=== PATIENT | female | born 2000 | race Caucasian/White ===

== ENCOUNTER 2022-10-28 21:01 | Emergency (ER) | payer MEDICAID, SELFPAY ==
--- NOTE | ~2022-10-28 | XR_ITS ---
EXAMINATION: XR HAND, RIGHT CLINICAL INFORMATION: Fifth metacarpal pain status post punching COMPARISON: None TECHNIQUE: PA, lateral, and oblique views of the right hand. FINDINGS: There is a boxer's type fracture of the fifth metacarpal with ventral angulation of the distal fracture fragment. No other fractures are seen. No dislocations. XR/XR hand RT min 3V IMPRESSION: Boxer's type fracture fifth metacarpal.
[2022-10-28 21:35] VITALS: BP 116/81; PULSE 77; RESP 16; TEMP 36.5; O2SAT 96; BMI 41.5
--- OUTSIDE RECORDS SUMMARY | 2022-10-28 22:12 | XMS_ITS | Continuity of Care Document ---
:2000 Author Organization [facility] Address [address] [place] [address]- Care Team Providers Name Role Phone Maximo GUTIERREZ, Rukhsana Garcia Primary Care Physician [place] [facility] [place]14/19 - 12/24/[address] [address]- [facility] Attending Physician: Deandre Rubio Admitting Physician: Deandre Rubio Referring Physician: Deandre Rubio Allergies, Adverse Reactions, Alerts No Known Medication Allergies Medications Handheld Electric Breast Pump See Instructions, # 1 each, Maintenance, Use as instructed, 04/29/18 10:13:36 EDT, Compound Start Date: 04/29/18 Status: OrderedPrenatal Multivitamins with Folic Acid 0.4 mg oral capsule 1 capsule, By Mouth, Daily, # 30 capsule, 0 Refills, Maintenance, 04/29/18 10:06:14 EDT, 1 capsule By Mouth Daily Start Date: 04/29/18 Status: Ordered
--- OUTSIDE RECORDS SUMMARY | 2022-10-28 22:12 | XMS_ITS | Continuity of Care Document ---
:2000 Author Organization [facility] Address [address] [place] [address]- Care Team Providers Name Role Phone Maximo GUTIERREZ, Rukhsana Garcia Primary Care Physician Encounter [facility] Date(s): 12/02/19 - 12/02/[address] [address]- [facility] Attending Physician: Leanne Burleson Allergies, Adverse Reactions, Alerts No Known Medication [...]
--- OUTSIDE RECORDS SUMMARY | 2022-10-28 22:12 | XMS_ITS | Continuity of Care Document ---
:2000 Author Organization [facility] Address [address] [place] [address]- Care Team Providers Name Role Phone Maximo GUTIERREZ, Rukhsana Garcia Primary Care Physician Encounter [facility] Date(s): 12/15/19 - 12/15/[address] [address]- [facility] Attending Physician: Carmelina Lamar MD Allergies, Adverse Reactions, Alerts No Known Medication [...]
--- OUTSIDE RECORDS SUMMARY | 2022-10-28 22:12 | XMS_ITS | Continuity of Care Document ---
:2000 Author Organization [facility] Address [address] [place] [address]- Care Team Providers Name Role Phone Maximo GUTIERREZ, Rukhsana Garcia Primary Care Physician Encounter [facility] Date(s): 11/08/19 - 11/18/19 [facility] [address] [place] [address]- [facility] Attending Physician: Deandre Rubio Admitting Physician: Deandre Rubio Referring Physician: AdmtrDeandre Allergies, Adverse Reactions, Alerts No Known Medication [...]
--- OUTSIDE RECORDS SUMMARY | 2022-10-28 22:12 | XMS_ITS | Encounter Summary ---
:2000 Author Reason for Visit Injury to Hand pt c/o right hand pain, bruising, swelli ng after voluntarily punching wall this AM Assessment and Plan 1. Pain in right hand ? learning about rice (rest, ice, compr ession, and elevation) ? XR, hand, 3 or more view 2. Closed fracture of fifth metacarpal bone of right hand ? emergency medicine referral Discussion Note: None recorded. Plan of Care Patient Instructions You have a fracture of your right 5th m etacarpal with angulation that requires reduction. You have been advised to go n ow to the Emergency Department for further evaluation. [facility] has been advised of your impending arrival. Reminders Provider Appointments None recorded. ? ? Lab None recorded. ? ? Referral Emergency Medicine Referral 10/28/2022 ? Procedures None recorded. ? ? Surgeries None recorded. ? ? Imaging XR, Hand, 3 or More View 10/28/2022 [facility] X-Ray Medications Name Start Date ? ? Adderall ? Celexa ? lamotrigine ? prednisone ? valacyclovir ? Medications Administered None recorded. Vitals Height Weight BMI Blood Pressure 5 ft 5 in 249 lbs 16 oz 41.6 kg/m2 112/80 mm[Hg] Results Lab Results None recorded. Allergies Code Code System Name Reaction Severity Onset NKDA ? ? ? Problems Name Status Onset Date Source ? Herpes Simplex Active 10/28/2022 ? Bipolar Disorder Active 10/28/2022 ? Anxiety Active 10/28/2022 ? Depressive Disorder Active 10/28/2022 ? Attention Deficit Hyperactivity Disorder Active 023 ? Procedures Date Name Performed by ? ? Operation for Retained Placenta Informat ion not available ? Remove Tonsils and Adenoids Information not available 10/28/2022 XR, Hand, 3 or More View [employer] X-Ra y [address] [place], [place] [address] (Work Place) Vaccine List Vaccine Type COVID-19, mRNA, LNP-S, bivalent booster, PF, 30 mcg/0.3 mL dose ([employer]) 10/09/2022?0.3 ML COVID-19, mRNA, LNP-S, PF, 30 mcg/0.3 mL dose (V[employer]cherlink) 07/30/2021?0.3 ML 08/23/2021?0.3 ML Tdap 02/12/2018 01/11/2022?0.5 ML Social History Tobacco Smoking Status Never Smoker What is your level of alcohol consumption? Occasional Do you or have you ever used any other forms of tobacco or n icotine? N Have you recently traveled abroad? N Which illicit or recreational drugs have you used? Marijuann a Do you use any illicit or recreational drugs? Y Functional Status Unknown. Past Encounters Encounter Date Diagnosis Provider 10/28/2022 Pain in Right Hand; Closed Fracture Gil Cardenas MD: [address] [id number], Ph. [phone] History of Present Illness ? Wrist/Hand Injury UC Reported By: Patient HPI: source of patient informatio n Patient arrived at Urgent Care ambulatory. Location: right, hand. Assoc iated Symptoms: no redness, pain, swelling, ecchymosis. Severity: modera te. Duration: days; this morning. Context: ; Punched wall. Aggravating Fa ctors: gripping; palpation. Previous Injury No prior injury to affected body part. Previous Treatment none. Prior Imaging: none Notes: <div>21 year old female pres enting for evaluation of right hand pain, swelling and bruising after punching a wall this morning. The pain is worse with movement and palp ation. No dayron numbness or weakness of the hand. No other injuries or c omplaints. No skin redness, abrasons or lacerations. </div> Review of Systems: ROS as noted in the HPI Review of Systems ? UC General Adult ROS Reported By: Patient Physical Exam ? Hand/Wrist UC Reported By: Patient Cardiovascular System: Edema Right: ; Soft tissue s welling dorsal right hand over 4th and 5th metacarpals. Arteria l Pulses Right: radial pulse normal, ulnar pulse normal. Capillary Refill Right capillary refill test normal Hands and Digits: Inspection Right: swelling; Swelling dorsal right hand over 4th and 5th metacarpals. Sof t Tissue Palpation Right Hand: ; Tenderness to palpation dors al right hand over 4th and 5th metacarpals without crepitus . Thumb Right: no tenderness of the first metacarpal, no sub luxation of the CMC joint, no tenderness of the thumb, nor mal active range of motion. Index Finger Right: no tenderness of the second metacarpal, no tenderness of the index fing er, normal active range of motion. Middle Finger Right: no tend erness at the third metacarpal, no tenderness of the middle fin abel, normal active range of motion. Ring Finger Right: n o tenderness of the ring finger, normal active range of motio n; Tenderness of 4th metacarpal. No crepitus. Little Finger R ight: no tenderness of the little finger, normal active range of motion; Tenderness right 5th metacarpal, no crepitus. Sta bility Right: no general instability. Strength Right: ; Weak right hand concrete layer due to pain right hand. Right Wrist Inspection: ; Right wrist nontender, FROM, no swelling . Right Wrist Active Range of Motion AROM WNL
--- OUTSIDE RECORDS SUMMARY | 2022-10-28 22:12 | XMS_ITS ---
:2000 Author Care Team Providers Name Role Phone [id number] Provider Unavailable Allergies Code Code System Name Reaction Severity Status Onset NKDA ? Medications Name Status Start Date Stop Date ? ? Adderall Active ? Not available Celexa Active ? Not available lamotrigine Active ? Not available prednisone Active ? Not available valacyclovir Active ? Not available Problems Name Status Onset Date Source ? Herpes Simplex Active 10/28/2022 ? Bipolar Disorder Active 10/28/2022 ? Anxiety Active 10/28/2022 ? Depressive Disorder Active 10/28/2022 ? Attention Deficit Hyperactivity Disorder Active 023 ? Procedures Date Name Performed by ? ? Operation for Retained Placenta Informat ion not available ? Remove Tonsils and Adenoids Information not available 10/28/2022 XR, Hand, 3 or More View [employer] X-Ra y [address] [place] [address] (Work Place) Results Lab Results None recorded. Past Encounters Encounter Date Diagnosis Provider 10/28/2022 Pain in Right Hand; Closed Fracture Gil Cardenas MD: [address] [place] [phone], Ph. Social History Tobacco Smoking Status Never Smoker Vaccine List Vaccine Type COVID-19, mRNA, LNP-S, bivalent booster, PF, 30 mcg/0.3 mL dose (Pfizer-BioNTech) 10/09/2022?0.3 ML COVID-19, mRNA, LNP-S, PF, 30 mcg/0.3 mL dose (Pfizer-BioNTech) 07/30/2021?0.3 ML 08/23/2021?0.3 ML Tdap 02/12/2018 01/11/2022?0.5 ML Plan of Care Patient Instructions You have a fracture of your right 5th m etacarpal with angulation that requires reduction. You have been advised to go n ow to the Emergency Department for further evaluation. [facility] has been advised of your impending arrival. Reminders Provider Appointments None recorded. ? ? Lab None recorded. ? ? Referral None recorded. ? ? Procedures None recorded. ? ? Surgeries None recorded. ? ? Imaging None recorded. ? ? Vitals Height Weight BMI Blood Pressure 5 ft 5 in 250 lbs 41.6 kg/m2 112/80 mm[Hg]
--- OUTSIDE RECORDS SUMMARY | 2022-10-28 22:12 | XMS_ITS | Continuity of Care Document ---
:2000 Author Organization [facility] Address [address] [place] [address]- Care Team Providers Name Role Phone Maximo GUTIERREZ, Rukhsana Garcia Primary Care Physician Encounter [facility] Date(s): 10/06/19 - 12/08/19 [facility] [address] [place] [address]- [facility] Attending Physician: Jagdeep GUTIERREZ, Wm Mcguire Allergies, Adverse Reactions, Alerts No Known Medication [...]
--- OUTSIDE RECORDS SUMMARY | 2022-10-28 22:12 | XMS_ITS | Continuity of Care Document ---
:[address] Author Organization [facility] Address [address] [place] [address]- Care Team Providers Name Role Phone Maximo GUTIERREZ, Rukhsana Garcia Primary Care Physician Encounter [facility] Date(s): 11/11/19 - 11/18/[address] [address]- [facility] Attending Physician: Carmelina Lamar MD Allergies, Adverse [...]
--- OUTSIDE RECORDS SUMMARY | 2022-10-28 22:13 | XMS_ITS ---
:2000 Author Organization [facility] Address [address] [place] [address] Care Team Providers Name Role Phone Griffin Bone Unavailable Unavailable PROBLEMS Type Condition ICD9-CM Code NSE57-KX Code Onset Condition SNO MED Code Dates Status Problem Asthma NOS J45.998 Active 615520144 Problem BMI 40.0-44.9, Z68.41 Active 02330 2008 adult Problem Mood [affective] F39 Active 441 267977 disorder, unspecified Problem Vitamin D E55.9 Active 31890248 deficiency, unspecified Problem Fatigue, other R53.83 Active 81635 001 Problem Nasal congestion R09.81 Active 682 60782 Problem Cough R05 Active 20459495 Problem ADHD, combined F90.2 Active 49784 6008 type Problem Amenorrhea, N91.2 Active 38673848 unspecified Problem Asthma with J45.901 Active 41737369 6 (acute) exacerbation, unspecified type Problem GERD K21.9 Active 310068627 Problem Shortness of R06.02 Active 0319959 07 breath Problem Fever NOS R50.9 Active 732951865 Problem Anxiety F41.9 Active 901855215 (unspecified) Problem Irregular N92.6 Active 98922212 menstruation, unspecified ALLERGIES No Known Allergies ENCOUNTERS Encounter Location Date Diagnosis [facility] [address] Sep, Cough, unspecifi ed R05.9 ; Practice [place] URI J06.9 ; [place] [address] breath R06.02 an d Asthma with (acute) exa cerbation, unspecified type J45.[address] [facility] [address] 22 Sep, 2021 Pain in thoracic spine M54.6 [place] ; Pain hip, righ t M25.551 ; [address] Segmental and so matic dysfunction of t horacic region M99.02 ; Segmental and somatic dysf unction of pelvic region M9 9.05 and Segmental and so matic dysfunction of l umbar region M99.03 [facility] [address] 15 Sep, 2022 No Show or Late Cancel [place] NS.LTCX [address] [facility] NO [address] 14 Sep, 2022 Encounter for im munization [place] Z23 ; Disorder o f the skin [address] and subcutaneous tissue, unspecified L98. 9 and follo w-up Z39.2 [place] [address] 11 Aug, 2022 [place] [address] 11 Aug, 2022 ADHD, combined t ype F90.2 [place] [address] [place] [address] Aug, [place] [address] [place] [address] Jul, Cough, unspecifi ed R05.9 and [place] Asthma NOS J45.9 98 [address] [facility] NO [address] 25 Jul, 2022 Strain of muscle and tendon [place] of back wall of thorax, [address] subsequent encou nter S29.012D ; No Sh ow or Late Cancel NS.LTCX ; Other low back pain M54.59 ; Segmental and somatic dysf unction of thoracic region M99.02 ; Segmental and so matic dysfunction of p elvic region M99.05 and Segme ntal and somatic dysfunct ion of lumbar region M9 9.03 [facility] NO [address] 12 Jul, 2022 Back pain, unspe cified M54.9 [place] and Encounter fo r care and [address] examination of l actating mother Z39.1 [facility] [address] 11 Jul, 2022 Strain of muscle and tendon [place] of back wall of thorax, [address] subsequent encou nter S29.012D ; Other low back pain M54.59 ; Se gmental and somatic dysfunct ion of thoracic region M99.02 ; Segmental and so matic dysfunction of p elvic region M99.05 and Segme ntal and somatic dysfunct ion of lumbar region M9 9.03 [facility] [address] 05 Jul, 2022 No Show or Late Cancel [place] NS.LTCX [address] [facility] [address] 27 Jun, 2021 Strain of muscle and tendon [place] of back wall of thorax, [address] initial encounte r S29.012A ; Segmental and so matic dysfunction of t horacic region M99.02 an d Segmental and somatic dysf unction of pelvic region M9 9.05 [place] [address] Jun, [place] [address] Jun, [place] [facility] [address] Jun, Back pain, unspe cified M54.9 [place] and Encounter fo r care and [address] examination of l actating mother Z39.1 [place] [address] Jun, [place] [facility] [address] 03 May, 2022 Fatigue R53.83 ; Encounter [place] [address] lactating mother Z39.1 and Back pain, unspe cified M54.9 [place] [address] Apr, [place] [address] Apr, [place] [address] Apr, [place] [address] [facility] [address] 30 Mar, 2022 Fatigue R53.83 a nd Encounter [place] [address] lactating mother Z39.1 [facility] [address] Mar, [place] [address] [place] [address] Mar, [place] [address] [place] [address] Mar, [place] [address] [place] [address] Mar, Localized bryan carreonmavis and Practice [place] lump, right lowe r limb [address] R22.41 [facility] [address] Mar, Fatigue R53.83 ; Encounter [place] [address] lactating mother Z39.1 and Edema localized R60.0 [place] [address] Mar, [place] [address] [place] [address] Mar, [place] [address] [place] [address] Mar, Fatigue R53.83 ; Encounter [place] [address] lactating mother Z39.1 ; Encounter for sc reening for other disorder Z 13.89 and hemor rhage O72.1 [place] [address] Mar, [place] [address] [place] [address] February, [place] [address] [place] [address] Jan, [place] [address] [place] [address] Dec, [place] [address] [place] [address] Nov, [place] [address] [place] [address] Nov[place] [address] [place] [address] Nov, [place] [address] [facility] [address] Nov, Mood [affective] disorder, [place] unspecified F39 and ADHD, [address] combined type F9 0.2 [place] [address] Oct, COVID-19 U07.1 ; Asthma NOS [place] J45.998 and 22 w eeks [address] gestation of pre gnancy Z3A.22 [place] [address] Oct, [place], [place] [facility] [address] Oct, COVID-19 [place]07[place]1 [place] [address] 13 Oct, 2021 Contact with and (suspected) [place] exposure to COVI D-19 Z20.822 [address] and Cough, unspe cified R05.9 [place] [address] Oct, [place], [place] AFP [address] Oct, COVID-19 EXPOSUR E Z20.822 [place] and Asthma NOS J 45.998 [address] [place] [address] Oct, [place] [address] Oct, [place] [address] Oct, [place] AFP [address] Oct, Acute pharyngiti s, [place] unspecified J02. 9 ; 20 weeks [address] gestation of pre gnancy Z3A.20 ; HSV B00 .2 ; Nausea R11.0 and Asthma NOS J45.998 [place] [address] Oct, [place] AFP [address] Oct, [place] [address] Oct, Mood [affective] disorder, [place] unspecified F39 and ADHD, [address] combined type F9 0.2 [place] [address] Oct, [place] AFP NO 6 [facility] Oct, Pharyngitis Acut e J02.9 [place] [address] [place] [address] Sep, [place] [address] Sep[place] [address] Sep[place] [address] Aug[place] [address] Aug, [place] [address] [place] [address] Jul, [place] [address] Jul, [place] [address] [facility] [address] Jul, Cough R05 and Vo miting [place] unspecified R11. 10 [address] [facility] [address] Jul, Cough, unspecifi ed R05.9 and [place] COVID-19, Contac t with and [address] (suspected) expo sure Z20.822 [place] [address] Jul, [place] [address] Jun, [place] [address] [facility] [address] Jun, [place] [address] [place] [address] Jun, [place] [address] [facility] [address] Jun, Counseling, unsp ecified [place] Z71.9 [address] [place] [address] Jun, [place] [address] Jun, [place] [address] May, [place] [address] May, ADHD, combined t ype F90.2 [place] [address] [address] [facility] [address] May, STD screen Z11.3 [place] [address] AFP NO [address] May, Chlamydial infec tion of [place] genitourinary [place] act, [address] unspecified A56. 2 [place] [address] May, [place] [address] May, [place] [address] May, [place] [address] [place] [address] May, Pelvic and perin eal pain Practice [place] R10.2 and Other specified noninflammatory disorders of vagina N89.8 [place] [address] May, Vaginitis acute N76.0 ; [place] [address] [address] act, unspecified A56. 2 ; Pain Pelvic and perin eal R10.2 and Disorder of the skin and subcutaneous tis addy, unspecified L98. 9 [place] [address] May, [place] [address] May, Mood [affective] disorder, [place] unspecified F39 ; Fatigue, other R53.83 and Anxiety (unspecified) F4 1.9 [place] [address] May, [place] [address] Apr, [place] [address] [place] [address] Apr, [place] [address] [place] [address] Apr, Candidiasis, uns pecified [place] B37.9 ; Vaginiti s acute N76.0 and Chlamy dial infection of gen itourinary tract, unspecifi ed A56.2 [place] [address] Apr, [place] [address] Apr, [place] [address] [place] [address] Apr, [place] [address] [place] [address] Apr, Vaginitis acute N76.0 ; PAP Practice [place] SMEAR Z01.419 ; STD Exposure [address] Z20.9 and Fatigu e R53.83 [place] [address] Apr, [place] [address] [place] [address] Apr, [facility] [address] [place] [address] Mar, [place] [address] [place] [address] Mar, [place] [address] [place] [address] Mar, Mood [affective] disorder, [place] unspecified F39 ; Fatigue, [address] other R53.83 and Anxiety (unspecified) F4 1.9 [place] [address] Mar, Vaginitis acute N76.0 [place] [address] [place] [address] Mar, [place] [address] [place] [address] Mar, Cough R05 and ST D Exposure [place] Z20.9 [address] [place] [address] Mar, Mood [affective] disorder, [place] unspecified F39 ; Fatigue, [address] other R53.83 and Anxiety (unspecified) F4 1.9 [place] [address] February, [facility] [address] [place] [address] February, Mood [affective] disorder, [place] unspecified F39 [address] [place] [address] February, Irregular menstr uation, [place] unspecified N92. 6 and BMI [address] 40.0-44.9, adult Z68.41 [place] [address] February, [facility] [address] [place] [address] February, [place] [address] [place] [address] Jan, Mood [affective] disorder, [place] unspecified F39 [address] [facility] [address] Jan, Covid Exposure, Unlikely Practice [place], [place] Disease Z03.818 [address] [facility] [address] Jan, COVID-19 EXPOSUR E Z20.822 [place] [address] [place] [address] Jan, [place] [address] [place] [address] Jan, [place] [address] [place] [address] Jan, Pelvic and perin eal pain [place] R10.2 and Fatigu e R53.83 [address] [place] [address] Jan, Mood [affective] disorder, [place] unspecified F39 and Anxiety [address] (unspecified) F4 1.9 [place] [address] Dec, Mood [affective] disorder, [place] unspecified F39 [address] [facility] 6 [facility] Dec, Acute sinusitis, unspecified [place] J01.90 [address] [place] [address] Dec, [place] [address] [place] [address] Dec, Mood [affective] disorder, [place] unspecified F39 [address] [place] [address] Dec, [place] [address] [place] [address] Dec, [place] [address] [place] [address] Dec, [place] [address] [place] [address] Dec, Fatigue, other R 53.83 and [place] Mood [affective] disorder, [address] unspecified F39 [place] [address] Dec, [place] [address] [facility] [address] Nov, Covid Exposure, Unlikely [place] Disease Z03.818 [address] [place] [address] Nov, Fatigue, other R 53.83 and Practice [place] Mood [affective] disorder, [address] unspecified F39 [facility] [address] Nov, Fatigue, other R 53.83 and Practice [place] Mood [affective] disorder, [address] unspecified F39 [facility] [address] Nov, Fatigue, other R 53.83 and Practice [place] Mood [affective] disorder, [address] unspecified F39 [facility] [address] Nov, Fatigue, other R 53.83 and Practice [place] Mood [affective] disorder, [address] unspecified F39 [facility] [address] Nov, Practice [place] [address] [facility] [address] Oct, Fatigue, other R 53.83 and Practice [place] Mood [affective] disorder, [address] unspecified F39 [facility] [address] Oct, [place] [address] [facility] [address] Oct, [place] [address] [facility] [address] Oct, Practice [place] [address] [facility] [address] Oct, Mood [affective] disorder, Practice [place] unspecified F39 [address] [facility] [address] Oct, [facility] [address] [facility] [address] Oct, [place] [address] [facility] [address] 15 Oct, 2020 Amenorrhea, unsp ecified [place], [place] N91.2 ; [place] [address] test, result positive Z32.01 and Fatigue R53.83 [facility] [address] 14 Oct, 2020 Amenorrhea, unsp ecified [place] N91.[address] [place] [address] test, result positive Z32.01 [facility] [address] Oct, Fatigue, other R 53.83 and Practice [place] Mood [affective] disorder, [address] unspecified F39 [facility] [address] Oct, Fatigue, other R 53.83 and Practice [place] Mood [affective] disorder, [address] unspecified F39 [facility] [address] Sep, Encounter for pr escription Practice [place] of emergency con traception [address] Z30.012 [facility] [address] Sep, Practice [place] [address] [facility] [address] Sep, Practice [place] [address] [facility] [address] Sep, COVID-19 Contact with, Practice [place] Suspected exposu re Z20.828 [address] [facility] [address] Sep, [place] [address] [facility] [address] Sep, Fatigue, other R 53.83 and Practice [place] Mood [affective] disorder, [address] unspecified F39 [facility] [address] Sep, [place] [address] [facility] [address] Sep, [place] [address] [facility] [address] Sep, Fatigue, other R 53.83 and Practice [place] Mood [affective] disorder, [address] unspecified F39 [facility] [address] Aug, Fatigue, other R 53.83 and Practice [place] Mood [affective] disorder, [address] unspecified F39 [facility] [address] Aug, Fatigue, other R 53.83 and Practice [place] Mood [affective] disorder, [address] unspecified F39 [facility] [address] Aug, Fatigue, other R 53.83 Practice [place] [address] [facility] [address] Aug, [place] [address] [facility] [address] Aug, Fatigue, other R 53.83 Practice [place] [address] [facility] [address] Jul, Fatigue, other R 53.83 Practice [place] [address] Jul, Fatigue, other R 53.83 [place] [address] Jul, Cough R05 ; Feve r NOS R50.9 [place] and Shortness of breath R06.02 [place] [address] Jul, [place] [address] [place] [address] Jul, [place] [address] Jul, Cough R05 [place] [address] Jul, [place] [address] Jul, [place] [address] Jul, [place] [address] Jul, [place] [address] 15 Jul, 2020 Fatigue, other R 53.83 [place] [address] 15 Jul, 2020 [place] AFP [facility] [address] 15 Jul, 2020 Cough R05 ; Asth ma NOS [place] J45.998 ; Myalgi a, [address] unspecified site M79.10 and Nasal congestion R09.81 [place] [address] Jul, Fatigue, other R 53.83 [place] [address] Jun, Fatigue, other R 53.83 [place] [address] 18 Jun, 2020 Fatigue, other R 53.83 [place] [address] Jun, Fatigue, other R 53.83 [place] [address] 16 Jun, 2020 Fatigue, other R 53.83 [place] [address] 11 Jun, 2020 Mood [affective] disorder, [place] unspecified F39 [address] [facility] [address] Jun, Mood [affective] disorder, [place] unspecified F39 [address] [facility] [address] Jun, Mood [affective] disorder, [place] unspecified F39 [address] [facility] [address] May, Mood [affective] disorder, [place] unspecified F39 [address] [facility] [address] May, Mood [affective] disorder, [place] unspecified F39 [address] [facility] [address] 13 May, 2020 Fatigue R53.83 ; Pain Neck [place] M54.2 and GERD K 21.9 [address] [facility] [address] May, Mood [affective] disorder, [place] unspecified F39 [address] [facility] [address] 07 May, 2020 Pain Neck M54.2 ; [place] Amenorrhea, unsp ecified [address] N91.2 and GERD K 21.9 [facility] [address] Apr, [place] [address] [facility] [address] Apr, [place] [address] [facility] [address] Apr, Mood [affective] disorder, [place] unspecified F39 [address] [facility] [address] Apr, Fatigue R53.83 [place] [address] [facility] [address] Apr, [place] [address] [facility] [address] Apr, [place] [address] [facility] [address] Apr, Adnexal pain R10 .2 [place] [address] [facility] [address] Apr, Pain Pelvic and perineal [place] R10.2 and Nausea R11.0 [address] [facility] [address] Apr, [place] [address] [facility] [address] Mar, [place] [address] [facility] [address] Mar, Fatigue R53.83 [place] [address] [facility] [address] Mar, Practice [facility] [address] [facility] [address] Mar, Fatigue R53.83 [place] [address] [facility] [address] Mar, Pain hand, left M79.642 [place] [address] [facility] [address] Mar, [place] [address] [facility] [address] Mar, Fatigue R53.83 [place] [address] [facility] [address] Mar, Fatigue R53.83 [place] [address] [facility] [address] February, Fatigue R53.83 [place] [address] [facility] [address] February, [place] [address] [facility] [address] February, Fatigue R53.83 [place] [address] [facility] [address] February, Fatigue R53.83 [place] [address] [facility] [address] Jan, Fatigue R53.83 [place] [address] [facility] [address] Jan, Fatigue R53.83 [place] [address] [facility] [address] Jan, Fatigue R53.83 [place] [address] [facility] [address] Jan, Fatigue R53.83 [place] [address] [facility] [address] Jan, Practice [facility] [address] [facility] [address] Jan, Practice [facility] [address] [facility] [address] Jan, Fatigue R53.83 [place] [address] [facility] [address] Dec, Practice [facility], [facility] [address] [place] [address] Dec, [place] [address] [facility] [address] Dec, [place] [address] [place] [address] Dec, Fatigue R53.83 [place] [address] [place] [address] Dec, [place] [address] [place] [address] Nov, Fatigue R53.83 [place] [address] [place] [address] Nov, [place] [address] [place] [address] Nov, [place] [address] [place] [address] Nov, test, result [place] positive Z32.01 [address] [place] [address] Nov, [place] [address] [place] [address] Nov, Fatigue R53.83 [place] [address] [place] [address] Nov, [place] [address] [facility] [address] [facility] Nov, [place] [address] [address] [place] [address] Nov, Nausea R11.0 ; V aginitis [place] acute N76.0 and Influenza B [address] J10.89 [place] [address] Nov, Fatigue R53.83 [place] [address] [place] [address] Nov, [place] [address] [place] [address] Oct, [place] [address] [facility] [address] [address] [facility] Oct, Adult physical N ORMAL Z00.00 [place] ; Cough R05 ; [place] [address] R50.9 ; Asthma N [place] J45.998 ; Vitamin D defici ency, unspecified E55. 9 and BMI 40.0-44.9, adult Z68.41 [place] [address] Oct, Fatigue R53.83 [place] [address] [place] [address] Oct, [place] [address] Oct, Fatigue R53.83 [place] [address] Oct, [place] [address] [place] [address] Oct, CPE Z00.00 ; BMI 40.0-44.9, [place] adult Z68.41 ; F atigue [address] R53.83 ; [facility] Z13.22 0 and Vitamin D defici ency, unspecified E55. 9 [facility] 6 [facility] Oct, Asthma NOS J45.9 98 ; BMI [place] 40.0-44.9, adult Z68.41 ; [address] HSV B00.2 and Fa tigue R53.83 [place] [address] Oct, [place] [address] IMMUNIZATIONS Vaccine Route Administration Date Status COVID Vacc BIVALENT 12+ Pfizer IM Intramuscular Oct 09, 2022 Administered TDAP history Unknown January 11, 2022 Administered Covid Vaccine Pedi (Pfizer), IM Intramuscular Aug 22, 2021 Ad ministered History Covid Vaccine Pedi (Pfizer), IM Intramuscular Jul 30, 2021 Ad ministered History Ceftriaxone IM Intramuscular May 24, 2021 Administered SOCIAL HISTORY Qualifiers Date Former Smoker 2015 - 2017 REASON FOR REFERRAL FUNCTIONAL STATUS PLAN OF CARE Activity Details Future Appointment Provider Name:Nancy manzanares, 2022-12-03 10:30:00 AM, 6 [facility], [place], [address], Pending Test COV19, RSV,FLU A/B Pending Test Ultrasound : Duplex right lo wer extremity Pending Test Covid-19 Novel Coronavirus, HAFSA In House Pending Test URINE CHLAMYDIA GC (use this one for STD urine screen) Pending Test US PELVIS Pending Test Urine Dip --in house Pending Test -PAP, cervical, & GC/Chlamyd ia AMP DNA probe from [employer]; HPV Hybrid Capture High Risk DNA Probe any DX Pending Test COVID-19 (NOVEL CORONAVIRUS) , PCR Drive Through Pending Test COVID-19 (NOVEL CORONAVIRUS) , PCR Drive Through Pending Test Ultrasound : Trans Vaginal Pending Test Ultrasound : Trans Vaginal VITAL SIGNS Height 64 in 2022-09-04 Height 64 in 2022-05-22 Height 64 in 2022-04-23 Height 64 in 2022-03-12 Height 64 in 2022-02-13 Height 64 in 2022-01-01 Height 64 in 2021-12-04 Height 64 in 2021-11-12 Height 64 in 2021-11-07 Height 64 in 2021-10-30 Height 64 in 2021-10-29 Height 64 in 2021-07-17 Height 64 in 2021-07-04 Height 64 in 2021-05-23 Height 64 in 2021-05-02 Height 64 in 2021-04-17 Height 64 in 2021-03-20 Height 64 in 2021-03-19 Height 64 in 2021-02-15 Height 64 in 2021-02-05 Height 64 in 2021-01-12 Height 64 in 2021-01-12 Height 64 in 2020-11-28 Height 64 in 2020-11-15 Height 64 in 2020-11-09 Height 64 in 2020-10-21 Height 63.0 in 2020-07-05 Height 63.0 in 2020-06-21 Height 63.0 in 2020-06-02 Height 63.0 in 2020-05-17 Height 63.0 in 2020-04-20 Height 63.0 in 2019-12-02 Height 63.0 in 2019-11-24 Height 63.0 in 2019-11-04 Weight 252 lbs 2022-08-07 Weight 245.8 lbs 2022-05-29 Weight 246 lbs 2022-05-22 Weight 238.4 lbs 2022-04-25 Weight 245 lbs 2022-04-23 Weight 258 lbs 2022-03-12 Weight 255 lbs 2022-02-13 Weight 254 lbs 2022-01-01 Weight 253 lbs 2021-12-04 Weight 250 lbs 2021-11-12 Weight 250 lbs 2021-11-07 Weight 250 lbs 2021-10-31 Weight 250 lbs 2021-10-29 Weight 240 lbs 2021-07-17 Weight 238.9 lbs 2021-07-04 Weight 238.9 lbs 2021-05-24 Weight 235 lbs 2021-05-22 Weight 235 lbs 2021-05-02 Weight 234 lbs 2021-04-17 Weight 238.8 lbs 2021-04-02 Weight 235 lbs 2021-03-20 Weight 241 lbs 2021-02-05 Weight 257 lbs 2020-11-28 Weight 257 (stated) lbs 2020-11-15 Weight 259.6 lbs 2020-11-09 Weight 259.6 lbs 2020-10-21 Weight 259.6 lbs 2020-07-12 Weight 260.0 lbs 2020-06-02 Weight 250 lbs 2020-04-21 Weight 250 lbs 2020-04-10 Weight 243.6 lbs 2019-12-02 Weight 242.6 lbs 2019-11-24 Weight 245.2 lbs 2019-11-04 BMI 42.22 kg/m2 2022-05-22 BMI 42.05 kg/m2 2022-04-23 BMI 44.28 kg/m2 2022-03-12 BMI 43.77 kg/m2 2022-02-13 BMI 43.59 kg/m2 2022-01-01 BMI 43.42 kg/m2 2021-12-04 BMI 42.91 kg/m2 2021-11-12 BMI 42.91 kg/m2 2021-11-07 BMI 42.91 kg/m2 2021-10-29 BMI 41.19 kg/m2 2021-07-17 BMI 41.00 kg/m2 2021-07-04 BMI 40.33 kg/m2 2021-05-02 BMI 40.16 kg/m2 2021-04-17 BMI 40.33 kg/m2 2021-03-20 BMI 41.36 kg/m2 2021-02-05 BMI 44.11 kg/m2 2020-11-28 BMI 44.56 kg/m2 2020-11-09 BMI 44.56 kg/m2 2020-10-21 BMI 46.05 kg/m2 2020-06-02 BMI 43.15 kg/m2 2019-12-02 BMI 42.97 kg/m2 2019-11-24 BMI 43.43 kg/m2 2019-11-04 Temperature 98.2 degrees Fahrenheit 2022-10-25 Temperature 97.2 degrees Fahrenheit 2022-10-09 Temperature 97.9 degrees Fahrenheit 2022-08-20 Temperature 98.1 degrees Fahrenheit 2022-08-07 Temperature 98.2 degrees Fahrenheit 2022-07-17 Temperature 98.0 degrees Fahrenheit 2022-05-29 Temperature 97.7 degrees Fahrenheit 2022-04-25 Temperature 97.0 degrees Fahrenheit 2022-04-01 Temperature 98.5 degrees Fahrenheit 2021-11-12 Temperature 98.7 degrees Fahrenheit 2021-10-31 Temperature 98.3 degrees Fahrenheit 2021-10-29 Temperature 98.2 degrees Fahrenheit 2021-06-01 Temperature 98.5 degrees Fahrenheit 2021-05-24 Temperature 98.9 degrees Fahrenheit 2021-03-20 Temperature 98.4 degrees Fahrenheit 2021-01-12 Temperature 97.2 degrees Fahrenheit 2020-07-12 Temperature 97.6 degrees Fahrenheit 2020-06-02 Temperature 98.8 degrees Fahrenheit 2020-04-26 Temperature 97.9 degrees Fahrenheit 2019-12-02 Temperature 100.0 degrees Fahrenheit 2019-11-24 Temperature 97.9 degrees Fahrenheit 2019-11-04 Oximetry 98% 2022-10-25 Oximetry 96% 2022-10-09 Oximetry 98% 2022-08-20 Oximetry 98% 2022-08-07 Oximetry 98% 2022-07-17 Oximetry 98% 2022-05-29 Oximetry 98% 2022-04-25 Oximetry 98% 2022-04-04 Oximetry 96% 2022-04-01 Oximetry 98% 2021-10-31 Oximetry 98% 2021-06-01 Oximetry 98% 2021-05-24 Oximetry 98% 2021-05-22 Oximetry 98% 2021-04-02 Oximetry 98% 2020-07-12 Oximetry 97% 2020-06-02 Oximetry 98% 2019-12-02 Oximetry 97% 2019-11-24 Oximetry 99% 2019-11-04 Blood pressure systolic 132 mm Hg 2022-10-25 Blood pressure diastolic 70 mm Hg 2022-10-25 MEDICATIONS Medication Instructions Dosage Frequency Start End Duration Statu s Date Date Adderall 10 mg orally 2 times 1 tab(s) 12h 14 Dec, 30 day(s) Active a day 2021 NEBULIZER FOR as directed Sep, Active HOME USE 2021 Prednisone 6 Day oral daily 6 tabs day 24h 30 Dec, 6 days A ctive Prednisone 6 Day 1, 5 day 2, 2021 Taper 4 day 3, 3 day 4, 2 day 5, 1 day 6 orally once a 1 tab(s) 24h Active Multivitamins day Multivitamins with Folic Acid 0.8 mg Nebulizer Adult 30 Sep, Active Mask, 2021 Flovent Diskus 50 inhaled 2 times 1 puff(s) 12h 30 d ay(s) Active mcg/inh a day valACYclovir 500 orally once a 1 tab(s) 24h 90 days Active mg day lamoTRIgine 100 orally once a 1 tab(s) 24h 90 days A ctive mg day albuterol by nebulizer 3 mL 6h 30 Dec, 30 day(s) Active nebulizer 2.5 every 6 hours 2021 mg/3 mL (0.083%) albuterol 90 inhaled every 6 2 puff(s) 6h 30 Sep, 30 day(s) Active mcg/inh hours 2021 CeleXA 20 mg orally once a 1 tab(s) 24h 90 days Acti ve day NEBULIZER FOR as directed Sep, Active HOME USE 2021 PROCEDURES Procedure Date Ordered Result Body Site DEVELOPMENTAL TESTING UP TO 21YRS Nov 24, 2019 Rapid Covid test Nov 08, 2021 RAPID STREP Oct 29, 2021 SPECIMEN HANDLING Oct 29, 2021 UA W/O MICRO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
--- OUTSIDE RECORDS SUMMARY | 2022-10-28 22:13 | XMS_ITS | Continuity of Care Document ---
:2000 Author Organization [facility] Care Team Providers Name Role Phone [facility] Unavailable Unavailable Social History Combined list of available smoking, tobacco, and other social history from [facility]. Social History Type Response Date Comment Source This section is an empty social history section. [facility]
--- NOTE | 2022-10-28 22:42 | ED_ITS ---
HPI - Extremity Problem General Chief complaint: Extremity Injury, Upper Stated complaint: right hand swollen punched a wall Time Seen by Provider: 10/28/22 22:00 Source: patient Mode of arrival: ambulatory Limitations: no limitations History of Present Illness HPI Narrative: 21-year-old [id number] female presenting to the emergency department with pain and swelling to her right hand overlying the 5th metacarpal region status post punching wall earlier this morning. Patient tells me she was seen at Urgent Care was told she had a fracture and it was angulated therefore she had to come to the emergency department to get a pop back in place. Denies numbness and tingling. Reports severe pain. Denies fevers and chills. Denies previous injuries to hand/wrist on the right. Related Data Allergies Allergy/AdvReac Type Severity Reaction Status Date / Time No Known Allergies Allergy Unverified 07/13/20 19:41 [No Known Allergies*] Review of Systems Review of Systems: Constitutional : No Weight loss, No Fever, No Chills, No Fatigue, No Malaise ENT/Mouth : No sore throat, No Rhinorrhea Eyes: No Eye Pain, No Swelling, No Redness Cardiovascular : No Chest Pain, No SOB, No Dyspnea on Exertion, No Orthopnea, No Edema, No Palpitations Respiratory : No Cough, No Sputum, No Wheezing Gastrointestinal : No Nausea, No Vomiting, No Diarrhea, No Constipation, No abdominal Pain, No Hematochezia, No Melena Genitourinary : No Dysuria, No Urinary Frequency, No Hematuria, Musculoskeletal : + joint pain, No Myalgias, + Joint Swelling Skin : No Skin Lesions, No rash Neuro : No Weakness, No Numbness, No Dizziness, No Headache Psych : No Anxiety/Panic, No Depression All other systems reviewed and are negative Yes all other systems are reviewed and are negative [facility] Past Medical History Attestation statement: The following information was validated with the patient. Source: old records reviewed and nursing notes reviewed Social History Social History Advance Directives: No Physical Exam Vital Signs: Vital Signs: Last Vital Signs Temp 97.7 F 10/28/22 21:35 Pulse 77 10/28/22 21:35 Resp 16 10/28/22 21:35 BP 116/81 10/28/22 21:35 Pulse Ox 96 10/28/22 21:35 O2 Del Method 10/28/22 21:35 BMI result Body Mass Index 41.5 Vital signs stable Appearance: Alert.? Oriented X3.? No acute distress.? Head: Normocephalic, atraumatic, no step-offs or deformities Eyes: Pupils equal, round and reactive to light.? ENT: Pharynx normal.? Neck: Normal inspection.? Neck supple.? CVS: Normal heart rate and rhythm.? Pulses normal.? Respiratory: No respiratory distress.? Breath sounds normal.? Abdomen: Soft and nontender.? Skin: Skin warm and dry.? Normal skin color.? Normal skin turgor.? Extremities: 5/5 strength to bilateral upper and lower extremities 2+ radial pulses equal bilateral. Normal capillary refill to bilateral upper extremities. Normal sensation to bilateral upper extremities. Pain with palpation to right 5th metacarpal, dorsal aspect, no step-offs or deformities. Normal left hand. Full range of motion to bilateral wrists. No signs of wrist drop her neurovascular compromise on exam. Neuro: Oriented X 3.? No motor deficit.? No sensory deficit. CN 2-12 intact Course Reevaluation(s) Reevaluation #1: X-ray showing a boxer's fracture. Will place patient an ulnar gutter splint and have her follow-up with orthopedics. Educated on warning signs and when to return. Educated patient on diagnosis and treatment plan, answered all question, patient verbalizes understanding. At this time patient will be discharged home, advised to return with new or worsening symptoms. Educated on worrisome signs and symptoms and when to return. At this time I feel comfortable discharge home. Time: 23:58 Medications Administered Discontinued Medications Generic Name Dose Route Start Last Admin Trade Name Freq PRN Reason Stop Dose Admin Acetaminophen 975 mg 10/28/22 22:54 10/28/22 22:56 Acetaminophen 325 Mg Tablet PO 10/28/22 22:55 975 mg ONCE ONE Administration Medical Decision Making Medical Decision Making [facility] Narrative: 0022 21-year-old female presents with right hand pain status post punching wall earlier today. Right-hand dominant. Physical exam significant for 5/5 strength to bilateral upper and lower extremities 2+ radial pulses equal bilateral. Normal capillary refill to bilateral upper extremities. Normal sensation to bilateral upper extremities. Pain with palpation to right 5th metacarpal, dorsal aspect, no step-offs or deformities. Normal left hand. Full range of motion to bilateral wrists. No signs of wrist drop her neurovascular compromise on exam. Likely fracture/dislocation. Unlikely sprain/strain. No signs of neurovascular compromise. Plan at this time is imaging. Differential Diagnosis Differential Diagnoses: The differential diagnosis associated with the presentation includes Likely fracture/dislocation. Unlikely sprain/strain. No signs of neurovascular compromise. Admission/Observation Consideration of admission/observation: Escalation of care including admission/observation considered Not indicated Independent Interpretation I performed an independent interpretation of an: Plain X-Ray Radiology Impression Discussion of test interpretation with radiology: I have reviewed the radiologist's reading. Prescription Management I considered prescription management with: Pain Medication Core Measures AMI core measures followed: Yes Measure exclusions: not indicated Critical Care Time Critical Care Time Critical Care Time: No Discharge Plan Discharge Clinical Impression: Boxer's fracture Patient Disposition: Home, Self-Care Instructions: Boxer Fracture (ED) Additional Instructions: Take your medications as prescribed. If you were prescribed antibiotics today, it is important that you take your medication to their entirety, do not skip any doses, do not finish them early. Follow-up with your primary care provider this week. Follow-up with the orthopedic team. Return to the emergency department with new or worsening symptoms. Such as fevers, chills, chest pain, shortness of breath, nausea, vomiting, dizziness, headache, vision changes, lethargy, numbness, tingling, worsening pain, discoloration of fingers In case of emergency call 911 Take Tylenol as needed for pain do not exceed a maximum daily dose as listed on the package. FINDINGS: There is a boxer's type fracture of the fifth metacarpal with ventral angulation of the distal fracture fragment. No other fractures are seen. No dislocations.? XR/XR hand RT min 3V IMPRESSION: Boxer's type fracture fifth metacarpal. ? Referrals: [facility] [Provider Group] - 1 week Toby Fletcher PA [Primary Care Provider] - 2 days Stand Alone Forms: Work/School Release
[2022-10-28] MEDS: Acetaminophen 325 MG TABLET 975 MG PO (22:56)
== END 2022-10-29 00:19 | disposition home or self-care (01) ==
PROVIDERS: Emergency Provider Internal Medicine; PCP Physician Assistant
DX: S62.366A Nondisplaced fracture of neck of fifth metacarpal bone, right hand, initial encounter for closed fracture (principal); W22.09XA Striking against other stationary object, initial encounter; Y93.9 Activity, unspecified; Y92.9 Unspecified place or not applicable; Y99.9 Unspecified external cause status
CPT/HCPCS: 29125; 73130; 99283; 99284

== ENCOUNTER 2023-03-09 14:51 | Day surgery (SDC) | payer MEDICAID, SELFPAY ==
[2023-03-09] VITALS (9 sets, daily range): BP systolic 107–156; BP diastolic 61–92; PULSE 62–80; RESP 12–18; TEMP 36.7–36.9; O2SAT 93–98; BMI 44.6
--- NOTE | ~2023-03-09 | XR_ITS ---
EXAMINATION: XR ABDOMEN KUB CLINICAL INDICATION: Missing IUD COMPARISON: None available. TECHNIQUE: 2 views of the abdomen. FINDINGS: No IUD or other foreign body evident within the abdomen or pelvis. The bowel gas pattern is normal with no evidence of ileus or obstruction. No unusual soft tissue calcifications are noted. The bones are unremarkable. XR/XR KUB IMPRESSION: No IUD identified within the abdomen or pelvis.
--- NOTE | ~2023-03-09 | US_ITS ---
EXAMINATION: US PELVIS CLINICAL INFORMATION: Vaginal bleeding. History of 12 days ago. COMPARISON: None available. TECHNIQUE: Ultrasound of the pelvis is performed using both transabdominal and transvaginal transducers along with Doppler. Transvaginal imaging is performed due to inadequate visualization transabdominally. FINDINGS: The uterus is anteverted and measures 10 x 5 x 5.3 cm in dimension. Endometrial thickness measures 1.4 cm. The endometrium is heterogeneous with solid and cystic areas. There is slight increased peripheral vascularity to the endometrium. Appearance is questionable for retained products of conception. No IUD is seen. The cervix is normal appearing. The right ovary is normal-appearing and measures 3.7 x 2.3 x 2.1 cm. The left ovary measures 4.1 x 2.1 x 2 cm. There is a 1.2 x 0.9 x 0.9 cm left paraovarian or adnexal cyst. There is a small amount of fluid in the pelvis. US/US pelvic and transvaginal IMPRESSION: Thickened heterogeneous endometrium with slight increased peripheral vascularity. Appearance is questionable for retained products of conception. No IUD seen.
--- NOTE | 2023-03-09 15:02 | ED.GENADULT ---
HPI - General Adult General Chief complaint: Vaginal Bleeding Stated complaint: Vaginal bleeding post , Abd pain per EMS Time Seen by Provider: 03/09/23 14:55 Source: patient and EMS Mode of arrival: EMS Limitations: no limitations History of Present Illness HPI narrative: 22-year-old female status post medical termination of 11 weeks 12 days ago. Patient came back for persistent of vaginal bleeding and passing blood clots, and lower abdominal cramps . Patient's blood type is B positive. Related Data Allergies Allergy/AdvReac Type Severity Reaction Status Date / Time No Known Allergies Allergy Unverified 07/13/20 19:41 [No Known Allergies*] Review of Systems Review of Systems: All other systems are reviewed and are negative Constitutional: Reports as per HPI and Reports no additional constitutional complaints Eyes: Reports as per HPI and Reports no additional eye complaints Reports system reviewed and no additional complaints, except as documented Cardiovascular: Reports as per HPI and Reports no additional cardiovascular complaints Respiratory: Reports as per HPI and Reports no additional respiratory complaints Gastrointestinal: Reports as per HPI and Reports no additional gastrointestinal complaints Genitourinary: Reports no additional female genitourinary complaints Musculoskeletal: Reports no additional musculoskeletal complaints Skin/Breast: Reports system reviewed and no additional complaints, except as docu Psychiatric: Reports no additional psychiatric complaints Endocrine: Reports no additional endocrine complaints Hematologic/Lymphatic: Reports no additional hematologic/lymphatic complaints Allergic/Immunologic: Reports no additional allergic/immunologic complaints Reports system reviewed and no additional complaints, except as documented and Reports Abnormal speech present Physical Exam ED Vital Signs: Vital Signs - 24 hr 03/09/23 15:03 03/09/23 15:55 03/09/23 15:56 Temperature 98.3 F Pulse Rate 71 64 67 Respiratory Rate 16 Blood Pressure 114/63 120/71 128/73 Pulse Oximetry 98 Oxygen Delivery Method Room Air BMI result Body Mass Index 44.6 Vital signs have been reviewed as appeared to be correct. Blood pressure normal. Heart rate normal. Respiration rate normal. Temperature normal. Oxygen saturation normal. Orthostatic vital signs stable. Appearance: Alert. Oriented X3. No acute distress. Head: Normal external exam. Normocephalic. Atraumatic. No Dudley signs noted. No raccoon eyes noted Eyes: PERRLA. EOMI. Conjunctiva and sclera normal. Eyelids normal. ENT: TM's Normal. Pharynx normal. Uvula midline. Moist mucous membranes. No trismus noted. No drooling noted. No muffled voice noted. Neck: Normal inspection. Neck supple. FROM. No adenopathy. Thyroid Normal. No meningeal signs. No neck mass noted. CVS: Normal heart rate and rhythm. Heart sound normal. No murmurs noted. Pulses normal throughout. Respiratory: No respiratory distress. Painless inspiration. Breath sounds normal. No wheezes/rales/rhonchi noted. Chest nontender. No accessory muscle usage noted or decreased air movement noted. Abdomen: Soft and nontender. Bowel sounds normal in all 4 quadrants. No distention noted. No organomegaly noted. No visible injury noted. Back: No CVA tenderness. Full range of motion noted. Skin: Skin warm and dry. Normal skin color. Normal skin turgor. No rashes/lesions/lacerations noted. Extremities: No lower extremity edema. Extremities exhibit normal range of motion. Extremities nontender. Neuro: Oriented X 3. Cranial nerve exam: II-XII are grossly intact No motor deficit. No sensory deficit. Reflexes normal. Course Course Course Narrative: status post and termination 12 days ago presented with persistent of vaginal bleeding, patient hemodynamically stable with 1 unit of hemoglobin drop from her baseline, ultrasound showing retained product, case discussed with Dr. Callejas who is planning to take her to the OR for D and C, case signed out to Dr. Alvarez to follow-up on the case. Medical Decision Making Differential Diagnosis Differential Diagnoses: The differential diagnosis associated with the presentation includes (Missed , incomplete , severe anemia, electrolyte disturbance.) Admission/Observation Consideration of admission/observation: Escalation of care including admission/observation considered Consult Healthcare Provider Management of the patient was discussed with: Farm Adviser (Britta) Lab Data [facility] Lab Attestation statement: I reviewed the patient's lab results. 03/09/23 15:09 03/09/23 15:09 Labs: Lab Results 03/09/23 03/09/23 Range/Units 15:09 15:09 WBC 10.8 (4.8-10.8) X10*3/uL RBC 4.32 (4.20-5.50) X10*6/uL Hgb 12.4 (12.0-16.0) g/dl Hct 37.2 (37.0-47.0) % MCV 86.1 (80.0-98.0) fL MCH 28.7 (27.0-33.0) pg MCHC 33.3 (31.0-35.0) g/dl RDW 12.3 (11.0-16.0) % Plt Count 296 (160-400) X10*3/uL MPV 9.5 (9.4-12.3) fL Immature Gran % (Auto) 0.3 (0.0-0.4) % Neut % (Auto) 61.7 (45-73) % Lymph % (Auto) 30.2 (20-40) % [place] % (Auto) 4.7 (2-11) % Eos % (Auto) 2.6 (0-4) % Baso % (Auto) 0.5 (0-2) % Lymph # (Auto) 3.3 (1.2-4.9) X10*3/uL [place] # (Auto) 0.5 (0.1-1.2) X10*3/uL Eos # (Auto) 0.3 (0.0-0.4) X10*3/uL Baso # (Auto) 0.1 (0.0-0.2) X10*3/uL Abs Immat Gran (auto) 0.03 (0.00-0.03) X10*3/uL Absolute Neuts (auto) 6.6 (2.0-8.3) x10*3/uL Absolute Nucleated RBC 0.000 (0.0-0.012) X10*3/uL Nucleated RBC % (auto) 0.0 (0.0-0.2) /100WBC Sodium 141 (135-145) mmol/L Potassium 4.1 (3.3-5.1) mmol/L Chloride 108 (96-108) mmol/L Carbon Dioxide 25 (22-29) mmol/L Anion Gap 12 (12-20) BUN 9 (9-16) mg/dL Creatinine 0.78 (0.5-1.4) mg/dL Estim Creat Clear Calc 140.4 Estimated GFR > 60 Random Glucose 86 (60-115) mg/dL Calcium 9.1 (8.4-10.2) mg/dL Beta HCG, Quant 144 mIU/mL Independent Interpretation I performed an independent interpretation of an: Ultrasound (Pelvis: Retained conceived products) Radiology Impression Discussion of test interpretation with radiology: I have reviewed the radiologist's reading. Discharge Plan Discharge Clinical Impression: Vaginal bleeding Patient Disposition: Admitted As Inpatient
[2023-03-09 15:22] LABS: MANUAL DIFF FLAG NO
[2023-03-09 15:25] LABS: Basophils Absolute Auto 0.1 X10*3/uL (0.0-0.2); Basophils Percent Auto 0.5 % (0-2); Eosinophils Absolute Auto 0.3 X10*3/uL (0.0-0.4); Eosinophils Percent Auto 2.6 % (0-4); Hematocrit 37.2 % (37.0-47.0); Hemoglobin 12.4 g/dl (12.0-16.0); Imm Gran Abs Auto 0.03 X10*3/uL (0.00-0.03); Imm Gran Pct Auto 0.3 % (0.0-0.4); Lymphocytes Absolute Auto 3.3 X10*3/uL (1.2-4.9); Lymphocytes Percent Auto 30.2 % (20-40); Mean Corpuscular HGB Conc 33.3 g/dl (31.0-35.0); Mean Corpuscular Hemoglobin 28.7 pg (27.0-33.0); Mean Corpuscular Volume 86.1 fL (80.0-98.0); Mean Platelet Volume 9.5 fL (9.4-12.3); Monocytes Absolute Auto 0.5 X10*3/uL (0.1-1.2); Monocytes Percent Auto 4.7 % (2-11); Neutrophils Absolute Auto 6.6 x10*3/uL (2.0-8.3); Neutrophils Percent Auto 61.7 % (45-73); Platelet Count 296 X10*3/uL (160-400); Red Blood Count 4.32 X10*6/uL (4.20-5.50); Red Cell Distribution Width 12.3 % (11.0-16.0); White Blood Count 10.8 X10*3/uL (4.8-10.8)
[2023-03-09 15:42] LABS: Anion Gap 12 (12-20); Blood Urea Nitrogen 9 mg/dL (9-16); Calcium 9.1 mg/dL (8.4-10.2); Carbon Dioxide 25 mmol/L (22-29); Chloride 108 mmol/L (96-108); Creatinine Clr Calc Pharmacy 140.4; Estimated Glomerular Filt Rate > 60; Glucose Random 86 mg/dL (60-115); Potassium 4.1 mmol/L (3.3-5.1); Sodium 141 mmol/L (135-145)
[2023-03-09 15:43] LABS: HCG Quantitative 144 mIU/mL
[2023-03-09 16:07] LABS: UPreg QC Valid YES
[2023-03-09 16:10] LABS: Urine Pregnancy WEAKLY POSITIVE (NEGATIVE)
[2023-03-09 16:13] LABS: Appearance Urine Clear; Glucose Urine UA Negative (Negative); Leukocyte Esterase Urine Trace (Negative); Nitrite Urine Negative (Negative); PH 5.5 (5.0-9.0); Specific Gravity - Urine 1.015 (1.005-1.025); UMIC TRIGGER UACC YES; Urine Blood Large (3+) (Negative); Urine Ketones Negative (Negative); Urine Protein Negative (Neg-Trace)
[2023-03-09 16:14] LABS: Color Urine PINK
--- NOTE | 2023-03-09 16:28 | PM.GYNCN ---
APPLICATION ARCHITECT MANAGER - CN: HPI Data of Consult Consult date: 03/09/23 Primary Care Provider: DAYNA Cota Consult Narrative Narrative: I was consulted on Blanche Allen whois a 22 year old female status post medical termination of at 11 weeks 12 days ago.? The patient had an IUD inserted post medical termination. Since then , the patient has been having persistent pelvic cramping associated with passage of blood clots and heavy vaginalbleeding. The patient went to the emergency room at could be taken so she had a CT scan which showed a thickened endometrium an IUD in the lower uterine segment. the patient is presenting today with persistent of vaginal bleeding and passing blood clots, and lower abdominal cramps, no fever or chills, no nausea or vomiting, no other associated symptoms. Blood type B positive. HCG 144. Ultrasound showed: Thickened heterogeneous endometrium with slight increased peripheral vascularity. Appearance is questionable for retained products of conception. No IUD seen cc:: CC: OB [facility] Past Medical History Medical History (Updated 03/09/23 @ 18:00 by William Fisher MD) Asthma Obesity Social History Social History Smoked in Last 30 Days: No Advance Directives: No Advance Directives Information Provided: Yes Meds Allergies Allergy/AdvReac Type Severity Reaction Status Date / Time No Known Allergies Allergy Unverified 07/13/20 19:41 [No Known Allergies*] Home Medications Medication Instructions Recorded Confirmed Last Taken Type albuterol sulfate 90 mcg/actuation 2 puff inhalation Q6H PRN 03/09/23 03/09/23 Unknown History aerosol inhaler (Ventolin HFA) Shortness Of Breath Or Wheezing amoxicillin 875 mg tablet 875 mg PO Q12H 03/09/23 03/09/23 03/09/23 10:00 History citalopram 20 mg tablet 40 mg PO DAILY 03/09/23 03/09/23 03/09/23 History dextroamphetamine-amphetamine 10 1 tab PO BID 03/09/23 03/09/23 03/09/23 History mg tablet lamotrigine 100 mg tablet 200 mg PO DAILY 03/09/23 03/09/23 03/09/23 History polymyxin B sulfate 10,000 1 drp ophthalmic (eye) QID 03/09/23 03/09/23 Unknown History unit-trimethoprim 1 mg/mL eye drops valacyclovir 500 mg tablet 500 mg PO DAILY 03/09/23 03/09/23 03/09/23 History APPLICATION ARCHITECT MANAGER Physical Exam Vitals Vital signs: Temp Pulse Resp BP Pulse Ox O2 Del Method 98.3 F 77 16 107/68 98 Room Air 03/09/23 15:03 03/09/23 15:57 03/09/23 15:03 03/09/23 15:57 03/09/23 15:03 03/09/23 15:03 BMI result Body Mass Index 44.6 Lungs Auscultation: Clear to auscultation Cardiovascular Auscultation: RRR Abdomen Auscultation/Inspection/Palpation: Soft, Non-distended and No tenderness Female Genitalia (Pelvic) Bladder/Urethra: Normal meatus Vulva: No lesions Vagina: Nontender Adnexa/Parametria: Adnexal Tenderness: None and Adnexal Mass: None Additional Comments: cervix open, blood clots per vagina, evidence of active vaginal bleeding. No IUD thread seen APPLICATION ARCHITECT MANAGER - Results Labs 03/09/23 15:09 03/09/23 15:09 Labs: Short CBC 03/09/23 Range/Units 15:09 WBC 10.8 (4.8-10.8) X10*3/uL Hgb 12.4 (12.0-16.0) g/dl Hct 37.2 (37.0-47.0) % Plt Count 296 (160-400) X10*3/uL BMP 03/09/23 15:09 Sodium 141 Potassium 4.1 Chloride 108 Carbon Dioxide 25 BUN 9 Creatinine 0.78 Calcium 9.1 Urine 03/09/23 03/09/23 Range/Units 15:53 15:53 Urine Color PINK Urine Appearance Clear Urine pH 5.5 (5.0-9.0) Ur Specific [place] 1.015 (1.005-1.025) Urine Protein Negative (Neg-Trace) mg/dL Urine Glucose (UA) Negative (Negative) mg/dL Urine Test WEAKLY POSITIVE H (NEGATIVE) Imaging CT scan - pelvis: Radiologist's impression: ITS Impressions Pelvic/Transvag US 03/09/23 15:31 IMPRESSION: Thickened heterogeneous endometrium with slight increased peripheral vascularity. Appearance is questionable for retained products of conception. No IUD seen. Assessment and Plan (1) Retained products of conception following : Status: Acute Explained to the patient clinical symptoms an IUD are suggestive of retained products of conception, recommended either medical treatment with misoprostol versus suction D& C. All cross and cons, risks and benefits of each approach was discussed with the patient, the patient decided to proceed with suction D&C. so a more detailed discussion about the procedure was carried on with the patient including the technique, risks including but not limited to : bleeding, infection, uterine perforation, injury to blood vessels, bowels, ureters, bladder, possible need for blood transfusion with all its risks ( HIV, Hep b or C, anaphylaxis reactions), possible need for laparoscopy, laparotomy, or hysterectomy, possible , thromboembolic events, possibility of a negative impact on future fertility because of scar tissue development inside the uterus; alternatives of this option were discussed with the patient including but not limited to, medical termination of or doing nothing. The patient decided to go ahead with Suction D&C and signed the consent. All questions answered, the patient verbalized understanding and agreed with the plan. Doxycycline 200 mg p.o. preop given to the patient. Ultrasound notified. Instructions given the patient to schedule a 2 week postoperative appointment. This note was generated with a voice recognition program. Some errors may have been overlooked during the review of this note. Sometimes these errors may affect the content or meaning of a given sentence. (2) IUD threads lost: Status: Acute Explained to the patient that since CT scan at [facility] emergency room few days ago showed IUD in the lower uterine segment, and onpelvic ultrasound there wasno IUD in utero ,and on pelvic exam IUD wasnot seen in the cervix or the vagina, KUB was ordered if no evidence of IUD in the abdomen and or pelvis, IUD would have been expulsed Time Spent With Patient Time: Total time managing care of this patient today ____ minutes.
[2023-03-09 16:37] LABS: Bacteria Urine None Seen (None Seen); Hyaline Casts Urine 0-2 /LPF (0-2); RBC Urine >20 /HPF (0-2); Squamous Epithelial Cell Urine 0-2 /HPF (0-2); WBC Urine 0-5 /HPF (0-5)
--- NOTE | 2023-03-09 17:08 | HO.ANESPROP2 ---
HPI - Anesthesia Eval Consult details Narrative: retained placenta PMFSH Active Problems Active Problems: All Active Problems (Updated 03/09/23 @ 16:05 by Celina Evans MD) Vaginal bleeding (Acute) Past Medical History Medical History (Updated 03/09/23 @ 18:00 by William Fisher MD) Asthma Obesity Family History Family history of problems with anesthesia: No Surgical History History of Problems with Anesthesia: No Meds Allergies Allergy/AdvReac Type Severity Reaction Status Date / Time No Known Allergies Allergy Unverified 07/13/20 19:41 [No Known Allergies*] Exam Exam Date and Time: March 09, 2023 1708 Height,Weight and Vital Signs: Height 5 ft 4 in Weight 117.934 kg Last Vital Signs Temp 98.3 F 03/09/23 15:03 Pulse 77 03/09/23 15:57 Resp 16 03/09/23 15:03 BP 107/68 03/09/23 15:57 Pulse Ox 98 03/09/23 15:03 O2 Del Method Room Air 03/09/23 15:03 Pertinent Lab Results Pertinent Lab Results: Laboratory Tests 03/09/23 03/09/23 03/09/23 15:09 15:09 15:53 WBC 10.8 RBC 4.32 Hgb 12.4 Hct 37.2 MCV 86.1 MCH 28.7 MCHC 33.3 RDW 12.3 Plt Count 296 MPV 9.5 Immature Gran % (Auto) 0.3 Neut % (Auto) 61.7 Lymph % (Auto) 30.2 [place] % (Auto) 4.7 Eos % (Auto) 2.6 Baso % (Auto) 0.5 Lymph # (Auto) 3.3 [place] # (Auto) 0.5 Eos # (Auto) 0.3 Baso # (Auto) 0.1 Abs Immat Gran (auto) 0.03 Absolute Neuts (auto) 6.6 Absolute Nucleated RBC 0.000 Nucleated RBC % (auto) 0.0 Sodium 141 Potassium 4.1 Chloride 108 Carbon Dioxide 25 Anion Gap 12 BUN 9 Creatinine 0.78 Estim Creat Clear Calc 140.4 Estimated GFR > 60 Random Glucose 86 Calcium 9.1 Beta HCG, Quant 144 Urine Color PINK Urine Appearance Clear Urine pH 5.5 Ur Specific [place] 1.015 Urine Protein Negative Urine Glucose (UA) Negative Urine Ketones Negative Urine Blood Large (3+) H Urine Nitrite Negative Ur Leukocyte Esterase Trace H Urine Test 03/09/23 15:53 WBC RBC Hgb Hct MCV MCH MCHC RDW Plt Count MPV Immature Gran % (Auto) Neut % (Auto) Lymph % (Auto) [place] % (Auto) Eos % (Auto) Baso % (Auto) Lymph # (Auto) [place] # (Auto) Eos # (Auto) Baso # (Auto) Abs Immat Gran (auto) Absolute Neuts (auto) Absolute Nucleated RBC Nucleated RBC % (auto) Sodium Potassium Chloride Carbon Dioxide Anion Gap BUN Creatinine Estim Creat Clear Calc Estimated GFR Random Glucose Calcium Beta HCG, Quant Urine Color Urine Appearance Urine pH Ur Specific [place] Urine Protein Urine Glucose (UA) Urine Ketones Urine Blood Urine Nitrite Ur Leukocyte Esterase Urine Test WEAKLY POSITIVE H Airway Mallampati Class: II TM Dist: >3cm Neck ROM: Full Heart: RRR Lungs: CTA Assessment and Plan Assessment Anesthesia Assessment: Anesthesia Plan Discussed and Chart Reviewed Final Anesthetic Review Family History of Problems with Anesthesia: No History of Problems with Anesthesia: No NPO: Yes ASA Class: II (obesity) and Emergency Final Preanesthetic Review: No Changes in Pt Med Stat, Meds/Allgs Chart Reviewed, Consent Obtained/Reviewed and Anes Risks/Benef Reviewed Patient Risk: Intermediate Procedure Risk: Low Anesthetic Plan Anesthetic Plan: MAC: Disposition: Standard PACU
[2023-03-09] MEDS: Morphine Sulfate 4 MG/ML CARTRIDGE IVPUSH (17:26)
[2023-03-09] MEDS: ondansetron HCL 4 MG/2 ML VIAL IVPUSH (17:26)
[2023-03-09] MEDS: Doxycycline Monohydrate 100 MG CAPSULE 200 MG PO (17:47)
--- NOTE | 2023-03-09 17:55 | PC.NURSE ---
pt a&o x4, pleasant, calm but tearful and cooperative. pt seen by Dr. Callejas for vaginal bleeding and taken stat to OR for d&c that was incomplete. pt medicated per mar and due to needing to go to OR stat, med overridden and verified by pharmacy over phone. Dr. Callejas present and aware. belongings secured with pt's boyfriend, no belongings list needed
--- NOTE | 2023-03-09 18:13 | PHA.MEDREC ---
Pharmacy Consult ? Medication Reconciliation Pharmacy has completed the medication reconciliation. spoke with patient. She said recently the doctor increased her lamotrigine to 200mg daily and the citalopram to 40mg daily which she has started. She also states she took an Amoxicillin 875mg today around 10am.
--- NOTE | 2023-03-09 18:30 | PM.OP ---
Brief Operative Note Date of Service: 03/09/23 Pre-op diagnosis: retained products of conception Post-op diagnosis: same Procedure: Suction D&C Surgeon: Sam Callejas MD Anesthesia: MAC Was an Metal Annealer used for this Procedure?: No Estimated blood loss (mL): 10 Pathology: other (Products of conception) Condition: stable Disposition: PACU
--- NOTE | 2023-03-09 18:31 | P.OP_ITS ---
Operative Note Operative Note Date of Service: 03/09/23 Narrative: Preop diagnosis: retained products of conception Operation: suction D and C Postop diagnosis: The same EBL: Minimal Anesthesia: MAC [employer] Sales Representative: None Pathology: Products of conception Procedure: The patient was put in a dorsal distal mid position was scrubbed and draped in the usual sterile fashion. A sterile speculum was inserted inside the patient's vagina the anterior lip of the cervix was grasped with single-tooth tenaculum the cervix was dilated up to 7 mm. Under ultrasonographic guidance flexible 7. Suction tip was introduced inside the patient ran cavity till the fundus was hit then turning the suction 360 degrees around products of conception was sucked out toward the uterine cavity. The suction tip was taken out of the patient uterine cavity sharp curettings was followed in 4 quadrants of the uterus till a gritty feeling was felt. The suction tip was reintroduced under ultrasonographic guidance and intrauterine blood was sucked. The suction tip was taken out. Single-tooth tenaculum was removed hemostasis assured using pressure. The patient tolerated the procedure well and was transferred to the PACU in a stable condition.
[2023-03-09] MEDS: Acetaminophen 325 MG TABLET 650 MG PO (18:57)
[2023-03-10 01:44] LABS: CT PCR NOT DETECTED (Not Detect.); NG PCR NOT DETECTED (Not Detect.)
[2023-03-10 13:05] LABS: BV Int Neg Control Negative (Negative); BV Int Pos Control Positive (Positive)
== END 2023-03-09 19:00 | disposition home or self-care (01) ==
LOC: HO.ED 18:05 → HO.SSS 18:13
PROVIDERS: Nurse Practitioner Family; Physician Assistant; Emergency Provider Emergency Medicine; PCP Physician Assistant; Visit Provider Obstetrics & Gynecology
PROC: (CPT 59812; principal; 2023-03-09 17:00)
DX: O04.6 Delayed or excessive hemorrhage following (induced) termination of pregnancy (principal); J45.909 Unspecified asthma, uncomplicated
CPT/HCPCS: 59812; 0353U; 36415; 74018; 76830; 76856; 76998; 80048; 81001; 81025; 84702; 85025; 87480; 87510; 87660; 88305; 99285; J1100; J2270; J2405; J3010

== ENCOUNTER 2023-03-27 12:53 | Outpatient (REF) | payer MEDICAID, SELFPAY ==
[2023-03-27 13:31] LABS: HCG Quantitative 6 mIU/mL
[2023-03-27 18:42] LABS: CT PCR NOT DETECTED (Not Detect.); NG PCR NOT DETECTED (Not Detect.)
[2023-03-28 09:21] LABS: BV Int Neg Control Negative (Negative); BV Int Pos Control Positive (Positive)
== END 2023-03-27 12:54 | disposition home or self-care (01) ==
LOC: HO.LAB 12:53
PROVIDERS: PCP Physician Assistant; Visit Provider Obstetrics & Gynecology
DX: Z30.09 Encounter for other general counseling and advice on contraception (principal); O03.4 Incomplete spontaneous abortion without complication
CPT/HCPCS: 0353U; 36415; 84702; 87480; 87510; 87660; 99212

== ENCOUNTER 2023-03-27 13:57 | Outpatient (REF) | payer MEDICAID, SELFPAY | END 2023-03-27 13:58 | disposition home or self-care (01) | LOC: HO.LNP 13:57 | PROVIDERS: Visit Provider Obstetrics & Gynecology | DX: Z13.89 Encounter for screening for other disorder (principal) ==

== ENCOUNTER 2023-11-14 09:04 | Emergency (ER) | payer OTHER, SELFPAY ==
[2023-11-14 09:09] VITALS: BP 148/103; PULSE 105; RESP 16; TEMP 37; O2SAT 94; BMI 44.3
== END 2023-11-14 12:38 | disposition left against medical advice (07) ==
PROVIDERS: Emergency Provider Emergency Medicine
DX: R05.9 Cough, unspecified (principal); J45.909 Unspecified asthma, uncomplicated
CPT/HCPCS: 99281

== ENCOUNTER 2023-12-11 08:52 | Outpatient (AMB) | payer OTHER, SELFPAY ==
--- NOTE | 2023-12-11 09:12 | MHC.OFFVIS ---
Intake Vital Signs 12/11/23 09:19 Height 5 ft 4 in Weight 257 lb 15.053 oz BMI 44.3 BP 110/72 Intake Visit Reasons: Herpes outbreak Prosthetic Dentist Required: No Information Interpreted: non-clinical & clinical Photographic Equipment Assembler: Photographic Equipment Assembler Present (Liana CONTRERAS) Accompanied by: Self / Same As Patient Allergies No Known Allergies [No Known Allergies*] Allergy (Verified 12/11/23 09:23) Is last menstrual period known: No (mirena) HPI HPI Comments History of Present Illness Details Presenting complaining of periclitoral tender ulcer. The patient has history of herpes. Was prescribed valacyclovir a 1000 mg b.i.d. for the last 5 days, her tender ulcer has not improved. [facility] Medical History Asthma Obesity Social History Comment: medicated prior to discharge Review of Systems Const All systems reviewed & are unremarkable except as noted in HPI and below Physical Exam Vital Signs: Last Vital Signs BP 110/72 12/11/23 09:19 BMI result Body Mass Index 44.3 General: Yes no CVA tenderness External Female Exam: normal external appearance, normal appearance of the urethra and other (Periclitoral 0.5 cm tender ulcer) Speculum Exam - Vagina: normal appearance of the vagina, normal palpation, no lesions and no masses Speculum Exam - Cervix: normal appearance of the cervix, normal palpation, no lesions, no masses and nontender Bimanual exam- vagina & uterus: normal bimanual exam, normal palpation, uterine size normal, normal palpation, uterine shape normal, No Cervical tenderness present and non-tender Bimanual Exam- Adnexa, other: normal adnexae Back/Spine/Pelvis Back: no CVA tenderness Assessment & Plan Assessment & Plan (1) Herpes: Code(s): B00.9 - Herpesviral infection, unspecified Plan: Discussed with the patient the findings on physical exam, diagnosis being suspicious for herpes and the mode of transmission. Will rule out other STDs including RPR, hep B and C, HIV, GC and chlamydia and Trichomonas. Since the patient's did not respond to Valtrex , acyclovir 800 mg p.o. t.i.d. for 2 days was sent to the patient pharmacy, follow-up in 1-2 weeks for re-evaluation. all questions answered patient verbalized understanding. Orders: Orders Bacterial Vaginosis Panel Today B00.9 - Herpesviral infection, unspecified Hepatitis C Antibody Today B00.9 - Herpesviral infection, unspecified Syphilis Screen Today B00.9 - Herpesviral infection, unspecified Hepatitis B Surface Antigen Today B00.9 - Herpesviral infection, unspecified Herpes Virus Culture rflx Type Today B00.9 - Herpesviral infection, unspecified CT NG by PCR Today B00.9 - Herpesviral infection, unspecified HIV Ab/Ag Today B00.9 - Herpesviral infection, unspecified Medications: New acyclovir 800 mg PO TID 6 tabs 6RF 2 days Coding Level of Care Code Est Pt Level 3 (06147) Diagnoses Herpes B00.9
[2023-12-11 09:19] VITALS: BP 110/72; BMI 44.3
== END 2023-12-11 09:33 | disposition home or self-care (01) ==
LOC: HO.HWS 08:53
PROVIDERS: Visit Provider Obstetrics & Gynecology
DX: B00.9 Herpesviral infection, unspecified (principal)
CPT/HCPCS: 99213

== ENCOUNTER 2023-12-11 08:52 | Outpatient (REF) | payer OTHER, SELFPAY ==
[2023-12-11 11:54] LABS: CT PCR NOT DETECTED (Not Detect.); NG PCR NOT DETECTED (Not Detect.)
[2023-12-11 13:37] LABS: BV Int Neg Control Negative (Negative); BV Int Pos Control Positive (Positive)
== END 2023-12-11 08:53 | disposition home or self-care (01) ==
LOC: HO.LNP 08:52
PROVIDERS: Visit Provider Obstetrics & Gynecology
DX: B00.9 Herpesviral infection, unspecified (principal); L98.499 Non-pressure chronic ulcer of skin of other sites with unspecified severity
CPT/HCPCS: 0353U; 87255; 87480; 87510; 87660; 99212

== ENCOUNTER 2023-12-12 14:18 | Outpatient (REF) | payer OTHER, SELFPAY ==
[2023-12-16 03:02] LABS: Syphilis Screen Nonreactive (Nonreactive)
[2023-12-16 03:20] LABS: HBsAGNum1 0.35 S/CO (0.00-0.99); HIV AB/AG Nonreactive (Nonreactive); HIV Num 1 0.05 S/CO (0.00-0.99); Hepatitis B Surface Antigen Negative (Negative); ~Hepatitis C Antibody Nonreactive (Nonreactive)
== END 2023-12-12 14:19 | disposition home or self-care (01) ==
LOC: HO.LAB 14:18
PROVIDERS: Visit Provider Obstetrics & Gynecology
DX: B00.9 Herpesviral infection, unspecified (principal)
CPT/HCPCS: 36415; 86780; 86803; 87340; 87389

== ENCOUNTER 2023-12-19 16:58 | Emergency (ER) | payer OTHER, SELFPAY ==
--- NOTE | 2023-12-19 17:03 | ED_ITS ---
HPI - General Adult General Chief complaint: Upper Respiratory Symptoms Stated complaint: sick non stop for a month, mult. complaint Time Seen by Provider: 12/19/23 22:04 Source: patient, RN notes reviewed and old records reviewed Mode of arrival: ambulatory Limitations: no limitations History of Present Illness HPI narrative: 23-year-old female presents for evaluation of multiple complaints. She states that she has been dealing strain infection for about 6 weeks. She states that she has had strep throat twice She states that she was given 10 days of amoxicillin a few days ago and has 1 week left She also complains of a herpes outbreak that did not improve with acyclovir and steroids Patient appears quite agitated at the time my evaluation. She is not contributing much to history because ?you should have just read the notes. ? Related Data Home Medications Medication Instructions Recorded Confirmed albuterol sulfate 90 mcg/actuation 2 puff inhalation Q6H PRN 03/09/23 03/09/23 aerosol inhaler (Ventolin HFA) Shortness Of Breath Or Wheezing citalopram 20 mg tablet 40 mg PO DAILY 03/09/23 03/09/23 dextroamphetamine-amphetamine 10 1 tab PO BID 03/09/23 03/09/23 mg tablet lamotrigine 100 mg tablet 200 mg PO DAILY 03/09/23 03/09/23 polymyxin B sulfate 10,000 1 drp ophthalmic (eye) QID 03/09/23 03/09/23 unit-trimethoprim 1 mg/mL eye drops valacyclovir 500 mg tablet 500 mg PO DAILY 03/09/23 03/09/23 Previous Rx's Medication Instructions Recorded acyclovir 800 mg tablet 800 mg PO TID 2 days #6 tabs 12/11/23 amoxicillin 875 mg-potassium 1 tab PO BID #14 tabs 12/19/23 clavulanate 125 mg tablet metronidazole 1 % topical cream 1 appl topical BID 5 days #60 grams 12/19/23 Allergies Allergy/AdvReac Type Severity Reaction Status Date / Time No Known Allergies Allergy Verified 12/11/23 09:23 [No Known Allergies*] Review of Systems Constitutional: Constitutional: Denies body ache(s), Denies chills and Denies fever(s) ENT: Denies sore throat Cardiovascular: Cardiovascular: Denies chest pain and Denies dyspnea Respiratory: Respiratory: Denies cough and Denies dyspnea Gastrointestinal: Gastrointestinal: Denies abdominal pain Genitourinary: Genitourinary: Reports other (Reports herpes lesions) [facility] Past Medical History Medical History Asthma Obesity Social History Social History Comment: medicated prior to discharge Advance Directives: No Advance Directives Information Provided: No Physical Exam ED Vital Signs: Vital Signs - 24 hr 12/19/23 17:08 12/19/23 19:31 Temperature 98.2 F 98.1 F Pulse Rate 77 63 Respiratory Rate 17 18 Blood Pressure 125/71 118/64 Pulse Oximetry 97 96 Oxygen Delivery Method Room Air Room Air BMI result Body Mass Index 43.3 Const General: healthy appearing, comfortable, no acute distress, alert and awake Nutritional Appearance: well nourished Orientation/consciousness: patient oriented x3 HENMT Head: Yes normocephalic and Yes atraumatic Eyes Eyelids: Yes eyelids normal Conjunctivae: conjunctivae normal Sclerae: sclerae normal Corneas: corneas normal Pupils: Equal, round and reactive pupils present EOM: EOMs intact bilaterally Neck Neck: Yes full ROM Resp Effort & Inspection: normal respiratory effort, able to speak in complete sentences, no audible wheezes and not labored Auscultation: clear to auscultation bilaterally Cardio Rate: regular rate Rhythm: regular rhythm Skin General skin exam: elasticity normal Neuro General: patient oriented x3 Cranial nerves: Yes Equal, round and reactive pupils present and Yes Bilaterally intact EOM present Cognition (Neuro): normal cognition Extrem Other: Moving all extremities well without any obvious deformities Course Course Course Narrative: RME:?23 aure old female w/ hx of herpes here w/ multiple complaints. endorses URI with nasal congestion, cough x weeks. she was diagnosed with strep 4 days ago at . taking amoxicillin twice daily as prescribed. Additionally endorses a sore to external vagina. Was seen by OBGYN 1 week ago who sent off cultures from sore that returned positive for herpes. she tested negative for all other STDs at that time. Since this time, she states the sore has gotten worse. It is now draining pus and is extremely painful. Denies dysuria, hematuria, or vaginal discharge. serology, UA ordered Full HPI, ROS and PE to be performed by the primary ED provider. Medical Decision Making Medical Decision Making MDM Narrative: 23 female presents for evaluation of multiple complaints. She has been waiting in the ER for quite some time prior to my evaluation. Patient is seen very agitated at this fact and was not very forthcoming with information. I attempted to explain to the patient that it is a busy day and they are going as fast as we can. When asked the patient what I can help her with she states ?why did not you read the nursing notes? One explained to the patient that I did in fact read the nursing notes but I would like to hear the patient herself to get her chief complaint she states that she is here because she has a herpes outbreak for the last 5 weeks. She is concerned that she has a bacterial infection superimposed on the virus. I asked the patient if I could evaluate the area and she states ?no because it hurts I will show you pictures instead. ? Consistent with a herpes simplex outbreak/vesicles. There is some surrounding erythema but no obvious large abscess. Again, this is just information taken from a picture that the patient reports was recent. She is unwilling to let me evaluate the area itself. The patient states that her throat is feeling better, though she has been complaining respiratory infection she states that her breathing seems better to and ?my breathing is probably fine. ? The patient how I could help her and what she was looking for. She requested topical antibiotic. I offered to switch her amoxicillin to clindamycin for better skin coverage will also covering strep throat and she declined. She was willing to take Augmentin instead of the amoxicillin. Differential Diagnosis Differential Diagnoses: The differential diagnosis associated with the presentation includes Be simplex virus Abscess Cellulitis Pharyngitis Upper respiratory infection Lab Data Labs: Lab Results 12/19/23 Range/Units 17:14 Influenza Type A (PCR) NEGATIVE (Negative) Influenza Type B (PCR) NEGATIVE (Negative) RSV RNA Qual (PCR) NEGATIVE (Negative) SARS-CoV-2 RNA (RT-PCR) NEGATIVE (Negative) Discharge Plan Discharge Clinical Impression: Pelvic pain, Herpes simplex, Strep throat Patient Disposition: Home, Self-Care Instructions: Genital Herpes Simplex (ED) Additional Instructions: Stop taking the amoxicillin and take Augmentin twice daily instead Use metronidazole topical ointment 2 times a day Follow-up your primary doctor Prescriptions: New metronidazole 1 % cream 1 appl topical BID 5 Days Qty: 60 0RF amoxicillin-pot clavulanate 875-125 mg tablet 1 tab PO BID Qty: 14 0RF No Action dextroamphetamine-amphetamine 10 mg tablet 1 tab PO BID valacyclovir 500 mg tablet 500 mg PO DAILY citalopram 20 mg tablet 40 mg PO DAILY polymyxin B sulf-trimethoprim 10,000 unit- 1 mg/mL drops 1 drp ophthalmic (eye) QID albuterol sulfate [Ventolin HFA] 90 mcg/actuation HFA aerosol inhaler 2 puff inhalation Q6H PRN (Reason: Shortness Of Breath Or Wheezing) lamotrigine 100 mg tablet 200 mg PO DAILY acyclovir 800 mg tablet 800 mg PO TID 2 Days Qty: 6 6RF
[2023-12-19 17:08] VITALS: BP 125/71; PULSE 77; RESP 17; TEMP 36.8; O2SAT 97; BMI 43.3
[2023-12-19 17:56] LABS: Influenza A PCR NEGATIVE (Negative); Influenza B PCR NEGATIVE (Negative); Resp Syncy Virus RNA Qual PCR NEGATIVE (Negative); SARS COV2 PCR INHOUSE NEGATIVE (Negative)
[2023-12-19 19:31] VITALS: BP 118/64; PULSE 63; RESP 18; TEMP 36.7; O2SAT 96
--- NOTE | 2023-12-19 22:33 | PC.NURSE ---
since arrival to room patient has had various physical complaints including open area on vulva, skin irritation on thumb, kanker soar on lip. RN looked at photo of vulva. Pt was provided with radha and ronnet, pelvic bed was brought to room for anticipated exam. Pt became frustrated and was rude and verbally agressive with staff over the coarse of her wait time to see provider. Pt was asked to not pierce through carts repeatedly. After being seen patient contined to be rude and once discharged, refused to leave the room. Was found looking through cart again. Cart was removed by this RN. Security was made aware of patient's hesitancy to leave. After some time patient left, calling RN inappropriate names.
== END 2023-12-19 22:38 | disposition home or self-care (01) ==
PROVIDERS: Physician Assistant Medical; Emergency Provider Internal Medicine
DX: A60.00 Herpesviral infection of urogenital system, unspecified (principal); J02.0 Streptococcal pharyngitis; R10.2 Pelvic and perineal pain; R05.9 Cough, unspecified; R09.89 Other specified symptoms and signs involving the circulatory and respiratory systems; Z11.52 Encounter for screening for COVID-19; Z20.828 Contact with and (suspected) exposure to other viral communicable diseases
CPT/HCPCS: 0241U; 99282; 99283

== ENCOUNTER 2023-12-22 15:06 | Outpatient (AMB) | payer OTHER, SELFPAY ==
--- NOTE | 2023-12-22 15:18 | MHC.OFFVIS ---
Intake Vital Signs 12/22/23 15:19 Height 5 ft 5 in Weight 255 lb BMI 42.4 BP 112/68 Intake Visit Reasons: Herpes outbreak [employer] Agent Required: No Information Interpreted: non-clinical & clinical Director Weights And Measures: Director Weights And Measures Present Allergies No Known Allergies [No Known Allergies*] Allergy (Verified 12/22/23 15:20) Is last menstrual period known: Yes Last menstrual period: 12/19/23 Post menopausal: No Patient : No HPI HPI Comments History of Present Illness Details The patient is presenting for follow-up. The patient developed a herpetic outbreak for which acyclovir 800 mg t.i.d. for 2 days were prescribed, the patient improved but developed worsening of her symptoms went to emergency room 4 days and was prescribed Augmentin 875 mg p.o. b.i.d. for 10 days, the patient has improved markedly since then. Herpes supine virus culture positive HIV, syphilis, hepatitis-B surface antigen and hepatitis-C antibody negative. GC/CT and BV panel also were negative PFSH Medical History Asthma Obesity Social History Comment: medicated prior to discharge Patient : No Female Reproductive History Menstrual Date of last menstrual period: 12/19/23 Review of Systems Const All systems reviewed & are unremarkable except as noted in HPI and below Physical Exam Vital Signs: Last Vital Signs BP 112/68 12/22/23 15:19 BMI result Body Mass Index 42.4 General: Yes no CVA tenderness External Female Exam: normal external appearance, normal appearance of the urethra and other (Periclitoral my skin erythema and tenderness) Speculum Exam - Vagina: normal appearance of the vagina, normal palpation, no lesions and no masses Speculum Exam - Cervix: normal appearance of the cervix, normal palpation, no lesions, no masses and nontender Bimanual exam- vagina & uterus: normal bimanual exam, normal palpation, uterine size normal, normal palpation, uterine shape normal, No Cervical tenderness present and non-tender Bimanual Exam- Adnexa, other: normal adnexae Back/Spine/Pelvis Back: no CVA tenderness Assessment & Plan Assessment & Plan (1) Herpes: Comment: With secondary bacterial skin infection-improved Code(s): B00.9 - Herpesviral infection, unspecified Plan: Wound culture taken. Discussed with the patient the clinical finding suggestive of herpetic outbreak with secondary bacterial infection, recommended to finish the course of Augmentin, to call in case of recurrence or worsening of her pain, temperature above 100.4, inability to void and to initiate the episodic Valtrex therapy as soon as possible at this 1st sign of an outbreak. All questions answered, the patient verbalized understanding Coding Level of Care Code Est Pt Level 3 (39926) Diagnoses Herpes B00.9
[2023-12-22 15:19] VITALS: BP 112/68; BMI 42.4
== END 2023-12-22 15:38 | disposition home or self-care (01) ==
LOC: HO.HWS 15:07
PROVIDERS: Visit Provider Obstetrics & Gynecology
DX: B00.9 Herpesviral infection, unspecified (principal)
CPT/HCPCS: 99213

== ENCOUNTER 2023-12-22 15:06 | Outpatient (REF) | payer OTHER, SELFPAY | END 2023-12-22 15:07 | disposition home or self-care (01) | LOC: HO.LNP 15:06 | PROVIDERS: Visit Provider Obstetrics & Gynecology | DX: B00.9 Herpesviral infection, unspecified (principal); N89.8 Other specified noninflammatory disorders of vagina | CPT/HCPCS: 87070; 87077; 87186; 87205; 99212 ==

== ENCOUNTER 2024-01-02 17:52 | Emergency (ER) | payer OTHER, SELFPAY ==
[2024-01-02 18:07] VITALS: BP 117/84; PULSE 95; RESP 16; TEMP 37.2; O2SAT 98; BMI 39.1
--- NOTE | 2024-01-02 18:09 | ED.GENADULT ---
HPI - General Adult General Chief complaint: Skin/Abscess/Foreign Body Stated complaint: rash Time Seen by Provider: 01/02/24 21:01 Source: patient Mode of arrival: ambulatory Limitations: no limitations History of Present Illness HPI narrative: Patient comes to the emergency room complaining of a rash that has been present for 3 days. Patient states that the rash stopped after taking amoxicillin for strep. Patient states that the rash does not bother her at all, not painful, not itchy. Also, patient requesting refills for lamotrigine for mood stabilization and citalopram. Patient states that she has an appointment pending. Patient states that she lost couple of appointments with her therapist and got dismissed from the practice. Patient is waiting to be seen by a primary care physician in the next 2-3 weeks. Related Data Home Medications Medication Instructions Recorded Confirmed albuterol sulfate 90 mcg/actuation 2 puff inhalation Q6H PRN 03/09/23 03/09/23 aerosol inhaler (Ventolin HFA) Shortness Of Breath Or Wheezing citalopram 20 mg tablet 40 mg PO DAILY 03/09/23 03/09/23 dextroamphetamine-amphetamine 10 1 tab PO BID 03/09/23 03/09/23 mg tablet lamotrigine 100 mg tablet 200 mg PO DAILY 03/09/23 03/09/23 Previous Rx's Medication Instructions Recorded acyclovir 800 mg tablet 800 mg PO TID 2 days #6 tabs 12/11/23 amoxicillin 875 mg-potassium 1 tab PO BID #14 tabs 12/19/23 clavulanate 125 mg tablet citalopram 40 mg tablet 40 mg PO DAILY #30 tabs 01/02/24 lamotrigine 25 mg tablet 50 mg (2 x 25 mg) PO DAILY 30 days 01/02/24 #60 tabs prednisone 50 mg tablet 50 mg PO DAILY #5 tabs 01/02/24 Allergies Allergy/AdvReac Type Severity Reaction Status Date / Time No Known Allergies Allergy Verified 12/22/23 15:20 [No Known Allergies*] Review of Systems Review of Systems: Constitutional : No Weight loss, No Fever, No Chills, No Night Sweats, No Fatigue, No Malaise ENT/Mouth : No Hearing loss, No Ear Pain, No Nasal Congestion, No Sinus Pain, No Hoarseness, No sore throat, No Rhinorrhea, No Swallowing Difficulty Eyes: No Eye Pain, No Swelling, No Redness, No Foreign Body, No Discharge, No Vision Changes Cardiovascular : No Chest Pain, No SOB, No Dyspnea on Exertion, No Orthopnea, No Edema, No Palpitations Respiratory : No Cough, No Sputum, No Wheezing, No Smoke Exposure, No Dyspnea Gastrointestinal : No Nausea, No Vomiting, No Diarrhea, No Constipation, No abdominal Pain, No Hematochezia, No Melena Genitourinary : no irregular bleeding, No Dysuria, No Urinary Frequency, No Hematuria, No Urinary Incontinence, No Urgency, No Flank Pain, No Urinary Flow Changes, No Hesitancy Musculoskeletal : No joint pain, No Myalgias, No Joint Swelling Skin : Complaining of rash Neuro : No Weakness, No Numbness, No Paresthesias, No Loss of Consciousness, No Dizziness, No Headache Psych : No Anxiety/Panic, No Depression, No SI/HI/AH/VH, No Social Issues, Heme/Lymph: No Bruising, No Bleeding,No Lymphadenopathy Endocrine : No Polyuria, No Polydipsia, No Temperature Intolerance [facility] Past Medical History Medical History Asthma Obesity Social History Social History Comment: medicated prior to discharge Advance Directives: No Advance Directives Information Provided: No Physical Exam ED Vital Signs: Vital Signs - 24 hr 01/02/24 18:07 01/02/24 20:58 Temperature 98.9 F 97.4 F Pulse Rate 95 63 Respiratory Rate 16 16 Blood Pressure 117/84 120/80 Pulse Oximetry 98 98 Oxygen Delivery Method Room Air Room Air BMI result Body Mass Index 39.1 Const Other: Appearance: Alert. Oriented X3. No acute distress. Eyes: Pupils equal, round and reactive to light. ENT: Pharynx normal. Neck: Normal inspection. Neck supple. No lymph nodes noted. No crepitus CVS: Normal heart rate and rhythm. Pulses normal. Normal S1 and S2 Respiratory: No respiratory distress. Breath sounds normal. No Wheezing. No rales Abdomen: Soft and nontender. No rigidity. No distention. Skin: Patient has a petechial rash in the abdomen, back, buttocks and lower extremities, sparing palms and soles Extremities: No lower extremity edema. No Lacerations. No Rash Neuro: Oriented X 3. No motor deficit. No sensory deficit. Moving all extremities. No slurred speech. CN 2 through 12 grossly intact Psych: calm, cooperative, normal affect Course Course Course Narrative: RME performed by Ciara Leiva PA-C. Patient is a 23 year old assigned female at presenting to the emergency department with a rash and a need for a medication refill. Detailed physical exam and review of systems are deferred to the lab aide. Labs ordered. Patient placed back in the waiting room pending room availability and results. Medical Decision Making Medical Decision Making [facility] Narrative: -patient's rash seems to be mostly petechial, the rash does not seem to be related to Lamictal. I discussed with the patient that the rash that she currently has, could be secondary to taking antibiotics such as amoxicillin for a viral infection. Patient states that when she was diagnosed with strep, she was not tested, she was just given antibiotics for it. At this time, patient has no sore throat. -I discussed with the patient that we will give her a small amount of medications to bridge her until she sees her primary care physician. Patient also takes dextroamphetamine-amphetamine. I discussed with the patient that this medication will not be prescribings time, patient agreeable and will follow-up with her primary care physician Differential Diagnosis Differential Diagnoses: The differential diagnosis associated with the presentation includes (Vasculitis, medication reaction, viral exanthem) Lab Data [facility] Lab Attestation statement: I reviewed the patient's lab results. 01/02/24 18:26 01/02/24 18:26 Labs: Lab Results 01/02/24 Range/Units 18:26 WBC 11.3 H (4.8-10.8) X10*3/uL RBC 5.04 (4.20-5.50) X10*6/uL Hgb 14.5 (12.0-16.0) g/dl Hct 43.5 (37.0-47.0) % MCV 86.3 (80.0-98.0) fL MCH 28.8 (27.0-33.0) pg MCHC 33.3 (31.0-35.0) g/dl RDW 12.7 (11.0-16.0) % Plt Count 231 (160-400) X10*3/uL MPV 10.6 (9.4-12.3) fL Immature Gran % (Auto) 0.2 (0.0-0.4) % Neut % (Auto) 61.8 (45-73) % Lymph % (Auto) 29.1 (20-40) % [place] % (Auto) 6.7 (2-11) % Eos % (Auto) 1.8 (0-4) % Baso % (Auto) 0.4 (0-2) % Lymph # (Auto) 3.3 (1.2-4.9) X10*3/uL [place] # (Auto) 0.8 (0.1-1.2) X10*3/uL Eos # (Auto) 0.2 (0.0-0.4) X10*3/uL Baso # (Auto) 0.0 (0.0-0.2) X10*3/uL Abs Immat Gran (auto) 0.02 (0.00-0.03) X10*3/uL Absolute Neuts (auto) 7.0 (2.0-8.3) x10*3/uL Absolute Nucleated RBC 0.000 (0.0-0.012) X10*3/uL Nucleated RBC % (auto) 0.0 (0.0-0.2) /100WBC Sodium 141 (135-145) mmol/L Potassium 4.3 (3.3-5.1) mmol/L Chloride 107 (96-108) mmol/L Carbon Dioxide 26 (22-29) mmol/L Anion Gap 12 (12-20) BUN 11 (9-16) mg/dL Creatinine 0.71 (0.5-1.4) mg/dL Estim Creat Clear Calc 146.9 Estimated GFR > 60 Random Glucose 78 (60-115) mg/dL Calcium 9.6 (8.4-10.2) mg/dL Total Bilirubin 0.3 (0.0-1.0) mg/dL AST 14 (5-31) U/L ALT 10 (0-31) U/L Alkaline Phosphatase 78 (39-117) U/L Total Protein 7.5 (6.5-8.0) g/dL Albumin 4.3 (3.5-5.0) g/dL Discharge Plan Discharge Clinical Impression: Rash and nonspecific skin eruption, Medication refill Patient Disposition: Home, Self-Care Instructions: Acute Rash (ED), Medicine Refill (ED), Cold Compress or Soak (ED) Additional Instructions: Please follow-up with your primary care physician tomorrow. If you have any worsening or new symptoms, please return to the emergency room or call 911 Prescriptions: New citalopram 40 mg tablet 40 mg PO DAILY Qty: 30 0RF prednisone 50 mg tablet 50 mg PO DAILY Qty: 5 0RF lamotrigine 25 mg tablet 50 mg PO DAILY 30 Days Qty: 60 0RF No Action amoxicillin-pot clavulanate 875-125 mg tablet 1 tab PO BID Qty: 14 0RF dextroamphetamine-amphetamine 10 mg tablet 1 tab PO BID citalopram 20 mg tablet 40 mg PO DAILY albuterol sulfate [Ventolin HFA] 90 mcg/actuation HFA aerosol inhaler 2 puff inhalation Q6H PRN (Reason: Shortness Of Breath Or Wheezing) lamotrigine 100 mg tablet 200 mg PO DAILY acyclovir 800 mg tablet 800 mg PO TID 2 Days Qty: 6 6RF
[2024-01-02 18:32] LABS: MANUAL DIFF FLAG NO
[2024-01-02 18:36] LABS: Basophils Percent Auto 0.4 % (0-2); Eosinophils Absolute Auto 0.2 X10*3/uL (0.0-0.4); Eosinophils Percent Auto 1.8 % (0-4); Hematocrit 43.5 % (37.0-47.0); Hemoglobin 14.5 g/dl (12.0-16.0); Imm Gran Abs Auto 0.02 X10*3/uL (0.00-0.03); Imm Gran Pct Auto 0.2 % (0.0-0.4); Lymphocytes Absolute Auto 3.3 X10*3/uL (1.2-4.9); Lymphocytes Percent Auto 29.1 % (20-40); Mean Corpuscular HGB Conc 33.3 g/dl (31.0-35.0); Mean Corpuscular Hemoglobin 28.8 pg (27.0-33.0); Mean Corpuscular Volume 86.3 fL (80.0-98.0); Mean Platelet Volume 10.6 fL (9.4-12.3); Monocytes Absolute Auto 0.8 X10*3/uL (0.1-1.2); Monocytes Percent Auto 6.7 % (2-11); Neutrophils Percent Auto 61.8 % (45-73); Platelet Count 231 X10*3/uL (160-400); Red Blood Count 5.04 X10*6/uL (4.20-5.50); Red Cell Distribution Width 12.7 % (11.0-16.0); White Blood Count 11.3 X10*3/uL (4.8-10.8)
[2024-01-02 18:50] LABS: Alanine Aminotransferase 10 U/L (0-31); Albumin Level 4.3 g/dL (3.5-5.0); Alkaline Phosphatase 78 U/L (39-117); Anion Gap 12 (12-20); Aspartate Amino Transferase 14 U/L (5-31); Bilirubin Total 0.3 mg/dL (0.0-1.0); Blood Urea Nitrogen 11 mg/dL (9-16); Calcium 9.6 mg/dL (8.4-10.2); Carbon Dioxide 26 mmol/L (22-29); Chloride 107 mmol/L (96-108); Creatinine Clr Calc Pharmacy 146.9; Estimated Glomerular Filt Rate > 60; Glucose Random 78 mg/dL (60-115); Potassium 4.3 mmol/L (3.3-5.1); Sodium 141 mmol/L (135-145); Total Protein 7.5 g/dL (6.5-8.0)
[2024-01-02 20:58] VITALS: BP 120/80; PULSE 63; RESP 16; TEMP 36.3; O2SAT 98
== END 2024-01-02 21:46 | disposition home or self-care (01) ==
PROVIDERS: Physician Assistant Medical; Emergency Provider Emergency Medicine
DX: R21 Rash and other nonspecific skin eruption (principal); Z76.0 Encounter for issue of repeat prescription
CPT/HCPCS: 36415; 80053; 85025; 99283; 99284

== ENCOUNTER 2024-01-08 15:32 | Emergency (ER) | payer OTHER, SELFPAY ==
--- NOTE | ~2024-01-08 | US_ITS ---
EXAMINATION: US VENOUS ULTRASOUND WITH DOPPLER LOWER EXTREMITY, BILATERAL CLINICAL INFORMATION: Bilateral swelling, lower leg pain swelling COMPARISON: None available. TECHNIQUE: Ultrasound of the deep veins is performed from the hip to the calf with compression sonography and color and pulse Doppler assessment. Spectral analysis with color-flow imaging is performed. FINDINGS: RIGHT: There is normal venous compression and respiratory variation and augmented flow. The visualized common femoral vein, superficial femoral vein, profunda femoral vein, popliteal vein, and the trifurcation region shows no evidence of deep venous thrombosis. There is no significant popliteal fossa cyst. LEFT: There is normal venous compression and respiratory variation and augmented flow. The visualized common femoral vein, superficial femoral vein, profunda femoral vein, popliteal vein, and the trifurcation region shows no evidence of deep venous thrombosis. There is no significant popliteal fossa cyst. If the patient's symptoms persist, followup ultrasound in 5 days 7 days might be of value to exclude proximal propagation from a non-visualized calf vein. US/US venous duplex LE BI IMPRESSION: No DVT demonstrated in the bilateral lower extremity.
[2024-01-08 15:47] VITALS: BP 151/99; PULSE 126; RESP 18; TEMP 36.6; O2SAT 98; BMI 40.3
--- NOTE | 2024-01-08 15:48 | ED.GENADULT ---
HPI - General Adult General Chief complaint: General Medical Stated complaint: follow up on a rash, not getting better? Time Seen by Provider: 01/08/24 19:46 Source: patient and RN notes reviewed Mode of arrival: ambulatory Limitations: no limitations History of Present Illness HPI narrative: This is a 23-year-old female, with no known medical problems, presenting to the emergency department with complaints of joint pain, abdominal pain, and painful rash. Patient reports that on December 16, she was diagnosed with strep throat for the 2nd time, and finished a full course of Augmentin. She states on December 29 she developed joint pain which started in her lower legs. She noticed on December 30 she had a rash. She came to the emergency room on January 01 due to rash and joint pain. At that time she was discharged with prednisone, Lamictal, and citalopram. She states that the joint pain worsened on January 03 in her legs in her bilateral ankles with swelling, and then she developed abdominal pain and cramping a day later. She was seen at [facility], [place] where she was diagnosed with IgA vasculitis and was discharged with a 2nd course of prednisone 40 mg. She has been taking the prescribed prednisone daily however reports that the rash is not improving, has had worsening joint pain, now is experiencing abdominal pain and nausea. She denies any fevers, chills, chest pain, shortness of breath, dysuria, hematuria, urinary frequency or urgency. No other complaints or concerns at this time. MD complaint: Joint pain, abdominal pain, rash Onset (ago): day(s) Radiation: non-radiation Relieving factors: none Exacerbating factors: none Associated symptoms: rash Treatments prior to arrival: other (Prednisone) Related Data Home Medications Medication Instructions Recorded Confirmed albuterol sulfate 90 mcg/actuation 2 puff inhalation Q6H PRN 03/09/23 03/09/23 aerosol inhaler (Ventolin HFA) Shortness Of Breath Or Wheezing Previous Rx's Medication Instructions Recorded acyclovir 800 mg tablet 800 mg PO TID 2 days #6 tabs 12/11/23 lisinopril 2.5 mg tablet 2.5 mg PO DAILY 2 weeks #14 tabs 01/09/24 omeprazole 20 mg capsule,delayed 20 mg PO DAILY 4 weeks #28 caps 01/09/24 release prednisone 20 mg tablet 80 mg (4 x 20 mg) PO DAILY #40 tabs 01/09/24 Allergies Allergy/AdvReac Type Severity Reaction Status Date / Time No Known Allergies Allergy Verified 01/14/24 14:55 [No Known Allergies*] Review of Systems Review of Systems: Yes all other systems are reviewed and are negative Constitutional: Constitutional: Reports as per [facility] Past Medical History Medical History (Updated 01/14/24 @ 15:27 by Kalyan Ni MD) Bloody nose Elevated d-dimer Asthma Obesity Surgical History Hx of adenoidectomy History of surgery Hx of tonsillectomy Family History Family History Mother No known health problems Father No known health problems Social History Social History Alcohol intake: current Alcohol intake frequency: holidays/special occasions only Comment: medicated prior to discharge Patient Tobacco Use Status: Never used Tobacco Physical Exam ED Vital Signs: Vital Signs - 24 hr 01/08/24 15:47 01/08/24 19:45 01/08/24 22:44 Temperature 97.8 F 99.3 F Pulse Rate 126 H 83 65 Respiratory Rate 18 16 16 Blood Pressure 151/99 H 119/59 L 126/51 L Pulse Oximetry 98 94 98 Oxygen Delivery Method Room Air Room Air Room Air 01/09/24 00:27 Temperature 98.5 F Pulse Rate 65 Respiratory Rate 17 Blood Pressure 119/70 Pulse Oximetry 97 Oxygen Delivery Method Room Air BMI result Body Mass Index 40.3 Const General: cooperative, comfortable and no acute distress Orientation/consciousness: patient oriented x3 Limitations: no limitations [facility] Head: Yes normal to inspection, Yes normocephalic and Yes atraumatic Ears: hearing grossly normal bilaterally General nose exam: Normal external nose present Face and sinus: Yes normal facial exam Mouth: Normal oral and palatal mucosa present, oropharynx normal and moist mucous membranes Throat: Yes posterior oropharynx normal Eyes General: appearance normal, both eyes and all related structures Eyelids: Yes eyelids normal Conjunctivae: conjunctivae normal Sclerae: sclerae normal Pupils: Equal, round and reactive pupils present EOM: EOMs intact bilaterally Neck Neck: Yes normal visual inspection, Yes full ROM and Yes no lymphadenopathy Lymphatic: no lymphadenopathy noted Chest Chest palpation & inspection: normal inspection of the chest Resp Effort & Inspection: normal respiratory effort and able to speak in complete sentences Auscultation: clear to auscultation bilaterally, no crackles, no rales, no rhonchi and no wheezes Cardio Rate: regular rate Rhythm: regular rhythm Heart sounds: S1 normal heart sound present and S2 normal heart sound present GI Other: Mild epigastric tenderness palpation, no rebound or guarding. No right upper quadrant pain, no other abdominal pain elicited on exam Inspection: Yes normal to inspection Skin General skin exam: no rashes or lesions noted Trauma: no lacerations or abrasions Wounds: no wounds Neuro General: patient oriented x3 and moves all extremities Cranial nerves: Yes Equal, round and reactive pupils present Extrem General: Yes normal to inspection Right upper extremity: normal to inspection Left upper extremity: normal to inspection Right lower extremity: normal to inspection Left lower extremity: normal to inspection Course Course Course Narrative: This is an RME: Additional HPI, ROS, PE not included below will be deferred to primary provider. 23 yo f dx w/ henoch-schonlein purpura recently presents w/ rash to rle, joint pain and abd pain X9 days. was recently on steroids no improvment recently had full panel STD testing Plan- labs Reevaluation(s) Reevaluation #1: Patient has been here for multiple hours, infiltrated IVs on multiple occasions. Patient anxious Time: 00:55 Reevaluation #2: Patient's symptoms consistent with Henoch-Schonlein purpura. Patient now refusing any intravenous access. We are unable to perform CTA or CT of the abdomen. I discussed this case with my attending, Dr. Quinonez, and hospitalist, Dr. Keating, hospitalist who saw patient at bedside. Elevated Ddimer is likely due to vascular injury with vasculitis. The risk of a PE is low but not zero. She is on a hormonal IUD. Pt has no chest pain or shortness of breath. She is hemodynamically stable, not hypoxic or tachycardic. Patient's abdomen is no longer tender. She is refusing hospitalization at this time and would like to be discharged. She is aware of the risks of not having the CT chest performed including missing a pulmonary embolism which can ultimately lead to . Dr. Keating recommending extended prednisone taper, with lisinopril for proteinuria and PPI. I explained to patient that we can keep her for a V/Q scan in the AM, or try to obtain access in the form of a central line and she adamantly refuses. She will follow up with PCP, rhumatology and nephrology. She does not meet hospital admission criteria at this time despite proteinuria, abdominal pain and diffuse joint pain. Given strict return precautions. She understands and agrees with plan. Stable for discharge. Time: 01:46 Medical Decision Making Medical Decision Making [facility] Narrative: This is a 23-year-old female, with a history of herpes, presenting to the emergency department with complaints of joint pain, abdominal pain, and painful rash. Per HPI, patient has had extensive progression of rash which started in her lower extremities and has since progressed diffusely throughout her entire body. Rash is painful, and she has associated joint pain as well as abdominal pain. On arrival, patient hypertensive at 151/99, pulse 126, all other vital signs within normal limits. Rash is non blanchable, and she has associated bilateral calf pain. Appearance does appear to be consistent with a vasculitis. Labs were ordered, patient has slight leukocytosis at 13.3, chemistry within normal limits. Patient has elevated inflammatory markers at 2.25. Urine with proteinuria, with hematuria, trace leuks, rbc's and wbc's. She also has Highline cast. A D-dimer was ordered prior to my assessment, which is elevated at 1800. Ultrasound of lower extremities was obtained, no blood clot identified. Given elevated D-dimer, this is likely due to the vasculitis however will have to obtain CT of the chest to rule out pulmonary embolism. She has no chest pain or shortness of breath. Also given abdominal pain, ordered CT abdomen and pelvis with IV contrast. Differential Diagnosis Differential Diagnoses: The differential diagnosis associated with the presentation includes IgA vasculitis, contact dermatitis, Iga nephropathy, nephrotic syndrome, gastritis Admission/Observation Consideration of admission/observation: Escalation of care including admission/observation considered Escalation of care including admission observation was considered given workup however hospitalist reports that she does not qualify for hospital admission at this time. Consult Healthcare Provider Management of the patient was discussed with: Hospitalist Dr. Keating, hospitalist Lab Data [facility] Lab Attestation statement: I reviewed the patient's lab results. Slight leukocytosis 13.3, slight hyperglycemia 125, CRP 2.25, total protein 8.1. Proteinuria noted, with a high specific gravity, moderate blood, trace leuks, patient with ddimer 1879 01/08/24 16:07 01/08/24 16:07 Labs: Lab Results 01/08/24 Range/Units 16:07 WBC 13.3 H (4.8-10.8) X10*3/uL RBC 5.44 (4.20-5.50) X10*6/uL Hgb 15.4 (12.0-16.0) g/dl Hct 45.1 (37.0-47.0) % MCV 82.9 (80.0-98.0) fL MCH 28.3 (27.0-33.0) pg MCHC 34.1 (31.0-35.0) g/dl RDW 12.8 (11.0-16.0) % Plt Count 276 (160-400) X10*3/uL MPV 10.9 (9.4-12.3) fL Immature Gran % (Auto) 0.4 (0.0-0.4) % Neut % (Auto) 88.8 H (45-73) % Lymph % (Auto) 8.9 L (20-40) % [place] % (Auto) 1.8 L (2-11) % Eos % (Auto) 0.0 (0-4) % Baso % (Auto) 0.1 (0-2) % Lymph # (Auto) 1.2 (1.2-4.9) X10*3/uL [place] # (Auto) 0.2 (0.1-1.2) X10*3/uL Eos # (Auto) 0.0 (0.0-0.4) X10*3/uL Baso # (Auto) 0.0 (0.0-0.2) X10*3/uL Abs Immat Gran (auto) 0.05 H (0.00-0.03) X10*3/uL Absolute Neuts (auto) 11.8 H (2.0-8.3) x10*3/uL Absolute Nucleated RBC 0.000 (0.0-0.012) X10*3/uL Nucleated RBC % (auto) 0.0 (0.0-0.2) /100WBC ESR 26 H (0-20) MM/HR PT 12.5 (11.1-13.3) SEC INR 1.0 (0.9-1.1) D-Dimer High Sensitivty 1879 NG/ML Sodium 138 (135-145) mmol/L Potassium 4.3 (3.3-5.1) mmol/L Chloride 107 (96-108) mmol/L Carbon Dioxide 20 L (22-29) mmol/L Anion Gap 15 (12-20) BUN 12 (9-16) mg/dL Creatinine 0.76 (0.5-1.4) mg/dL Estim Creat Clear Calc 144.6 Estimated GFR > 60 Random Glucose 125 H (60-115) mg/dL Calcium 9.6 (8.4-10.2) mg/dL Magnesium 2.1 (1.6-2.6) mg/dL Total Bilirubin 0.3 (0.0-1.0) mg/dL AST 16 (5-31) U/L ALT 10 (0-31) U/L Alkaline Phosphatase 75 (39-117) U/L C-Reactive Protein 2.25 H (< or = 0.50) mg/dL Total Protein 8.1 H (6.5-8.0) g/dL Albumin 4.4 (3.5-5.0) g/dL Lipase 11 (8-78) U/L Beta HCG, Quant < 2 mIU/mL Urine Color Dark Yellow Urine Appearance Clear Urine pH 6.5 (5.0-9.0) Ur Specific [place] >= 1.030 H (1.005-1.025) Urine Protein >=1000 (4+) H (Neg-Trace) mg/dL Urine Glucose (UA) Negative (Negative) mg/dL Urine Ketones Trace (Negative) mg/dL Urine Blood Moderate (2+) H (Negative) Urine Nitrite Negative (Negative) Ur Leukocyte Esterase Trace H (Negative) Urine RBC >20 H (0-2) /HPF Urine WBC 6-10 H (0-5) /HPF Ur Squamous Epith Cells 3-5 (0-2) /HPF Urine Bacteria None Seen (None Seen) Hyaline Casts 3-5 (0-2) /LPF Radiology Impression Discussion of test interpretation with radiology: I have reviewed the radiologist's reading. Radiologist Impression: EXAMINATION: US VENOUS ULTRASOUND WITH DOPPLER LOWER EXTREMITY, BILATERAL CLINICAL INFORMATION: Bilateral swelling, lower leg pain swelling COMPARISON: None available. TECHNIQUE: Ultrasound of the deep veins is performed from the hip to the calf with compression sonography and color and pulse Doppler assessment. Spectral analysis with color-flow imaging is performed. FINDINGS: RIGHT: There is normal venous compression and respiratory variation and augmented flow. The visualized common femoral vein, superficial femoral vein, profunda femoral vein, popliteal vein, and the trifurcation region shows no evidence of deep venous thrombosis. There is no significant popliteal fossa cyst. LEFT: There is normal venous compression and respiratory variation and augmented flow. The visualized common femoral vein, superficial femoral vein, profunda femoral vein, popliteal vein, and the trifurcation region shows no evidence of deep venous thrombosis. There is no significant popliteal fossa cyst. If the patient's symptoms persist, followup ultrasound in 5 days 7 days might be of value to exclude proximal propagation from a non-visualized calf vein. US/US venous duplex LE BI IMPRESSION: No DVT demonstrated in the bilateral lower extremity. Dictated By: Melodie Adler MD Signed By: <Electronically signed b Critical Care Time Critical Care Time Critical Care Time: Yes Total Critical Care Time: 60 Attestation: I have personally provided critical care time exclusive of time spent on separately billable procedures. Time includes review of lab data, radiology results, discussion with consultants, and monitoring for potential decompensation. Intervention performed as documented. Discharge Plan Discharge Clinical Impression: Henoch-Schonlein purpura Patient Disposition: Home, Self-Care Instructions: Purpura (ED), Henoch-Schonlein Purpura (ED) Additional Instructions: You were seen in the ER due to worsening joint pain, rash and abdominal pain. You had an elevated DDimer test in the department which can be indicative for a blood clot. You had no blood clots in your calves, however we would have like to get a CT of your chest as well as your abdomen which you refused. We are increasing your prednisone dose to Prednisone 80mg for the next 5 days, you then will be placed on a taper. Please see instructions from the pharmacy written on your prescription bottle. Please take lisinopril 2.5mg by mouth to help with the protein that is in your urine. Please take PPI (prilosec) as directed to help prevent ulcerations. It is very important that you take these medications and that you follow up with the clinical appeals rn that you were referred to. You should see them next week. Follow up with your PCP to ensure that this has taken place. You also need to follow-up with Rheumatology. If any new or worsening symptoms occur including but not limited to chest pain, shortness of breath, worsening abdominal pain, nausea, vomiting, bloody/black stool or bloody vomit, please return for re-evaluation. Prescriptions: New omeprazole 20 mg capsule,delayed release(DR/EC) 20 mg PO DAILY 28 Days Qty: 28 0RF lisinopril 2.5 mg tablet 2.5 mg PO DAILY 14 Days Qty: 14 0RF prednisone 20 mg tablet 80 mg PO DAILY Qty: 40 0RF Rx Instructions: Day 1-5: Prednisone 80mg by mouth Day 6-8: Prednisone 60mg by mouth Day 9-11: Prednisone 40mg by mouth Day 12-14: Prednisone 20mg by mouth Day 15-18: Prednisone 10mg by mouth No Action albuterol sulfate [Ventolin HFA] 90 mcg/actuation HFA aerosol inhaler 2 puff inhalation Q6H PRN (Reason: Shortness Of Breath Or Wheezing) acyclovir 800 mg tablet 800 mg PO TID 2 Days Qty: 6 6RF Interventions: ED Discharge Assessment Last Done: 01/09/24 02:34 Discharge Date/Time: 01/09/24 02:35
[2024-01-08 16:14] LABS: MANUAL DIFF FLAG NO
[2024-01-08 16:17] LABS: Appearance Urine Clear; Color Urine Dark Yellow; Glucose Urine UA Negative (Negative); Leukocyte Esterase Urine Trace (Negative); Nitrite Urine Negative (Negative); PH 6.5 (5.0-9.0); Specific Gravity - Urine >= 1.030 (1.005-1.025); UMIC TRIGGER UACC YES; Urine Blood Moderate (2+) (Negative); Urine Ketones Trace mg/dL (Negative); Urine Protein >=1000 (4+) mg/dL (Neg-Trace)
[2024-01-08 16:23] LABS: Prothrombin Time 12.5 SEC (11.1-13.3)
[2024-01-08 16:25] LABS: Bacteria Urine None Seen (None Seen); RBC Urine >20 /HPF (0-2); UACC Culture Trigger YES
[2024-01-08 16:32] LABS: Alanine Aminotransferase 10 U/L (0-31); Albumin Level 4.4 g/dL (3.5-5.0); Alkaline Phosphatase 75 U/L (39-117); Anion Gap 15 (12-20); Aspartate Amino Transferase 16 U/L (5-31); Bilirubin Total 0.3 mg/dL (0.0-1.0); Blood Urea Nitrogen 12 mg/dL (9-16); C Reactive Protein 2.25 mg/dL (< or = 0.50); Calcium 9.6 mg/dL (8.4-10.2); Carbon Dioxide 20 mmol/L (22-29); Chloride 107 mmol/L (96-108); Creatinine Clr Calc Pharmacy 144.6; Estimated Glomerular Filt Rate > 60; Glucose Random 125 mg/dL (60-115); Magnesium 2.1 mg/dL (1.6-2.6); Potassium 4.3 mmol/L (3.3-5.1); Sodium 138 mmol/L (135-145); Total Protein 8.1 g/dL (6.5-8.0)
[2024-01-08 16:51] LABS: Basophils Percent Auto 0.1 % (0-2); Hematocrit 45.1 % (37.0-47.0); Hemoglobin 15.4 g/dl (12.0-16.0); Imm Gran Abs Auto 0.05 X10*3/uL (0.00-0.03); Imm Gran Pct Auto 0.4 % (0.0-0.4); Lymphocytes Absolute Auto 1.2 X10*3/uL (1.2-4.9); Lymphocytes Percent Auto 8.9 % (20-40); Mean Corpuscular HGB Conc 34.1 g/dl (31.0-35.0); Mean Corpuscular Hemoglobin 28.3 pg (27.0-33.0); Mean Corpuscular Volume 82.9 fL (80.0-98.0); Mean Platelet Volume 10.9 fL (9.4-12.3); Monocytes Absolute Auto 0.2 X10*3/uL (0.1-1.2); Monocytes Percent Auto 1.8 % (2-11); Neutrophils Absolute Auto 11.8 x10*3/uL (2.0-8.3); Neutrophils Percent Auto 88.8 % (45-73); Platelet Count 276 X10*3/uL (160-400); Red Blood Count 5.44 X10*6/uL (4.20-5.50); Red Cell Distribution Width 12.8 % (11.0-16.0); White Blood Count 13.3 X10*3/uL (4.8-10.8)
[2024-01-08 17:49] LABS: D Dimer High Sensitivity 1879 NG/ML
[2024-01-08 18:02] LABS: Erythrocyte Sedimentation Rate 26 MM/HR (0-20)
[2024-01-08 19:45] VITALS: BP 119/59; PULSE 83; RESP 16; TEMP 37.4; O2SAT 94
[2024-01-08 21:23] LABS: Lipase 11 U/L (8-78)
[2024-01-08 22:03] LABS: HCG Quantitative < 2 mIU/mL
--- NOTE | 2024-01-08 22:41 | PC.NURSE ---
Patient extremely hesitant about receiving another IV, provider at bedside to speak to patient about the need for IV for contrast. Patient consented to one additional IV placement, 20 R upper arm placed.
[2024-01-08 22:44] VITALS: BP 126/51; PULSE 65; RESP 16; O2SAT 98
--- NOTE | 2024-01-08 22:54 | PC.NURSE ---
Patient returned from CT again with IV blown. Will try to obtain additional line.
--- NOTE | 2024-01-08 23:00 | PC.NURSE ---
Went in room to speak to patient about updated plan of care, patient had already ripped out her IV, blood on sheets noted, IV cath itself thrown by patient, unsure where, Asked patient to see site where IV was placed, gauze and tape applied no signs of swelling or extravasation noted. provider made aware.
[2024-01-09 00:27] VITALS: BP 119/70; PULSE 65; RESP 17; TEMP 36.9; O2SAT 97
[2024-01-09 02:34] VITALS: BP 119/70; PULSE 65; RESP 17; TEMP 36.9; O2SAT 97
== END 2024-01-09 02:35 | disposition home or self-care (01) ==
PROVIDERS: Physician Assistant; Physician Assistant Medical; Emergency Provider Emergency Medicine
DX: D69.0 Allergic purpura (principal); R60.0 Localized edema; Z79.899 Other long term (current) drug therapy
CPT/HCPCS: 36415; 80053; 81001; 83690; 83735; 84702; 85025; 85379; 85610; 85652; 86140; 87086; 93970; 99284

== ENCOUNTER 2024-01-09 11:25 | Emergency (ER) | payer OTHER, SELFPAY ==
[2024-01-09 11:41] VITALS: BP 139/91; PULSE 102; RESP 18; TEMP 37.1; O2SAT 100; BMI 36.3
--- NOTE | 2024-01-09 11:41 | ED.GENADULT ---
HPI - General Adult General Chief complaint: General Medical Stated complaint: discharged this AM, sob Related Data Home Medications Medication Instructions Recorded Confirmed albuterol sulfate 90 mcg/actuation 2 puff inhalation Q6H PRN 03/09/23 03/09/23 aerosol inhaler (Ventolin HFA) Shortness Of Breath Or Wheezing Previous Rx's Medication Instructions Recorded acyclovir 800 mg tablet 800 mg PO TID 2 days #6 tabs 12/11/23 lisinopril 2.5 mg tablet 2.5 mg PO DAILY 2 weeks #14 tabs 01/09/24 omeprazole 20 mg capsule,delayed 20 mg PO DAILY 4 weeks #28 caps 01/09/24 release prednisone 20 mg tablet 80 mg (4 x 20 mg) PO DAILY #40 tabs 01/09/24 Allergies Allergy/AdvReac Type Severity Reaction Status Date / Time No Known Allergies Allergy Verified 01/14/24 14:55 [No Known Allergies*] PMFSH Past Medical History Medical History (Updated 01/17/24 @ 10:21 by Chuyita Diaz CNP) Bloody nose Elevated d-dimer Asthma Obesity Surgical History Hx of adenoidectomy History of surgery Hx of tonsillectomy Family History Family History Mother No known health problems Father No known health problems Social History Social History Alcohol intake: current Alcohol intake frequency: holidays/special occasions only Comment: medicated prior to discharge Patient Tobacco Use Status: Never used Tobacco Physical Exam ED Vital Signs: BMI result Body Mass Index 36.3 Course Course Course Narrative: This is an RME: Additional HPI, ROS, PE not included below will be deferred to primary provider. Patient is a 23-year-old female who reports that she has been experiencing right upper abdominal pain/lower chest pain wrapping around the side and into her back and shortness of breath with onset at approximately 06:00 this morning she was advised to come back to the emergency department should she develop any new or worsening symptoms. Upon review she was unable to have CTA of her chest/abdomen yesterday after workup in the emergency department, she was advised that she could have a V/Q scan versus central line placement for CTA however she declined and opted for discharge and outpatient follow-up. Plan: Placed in waiting room pending bed availability Discharge Plan Discharge Clinical Impression: Abdominal pain Patient Disposition: Left W/O Completing Treatment Prescriptions: No Action albuterol sulfate [Ventolin HFA] 90 mcg/actuation HFA aerosol inhaler 2 puff inhalation Q6H PRN (Reason: Shortness Of Breath Or Wheezing) omeprazole 20 mg capsule,delayed release(DR/EC) 20 mg PO DAILY 28 Days Qty: 28 0RF lisinopril 2.5 mg tablet 2.5 mg PO DAILY 14 Days Qty: 14 0RF prednisone 20 mg tablet 80 mg PO DAILY Qty: 40 0RF Rx Instructions: Day 1-5: Prednisone 80mg by mouth Day 6-8: Prednisone 60mg by mouth Day 9-11: Prednisone 40mg by mouth Day 12-14: Prednisone 20mg by mouth Day 15-18: Prednisone 10mg by mouth acyclovir 800 mg tablet 800 mg PO TID 2 Days Qty: 6 6RF Discharge Date/Time: 01/09/24 19:56
== END 2024-01-09 19:56 | disposition left against medical advice (07) ==
PROVIDERS: Emergency Provider Emergency Medicine
DX: R10.11 Right upper quadrant pain (principal); R07.9 Chest pain, unspecified; R06.02 Shortness of breath
CPT/HCPCS: 99281

== ENCOUNTER 2024-01-13 15:24 | Outpatient (AMB) | payer OTHER, SELFPAY ==
--- NOTE | 2024-01-13 15:26 | MHC.OFFVIS ---
Intake Vital Signs 01/13/24 15:28 Height 5 ft 3.98 in Weight 261 lb 3.964 oz BMI 44.9 BP 110/62 Blood Pressure Location Rt brachial Position Sitting Pulse 107 H Pulse Source Pulse Oximeter Intake Visit Reasons: Auto immune/[facility] ED REF Intake Note: New patient, referred by ED, presents today for consult. Conveyor Line Battery Charger Required: No Accompanied by: Self / Same As Patient Allergies No Known Allergies [No Known Allergies*] Allergy (Verified 01/14/24 14:55) HPI HPI Comments History of Present Illness Details Ms. 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 She was diagnosed with HSP after she presented to the ED with the triad -rash, vague abdominal pain and joint pain. She was started on High does prednisone, ibuprofen. The joint pain has improved and the swelling to her lower extremities has mostly resolved. The rash too has mostly resolved but the patient says the rash returns when she goes below certain dose of the Prednisone. She is curretly on 50 mg QD for the next 2 days. Upon inquiry the patient shared that she had a strep throat infection and was treated with antibiotics about the December 16. It was around that time that she started having the joint pain on estimated date of December 25 than the rash appeared December 31. She had the rash, knee pain and abdominal discomfort for about a week before she went to the hospital. -prednisone taper start that 80 mg of prednisone x 4 days, 60 mg x 3 days, now 50 mg x 2 days (started today) -proteinuria 1000 on 01/07, 500 on 01/12 -History of genital herpes -usually takes valacyclovir which has become ineffective so she was recently switched to acyclovir because she had an outbreak for the whole month of November that was not resolved with valacyclovir. -bloody nose -denies blood in stool and urine and current abdominal discomfort [facility] Medical History (Updated 01/17/24 @ 10:21 by Chuyita Diaz CNP) Bloody nose Elevated d-dimer Asthma Obesity Surgical History Hx of adenoidectomy History of surgery Hx of tonsillectomy Family History Mother No known health problems Father No known health problems Social History Alcohol intake: current Alcohol intake frequency: holidays/special occasions only Comment: medicated prior to discharge Patient Tobacco Use Status: Never used Tobacco Physical Exam Vital Signs: Last Vital Signs Pulse 107 H 01/13/24 15:28 BP 110/62 01/13/24 15:28 BMI result Body Mass Index 44.9 Vital signs reviewed. Constitutional: Non-toxic appearing. No acute distress. Well-developed and well-nourished. HEENT: Normocephalic and atraumatic. External auditory canals without erythema or edema bilaterally. Dry mucous membranes. No pharyngeal erythema or exudates. Skin: Warm and dry. Clusters of purpura to coccyx, umbilicus area, left flank Neck: Full and painless range of motion. No cervical lymphadenopathy. Cardio: Regular rate and rhythm. No murmurs, gallops, or rubs. No lower extremity edema. No JVD. Pulmonary: No respiratory distress. No accessory muscle usage. Scattered expiratory wheezing. Gastrointestinal: Soft, nontender, and nondistended in all 4 quadrants. Normoactive bowel sounds in all 4 quadrants. Genitourinary: No CVA tenderness. Musculoskeletal: Normal range of motion in joints throughout the body. No deformity or other signs of injury. Neuro: Alert and oriented x4. Cranial nerves 2-12 grossly intact. No focal deficits appreciated. 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 Alvarenga is here for follow-up treatment for HSP diagnosed during hospitalization. I agree with the diagnosis Henoch-Schoenlein purpura given the triad of rash abdominal pain and arthritis pain. HSP can also be incited by an upper respiratory infection - she was treated for strep and the genital herpes outbreak in the preceding weeks. Although she denies starting any new medication but acyclovir would have been new to her within that timeframe and also could be a trigger so we will be mindful of that should she need to take Acyclovir and possibly has the same experience. Her coagulation panel and platelet were within normal ranges so it is not likely ITP (Immune Thrombocytic Purpura). Most of the rash is resolved. She does have some scattered areas on her buttock abdomen and left knee. There is some trace swelling to her lower extremities but patient says this is a big improvement from where she was before. 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 The patient is currently on 50 mg of prednisone and will continue to taper down. We will take her down by 10 mg each week and monitor for return of symptoms. I will also obtain labs to evaluate further. #Proteinuria: 1000 to 500 on 01/12 resolving. If it persists above 300 we will consider to refer her to Nephrology. We will also monitor her urine to ensure that the proteinuria continues to resolve. #Bloody nose:The patient says she continues to have bloody nose so she may benefit for an ENT referral. Follow-up in 2 weeks. I spent 50 minutes researching in reviewing her history, evaluating patient and documenting Orders: Orders Comprehensive Met. Panel Today D69.0 - Allergic purpura C Reactive Protein Today D69.0 - Allergic purpura T Spot TB Today D69.0 - Allergic purpura Immunofixation Pnl, Serum Today D69.0 - Allergic purpura YANCI Reflex Titer and Pattern Today D69.0 - Allergic purpura Anti Extractable Nuclear Ag Today D69.0 - Allergic purpura Complement C3 Today D69.0 - Allergic purpura Complement C4 Today D69.0 - Allergic purpura Aldolase Today D69.0 - Allergic purpura Erythrocyte Sedimentation Rate Today D69.0 - Allergic purpura Complete Blood Count Auto Diff Today D69.0 - Allergic purpura Creatine Kinase Total Today D69.0 - Allergic purpura Cryoglobulin Today D69.0 - Allergic purpura Immunoglobulins,IgG IgA IgM Today D69.0 - Allergic purpura ANCA Vasculitides Today D69.0 - Allergic purpura Anti-Centromere B Antibodies Today D69.0 - Allergic purpura Anti DNA DS Antibody Today D69.0 - Allergic purpura Protein Electrophoresis, Serum Today D69.0 - Allergic purpura UA w Microscopic Today D69.0 - Allergic purpura D Dimer High Sensitivity Today D69.0 - Allergic purpura, R79.89 - Other specified abnormal findings of blood chemistry Referrals Ear/Nose/Throat Referral D69.0 - Allergic purpura, R04.0 - Epistaxis Coding Level of Care Code New Pt Level 5 (29475) Diagnoses Henoch-Schonlein purpura D69.0 Other proteinuria R80.8 Proteinuria type: other Bloody nose R04.0
[2024-01-13 15:28] VITALS: BP 110/62; PULSE 107; BMI 44.9
== END 2024-01-13 16:26 | disposition home or self-care (01) ==
PROVIDERS: Visit Provider Nurse Practitioner Family
DX: D69.0 Allergic purpura (principal); R80.8 Other proteinuria; R04.0 Epistaxis
CPT/HCPCS: 99204

== ENCOUNTER → 2024-01-13 15:24 | Outpatient (BNVA) | payer OTHER, SELFPAY | PROVIDERS: Visit Provider Nurse Practitioner Family | DX: D69.0 Allergic purpura (principal); R80.9 Proteinuria, unspecified; R04.0 Epistaxis | CPT/HCPCS: 99202 ==

== ENCOUNTER 2024-01-14 14:50 | Outpatient (AMB) | payer OTHER, SELFPAY ==
--- NOTE | 2024-01-14 14:53 | HO.NEPHOV ---
HPI HPI Comments History of Present Illness Details 23-year-old female recently has been having joint pains, abdominal pain, and vasculitic rash with proteinuria. Patient reported that on December 16, she was diagnosed with strep throat for the 2nd time, and finished a full course of Augmentin. On December 29 she developed joint pain which started in her lower legs. On the following day she had a rash mostly confined to her lower extremities and was [place] [facility] [place] [facility] [place] was discharged with prednisone. Her joint pain worsened in a few days with bilateral ankle swelling. She developed abdominal pain and cramping a day later. she was diagnosed with IgA vasculitis and was discharged with a 2nd course of prednisone 40 mg. She has been taking the prescribed prednisone. She denied any fevers, chills, chest pain, shortness of breath, dysuria, hematuria, urinary frequency or urgency. No other complaints or concerns at this time. She has history of genital herpes and usually take Valcyclovir. [facility] Medical History (Updated 01/17/24 @ 10:21 by Chuyita Diaz IMMUNOCHEMIST) Bloody nose Elevated d-dimer Asthma Obesity Surgical History Hx of adenoidectomy History of surgery Hx of tonsillectomy Family History Mother No known health problems Father No known health problems Social History Alcohol intake: current Alcohol intake frequency: holidays/special occasions only Comment: medicated prior to discharge Patient Tobacco Use Status: Never used Tobacco Vital Signs 01/14/24 14:54 Weight 263 lb BP 132/50 L Blood Pressure Location Lt brachial Position Sitting Pulse 103 H Pulse Source Pulse Oximeter Pulse Oximetry (%) 95 Oxygen Delivery Method Room Air Physical Exam Vital Signs: Last Vital Signs Pulse 103 H 01/14/24 14:54 BP 132/50 L 01/14/24 14:54 Pulse Ox 95 01/14/24 14:54 Oxygen Delivery Method Room Air 01/14/24 14:54 Const General: comfortable and no acute distress Orientation/consciousness: patient oriented x3 HEENT Head: Yes normocephalic Mouth: Normal oral and palatal mucosa present Eyes EOM: EOMs intact bilaterally Neck Neck: Yes supple Resp Auscultation: clear to auscultation bilaterally Cardio Jugular venous distension: no JVD Rate: regular rate GI Palpation (GI): Soft to palpation Auscultation: normal bowel sounds General: Yes no CVA tenderness Back/Spine/Pelvis Back: no CVA tenderness Skin General skin exam: no rashes or lesions noted Neuro General: patient oriented x3 and moves all extremities Assessment & Plan Assessment & Plan (1) Proteinuria: Code(s): R80.9 - Proteinuria, unspecified Qualifiers: Proteinuria type: other Qualified Code(s): R80.8 - Other proteinuria Plan Blanche has glomerular proteinuria. She recently had vasculitic rash with microscopic hematuria and abdominal pain. She most likely has IgA vasculitis. She is currently on prednisone. Workup has been ordered. She most likely needs renal biopsy. I increased her lisinopril to 5 mg daily. She has IUD in place. All the possibilities have been discussed. Addressed her concerns. Follow-up given. Orders: Orders Immunofixation Pnl, Serum 01/19/24 R80.9 - Proteinuria, unspecified Scleroderma 70 Antibody 01/19/24 R80.9 - Proteinuria, unspecified Sjogren's Antibodies 01/19/24 R80.9 - Proteinuria, unspecified Anti Extractable Nuclear Ag 01/19/24 R80.9 - Proteinuria, unspecified Phospholipase A2 Receptor Pnl 01/19/24 R80.9 - Proteinuria, unspecified Anti Glomerular Basement Memb 01/19/24 R80.9 - Proteinuria, unspecified Myeloperoxidase Antibody 01/19/24 R80.9 - Proteinuria, unspecified Anti DNA DS Antibody 01/19/24 R80.9 - Proteinuria, unspecified Protein Creatinine Ratio, Ur 01/19/24 R80.9 - Proteinuria, unspecified [place] 1 Antibody 01/19/24 R80.9 - Proteinuria, unspecified Proteinase 3 PR3 Antibodies 01/19/24 R80.9 - Proteinuria, unspecified Protein, 24 Hr Urine Group 01/19/24 R80.9 - Proteinuria, unspecified Prothrombin Time INR 01/19/24 R80.9 - Proteinuria, unspecified Complete Blood Count Auto Diff 01/19/24 R80.9 - Proteinuria, unspecified Coding Level of Care Code New Pt Level 4 (31744) Diagnoses Other proteinuria R80.8 Proteinuria type: other Results Reviewed Nephrology Results: Hgb 14.2 g/dl (12.0-16.0) 01/19/24 WBC 18.3 X10*3/uL (4.8-10.8) H 01/19/24 Plt Count 263 X10*3/uL (160-400) 01/19/24 Sodium 138 mmol/L (135-145) 01/19/24 Potassium 3.7 mmol/L (3.3-5.1) 01/19/24 Chloride 106 mmol/L (96-108) 01/19/24 Carbon Dioxide 22 mmol/L (22-29) 01/19/24 BUN 17 mg/dL (9-16) H 01/19/24 Creatinine 0.71 mg/dL (0.5-1.4) 01/19/24 Calcium 9.1 mg/dL (8.4-10.2) 01/19/24 Urine Protein 300 (3+) mg/dL (Neg-Trace) H 01/19/24 Urine Creatinine 22.04 mg/dL 01/19/24 Protein/Creatinin Ratio 7.40 (<0.2) H 01/19/24
[2024-01-14 14:54] VITALS: BP 132/50; PULSE 103; O2SAT 95
== END 2024-01-14 15:32 | disposition home or self-care (01) ==
PROVIDERS: Visit Provider Internal Medicine Nephrology
DX: R80.8 Other proteinuria (principal)
CPT/HCPCS: 99204

== ENCOUNTER → 2024-01-14 14:50 | Outpatient (BNVA) | payer OTHER, SELFPAY | PROVIDERS: Visit Provider Internal Medicine Nephrology | DX: N04.9 Nephrotic syndrome with unspecified morphologic changes (principal); R80.8 Other proteinuria | CPT/HCPCS: 99202 ==

== ENCOUNTER 2024-01-19 11:23 | Outpatient (REF) | payer OTHER, SELFPAY ==
[2024-01-19 12:07] LABS: MANUAL DIFF FLAG NO
[2024-01-19 12:27] LABS: Basophils Absolute Auto 0.1 X10*3/uL (0.0-0.2); Basophils Percent Auto 0.3 % (0-2); Eosinophils Absolute Auto 0.1 X10*3/uL (0.0-0.4); Eosinophils Percent Auto 0.4 % (0-4); Hemoglobin 14.2 g/dl (12.0-16.0); Imm Gran Abs Auto 0.13 X10*3/uL (0.00-0.03); Imm Gran Pct Auto 0.7 % (0.0-0.4); Lymphocytes Absolute Auto 2.8 X10*3/uL (1.2-4.9); Lymphocytes Percent Auto 15.5 % (20-40); Mean Corpuscular Hemoglobin 28.9 pg (27.0-33.0); Mean Corpuscular Volume 87.4 fL (80.0-98.0); Mean Platelet Volume 10.2 fL (9.4-12.3); Monocytes Absolute Auto 0.5 X10*3/uL (0.1-1.2); Monocytes Percent Auto 2.7 % (2-11); Neutrophils Absolute Auto 14.7 x10*3/uL (2.0-8.3); Neutrophils Percent Auto 80.4 % (45-73); Platelet Count 263 X10*3/uL (160-400); Red Blood Count 4.92 X10*6/uL (4.20-5.50); Red Cell Distribution Width 13.2 % (11.0-16.0); White Blood Count 18.3 X10*3/uL (4.8-10.8)
[2024-01-19 12:36] LABS: INTERNATIONAL NORM RATIO 0.9 (0.9-1.1); Prothrombin Time 10.5 SEC (11.1-13.3)
[2024-01-19 12:37] LABS: D Dimer High Sensitivity 217 NG/ML
[2024-01-19 13:07] LABS: Erythrocyte Sedimentation Rate 8 MM/HR (0-20)
[2024-01-19 13:41] LABS: Alanine Aminotransferase 10 U/L (0-31); Alkaline Phosphatase 62 U/L (39-117); Anion Gap 14 (12-20); Aspartate Amino Transferase 8 U/L (5-31); Bilirubin Total 0.3 mg/dL (0.0-1.0); Blood Urea Nitrogen 17 mg/dL (9-16); C Reactive Protein 0.12 mg/dL (< or = 0.50); Calcium 9.1 mg/dL (8.4-10.2); Carbon Dioxide 22 mmol/L (22-29); Chloride 106 mmol/L (96-108); Estimated Glomerular Filt Rate > 60; Glucose Random 93 mg/dL (60-115); Potassium 3.7 mmol/L (3.3-5.1); Sodium 138 mmol/L (135-145); Total Protein 6.8 g/dL (6.5-8.0)
[2024-01-19 13:53] LABS: Appearance Urine Clear; Color Urine Yellow; Glucose Urine UA Negative (Negative); Leukocyte Esterase Urine Negative (Negative); Nitrite Urine Negative (Negative); PH 6.5 (5.0-9.0); Specific Gravity - Urine <= 1.005 (1.005-1.025); UMIC TRIGGER UA YES; Urine Blood Large (3+) (Negative); Urine Ketones Negative (Negative); Urine Protein 300 (3+) mg/dL (Neg-Trace)
[2024-01-19 14:09] LABS: Bacteria Urine Trace (None Seen); Hyaline Casts Urine 0-2 /LPF (0-2); RBC Urine >20 /HPF (0-2)
[2024-01-19 14:35] LABS: Creatinine Urine 22.04 mg/dL; Total Protein Urine Random 163 mg/dL (<12)
[2024-01-19 14:47] LABS: Creatinine, mg/dL 97.81
[2024-01-19 15:53] LABS: Protein mg/dL 283 mg/dL
[2024-01-19 16:24] LABS: Creatinine, 24Hr Urine 1.7 G/Day (1.0-2.0); Protein 24 Hr Urine 4953 mg/Day (<150); Total Volume 24 Hour Urine 1750 mL
[2024-01-20 10:04] LABS: Complement C3 124 mg/dL (83-193)
[2024-01-20 21:19] LABS: Prot Elec - Albumin 3.9 g/dL (3.8-4.8); Prot Elec - Alpha1 0.3 g/dL (0.2-0.3); Prot Elec - Alpha2 0.9 g/dL (0.5-0.9); Prot Elec - Beta 1 0.5 g/dL (0.4-0.6); Prot Elec - Beta 2 0.3 g/dL (0.2-0.5); Prot Elec - Gamma 0.8 g/dL (0.8-1.7); Prot Elec - Total Protein 6.7 g/dL (6.1-8.1)
[2024-01-20 23:13] LABS: SM/Ribonucleoprotein Ab <1.0 NEG AI (<1.0 NEG); Smith Protein <1.0 NEG AI (<1.0 NEG)
[2024-01-21 13:09] LABS: Anti Nuclear Antibody Screen NEGATIVE (NEGATIVE)
[2024-01-21 13:34] LABS: IgA 149 mg/dL (47-310); IgG 786 mg/dL (600-1640); IgM 164 mg/dL (50-300)
[2024-01-21 14:28] LABS: IgA 150 mg/dL (47-310); IgG 811 mg/dL (600-1640); IgM 158 mg/dL (50-300)
[2024-01-22 07:37] LABS: TS Negative Control Passed; TS Panel A 0; TS Panel B 0; TS Positive Control Passed; TSpotTB Negative (Negative)
[2024-01-22 22:14] LABS: Anti-Centromere B Antibodies <1.0 NEG AI (<1.0 NEG)
[2024-01-23 00:23] LABS: Phospholipase A2 IgG ELISA <4 RU/mL; Phospholipase A2 IgG IFA NEGATIVE (NEGATIVE)
[2024-01-23 23:23] LABS: Aldolase 8.6 U/L (<=8.1)
[2024-01-24 16:18] LABS: Anti DNA DS Antibody 1 IU/mL; Anti DNA DS Antibody <1 IU/mL; Anti Glomerular Basement Memb <1.0 AI; Antibody to SS-A Antigen <1.0 NEG AI (<1.0 NEG); Antibody to SS-B Antigen <1.0 NEG AI (<1.0 NEG); JO 1 Antibody <1.0 NEG AI (<1.0 NEG); Myeloperoxidase Antibody <1.0 AI; Proteinase 3 PR3 Antibodies <1.0 AI; SM/Ribonucleoprotein Ab <1.0 NEG AI (<1.0 NEG); Scleroderma 70 Antibody <1.0 NEG AI (<1.0 NEG); Smith Protein <1.0 NEG AI (<1.0 NEG)
== END 2024-01-19 11:24 | disposition home or self-care (01) ==
LOC: HO.LAB 11:23
PROVIDERS: Absent Provider Internal Medicine Nephrology; Visit Provider Nurse Practitioner Family
DX: R80.9 Proteinuria, unspecified (principal); D69.0 Allergic purpura; R79.89 Other specified abnormal findings of blood chemistry
CPT/HCPCS: 36415; 80053; 81001; 82085; 82550; 82570; 82595; 82784; 83520; 84156; 84165; 85025; 85379; 85610; 85652; 86021; 86038; 86140; 86160; 86225; 86235; 86255; 86334; 86481

== ENCOUNTER 2024-01-20 10:13 | Outpatient (AMB) | payer OTHER, SELFPAY ==
--- NOTE | 2024-01-20 10:22 | A.OFFPC_ITS ---
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 Transferring care from Dr Sam Fletcher ([facility]). Medical records have not been requested and have not received. Automatic Pinsetter Adjuster Required: No Milk Tester: Not Required per policy Accompanied by: Self / Same As Patient Allergies No Known Allergies [No Known Allergies*] Allergy (Verified 01/30/24 14:12) Medication List - Last Reconciled 01/20/24 by Cedric Bingham MD acyclovir 800 mg PO TID 2 days albuterol sulfate 90 mcg/actuation (Ventolin HFA) 2 puffs inhalation Q6H PRN lisinopril 5 mg PO BID omeprazole 20 mg PO DAILY 4 weeks prednisone 80 mg (4 x 20 mg) PO DAILY Tobacco use date assessed: 01/20/24 Dental Screening Dental Screen Date: 01/20/24 Did you have a dental visit in the last 12 months?: Yes Did you have a dental problem in the last 6 months where you did not have access to dental care?: No Was dental information given to patient?: Patient has dentist 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 HPI Details Patient comes in today to establish care - is a new patient to the practice Her previous PCP was with [facility] in [place] She went to the ER a couple of weeks ago for abdominal pain, joint pains and rash Was diagnosed with HSP and started on oral Prednisone taper, which she is still currently finishing up - states that her symptoms have mostly cleared up at this time She was also seen recently by both rheumatology and nephrology for specialty follow up - was referred to rheumatology for work up for possible vasculitis and nephrology for her proteinuria She was sent for some additional work ups by both specialties and she will be seeing them again for follow up in the next 1 to 2 weeks; had some labs done yesterday and would like to know how these came out States that she is currently still experiencing recurrent epistaxis - she was referred to ENT by rheumatology but was reportedly advised that the referral needs to come from her PCP instead (?) Adds that she has a history of bipolar depression and anxiety and was on Citalopram, Lorazepam and Lamictal (for mood stabilizer) in the past but could not get her Rx refilled over the past couple of months now as she has transferred out from her previous PCP and has not yet established with our practice She would like to be able to get back on her meds SHANE; was also started on Lisinopril recently for her kidneys and needs it refilled as well She currently denies any headaches or dizziness; denies any fever or sore throat - recalls that she had strep throat a couple of months ago that was treated with Amoxicillin Denies any chest pains, no SOB No nausea/vomiting, no abdominal pain No change in bowel habits noted She is also requesting for Rx for Mupirocin ointment - states that she has been prescribed this by her previous PCP a few times in the past for some recurrent skin rash/infection [facility] Medical History (Updated 02/03/24 @ 04:52 by Cedric Bingham MD) Morbid obesity with BMI of 40.0-44.9, adult Recurrent epistaxis Proteinuria Anxiety Bipolar depression Elevated d-dimer Asthma Obesity Surgical History Hx of adenoidectomy History of surgery Hx of tonsillectomy Family History Mother No known health problems Father No known health problems Other Mental health disorder Substance use disorder Social History Housing: Apartment Alcohol intake: current Alcohol intake frequency: holidays/special occasions on ly Comment: medicated prior to discharge Patient Tobacco Use Status: Tobacco use Unknown e-Cigarette/Vaping Use: Never Used Second Hand Smoke Exposure: No Substance Use Type: Marijuana service: No Current occupational status: student Cognitive needs: No Hearing needs: No Vision needs: No Questionnaire PHQ-9 Over the last 2 weeks, how often have you been bothered by any of the following problems? 1. Little interest or pleasure in doing things: several days 2. Feeling down, depressed, or hopeless: nearly every day 3. Trouble falling or staying asleep, or sleeping too much: nearly every day 4. Feeling tired or having little energy: several days 5. Poor appetite or overeating: nearly every day 6. Feeling bad about yourself - or that you are a failure or have let yourself or your family down: several days 7. Trouble concentrating on things, such as reading the newspaper or watching television: nearly every day 8. Moving or speaking so slowly that other people could have noticed. Or the opposite - being so fidgety or restless that you have been moving around a lot more than usual: more than half the days 9. Thoughts that you would be better off or of hurting yourself in some way: not at all Total score: 17 Depression Screening Interpretation: Positive Depression Screening Follow-up: Existing condition and In treatment Depression Screening Done: Yes 74313 - PHQ-9 Billing: Yes Source: Developed by Drs. Desmond Bowman, Ban Hurtado, Blas Sanchez and colleagues, with an educational hammad from [employer]. Thrive Questionnaire Date Thrive assessed: 01/20/24 I am a: Patient What is your living situation today?: I have a steady place to live Within the past 12 months, did the food you bought not last and you didn't have the money to get more?: Never true Within the past 12 months, did you worry whether your food would run out before you got money to buy more?: Never true Do you have trouble paying for medicines?: No Do you have trouble getting transportation to medical appointments?: No Do you have trouble paying your heating and electricity bill?: No Do you have trouble taking care of your child, family member or friend?: No Do you have trouble with day-to-day activities such as bathing, preparing meals, shopping, managing finances, etc.?: No Are you currently unemployed and looking for a job?: No Are you interested in more education?: No Currently or been in a relationship where the following occur: no concerns reported THRIVE Score: 0 AUDIT C Alcohol Use Questionnaire (AUDIT-C) 1. How often do you have a drink containing alcohol?: Never 3. How often do you have six or more drinks on one occasion?: Never Total Score: 0 Score Reviewed/Action Taken: Yes YOU-7 AMB Questionnaire YOU-7 Date YOU - 7 assessed: 01/20/24 Feeling nervous, anxious, or on edge: 3 = Nearly every day Not being able to stop or control worryin = Nearly every day Worrying too much about different things: 3 = Nearly every day Trouble relaxin = Nearly every day Being so restless that it is hard to sit still: 2 = More than half the days Becoming easily annoyed or irritable: 3 = Nearly every day Feeling afraid as if something awful might happen: 2 = More than half the days Total YOU-7 score (0-4 normal; 5-9 mild; 10-14 moderate; 15-21 severe): 19 Source: Developed by Drs. Desmond Bowman, Ban Hurtado, Blas Sanchez and colleagues, with an educational hammad from [employer]. Review of Systems Const Denies chills, Reports fatigue, Denies fever(s) and Denies headache(s) ENT Denies dysphagia, Denies dizziness, Denies otalgia, Denies headache(s), Reports epistaxis (recurrent), Reports nasal congestion, Denies neck pain, Denies odynophagia and Denies sore throat Card Denies chest pain, Denies palpitations and Denies dyspnea Resp Denies cough, Denies dyspnea and Denies wheezing GI Denies abdominal pain, Denies hematochezia, Denies constipation, Denies dysphagia, Denies heartburn, Denies diarrhea, Denies nausea, Denies odynophagia and Denies vomiting Denies difficulty voiding, Denies nocturia, Denies dysuria and Denies urinary urgency Musc Reports arthralgias (on and off, over both knees) and Denies neck pain Skin/Breast Denies rash Neuro Denies dizziness and Denies headache(s) Psych Reports anxiety, Reports depression and Denies suicidal ideation Endo Reports fatigue and Denies palpitations Aller/Immun Denies wheezing Physical exam (Primary Care) Vital Signs: Last Vital Signs Pulse 89 01/20/24 10:25 BP 120/72 01/20/24 10:25 Pulse Ox 95 01/20/24 10:25 Oxygen Delivery Method Room Air 01/20/24 10:25 BMI result Body Mass Index 43.1 Tobacco/Smoking Status: Tobacco use Status Tobacco use date assessed 01/20/24 01/20/24 10:38 Patient Tobacco Use Status Never used Tobacco 01/20/24 10:38 e-Cigarette/Vaping Use Never Used 01/20/24 10:38 PHQ-9: PHQ-9 Score PHQ-9: Total score 17 01/20/24 11:04 Depression Screening Interpretation: Positive Depression Screening Follow-up: Existing condition and In treatment Thrive Assessment: Date of Thrive Assessment Date Thrive assessed 01/20/24 01/20/24 10:38 Currently or been in a relationship where the following occur: no concerns reported Const General: no acute distress and alert HENMT Ears: TM's normal bilaterally and EAC's normal General nose exam: No nasal polyps present and Abnormal mucous membranes and turbinates present boggy bilateral Face and sinus: Yes sinuses nontender Mouth: Normal oral and palatal mucosa present Throat: Yes posterior oropharynx normal and Yes tonsils normal (no TP congestion) Neck Neck: Yes no lymphadenopathy and Yes supple Thyroid: Thyroid normal Resp Auscultation: clear to auscultation bilaterally, no rales and no wheezes Cardio Rate: regular rate Rhythm: regular rhythm Heart sounds: no murmurs GI Palpation (GI): Soft to palpation and nontender Auscultation: normal bowel sounds General: Yes no CVA tenderness Back/Spine/Pelvis Back: no CVA tenderness Thoracic/Lumbar Spine: No lumbar spinal tenderness Skin Rashes: no rashes Extrem General: Yes no clubbing, cyanosis or edema Results Reviewed Results Reviewed: Laboratory Tests 01/08/24 01/19/24 16:07 12:06 WBC 18.3 H Hgb 14.2 Hct 43.0 Plt Count 263 ESR 8 Sodium 138 Potassium 3.7 Creatinine 0.71 Estimated GFR > 60 Random Glucose 93 Calcium 9.1 Magnesium 2.1 AST 8 ALT 10 Alkaline Phosphatase 62 Total Creatine Kinase 49 Laboratory Tests 01/19/24 12:10 Ur Specific [place] <= 1.005 Urine Protein 300 (3+) H Urine Glucose (UA) Negative Urine Ketones Negative Urine Blood Large (3+) H Urine Nitrite Negative Ur Leukocyte Esterase Negative U Random Total Protein 163 H Protein/Creatinin Ratio 7.40 H Assessment and Plan Assessment & Plan (1) Vasculitis: Code(s): I77.6 - Arteritis, unspecified Plan: Patient was reportedly diagnosed with HSP/IgA vasculitis at the ER a couple of weeks ago when she presented with symptoms of abdominal pain, rash and joint pains and was started on oral Prednisone taper, which she is currently still finishing up States that her symptoms have mostly cleared up but she is concerned about her diagnosis going forward She was recently seen by both rheumatology and nephrology and have been sent for some additional work ups and she will be seen by them again in the next 1 to 2 weeks for follow up Results of her labs done yesterday reviewed and discussed with patient - is advised that her elevated WBC count is most likely due to her current Prednisone Rx and that the rest of her blood tests all came out okay She still has significant proteinuria on her urine tests and this will need to be evaluated further with nephrology (2) Proteinuria: Code(s): R80.9 - Proteinuria, unspecified Qualifiers: Proteinuria type: other Qualified Code(s): R80.8 - Other proteinuria Plan: Patient has significant and persistent proteinuria and is now seeing nephrology for further evaluation and management She will likely need a renal biopsy to help differentiate whether this is IgA nephropathy vs. PSGN (relates that she was diagnosed with strep throat a couple of months ago and was prescribed some Amoxicillin as Tx) Continue Lisinopril 5 mg BID (Rx refilled) (3) Recurrent epistaxis: Code(s): R04.0 - Epistaxis Plan: Per request, will refer her to ENT for further evaluation and management although advised that her nasal mucosa appears congested and that allergies may also be contributing to her symptoms Will start her for now on a trial of Cetirizine 10 mg QD PRN to see if this will help calm down her recurrent nasal symptoms (4) Asthma: Code(s): J45.909 - Unspecified asthma, uncomplicated Qualifiers: Asthma severity: mild Asthma persistence: intermittent Asthma complication type: uncomplicated Qualified Code(s): J45.20 - Mild intermittent asthma, uncomplicated Plan: Appears controlled/stable Continue Albuterol HFA 1 to 2 inhalations Q 6 hours PRN (5) Anxiety: Code(s): F41.9 - Anxiety disorder, unspecified Plan: Will start her back on Lorazepam 0.5 mg QD PRN (6) Bipolar depression: Code(s): F31.9 - Bipolar disorder, unspecified Plan: Per request, will start her back on Citalopram 40 mg QD and Lamotrigine 100 mg BID She was apparently discharged from her previous psychiatrist's practice after missing a couple of appointments and states that she is in the process of looking for a new psychiatrist and will transfer her prescription management and refills over to them once she is established with her new psychiatrist (7) Morbid obesity with BMI of 40.0-44.9, adult: Code(s): E66.01 - Morbid (severe) obesity due to excess calories; Z68.41 - Body mass index [BMI] 40.0-44.9, adult Plan: Discussed diet/exercise as tolerated/lose weight Plan Follow up in 3 months Orders: Referrals Ear/Nose/Throat Referral R04.0 - Epistaxis Medications: New lamotrigine 100 mg PO BID 60 tabs 1RF 30 days mupirocin 2% 1 appl topical TID 22 grams 1RF citalopram 40 mg PO DAILY 30 tabs 1RF 30 days cetirizine 10 mg PO DAILY PRN 90 tabs 3RF allergy symptoms 90 days lorazepam Take only as needed for severe anxiety 0.5 mg PO DAILY PRN 15 tabs 0RF severe anxiety Changed From lisinopril 5 mg PO DAILY 30 days 30 tabs 3RF To lisinopril 5 mg PO BID Coding Level of Care Code New Pt Level 4 (54310) Diagnoses Vasculitis I77.6 Other proteinuria R80.8 Proteinuria type: other Recurrent epistaxis R04.0 Mild intermittent asthma without complication J45.20 Asthma severity: mild Asthma persistence: intermittent Asthma complication type: uncomplicated Anxiety F41.9 Bipolar depression F31.9 Morbid obesity with BMI of 40.0-44.9, adult E66.01; Z68.41
[2024-01-20 10:25] VITALS: BP 120/72; PULSE 89; O2SAT 95; BMI 43.1
== END 2024-01-20 11:26 | disposition home or self-care (01) ==
PROVIDERS: PCP Internal Medicine; Visit Provider Internal Medicine
DX: I77.6 Arteritis, unspecified (principal); F31.9 Bipolar disorder, unspecified; E66.01 Morbid (severe) obesity due to excess calories; Z68.41 Body mass index [BMI] 40.0-44.9, adult; R80.8 Other proteinuria; R04.0 Epistaxis; J45.20 Mild intermittent asthma, uncomplicated; F41.9 Anxiety disorder, unspecified
CPT/HCPCS: 99204

== ENCOUNTER 2024-01-23 | Outpatient (REF) | payer OTHER, SELFPAY | END 2024-01-23 00:01 | disposition home or self-care (01) | LOC: CF | PROVIDERS: Visit Provider Internal Medicine Nephrology | DX: R80.8 Other proteinuria (principal); M25.50 Pain in unspecified joint; R10.9 Unspecified abdominal pain; R23.8 Other skin changes; I77.6 Arteritis, unspecified | CPT/HCPCS: 99212 ==

== ENCOUNTER 2024-01-23 11:41 | Outpatient (AMB) | payer OTHER, SELFPAY ==
--- NOTE | 2024-01-23 11:54 | HO.NEPHOV ---
HPI HPI Comments History of Present Illness Details 23-year-old female recently has been having joint pains, abdominal pain, and vasculitic rash with proteinuria. Patient reported that on December 16, she was diagnosed with strep throat for the 2nd time, and finished a full course of Augmentin. On December 29 she developed joint pain which started in her lower legs. On the following day she had a rash mostly confined to her lower extremities and was seen in ER in [facility] and [facility] [place]. She was discharged with prednisone. Her joint pain worsened in a few days with bilateral ankle swelling. She developed abdominal pain and cramping a day later. she was diagnosed with IgA vasculitis and was discharged with a 2nd course of prednisone 40 mg. She has been taking the prescribed prednisone. She denied any fevers, chills, chest pain, shortness of breath, dysuria, hematuria, urinary frequency or urgency. No other complaints or concerns at this time. She has history of genital herpes and usually take Valcyclovir. Her swelling is better and is tolerating ACEI and prednisone. [facility]LY [facility] Medical History (Updated 01/22/24 @ 05:29 by Radha Tapia) Bloody nose Elevated d-dimer Asthma Obesity Surgical History Hx of adenoidectomy History of surgery Hx of tonsillectomy Family History Mother No known health problems Father No known health problems Other Mental health disorder Substance use disorder Social History Housing: Apartment Alcohol intake: current Alcohol intake frequency: holidays/special occasions only Comment: medicated prior to discharge Patient Tobacco Use Status: Never used Tobacco e-Cigarette/Vaping Use: Never Used Second Hand Smoke Exposure: No Substance Use Type: Marijuana service: No Current occupational status: student Cognitive needs: No Hearing needs: No Vision needs: No Vital Signs 01/23/24 11:55 Height 5 ft 5 in Weight 255 lb 4 oz BMI 42.5 BP 100/80 Blood Pressure Location Rt brachial Position Sitting Pulse 121 H Pulse Source Pulse Oximeter Pulse Oximetry (%) 95 Oxygen Delivery Method Room Air Physical Exam Vital Signs: Last Vital Signs Pulse 121 H 01/23/24 11:55 BP 100/80 01/23/24 11:55 Pulse Ox 95 01/23/24 11:55 Oxygen Delivery Method Room Air 01/23/24 11:55 BMI result Body Mass Index 42.5 Const General: comfortable and no acute distress Orientation/consciousness: patient oriented x3 HEENT Head: Yes normocephalic Mouth: Normal oral and palatal mucosa present Eyes EOM: EOMs intact bilaterally Neck Neck: Yes supple Resp Auscultation: clear to auscultation bilaterally Cardio Jugular venous distension: no JVD Rate: regular rate GI Palpation (GI): Soft to palpation Auscultation: normal bowel sounds General: Yes no CVA tenderness Back/Spine/Pelvis Back: no CVA tenderness Skin General skin exam: no rashes or lesions noted Neuro General: patient oriented x3 and moves all extremities Extrem General: Yes no pedal edema Assessment & Plan Assessment & Plan (1) Vasculitis: Code(s): I77.6 - Arteritis, unspecified (2) Proteinuria: Code(s): R80.9 - Proteinuria, unspecified Qualifiers: Proteinuria type: other Qualified Code(s): R80.8 - Other proteinuria Plan Blanche has glomerular proteinuria. She recently had vasculitic rash with microscopic hematuria and abdominal pain. She most likely has IgA vasculitis. She is currently on prednisone, which I asked to continue at 60 mg daily. Workup is in progress. Needs renal biopsy( ordered). I increased her lisinopril to 10 mg twice daily. She has IUD in place. All the possibilities have been discussed. Addressed her concerns. Follow-up given. Orders: Orders Blood Urea Nitrogen 01/23/24 I77.6 - Arteritis, unspecified, R80.9 - Proteinuria, unspecified Electrolytes 01/23/24 I77.6 - Arteritis, unspecified, R80.9 - Proteinuria, unspecified Protein Creatinine Ratio, Ur 01/23/24 I77.6 - Arteritis, unspecified, R80.9 - Proteinuria, unspecified Creatinine 01/23/24 I77.6 - Arteritis, unspecified, R80.9 - Proteinuria, unspecified CT biopsy renal LT 01/23/24 I77.6 - Arteritis, unspecified, R80.9 - Proteinuria, unspecified Medications: Changed From prednisone Day 1-5: Prednisone 80mg by mouth Day 6-8: Prednisone 60mg by mouth Day 9-11: Prednisone 40mg by mouth Day 12-14: Prednisone 20mg by mouth Day 15-18: Prednisone 10mg by mouth 80 mg (4 x 20 mg) PO DAILY 40 tabs 0RF To prednisone 60 mg (3 x 20 mg) PO DAILY 30 days 90 tabs 1RF Coding Level of Care Code Est Pt Level 4 (18481) Diagnoses Vasculitis I77.6 Other proteinuria R80.8 Proteinuria type: other Results Reviewed Nephrology Results: Hgb 14.2 g/dl (12.0-16.0) 01/19/24 WBC 18.3 X10*3/uL (4.8-10.8) H 01/19/24 Plt Count 263 X10*3/uL (160-400) 24 Sodium 138 mmol/L (135-145) 24 Potassium 3.7 mmol/L (3.3-5.1) 24 Chloride 106 mmol/L (96-108) 24 Carbon Dioxide 22 mmol/L (22-29) 01/19/24 BUN 17 mg/dL (9-16) H 24 Creatinine 0.71 mg/dL (0.5-1.4) 24 Calcium 9.1 mg/dL (8.4-10.2) 24 Urine Protein 300 (3+) mg/dL (Neg-Trace) H 01/19/24 Urine Creatinine 22.04 mg/dL 01/19/24 Protein/Creatinin Ratio 7.40 (<0.2) H 24
[2024-01-23 11:55] VITALS: BP 100/80; PULSE 121; O2SAT 95; BMI 42.5
== END 2024-01-23 12:17 | disposition home or self-care (01) ==
PROVIDERS: Visit Provider Internal Medicine Nephrology
DX: I77.6 Arteritis, unspecified (principal); R80.8 Other proteinuria
CPT/HCPCS: 99214

== ENCOUNTER → 2024-01-23 11:41 | Outpatient (BNVA) | payer OTHER, SELFPAY | PROVIDERS: Visit Provider Internal Medicine Nephrology ==

== ENCOUNTER 2024-01-29 09:13 | Day surgery (SDC) | payer OTHER, SELFPAY ==
[2024-01-29] VITALS (9 sets, daily range): BP systolic 118–136; BP diastolic 56–86; PULSE 67–94; RESP 16–20; TEMP 36.6–37.1; O2SAT 94–100; BMI 46.3
--- NOTE | ~2024-01-29 | CT_ITS ---
Hematuria and proteinuria. Concern for vasculitis PROCEDURES: 1. Limited preprocedure CT of the abdomen. Permanent images saved in PACS. 2. CT-guided nontargeted biopsy of the right kidney. 3. Limited preprocedure CT of the abdomen. Permanent images saved in PACS. CLINICIANS: Last Zambrano PA-C MEDICATIONS: -Versed 2.5 mg, Fentanyl 125 mcg, and lidocaine 1% 10 mL SQ -Antibiotics: None -For additional details, please see nursing flowsheet. COMPLICATIONS: None ESTIMATED BLOOD LOSS: < 5 ml CONTRAST: None SPECIMENS: 3 x 18 g cores were placed in saline MODERATE SEDATION TIME: 27 min PROCEDURE NOTE: The procedure, risks, benefits, and alternatives were carefully explained to the patient and written informed consent was obtained. The patient was placed prone on the CT table. A timeout was performed. A limited CT of the abdomen was performed to localize the right kidney and choose appropriate needle entry and trajectory. The patient was prepped and draped in usual sterile fashion. The skin and deeper soft tissues were anesthetized with lidocaine. Under CT guidance, a 17 gague trocar needle was advanced to the right kidney. An 18 gauge biopsy device was inserted through the trocar needle advanced into the right kidney. A total of 3, 18 gague cores were performed. The specimens was placed in saline. A Gelfoam slurry was then administered through the trocar needle and into the right perinephric space. The needle was removed. A dry dressing was applied and secured with a Tegaderm. There were no immediate complications. The patient was stable after the procedure and was transferred to the post anesthesia care unit. The procedure was done under moderate sedation with a dedicated nurse for monitoring of vital signs. CT/CT biopsy renal RT Impression: CT-guided nontargeted right renal biopsy This procedure was performed by Last Zambrano PA-C and supervised by Dr. Rosenbaum.
--- NOTE | 2024-01-29 10:44 | MHC.SHP ---
Pre-Procedural Eval Section A - 24 Hr Update-Section A only Date of Service: 01/29/24 Section B - Complete if H&P > 30 days Chief Complaint: RENAL CORE BIO,PROTEINURIA, URGENT Details of Present Illness: Proteinuria, hematuria Relevant Family History (Specify if Yes): No Relevant Social History: None Present Medications: see Short Stay Collaborative assessment Medical History: Significant History History of Previous Operations: No relevant previous surgery Allergies: Allergies Allergy/AdvReac Type Severity Reaction Status Date / Time No Known Allergies Allergy Verified 01/29/24 09:41 [No Known Allergies*] Review of Systems Sugical H&P ROS: Negative: Cardiovascular and Respiratory and Yes, Specify: Constitution (fatigue, anxiety) and Genitourinary (hematuria) Exam Surgical H&P Exam: Normal: Heart, Normal: Lungs, Normal: Abdomen and Normal: Neurological (A+O x 4) and Not Evaluated: HEENT Plan Diagnosis/Plan: Unchanged I have reviewed the history and physical and performed a pertinent physical examination on my patient. No changes have occurred unless specified. Time Spent With Patient Time: Total time managing care of this patient today ____ minutes.
[2024-01-29 10:46] LABS: Urine Pregnancy NEGATIVE (NEGATIVE)
[2024-01-29 10:47] LABS: UPreg QC Valid YES
== END 2024-01-29 15:20 | disposition home or self-care (01) ==
PROVIDERS: Physician Assistant Surgical; Student in an Organized Health Care Education/Training Program; Visit Provider Internal Medicine Nephrology
DX: N02.B9 Other recurrent and persistent immunoglobulin A nephropathy (principal); R80.9 Proteinuria, unspecified; I77.6 Arteritis, unspecified; J45.909 Unspecified asthma, uncomplicated; R04.0 Epistaxis; F32.A Depression, unspecified; Z79.899 Other long term (current) drug therapy; Z79.52 Long term (current) use of systemic steroids; E66.9 Obesity, unspecified; Z68.41 Body mass index [BMI] 40.0-44.9, adult
CPT/HCPCS: 50200; 77012; 81025; 86850; 86900; 86901; 88300; 88305; 88313; 88346; 88348; 88350; 99152; 99153; J2250; J2310; J3010

== ENCOUNTER → 2024-01-29 09:57 | Outpatient (BNV) | payer OTHER, SELFPAY | PROVIDERS: Visit Provider Physician Assistant Surgical | DX: R80.9 Proteinuria, unspecified (principal); R31.9 Hematuria, unspecified | CPT/HCPCS: 50200; 77012; 99152 ==

== ENCOUNTER 2024-01-30 13:43 | Outpatient (REF) | payer OTHER, SELFPAY ==
[2024-01-30 16:20] LABS: Appearance Urine Clear; Color Urine Yellow; Glucose Urine UA Negative (Negative); Leukocyte Esterase Urine Trace (Negative); Nitrite Urine Negative (Negative); Specific Gravity - Urine 1.015 (1.005-1.025); UMIC TRIGGER UA YES; Urine Blood Large (3+) (Negative); Urine Ketones Negative (Negative); Urine Protein 300 (3+) mg/dL (Neg-Trace)
[2024-01-30 16:23] LABS: Bacteria Urine Trace (None Seen); RBC Urine >20 /HPF (0-2); WBC Urine 21-50 /HPF (0-5)
[2024-01-30 16:33] LABS: C Reactive Protein 0.71 mg/dL (< or = 0.50)
[2024-01-30 17:17] LABS: Creatinine Urine 90.68 mg/dL
[2024-01-30 17:51] LABS: Protein/Creatinine Ratio, Ur 4.15 (<0.2); Total Protein Urine Random 376 mg/dL (<12)
== END 2024-01-30 13:44 | disposition home or self-care (01) ==
LOC: HO.LAB 13:43
PROVIDERS: PCP Internal Medicine; Visit Provider Nurse Practitioner Family
DX: R80.8 Other proteinuria (principal); I77.6 Arteritis, unspecified
CPT/HCPCS: 36415; 81001; 82570; 84156; 85652; 86140; 99212

== ENCOUNTER 2024-01-30 13:43 | Outpatient (AMB) | payer OTHER, SELFPAY ==
[2024-01-30 14:12] VITALS: BP 94/58; PULSE 100; TEMP 36.4; O2SAT 98; BMI 45.1
--- NOTE | 2024-01-30 14:12 | MHC.OFFVIS ---
Intake Vital Signs 01/30/24 14:12 Height 5 ft 5 in Weight 271 lb 2.697 oz BMI 45.1 BP 94/58 L Blood Pressure Location Rt brachial Position Sitting Pulse 100 Pulse Source Pulse Oximeter Temp 97.5 F Temp Source Skin Pulse Oximetry (%) 98 Oxygen Delivery Method Room Air Intake Visit Reasons: HSP/Bloodwork Intake Note: Patient last seen 01/13/24 by Rukhsana, presents today for follow up and test results. c/o ye knee and ankle swelling x 1.5 wks Corporate Administrator Required: No Accompanied by: Self / Same As Patient Allergies No Known Allergies [No Known Allergies*] Allergy (Verified 01/30/24 14:12) HPI HPI Comments History of Present Illness Details Ms. 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 She saw the Wind Turbine Technician and had a renal biopsy 01/29/2024. Her 24 hour urine >4000. She is on Prednisone 60 mg QD. The patient reports she is feeling overwhelmed, her knees hurt and feels swollen all the time. She says her face is getting puffy. Initial history 01/13/2024 Ms. 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 She was diagnosed with HSP after she presented to the ED with the triad -rash, vague abdominal pain and joint pain. She was started on High does prednisone, ibuprofen. The joint pain has improved and the swelling to her lower extremities has mostly resolved. The rash too has mostly resolved but the patient says the rash returns when she goes below certain dose of the Prednisone. She is curretly on 50 mg QD for the next 2 days. Upon inquiry the patient shared that she had a strep throat infection and was treated with antibiotics about the December 16. It was around that time that she started having the joint pain on estimated date of December 25 than the rash appeared December 31. She had the rash, knee pain and abdominal discomfort for about a week before she went to the hospital. -prednisone taper start that 80 mg of prednisone x 4 days, 60 mg x 3 days, now 50 mg x 2 days (started today) -proteinuria 1000 on 01/07, 500 on 01/12 -History of genital herpes -usually takes valacyclovir which has become ineffective so she was recently switched to acyclovir because she had an outbreak for the whole month of November that was not resolved with valacyclovir. -bloody nose -denies blood in stool and urine and current abdominal discomfort [facility] Medical History (Updated 01/22/24 @ 05:29 by Radha Tapia) Bloody nose Elevated d-dimer Asthma Obesity Surgical History Hx of adenoidectomy History of surgery Hx of tonsillectomy Family History Mother No known health problems Father No known health problems Other Mental health disorder Substance use disorder Social History Housing: Apartment Alcohol intake: current Alcohol intake frequency: holidays/special occasions only Comment: medicated prior to discharge Patient Tobacco Use Status: Tobacco use Unknown e-Cigarette/Vaping Use: Never Used Second Hand Smoke Exposure: No Substance Use Type: Marijuana service: No Current occupational status: student Cognitive needs: No Hearing needs: No Vision needs: No Physical Exam Vital Signs: Last Vital Signs Temp 97.5 F 01/30/24 14:12 Pulse 100 01/30/24 14:12 BP 94/58 L 01/30/24 14:12 Pulse Ox 98 01/30/24 14:12 Oxygen Delivery Method Room Air 01/30/24 14:12 BMI result Body Mass Index 45.1 Vital signs reviewed. Constitutional: Non-toxic appearing. No acute distress. Well-developed and well-nourished. HEENT: Normocephalic and atraumatic. External auditory canals without erythema or edema bilaterally. Skin: Warm and dry. No rashes or lesions noted. Neck: Full and painless range of motion. No cervical lymphadenopathy. Cardio: Regular rate and rhythm. No murmurs, gallops, or rubs. No lower extremity edema. No JVD. Pulmonary: No respiratory distress. No accessory muscle usage. Musculoskeletal: Normal range of motion in joints throughout the body. No deformity or other signs of injury. Neuro: Alert and oriented x4. Cranial nerves 2-12 grossly intact. No focal deficits appreciated. Results Reviewed Results Reviewed: Microscopic urine protein 300 Red blood cells greater than 20 Assessment & Plan Assessment & Plan (1) Henoch-Schonlein purpura: Code(s): D69.0 - Allergic purpura (2) Proteinuria: Code(s): R80.9 - Proteinuria, unspecified Qualifiers: Proteinuria type: other Qualified Code(s): R80.8 - Other proteinuria (3) Bloody nose: Code(s): R04.0 - Epistaxis Plan #HSP:Ms. Alvarenga is here for follow-up treatment for HSP - diagnosis Henoch-Schoenlein purpura given the triad of rash abdominal pain and arthritis pain and status post upper respiratory infection - she was treated for strep and the genital herpes outbreak in the preceding weeks. The rash is is sent resolved. She does have some scattered areas on her buttock abdomen and left knee. Even though there is no overt swelling that can be seen to her lower extremities, she continues to have knee pain. 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 The patient remains on 50 mg of prednisone and and will hold at this time until we are clear on the the friction from Nephrology. She is contending with some side effects of prednisone and it does make her uncomfortable - weight gain, puffy face, and fluid retention. I encouraged her that led to focus on the kidney healing at this time. There is the option to start her on prednisone sparing medication such as methotrexate. We can consider other options the kidney biopsy results. #Proteinuria: 1000 to 500 on 01/12, 300 for for resolving. She continues to follow with Nephrology. Had a kidney biopsy done 01/29/2024. #Bloody nose:The patient says she continues to have bloody nose so she may benefit for an ENT referral. Today she says it is decreasing in frequency and she has not yet heard from the ENT even after reaching out to them Follow-up in 1 month I spent 25 minutes researching in reviewing her chart, discussing disease process and documenting Orders: Orders Protein Creatinine Ratio, Ur Today I77.6 - Arteritis, unspecified, R80.8 - Other proteinuria C Reactive Protein Today I77.6 - Arteritis, unspecified, R80.8 - Other proteinuria Erythrocyte Sedimentation Rate Today I77.6 - Arteritis, unspecified, R80.8 - Other proteinuria UA w Microscopic Today I77.6 - Arteritis, unspecified, R80.8 - Other proteinuria Coding Level of Care Code Est Pt Level 3 (23780) Diagnoses Henoch-Schonlein purpura D69.0 Other proteinuria R80.8 Proteinuria type: other Bloody nose R04.0
== END 2024-01-30 14:43 | disposition home or self-care (01) ==
LOC: HO.RHE 13:43
PROVIDERS: PCP Internal Medicine; Visit Provider Nurse Practitioner Family
DX: D69.0 Allergic purpura (principal); R80.8 Other proteinuria; R04.0 Epistaxis
CPT/HCPCS: 99213

== ENCOUNTER 2024-02-03 12:52 | Emergency (ER) | payer OTHER, SELFPAY ==
--- NOTE | ~2024-02-03 | XR_ITS ---
EXAMINATION: XR CHEST CLINICAL INFORMATION: Shortness of breath. COMPARISON: 03/18/2019 TECHNIQUE: 2 views of the chest were obtained. FINDINGS: Lungs are well-inflated and clear. Trachea is midline in position. No interstitial disease, consolidation or mass. No pleural effusion or pneumothorax. Cardiac silhouette and pulmonary vessels are normal in size. The mediastinum and kale have normal contour. The visualized bones and upper abdomen are unremarkable. XR/XR chest 2V IMPRESSION: Lungs have a normal appearance. No acute cardiopulmonary abnormality.
[2024-02-03 13:49] VITALS: BP 161/87; PULSE 110; RESP 18; TEMP 36.6; O2SAT 99; BMI 46.8
--- NOTE | 2024-02-03 13:49 | ED.GENADULT ---
HPI - General Adult General Chief complaint: General Medical Stated complaint: Facial swelling/ kidney issues Time Seen by Provider: 02/03/24 16:54 Source: patient Mode of arrival: ambulatory Limitations: no limitations History of Present Illness HPI narrative: 23 yo female with recent dx of IgA nephropathy currently seeing Dr. Hightower s/p biopsy and taking 60mg of prednisone daily. She was seen at urgent care on Friday for L eye redness as well as sinus disease. She notes her face is also puffy and swollen. No vision changes, drainage, pain, photophobia, does not wear lens. MD complaint: eye redness, tearing Onset (ago): day(s) (Friday ) Location: eyes Radiation: non-radiation Severity: mild Pain Consistency: constant Relieving factors: none Exacerbating factors: none Associated symptoms: other (had recent URI, has joint pain, has muscle aches) Treatments prior to arrival: none Related Data Home Medications ?Medication ?Instructions ?Recorded ?Confirmed albuterol sulfate 90 mcg/actuation 2 puff inhalation Q6H PRN 03/09/23 01/20/24 aerosol inhaler (Ventolin HFA) Shortness Of Breath Or Wheezing lisinopril 5 mg tablet 10 mg PO BID 01/23/24 01/23/24 Previous Rx's ?Medication ?Instructions ?Recorded omeprazole 20 mg capsule,delayed 20 mg PO DAILY 4 weeks #28 caps 01/09/24 release citalopram 40 mg tablet 40 mg PO DAILY 30 days #30 tabs 01/20/24 lorazepam 0.5 mg tablet 0.5 mg PO DAILY PRN severe anxiety 01/20/24 #15 tabs mupirocin 2 % topical ointment 1 appl topical TID #22 grams 01/20/24 prednisone 20 mg tablet 60 mg (3 x 20 mg) PO DAILY 30 days 01/23/24 #90 tabs cyclopentolate 1 % eye drops 1 drp ophthalmic-Left BID 3 days 02/03/24 #15 mL erythromycin 5 mg/gram (0.5 %) eye 0.5 inch ophthalmic-Left BID #3.5 02/03/24 ointment grams Allergies Allergy/AdvReac Type Severity Reaction Status Date / Time No Known Allergies Allergy Verified 02/03/24 13:53 [No Known Allergies*] Review of Systems Review of Systems: Constitutional : No Fever, No Chills, pos facial swelling ENT/Mouth : No Ear Pain, No Hoarseness, No sore throat Eyes: No Eye Pain, No Swelling, pos Redness, No Foreign Body Cardiovascular : No Chest Pain, No SOB Respiratory : No Cough, No Dyspnea Gastrointestinal : No Nausea, No Vomiting, No Diarrhea, No abdominal Pain Genitourinary : No Dysuria, No Hematuria Musculoskeletal : positive joint pain, pos Myalgias, No Joint Swelling Skin : No Skin lacerations, No rash Neuro : No Weakness, No Numbness, No Loss of Consciousness, No Dizziness, No Headache All other systems reviewed and are negative [facility] Past Medical History Attestation statement: The following information was validated with the patient. Source: old records reviewed Medical History Morbid obesity with BMI of 40.0-44.9, adult Recurrent epistaxis Proteinuria Anxiety Bipolar depression Elevated d-dimer Asthma Obesity Surgical History Hx of adenoidectomy History of surgery Hx of tonsillectomy Family History Family History Mother No known health problems Father No known health problems Other Mental health disorder Substance use disorder Social History Social History Housing: Apartment Alcohol intake: current Alcohol intake frequency: holidays/special occasions only Comment: medicated prior to discharge Patient Tobacco Use Status: Tobacco use Unknown e-Cigarette/Vaping Use: Never Used Second Hand Smoke Exposure: No Substance Use Type: Marijuana Advance Directives: No Advance Directives Information Provided: Yes service: No Current occupational status: student Cognitive needs: No Hearing needs: No Vision needs: No Physical Exam ED Vital Signs: Vital Signs - 24 hr 02/03/24 13:49 Temperature 97.8 F Pulse Rate 110 H Respiratory Rate 18 Blood Pressure 161/87 H Pulse Oximetry 99 Oxygen Delivery Method Room Air BMI result Body Mass Index 46.8 Appearance: Alert. Oriented X3. No acute distress. Eyes: Pupils equal, round and reactive to light. L eye injected conjunctiva clear tears, photophobia PERRL 3mm, ciliary flush, no ulcers noted no dendritic branches there is a lateral superficial abrasion at 3 o clock position - stained and cai lamp pain resolved with tetracaine ENT: Pharynx normal. Neck: Normal inspection. Neck supple. CVS: Normal heart rate and rhythm. Pulses normal. Respiratory: No respiratory distress. Breath sounds normal. Abdomen: Soft and nontender. Skin: Skin warm and dry. Normal skin color. Normal skin turgor. Extremities: No lower extremity edema. Neuro: Oriented X 3. No motor deficit. No sensory deficit. Course Course Course Narrative: RME: 23 yo female w/ newly diagnosed Iga vasculitis, bipolar disorder, anxiety here for eval of facial swelling x4 days.?endorses posterior lung pain and believes she has fluid in her lungs. she has been taking prednisone for 1 month. also endorses left eye swelling/ drainage on waking 5 days ago. initially thought it was pink eye however it is not resolving. had renal biopsy 6 days ago. Called knot borer with symptoms and she was advised to come to the ED. tillman facies. erythema/edema noted to left eye. injected conjunctiva. lungs cta b/l labs, UA, cxr ordered. Full HPI, ROS and PE to be performed by the primary ED provider. Medical Decision Making Medical Decision Making [facility] Narrative: 23 yo female with recent IgA nephropathy on 60mg prednisone daily follows with Dr. Hightower. She is also being treated for sinus infection with augmentin and on eye drops for L eye redness - she has no vision changes, no contact lens, no drainage, she has no pain. At this time will obtain basic labs and stain eye for FB. She is not toxic - she is on steroids this could also be autoimmune and she is already on steroids will refer to eye doctor after she leaves. She has swollen face due to prednisone - she is aware. Differential Diagnosis Differential Diagnoses: The differential diagnosis associated with the presentation includes facial swelling is due to prednisone no signs of infection suspect her aches likely due to prednisone as well - CPK, Cr normal eye - will assess for corneal abrasion/ulcer no vision changes no signs of infection already on augmentin and eye drops for possible infection Admission/Observation Consideration of admission/observation: Escalation of care including admission/observation considered work up at baseline stable for DC will refer to eye doctor and stop trobramycin start on erythromycin and cyclopentate given hx of vasculitis needs full workup Lab Data [facility] Lab Attestation statement: I reviewed the patient's lab results. 02/03/24 14:05 02/03/24 14:05 Labs: Lab Results 02/03/24 Range/Units 14:05 WBC 15.5 H (4.8-10.8) X10*3/uL RBC 5.09 (4.20-5.50) X10*6/uL Hgb 14.6 (12.0-16.0) g/dl Hct 44.8 (37.0-47.0) % MCV 88.0 (80.0-98.0) fL MCH 28.7 (27.0-33.0) pg MCHC 32.6 (31.0-35.0) g/dl RDW 13.5 (11.0-16.0) % Plt Count 274 (160-400) X10*3/uL MPV 9.7 (9.4-12.3) fL Immature Gran % (Auto) 0.5 H (0.0-0.4) % Neut % (Auto) 88.9 H (45-73) % Lymph % (Auto) 8.1 L (20-40) % Warrick % (Auto) 2.4 (2-11) % Eos % (Auto) 0.0 (0-4) % Baso % (Auto) 0.1 (0-2) % Lymph # (Auto) 1.3 (1.2-4.9) X10*3/uL Warrick # (Auto) 0.4 (0.1-1.2) X10*3/uL Eos # (Auto) 0.0 (0.0-0.4) X10*3/uL Baso # (Auto) 0.0 (0.0-0.2) X10*3/uL Abs Immat Gran (auto) 0.07 H (0.00-0.03) X10*3/uL Absolute Neuts (auto) 13.8 H (2.0-8.3) x10*3/uL Absolute Nucleated RBC 0.000 (0.0-0.012) X10*3/uL Nucleated RBC % (auto) 0.0 (0.0-0.2) /100WBC PT 9.8 L (11.1-13.3) SEC INR 0.8 L (0.9-1.1) Sodium 140 (135-145) mmol/L Potassium 4.7 D (3.3-5.1) mmol/L Chloride 108 (96-108) mmol/L Carbon Dioxide 23 (22-29) mmol/L Anion Gap 14 (12-20) BUN 15 (9-16) mg/dL Creatinine 0.69 (0.5-1.4) mg/dL Estim Creat Clear Calc 161.9 Estimated GFR > 60 Random Glucose 106 (60-115) mg/dL Calcium 9.0 (8.4-10.2) mg/dL Total Bilirubin 0.3 (0.0-1.0) mg/dL AST 9 (5-31) U/L ALT 14 (0-31) U/L Alkaline Phosphatase 56 (39-117) U/L Total Protein 6.5 (6.5-8.0) g/dL Albumin 3.6 (3.5-5.0) g/dL Urine Color Yellow Urine Appearance Clear Urine pH 8.5 (5.0-9.0) Ur Specific [place] 1.020 (1.005-1.025) Urine Protein 300 (3+) H (Neg-Trace) mg/dL Urine Glucose (UA) Negative (Negative) mg/dL Urine Ketones Negative (Negative) mg/dL Urine Blood Large (3+) H (Negative) Urine Nitrite Negative (Negative) Ur Leukocyte Esterase Negative (Negative) Urine RBC >20 H (0-2) /HPF Urine WBC 11-20 (0-5) /HPF Ur Squamous Epith Cells 0-2 (0-2) /HPF Urine Bacteria None Seen (None Seen) Hyaline Casts 0-2 (0-2) /LPF Urine Test NEGATIVE (NEGATIVE) Influenza Type A (PCR) NEGATIVE (Negative) Influenza Type B (PCR) NEGATIVE (Negative) RSV RNA Qual (PCR) NEGATIVE (Negative) SARS-CoV-2 RNA (RT-PCR) NEGATIVE (Negative) External Record Review External record reviewed: Inpatient record, Office record and Prior outpatient labs Prescription Management I considered prescription management with: Antibiotic and Other Discharge Plan Discharge Clinical Impression: Iritis, Myalgia Patient Disposition: Home, Self-Care Instructions: Iritis (ED), Musculoskeletal Pain (ED) Additional Instructions: return for worsening symptoms - loss of vision increased pain or any other concerns STOP the tobramycin drops talk to your ornament setter about today's visit eye doctors you can call for appointment antonio hairston [address] [facility] [phone] Casas [address] [phone] Prescriptions: New erythromycin 5 mg/gram (0.5 %) ointment 0.5 inch ophthalmic-Left BID Qty: 3.5 0RF cyclopentolate 1 % drops 1 drp ophthalmic-Left BID 3 Days Qty: 15 0RF Rx Instructions: compress lacrimal sac for 1-2 minutes after instillation No Action albuterol sulfate [Ventolin HFA] 90 mcg/actuation HFA aerosol inhaler 2 puff inhalation Q6H PRN (Reason: Shortness Of Breath Or Wheezing) omeprazole 20 mg capsule,delayed release(DR/EC) 20 mg PO DAILY 28 Days Qty: 28 0RF citalopram 40 mg tablet 40 mg PO DAILY 30 Days Qty: 30 1RF mupirocin 2 % ointment 1 appl topical TID Qty: 22 1RF lorazepam 0.5 mg tablet 0.5 mg PO DAILY PRN (Reason: severe anxiety) Qty: 15 0RF Rx Instructions: Take only as needed for severe anxiety prednisone 20 mg tablet 60 mg PO DAILY 30 Days Qty: 90 1RF lisinopril 5 mg tablet 10 mg PO BID Print Language: [place]ese
[2024-02-03 14:11] LABS: MANUAL DIFF FLAG NO
[2024-02-03 14:16] LABS: Appearance Urine Clear; Basophils Percent Auto 0.1 % (0-2); Color Urine Yellow; Glucose Urine UA Negative (Negative); Hematocrit 44.8 % (37.0-47.0); Hemoglobin 14.6 g/dl (12.0-16.0); Imm Gran Abs Auto 0.07 X10*3/uL (0.00-0.03); Imm Gran Pct Auto 0.5 % (0.0-0.4); Leukocyte Esterase Urine Negative (Negative); Lymphocytes Absolute Auto 1.3 X10*3/uL (1.2-4.9); Lymphocytes Percent Auto 8.1 % (20-40); Mean Corpuscular HGB Conc 32.6 g/dl (31.0-35.0); Mean Corpuscular Hemoglobin 28.7 pg (27.0-33.0); Mean Platelet Volume 9.7 fL (9.4-12.3); Monocytes Absolute Auto 0.4 X10*3/uL (0.1-1.2); Monocytes Percent Auto 2.4 % (2-11); Neutrophils Absolute Auto 13.8 x10*3/uL (2.0-8.3); Neutrophils Percent Auto 88.9 % (45-73); Nitrite Urine Negative (Negative); PH 8.5 (5.0-9.0); Platelet Count 274 X10*3/uL (160-400); Red Blood Count 5.09 X10*6/uL (4.20-5.50); Red Cell Distribution Width 13.5 % (11.0-16.0); UMIC TRIGGER UACC YES; Urine Blood Large (3+) (Negative); Urine Ketones Negative (Negative); Urine Protein 300 (3+) mg/dL (Neg-Trace); White Blood Count 15.5 X10*3/uL (4.8-10.8)
[2024-02-03 14:20] LABS: UPreg QC Valid YES; Urine Pregnancy NEGATIVE (NEGATIVE)
[2024-02-03 14:22] LABS: INTERNATIONAL NORM RATIO 0.8 (0.9-1.1); Prothrombin Time 9.8 SEC (11.1-13.3)
[2024-02-03 14:30] LABS: Alanine Aminotransferase 14 U/L (0-31); Albumin Level 3.6 g/dL (3.5-5.0); Alkaline Phosphatase 56 U/L (39-117); Anion Gap 14 (12-20); Aspartate Amino Transferase 9 U/L (5-31); Bilirubin Total 0.3 mg/dL (0.0-1.0); Blood Urea Nitrogen 15 mg/dL (9-16); Carbon Dioxide 23 mmol/L (22-29); Chloride 108 mmol/L (96-108); Creatinine Clr Calc Pharmacy 161.9; Estimated Glomerular Filt Rate > 60; Glucose Random 106 mg/dL (60-115); Potassium 4.7 mmol/L (3.3-5.1); Sodium 140 mmol/L (135-145); Total Protein 6.5 g/dL (6.5-8.0)
[2024-02-03 14:31] LABS: Bacteria Urine None Seen (None Seen); Hyaline Casts Urine 0-2 /LPF (0-2); RBC Urine >20 /HPF (0-2); Squamous Epithelial Cell Urine 0-2 /HPF (0-2); UACC Culture Trigger YES
[2024-02-03 15:12] LABS: Influenza A PCR NEGATIVE (Negative); Influenza B PCR NEGATIVE (Negative); Resp Syncy Virus RNA Qual PCR NEGATIVE (Negative); SARS COV2 PCR INHOUSE NEGATIVE (Negative)
[2024-02-03 18:02] VITALS: BP 140/94; PULSE 85; RESP 18; TEMP 37.1; O2SAT 97
[2024-02-03] MEDS: Fluorescein Sodium STRIP 1 STRIP EYE-LEFT (18:15)
[2024-02-03] MEDS: Tetracaine HCl/PF 0.5% Oph Sol 4 ML DROPS 1 DROP EYE-LEFT (18:15)
[2024-02-03 18:23] VITALS: BP 140/94; PULSE 85; RESP 18; TEMP 37.1; O2SAT 97
== END 2024-02-03 18:24 | disposition home or self-care (01) ==
PROVIDERS: Physician Assistant Medical; Emergency Provider Emergency Medicine; PCP Internal Medicine
DX: M79.10 Myalgia, unspecified site (principal); H20.9 Unspecified iridocyclitis; F31.9 Bipolar disorder, unspecified; D69.0 Allergic purpura; Z03.818 Encounter for observation for suspected exposure to other biological agents ruled out
CPT/HCPCS: 0241U; 71046; 80053; 81001; 81025; 82550; 85025; 85610; 87086; 99283; 99284

== ENCOUNTER 2024-02-04 14:59 | Outpatient (AMB) | payer OTHER, SELFPAY ==
[2024-02-04 15:02] VITALS: BP 120/70; PULSE 107; O2SAT 96; BMI 45.8
--- NOTE | 2024-02-04 15:02 | HO.NEPHOV ---
HPI HPI Comments History of Present Illness Details 23-year-old female recently has been having joint pains, abdominal pain, and vasculitic rash with proteinuria. Patient reported that on December 16, she was diagnosed with strep throat for the 2nd time, and finished a full course of Augmentin. On December 29 she developed joint pain which started in her lower legs. On the following day she had a rash mostly confined to her lower extremities and [place] [facility] [place] [facility] [place] She was discharged with prednisone. Her joint pain worsened in a few days with bilateral ankle swelling. She developed abdominal pain and cramping a day later. she was diagnosed with IgA vasculitis and was discharged with a 2nd course of prednisone 40 mg. She has been taking the prescribed prednisone. She denied any fevers, chills, chest pain, shortness of breath, dysuria, hematuria, urinary frequency or urgency. She has history of genital herpes and usually take Valcyclovir. Her swelling is better and is tolerating ACEI and prednisone but had developed dyer facies and also has been having discharge from the eyes. She is due to see allocations clerk tomorrow. She was seen in ER and was told that she has irits. She underwent renal biopsy. [facility] Medical History Morbid obesity with BMI of 40.0-44.9, adult Recurrent epistaxis Proteinuria Anxiety Bipolar depression Elevated d-dimer Asthma Obesity Surgical History Hx of adenoidectomy History of surgery Hx of tonsillectomy Family History Mother No known health problems Father No known health problems Other Mental health disorder Substance use disorder Social History Housing: Apartment Alcohol intake: current Alcohol intake frequency: does not drink Comment: medicated prior to discharge Patient Tobacco Use Status: Tobacco use Unknown e-Cigarette/Vaping Use: Never Used Second Hand Smoke Exposure: No Substance Use Type: Marijuana service: No Current occupational status: student Cognitive needs: No Hearing needs: No Vision needs: No Vital Signs 02/04/24 15:02 Height 5 ft 4 in Weight 267 lb BMI 45.8 BP 120/70 Blood Pressure Location Lt brachial Position Sitting Pulse 107 H Pulse Source Pulse Oximeter Pulse Oximetry (%) 96 Oxygen Delivery Method Room Air Physical Exam Vital Signs: Last Vital Signs Pulse 107 H 02/04/24 15:02 BP 120/70 02/04/24 15:02 Pulse Ox 96 02/04/24 15:02 Oxygen Delivery Method Room Air 02/04/24 15:02 BMI result Body Mass Index 45.8 Const Other: Discharge from eyes + with redness; Dyer facies General: comfortable and no acute distress Orientation/consciousness: patient oriented x3 HEENT Head: Yes normocephalic Mouth: Normal oral and palatal mucosa present Eyes EOM: EOMs intact bilaterally Neck Neck: Yes supple Resp Auscultation: clear to auscultation bilaterally Cardio Jugular venous distension: no JVD Rate: regular rate GI Palpation (GI): Soft to palpation Auscultation: normal bowel sounds General: Yes no CVA tenderness Back/Spine/Pelvis Back: no CVA tenderness Skin General skin exam: no rashes or lesions noted Neuro General: patient oriented x3 and moves all extremities Extrem General: Yes no pedal edema Assessment & Plan Assessment & Plan (1) Proteinuria: Code(s): R80.9 - Proteinuria, unspecified Qualifiers: Proteinuria type: other Qualified Code(s): R80.8 - Other proteinuria (2) Glomerulonephritis, IgA: Code(s): N02.B9 - Other recurrent and persistent immunoglobulin A nephropathy Plan Blanche has glomerular proteinuria. She recently had vasculitic rash with microscopic hematuria and abdominal pain. She most likely has IgA vasculitis. She had renal biopsy - prelim L/M verbal result on the phone - IgA with crescents involving 25% glomeruli. She is currently on prednisone, which I asked to continue at 60 mg daily. I discussed the need for more immunosuppression - likely with cytoxan IV 500 mg twice a month for 3 months followed by maintenance immunosuppression for some time. I also discussed alternative options of monthly IV cytoxan as well as PO cytoxan along with prednisone. I discussed the side effects. Once I get the formal renal biopsy result, I shall arrange this after test. She has IUD in place. I reiterated that she needs to see Gynae to have preventive contraception during immunosuppression. Also I asked her to discuss with Gynae options of egg freezing. ( she has 2 kids but she is only 23). She is currently on Augmentin. I shall started her on Bactrim soon fror PJP prophylaxis. She is taking calcium and Vitamin D. I increased her lisinopril to 20 mg twice daily. Addressed her and her moms concerns. Follow-up given. Time spent retrieving data, visit and documentation 60 minutes Orders: Orders Creatinine Today N02.B9 - Other recurrent and persistent immunoglobulin A nephropathy, R80.8 - Other proteinuria Electrolytes Today N02.B9 - Other recurrent and persistent immunoglobulin A nephropathy, R80.8 - Other proteinuria Protein Creatinine Ratio, Ur Today N02.B9 - Other recurrent and persistent immunoglobulin A nephropathy, R80.8 - Other proteinuria Blood Urea Nitrogen Today N02.B9 - Other recurrent and persistent immunoglobulin A nephropathy, R80.8 - Other proteinuria Coding Level of Care Code Est Pt Level 5 (46862) Diagnoses Other proteinuria R80.8 Proteinuria type: other Glomerulonephritis, IgA N02.B9 Results Reviewed Nephrology Results: Hgb 14.6 g/dl (12.0-16.0) 02/03/24 WBC 15.5 X10*3/uL (4.8-10.8) H 02/03/24 Plt Count 274 X10*3/uL (160-400) 02/03/24 Sodium 140 mmol/L (135-145) 02/03/24 Potassium 4.7 mmol/L (3.3-5.1) 02/03/24 Chloride 108 mmol/L (96-108) 02/03/24 Carbon Dioxide 23 mmol/L (22-29) 02/03/24 BUN 15 mg/dL (9-16) 02/03/24 Creatinine 0.69 mg/dL (0.5-1.4) 02/03/24 Calcium 9.0 mg/dL (8.4-10.2) 02/03/24 Urine Protein 300 (3+) mg/dL (Neg-Trace) H 02/03/24 Urine Creatinine 90.68 mg/dL 01/30/24 Protein/Creatinin Ratio 4.15 (<0.2) H 01/30/24
== END 2024-02-04 15:35 | disposition home or self-care (01) ==
PROVIDERS: PCP Internal Medicine; Visit Provider Internal Medicine Nephrology
DX: R80.8 Other proteinuria (principal); N02.B9 Other recurrent and persistent immunoglobulin A nephropathy
CPT/HCPCS: 99215

== ENCOUNTER → 2024-02-04 14:59 | Outpatient (BNVA) | payer OTHER, SELFPAY | PROVIDERS: PCP Internal Medicine; Visit Provider Internal Medicine Nephrology | DX: R80.8 Other proteinuria (principal); N02.B9 Other recurrent and persistent immunoglobulin A nephropathy | CPT/HCPCS: 99212 ==

== ENCOUNTER 2024-02-10 14:31 | Outpatient (REF) | payer OTHER, SELFPAY ==
[2024-02-10 14:45] LABS: MANUAL DIFF FLAG NO
[2024-02-10 15:33] LABS: Basophils Percent Auto 0.1 % (0-2); Hematocrit 44.9 % (37.0-47.0); Hemoglobin 14.7 g/dl (12.0-16.0); Imm Gran Abs Auto 0.04 X10*3/uL (0.00-0.03); Imm Gran Pct Auto 0.3 % (0.0-0.4); Lymphocytes Absolute Auto 1.4 X10*3/uL (1.2-4.9); Lymphocytes Percent Auto 11.5 % (20-40); Mean Corpuscular HGB Conc 32.7 g/dl (31.0-35.0); Mean Corpuscular Hemoglobin 29.1 pg (27.0-33.0); Mean Corpuscular Volume 88.9 fL (80.0-98.0); Mean Platelet Volume 10.3 fL (9.4-12.3); Monocytes Absolute Auto 0.2 X10*3/uL (0.1-1.2); Monocytes Percent Auto 1.4 % (2-11); Neutrophils Absolute Auto 10.6 x10*3/uL (2.0-8.3); Neutrophils Percent Auto 86.7 % (45-73); Platelet Count 271 X10*3/uL (160-400); Red Blood Count 5.05 X10*6/uL (4.20-5.50); Red Cell Distribution Width 13.3 % (11.0-16.0); White Blood Count 12.2 X10*3/uL (4.8-10.8)
[2024-02-10 16:20] LABS: Anion Gap 11 (12-20); Blood Urea Nitrogen 13 mg/dL (9-16); Carbon Dioxide 25 mmol/L (22-29); Chloride 108 mmol/L (96-108); Estimated Glomerular Filt Rate > 60; Potassium 4.2 mmol/L (3.3-5.1); Sodium 140 mmol/L (135-145)
[2024-02-10 17:10] LABS: Total Protein Urine Random 549 mg/dL (<12)
== END 2024-02-10 14:32 | disposition home or self-care (01) ==
LOC: HO.LAB 14:31
PROVIDERS: PCP Internal Medicine; Visit Provider Internal Medicine Nephrology
DX: I77.6 Arteritis, unspecified (principal); R80.9 Proteinuria, unspecified; N02.B9 Other recurrent and persistent immunoglobulin A nephropathy; R80.8 Other proteinuria
CPT/HCPCS: 36415; 80051; 82565; 82570; 84156; 84520; 85025

== ENCOUNTER 2024-02-11 10:19 | Outpatient (AMB) | payer OTHER, SELFPAY ==
--- NOTE | 2024-02-11 10:25 | A.OFFVIS_ITS ---
Intake Vital Signs 02/11/24 10:27 Height 5 ft 4 in Weight 266 lb 12.149 oz BMI 45.8 BP 110/60 Intake Visit Reasons: control follow up Allergist/Immunologist Physician Required: No Information Interpreted: non-clinical & clinical Accompanied by: Mother Allergies No Known Allergies [No Known Allergies*] Allergy (Verified 02/11/24 10:28) Is last menstrual period known: No (mirena) HPI HPI Comments History of Present Illness Details The patient is presenting for family planning consult. The patient was diagnosed with IgA nephropathy is about to be started on Cytoxan. Mirena IUD was inserted 10 days ago at her PCP isn't the patient is having minimal menstrual cycle. Last menstrual cycle was 2 days ago. Last unprotected intercourse was 2 weeks [facility] Medical History Morbid obesity with BMI of 40.0-44.9, adult Recurrent epistaxis Proteinuria Anxiety Bipolar depression Elevated d-dimer Asthma Obesity Surgical History Hx of adenoidectomy History of surgery Hx of tonsillectomy Family History Mother No known health problems Father No known health problems Other Mental health disorder Substance use disorder Social History Housing: Apartment Alcohol intake: current Alcohol intake frequency: does not drink Comment: medicated prior to discharge Patient Tobacco Use Status: Tobacco use Unknown e-Cigarette/Vaping Use: Never Used Second Hand Smoke Exposure: No Substance Use Type: Marijuana service: No Current occupational status: student Cognitive needs: No Hearing needs: No Vision needs: No Review of Systems Const All systems reviewed & are unremarkable except as noted in HPI and below Physical Exam General: Yes no CVA tenderness External Female Exam: normal external appearance and normal appearance of the urethra Speculum Exam - Vagina: normal appearance of the vagina, normal palpation, no lesions and no masses Speculum Exam - Cervix: normal appearance of the cervix, normal palpation, no lesions, no masses, nontender and Other cervical findings present (IUD thread in place) Bimanual exam- vagina & uterus: normal bimanual exam, normal palpation, uterine size normal, normal palpation, uterine shape normal, No Cervical tenderness present and non-tender Bimanual Exam- Adnexa, other: normal adnexae Back/Spine/Pelvis Back: no CVA tenderness Assessment & Plan Assessment & Plan (1) Family planning: Code(s): Z30.09 - Encounter for other general counseling and advice on contraception Plan: UPT done in the office was negative, hCG quantitative ordered to be done today. Discussed with the patient the options of family planning including Mirena IUD with condoms (barrier methods has an 18% failure rate), change to ParaGard IUD and add control pills or Nexplanon or Depo-Provera (the combination of ParaGard IUD with any of the above has a lower failure rate and Mirena IUD with condoms), another option will be Mirena or ParaGard IUD and laparoscopic sterilization. All pros and cons risks and benefits and failure rate were disc ussed with the patient, the patient decided to stay on Mirena IUD and use condoms understand that the combined failure rate is a little higher than the other combination options. Discussed with the patient the teratogenicity of Cytoxan and the importance of using to method of control to decrease the risk of . In addition discussed with the patient the option of egg retrieval and cr yopreservation in case of any interested in future fertility, offered the patient referral to reproductive endocrinology/IVF for a consult, the patient would like to think about it and get back to me if interested (2) IUD check up: Code(s): Z30.431 - Encounter for routine checking of intrauterine contraceptive device Plan: UPT done in the office was negative, hCG quantitative ordered to be done today with a pelvic ultrasound to confirm the IUD position in utero. Instructions given the patient to schedule a 2 week ultrasound follow-up appointment Orders: Orders HCG Quantitative Today Z30. - Encounter for other general counseling and advice on contraception, Z30.431 - Encounter for routine checking of intrauterine contraceptive device US pelvic and transvaginal Today Z30. - Encounter for other general counseling and advice on contraception, Z30.431 - Encounter for routine checking of intrauterine contraceptive device Coding Level of Care Code Est Pt Level 3 (01673) Diagnoses Family planning Z30. IUD check up Z30.431
[2024-02-11 10:27] VITALS: BP 110/60; BMI 45.8
== END 2024-02-11 11:02 | disposition home or self-care (01) ==
LOC: HO.HWS 10:19
PROVIDERS: PCP Internal Medicine; Visit Provider Obstetrics & Gynecology
DX: Z30.09 Encounter for other general counseling and advice on contraception (principal); Z30.431 Encounter for routine checking of intrauterine contraceptive device; Z32.02 Encounter for pregnancy test, result negative
CPT/HCPCS: 99213

== ENCOUNTER → 2024-02-11 10:19 | Outpatient (BNVA) | payer OTHER, SELFPAY | PROVIDERS: PCP Internal Medicine; Visit Provider Obstetrics & Gynecology | DX: Z30.431 Encounter for routine checking of intrauterine contraceptive device (principal); Z30.09 Encounter for other general counseling and advice on contraception; Z32.02 Encounter for pregnancy test, result negative | CPT/HCPCS: 81025; 99212 ==

== ENCOUNTER 2024-02-13 14:39 | Outpatient (AMB) | payer OTHER, SELFPAY ==
[2024-02-13 15:28] VITALS: BP 110/70; PULSE 103; O2SAT 98; BMI 45.8
--- NOTE | 2024-02-13 15:28 | HO.NEPHOV_ITS ---
Vital Signs 02/13/24 15:28 Height 5 ft 4 in Weight 267 lb 2 oz BMI 45.8 BP 110/70 Blood Pressure Location Rt brachial Position Sitting Pulse 103 H Pulse Source Pulse Oximeter Pulse Oximetry (%) 98 Oxygen Delivery Method Room Air Intake Visit Reasons: 3 Weeks/ Confirmed [employer] Shothole Driller Required: No Accompanied by: Mother Allergies No Known Allergies [No Known Allergies*] Allergy (Verified 02/13/24 15:29) HPI Comments Details: 23-year-old female recently has been having joint pains, abdominal pain, and vasculitic rash with proteinuria. Patient reported that on December 16, she was diagnosed with strep throat for the 2nd time, and finished a full course of Augmentin. On December 29 she developed joint pain which started in her lower legs. On the following day she had a rash mostly confined to her lower extremities and was seen in [place] [facility] [place] [facility] [place]. She was discharged with prednisone. Her joint pain worsened in a few days with bilateral ankle swelling. She developed abdominal pain and cramping a day later. she was diagnosed with IgA vasculitis and was discharged with a 2nd course of prednisone 40 mg. She has been taking the prescribed prednisone. She denied any fevers, chills, chest pain, shortness of breath, dysuria, hematuria, urinary frequency or urgency. She has history of genital herpes and usually take Valcyclovir. Her swelling is better and is tolerating ACEI and prednisone. She underwent renal biopsy which showed diffuse proliferative and focal crescentic pattern of injury. She was accompanied by her mom during this visit [facility] Medical History Morbid obesity with BMI of 40.0-44.9, adult Recurrent epistaxis Proteinuria Anxiety Bipolar depression Elevated d-dimer Asthma Obesity Surgical History Hx of adenoidectomy History of surgery Hx of tonsillectomy Family History Mother No known health problems Father No known health problems Other Mental health disorder Substance use disorder Social History Housing: Apartment Alcohol intake: current Alcohol intake frequency: does not drink Comment: medicated prior to discharge Patient Tobacco Use Status: Tobacco use Unknown e-Cigarette/Vaping Use: Never Used Second Hand Smoke Exposure: No Substance Use Type: Marijuana service: No Current occupational status: student Cognitive needs: No Hearing needs: No Vision needs: No Physical Exam Vital Signs: Last Vital Signs Pulse 103 H 02/13/24 15:28 BP 110/70 02/13/24 15:28 Pulse Ox 98 02/13/24 15:28 Oxygen Delivery Method Room Air 02/13/24 15:28 BMI result Body Mass Index 45.8 Const General: comfortable and no acute distress Orientation/consciousness: patient oriented x3 HEENT Head: Yes normocephalic Mouth: Normal oral and palatal mucosa present Eyes EOM: EOMs intact bilaterally Neck Neck: Yes supple Resp Auscultation: clear to auscultation bilaterally Cardio Jugular venous distension: no JVD Rate: regular rate GI Palpation (GI): Soft to palpation Auscultation: normal bowel sounds General: Yes no CVA tenderness Back/Spine/Pelvis Back: no CVA tenderness Skin General skin exam: no rashes or lesions noted Neuro General: patient oriented x3 and moves all extremities Extrem General: Yes no pedal edema Results Reviewed Nephrology Results: Hgb 14.7 g/dl (12.0-16.0) 02/10/24 WBC 12.2 X10*3/uL (4.8-10.8) H 02/10/24 Plt Count 271 X10*3/uL (160-400) 02/10/24 Sodium 140 mmol/L (135-145) 02/10/24 Potassium 4.2 mmol/L (3.3-5.1) 02/10/24 Chloride 108 mmol/L (96-108) 02/10/24 Carbon Dioxide 25 mmol/L (22-29) 02/10/24 BUN 13 mg/dL (9-16) 02/10/24 Creatinine 0.73 mg/dL (0.5-1.4) 02/10/24 Calcium 9.0 mg/dL (8.4-10.2) 02/03/24 Urine Protein 300 (3+) mg/dL (Neg-Trace) H 02/03/24 Urine Creatinine 114.30 mg/dL 02/10/24 Protein/Creatinin Ratio 4.80 (<0.2) H 02/10/24 Assessment & Plan Assessment & Plan (1) Glomerulonephritis, IgA: Code(s): N02.B9 - Other recurrent and persistent immunoglobulin A nephropathy Category: Medical (2) Vasculitis: Code(s): I77.6 - Arteritis, unspecified Category: Medical (3) Proteinuria: Code(s): R80.9 - Proteinuria, unspecified Category: Medical Qualifiers: Proteinuria type: other Qualified Code(s): R80.8 - Other proteinuria Plan Blanche has glomerular proteinuria. She recently had vasculitic rash with micro scopic hematuria and abdominal pain. 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 She is currently on prednisone, which I asked to continue at 60 mg daily. I discussed the need for more immunosuppression - with cytoxan IV 500 mg twice a month for 3 months followed by maintenance immunosuppression for some time. I discussed the side effects. I started her on PCP prophylaxis. She is on PPI. She is taking calcium and Vitamin D. She should continue lisinopril 20 mg twice daily. Seen by Gynae UPT done in the office was negative, hCG quantitative ordered to be done today. Discussed with the patient the options of family planning including Mirena IUD with condoms (barrier methods has an 18% failure rate), change to ParaGard IUD and add control pills or Nexplanon or Depo-Provera (the combination of ParaGard IUD with any of the above has a lower failure rate and Mirena IUD with condoms), another option will be Mirena or ParaGard IUD and laparoscopic sterilization. All pros and cons risks and benefits and failure rate were discussed with the patient, the patient decided to stay on Mirena IUD and use condoms understand that the combined failure rate is a little higher than the other combination options. Discussed with the patient the teratogenicity of Cytoxan and the importance of using to method of control to decrease the risk of . In addition discussed with the patient the option of egg retrieval and cryopreservation in case of any interested in future fertility, offered the patient referral to reproductive endocrinology/IVF for a consult, the patient would like to think about it and get back to me if interested UPT done in the office was negative, hCG quantitative ordered to be done today with a pelvic ultrasound to confirm the IUD position in utero. Instructions given the patient to schedule a 2 week ultrasound follow-up appointment Plan to do cytoxan week after next. Mom's FMLA paper work done. F/U labs ordered. Addressed her and her moms concerns. Follow-up given. Orders: Orders Electrolytes 10 Days N02.B9 - Other recurrent and persistent immunoglobulin A nephropathy Creatinine 10 Days N02.B9 - Other recurrent and persistent immunoglobulin A nephropathy Protein Creatinine Ratio, Ur 10 Days N02.B9 - Other recurrent and persistent immunoglobulin A nephropathy Complete Blood Count Auto Diff 10 Days N02.B9 - Other recurrent and persistent immunoglobulin A nephropathy Blood Urea Nitrogen 10 Days N02.B9 - Other recurrent and persistent immunoglobulin A nephropathy Medications: New sulfamethoxazole-trimethoprim 800-160 mg (Bactrim DS) 1 tab orally three times a week; ( PCP prophylaxis) 3 months 30 tabs 0RF Changed From omeprazole 20 mg PO DAILY 4 weeks 28 caps 0RF To omeprazole 20 mg PO DAILY 3 months 90 caps 4RF
== END 2024-02-13 16:00 | disposition home or self-care (01) ==
PROVIDERS: PCP Internal Medicine; Visit Provider Internal Medicine Nephrology
DX: N02.B9 Other recurrent and persistent immunoglobulin A nephropathy (principal); I77.6 Arteritis, unspecified; R80.8 Other proteinuria
CPT/HCPCS: 99214

== ENCOUNTER → 2024-02-13 14:39 | Outpatient (BNVA) | payer OTHER, SELFPAY | PROVIDERS: PCP Internal Medicine; Visit Provider Internal Medicine Nephrology | DX: N02.B9 Other recurrent and persistent immunoglobulin A nephropathy (principal); I77.6 Arteritis, unspecified; R80.9 Proteinuria, unspecified | CPT/HCPCS: 99212 ==

== ENCOUNTER 2024-02-23 15:20 | Outpatient (REF) | payer OTHER, SELFPAY ==
--- NOTE | ~2024-02-23 | US_ITS ---
EXAMINATION: US PELVIS CLINICAL INFORMATION: Encounter for routine checking of IUD. COMPARISON: Pelvic ultrasound 04/27/2020. TECHNIQUE: Ultrasound of the pelvis is performed using both transabdominal and transvaginal transducers along with Doppler. Transvaginal imaging is performed due to inadequate visualization transabdominally. FINDINGS: Uterus: The uterus measures 8.9 x 3.3 x 4.3 cm. The uterus is anteverted. No discrete uterine mass. IUD appears appropriately positioned in the endometrial canal. Adnexa: The right ovary measures 4.6 x 2.7 x 2.9 cm, 18.8 mL. There is a 2.4 cm simple physiologic cyst in the right ovary for which no imaging follow-up is recommended. The left ovary measures 2.7 x 1.5 x 1.7 cm, volume 3.6 mL. The left ovary appears normal. There is no free fluid. US/US pelvic and transvaginal IMPRESSION: The IUD appears appropriately positioned.
[2024-02-23 15:40] LABS: MANUAL DIFF FLAG NO
[2024-02-23 16:03] LABS: Basophils Percent Auto 0.1 % (0-2); Hematocrit 42.4 % (37.0-47.0); Hemoglobin 14.3 g/dl (12.0-16.0); Imm Gran Abs Auto 0.14 X10*3/uL (0.00-0.03); Imm Gran Pct Auto 0.8 % (0.0-0.4); Lymphocytes Absolute Auto 1.7 X10*3/uL (1.2-4.9); Lymphocytes Percent Auto 9.5 % (20-40); Mean Corpuscular HGB Conc 33.7 g/dl (31.0-35.0); Mean Corpuscular Hemoglobin 29.7 pg (27.0-33.0); Monocytes Absolute Auto 0.3 X10*3/uL (0.1-1.2); Monocytes Percent Auto 1.9 % (2-11); Neutrophils Absolute Auto 15.7 x10*3/uL (2.0-8.3); Neutrophils Percent Auto 87.7 % (45-73); Platelet Count 277 X10*3/uL (160-400); Red Blood Count 4.82 X10*6/uL (4.20-5.50); Red Cell Distribution Width 13.1 % (11.0-16.0); White Blood Count 17.9 X10*3/uL (4.8-10.8)
[2024-02-23 17:03] LABS: Anion Gap 12 (12-20); Blood Urea Nitrogen 13 mg/dL (9-16); Carbon Dioxide 24 mmol/L (22-29); Chloride 106 mmol/L (96-108); Estimated Glomerular Filt Rate > 60; Potassium 4.2 mmol/L (3.3-5.1); Sodium 138 mmol/L (135-145)
[2024-02-23 18:53] LABS: Creatinine Urine 122.71 mg/dL
[2024-02-23 19:33] LABS: Protein/Creatinine Ratio, Ur 6.23 (<0.2); Total Protein Urine Random 764 mg/dL (<12)
== END 2024-02-23 15:21 | disposition home or self-care (01) ==
LOC: HO.US 15:20
PROVIDERS: Absent Provider Internal Medicine Nephrology; PCP Internal Medicine; Visit Provider Obstetrics & Gynecology
DX: N02.B9 Other recurrent and persistent immunoglobulin A nephropathy (principal); I77.6 Arteritis, unspecified; R80.9 Proteinuria, unspecified; Z30.431 Encounter for routine checking of intrauterine contraceptive device
CPT/HCPCS: 36415; 76830; 76856; 80051; 82565; 82570; 84156; 84520; 85025

== ENCOUNTER 2024-03-05 15:13 | Outpatient (AMB) | payer OTHER, SELFPAY ==
[2024-03-05 15:36] VITALS: BP 116/62; PULSE 82; O2SAT 98; BMI 48.4
--- NOTE | 2024-03-05 15:36 | HO.NEPHOV_ITS ---
Vital Signs 03/05/24 15:36 Height 5 ft 4 in Weight 282 lb BMI 48.4 BP 116/62 Blood Pressure Location Lt brachial Position Sitting Pulse 82 Pulse Source Pulse Oximeter Pulse Oximetry (%) 98 Oxygen Delivery Method Room Air Intake Visit Reasons: Glomerulonephritis/ 3 weeks fu/ Confirmed Head Waitress Required: No Accompanied by: Mother Allergies No Known Allergies [No Known Allergies*] Allergy (Verified 03/05/24 15:38) HPI Comments Details: 23-year-old female recently has been having joint pains, abdominal pain, and vasculitic rash with proteinuria. 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 She had been on PO prednisone, ACEI and supportive care. She received 500 mg IV cytoxan yesterday ( Dose 1- 03/04/2024).She denies any fevers, chills, chest pain, shortness of breath, dysuria, hematuria, urinary frequency or urgency. She has some nausea but relieved with Zofran. She has history of genital herpes and usually take Valcyclovir. She wants to come down on Prednsione dose. She is concerned about proteinuria. Her renal function remains normal. She was accompanied by her mom during this visit [facility] Medical History Morbid obesity with BMI of 40.0-44.9, adult Recurrent epistaxis Proteinuria Anxiety Bipolar depression Elevated d-dimer Asthma Obesity Surgical History Hx of adenoidectomy History of surgery Hx of tonsillectomy Family History Mother No known health problems Father No known health problems Other Mental health disorder Substance use disorder Social History Housing: Apartment Alcohol intake: current Alcohol intake frequency: does not drink Comment: medicated prior to discharge Patient Tobacco Use Status: Tobacco use Unknown e-Cigarette/Vaping Use: Never Used Second Hand Smoke Exposure: No Substance Use Type: Marijuana service: No Current occupational status: student Cognitive needs: No Hearing needs: No Vision needs: No Physical Exam Vital Signs: Last Vital Signs Pulse 82 05/10/24 15:36 BP 116/62 03/05/24 15:36 Pulse Ox 98 03/05/24 15:36 Oxygen Delivery Method Room Air 03/05/24 15:36 BMI result Body Mass Index 48.4 Const General: comfortable and no acute distress Orientation/consciousness: patient oriented x3 HEENT Head: Yes normocephalic Mouth: Normal oral and palatal mucosa present Eyes EOM: EOMs intact bilaterally Neck Neck: Yes supple Resp Auscultation: clear to auscultation bilaterally Cardio Jugular venous distension: no JVD Rate: regular rate GI Palpation (GI): Soft to palpation Auscultation: normal bowel sounds General: Yes no CVA tenderness Back/Spine/Pelvis Back: no CVA tenderness Skin General skin exam: no rashes or lesions noted Neuro General: patient oriented x3 and moves all extremities Extrem General: Yes no pedal edema Results Reviewed Nephrology Results: Hgb 14.3 g/dl (12.0-16.0) 02/23/24 WBC 17.9 X10*3/uL (4.8-10.8) H 02/23/24 Plt Count 277 X10*3/uL (160-400) 02/23/24 Sodium 138 mmol/L (135-145) 02/23/24 Potassium 4.2 mmol/L (3.3-5.1) 02/23/24 Chloride 106 mmol/L (96-108) 02/23/24 Carbon Dioxide 24 mmol/L (22-29) 02/23/24 BUN 13 mg/dL (9-16) 02/23/24 Creatinine 0.69 mg/dL (0.5-1.4) 02/23/24 Calcium 9.0 mg/dL (8.4-10.2) 02/03/24 Urine Protein 300 (3+) mg/dL (Neg-Trace) H 02/03/24 Urine Creatinine 122.71 mg/dL 02/23/24 Protein/Creatinin Ratio 6.23 (<0.2) H 02/23/24 Assessment & Plan Assessment & Plan (1) Proteinuria: Code(s): R80.9 - Proteinuria, unspecified Category: Medical Qualifiers: Proteinuria type: other Qualified Code(s): R80.8 - Other proteinuria (2) Glomerulonephritis, IgA: Code(s): N02.B9 - Other recurrent and persistent immunoglobulin A nephropathy Category: Medical Plan Blanche has glomerular proteinuria. She recently had vasculitic rash with microscopic hematuria and abdominal pain. 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 She is currently on prednisone, which I asked to continue at 60 mg daily. She was started on cytoxan IV 500 mg twice a month for 3 months regimen. ( Dose one was given on 03/04/2024). This will be followed by maintenance immunosuppression for some time. I discussed the side effects. She is on PCP prophylaxis. She is on PPI. She is taking calcium and Vitamin D. She should continue lisinopril 20 mg twice daily. Seen by Gynae; Follow-up labs ordered : F/U given. Orders: Orders Complete Blood Count Auto Diff 2 Weeks R80.8 - Other proteinuria Creatinine Today R80.8 - Other proteinuria Electrolytes Today R80.8 - Other proteinuria Blood Urea Nitrogen Today R80.8 - Other proteinuria Protein Creatinine Ratio, Ur Today R80.8 - Other proteinuria Medications: New ondansetron 8 mg PO Q8H PRN 30 tabs 0RF nausea and vomiting calcium carbonate-vitamin D3 1,000 mg-20 mcg (800 unit) 1 tab orally 3 times a week; 30 tabs 3RF Coding Level of Care Code Est Pt Level 4 (55881) Diagnoses Other proteinuria R80.8 Proteinuria type: other Glomerulonephritis, IgA N02.B9
== END 2024-03-05 16:15 | disposition home or self-care (01) ==
PROVIDERS: PCP Internal Medicine; Visit Provider Internal Medicine Nephrology
DX: R80.8 Other proteinuria (principal); N02.B9 Other recurrent and persistent immunoglobulin A nephropathy
CPT/HCPCS: 99214

== ENCOUNTER → 2024-03-05 15:13 | Outpatient (BNVA) | payer OTHER, SELFPAY | PROVIDERS: PCP Internal Medicine; Visit Provider Internal Medicine Nephrology | DX: R80.8 Other proteinuria (principal); N02.B9 Other recurrent and persistent immunoglobulin A nephropathy | CPT/HCPCS: 99212 ==

== ENCOUNTER 2024-03-16 12:30 | Outpatient (AMB) | payer OTHER, SELFPAY ==
[2024-03-16 12:39] VITALS: BMI 48.1
--- NOTE | 2024-03-16 12:39 | A.OFFVIS_ITS ---
Vital Signs 03/16/24 12:39 Height 5 ft 4 in Weight 279 lb 15.793 oz BMI 48.1 Intake Visit Reasons: Ultra sound follow up per Dr. Callejas Allergies No Known Allergies [No Known Allergies*] Allergy (Verified 03/05/24 15:38) HPI Comments Details: The patient presenting for ultrasound follow-up regarding the position of IUD. Ultrasound done recently showed the following: Uterus: The uterus measures 8.9 x 3.3 x 4.3 cm. The uterus is anteverted. No discrete uterine mass. IUD appears appropriately positioned in the endometrial canal. Adnexa: The right ovary measures 4.6 x 2.7 x 2.9 cm, 18.8 mL. There is a 2.4 cm simple physiologic cyst in the right ovary for which no imaging follow-up is recommended. The left ovary measures 2.7 x 1.5 x 1.7 cm, volume 3.6 mL. The left ovary appears normal. There is no free fluid. The patient had a consult few weeks ago regarding method of control since she was starting on Cytoxan for IgA glomerulonephritis and chose to have Mirena IUD with condom use to decrease the risk of . Pelvic ultrasound ordered to confirm the position of the IUD which was done and the results as shown above. [facility] Medical History (Updated 03/10/24 @ 12:49 by Cedric Bingham MD) IgA nephropathy determined by biopsy of kidney Morbid obesity with BMI of 40.0-44.9, adult Recurrent epistaxis Proteinuria Anxiety Bipolar depression Elevated d-dimer Asthma Obesity Surgical History Hx of adenoidectomy History of surgery Hx of tonsillectomy Family History Mother No known health problems Father No known health problems Other Mental health disorder Substance use disorder Social History Housing: Apartment Alcohol intake: current Alcohol intake frequency: does not drink Comment: medicated prior to discharge Patient Tobacco Use Status: Tobacco use Unknown e-Cigarette/Vaping Use: Never Used Second Hand Smoke Exposure: No Substance Use Type: Marijuana service: No Current occupational status: student Cognitive needs: No Hearing needs: No Vision needs: No Review of Systems Const All systems reviewed & are unremarkable except as noted in HPI and below Reports as per HPI and Reports no additional complaints GI Reports no additional complaints Reports no additional complaints Physical Exam Vital Signs: BMI result Body Mass Index 48.1 Assessment & Plan Assessment & Plan (1) IUD check up: Code(s): Z30.431 - Encounter for routine checking of intrauterine contraceptive device Category: Medical Plan: Discussed with the patient the results of the ultrasound showing IUD in appropriate position, instructions given the patient to call in case of missing her menstrual cycle or any other concerns , all questions answered, the patient verbalized understanding. Coding Level of Care Code Est Pt Level 3 (24229) Diagnoses IUD check up Z30.431
== END 2024-03-16 12:45 | disposition home or self-care (01) ==
PROVIDERS: PCP Internal Medicine; Visit Provider Obstetrics & Gynecology
DX: Z30.431 Encounter for routine checking of intrauterine contraceptive device (principal)
CPT/HCPCS: 99213

== ENCOUNTER → 2024-03-16 12:30 | Outpatient (BNVA) | payer OTHER, SELFPAY | PROVIDERS: PCP Internal Medicine; Visit Provider Obstetrics & Gynecology | DX: Z30.431 Encounter for routine checking of intrauterine contraceptive device (principal) | CPT/HCPCS: 99212 ==

== ENCOUNTER 2024-03-18 11:42 | Outpatient (REF) | payer OTHER, SELFPAY ==
[2024-03-18 12:28] LABS: Basophils Percent Auto 0.3 % (0-2); Eosinophils Absolute Auto 0.1 X10*3/uL (0.0-0.4); Eosinophils Percent Auto 0.6 % (0-4); Hematocrit 43.3 % (37.0-47.0); Hemoglobin 14.3 g/dl (12.0-16.0); Imm Gran Abs Auto 0.07 X10*3/uL (0.00-0.03); Imm Gran Pct Auto 0.5 % (0.0-0.4); Lymphocytes Absolute Auto 6.6 X10*3/uL (1.2-4.9); Lymphocytes Percent Auto 42.7 % (20-40); MANUAL DIFF FLAG SCAN; Mean Corpuscular Hemoglobin 29.5 pg (27.0-33.0); Mean Corpuscular Volume 89.3 fL (80.0-98.0); Monocytes Absolute Auto 0.9 X10*3/uL (0.1-1.2); Monocytes Percent Auto 5.7 % (2-11); Neutrophils Absolute Auto 7.7 x10*3/uL (2.0-8.3); Neutrophils Percent Auto 50.2 % (45-73); Platelet Count 234 X10*3/uL (160-400); Red Blood Count 4.85 X10*6/uL (4.20-5.50); Red Cell Distribution Width 13.5 % (11.0-16.0); SCAN SMEAR FLAG 1; White Blood Count 15.3 X10*3/uL (4.8-10.8)
[2024-03-18 12:49] LABS: Alanine Aminotransferase 16 U/L (0-31); Albumin Level 3.1 g/dL (3.5-5.0); Alkaline Phosphatase 38 U/L (39-117); Anion Gap 12 (12-20); Aspartate Amino Transferase 14 U/L (5-31); Bilirubin Total 0.5 mg/dL (0.0-1.0); Blood Urea Nitrogen 17 mg/dL (9-16); Calcium 8.5 mg/dL (8.4-10.2); Carbon Dioxide 25 mmol/L (22-29); Chloride 107 mmol/L (96-108); Estimated Glomerular Filt Rate > 60; Glucose Random 85 mg/dL (60-115); Potassium 3.9 mmol/L (3.3-5.1); Sodium 140 mmol/L (135-145); Total Protein 5.4 g/dL (6.5-8.0)
[2024-03-18 12:55] LABS: HCG Quantitative < 2 mIU/mL
[2024-03-18 12:56] LABS: SLIDE REVIEW VERIFIED
[2024-03-18 13:10] LABS: Erythrocyte Sedimentation Rate 8 MM/HR (0-20)
[2024-03-18 14:26] LABS: Creatinine Urine 129.34 mg/dL
[2024-03-18 14:37] LABS: Protein/Creatinine Ratio, Ur 2.51 (<0.2); Total Protein Urine Random 324 mg/dL (<12)
== END 2024-03-18 11:43 | disposition home or self-care (01) ==
LOC: HO.LAB 11:42
PROVIDERS: Obstetrics & Gynecology; Absent Provider Nurse Practitioner Family; PCP Internal Medicine; Visit Provider Internal Medicine Nephrology
DX: N02.B9 Other recurrent and persistent immunoglobulin A nephropathy (principal); Z30.09 Encounter for other general counseling and advice on contraception; Z30.431 Encounter for routine checking of intrauterine contraceptive device; R80.8 Other proteinuria; I77.6 Arteritis, unspecified
CPT/HCPCS: 36415; 80053; 82570; 84156; 84702; 85025; 85652

== ENCOUNTER 2024-03-23 16:02 | Outpatient (AMB) | payer OTHER, SELFPAY ==
--- NOTE | 2024-03-23 16:09 | MHC.OFFVIS ---
Vital Signs 03/23/24 16:13 Height 5 ft 4 in Weight 285 lb 11.505 oz BMI 49.0 BP 122/60 Blood Pressure Location Rt brachial Position Sitting Pulse 102 H Pulse Oximetry (%) 93 Intake Visit Reasons: HSP Vasculitis with Proteinuria Intake Note: Patient last seen 01/30/24, presents today for follow up and test results. Allergies No Known Allergies [No Known Allergies*] Allergy (Verified 03/23/24 16:16) HPI Comments Details: Ms. 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 She continues under the watchful eye of Nephrology and her kidney function is improving. She has had two doses of cytoxan since our last visit 01/30/2024. She is on Prednisone 60 mg QD and should be reducing to 40mg soon. The patient reports her knees hurt and feels swollen all the time but she knows it the feeling of retaining fluid. She says she is coping better and she knows things are improving. She did see ENT for the nose bleed and is using saline flushes and thinks it is healing - much fewer episodes than before, almost not happening and if it does, it is more spotting. Initial history 01/13/2024 Ms. 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 She was diagnosed with HSP after she presented to the ED with the triad -rash, vague abdominal pain and joint pain. She was started on High does prednisone, ibuprofen. The joint pain has improved and the swelling to her lower extremities has mostly resolved. The rash too has mostly resolved but the patient says the rash returns when she goes below certain dose of the Prednisone. She is curretly on 50 mg QD for the next 2 days. Upon inquiry the patient shared that she had a strep throat infection and was treated with antibiotics about the December 16. It was around that time that she started having the joint pain on estimated date of December 25 than the rash appeared December 31. She had the rash, knee pain and abdominal discomfort for about a week before she went to the hospital. -prednisone taper start that 80 mg of prednisone x 4 days, 60 mg x 3 days, now 50 mg x 2 days (started today) -proteinuria 1000 on 3/14, 500 on 01/12 -History of genital herpes -usually takes valacyclovir which has become ineffective so she was recently switched to acyclovir because she had an outbreak for the whole month of November that was not resolved with valacyclovir. 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 Morbid obesity with BMI of 40.0-44.9, adult Recurrent epistaxis Proteinuria Anxiety Bipolar depression Elevated d-dimer Asthma Obesity Surgical History Hx of adenoidectomy History of surgery Hx of tonsillectomy Family History Mother No known health problems Father No known health problems Other Mental health disorder Substance use disorder Social History Housing: Apartment Alcohol intake: current Alcohol intake frequency: does not drink Comment: medicated prior to discharge Patient Tobacco Use Status: Tobacco use Unknown e-Cigarette/Vaping Use: Never Used Second Hand Smoke Exposure: No Substance Use Type: Marijuana service: No Current occupational status: student Cognitive needs: No Hearing needs: No Vision needs: No Review of Systems Const All systems reviewed & are unremarkable except as noted in HPI and below Physical Exam Vital Signs: Last Vital Signs Pulse 102 H 03/23/24 16:13 BP 122/60 03/23/24 16:13 Pulse Ox 93 03/23/24 16:13 BMI result Body Mass Index 49.0 Vital signs reviewed. Constitutional: Non-toxic appearing. No acute distress. Well-developed and well-nourished. HEENT: Normocephalic and atraumatic. External auditory canals without erythema or edema bilaterally. Skin: Warm and dry. generalized livedo reticularis to lower legs. Neck: Full and painless range of motion. No cervical lymphadenopathy. Cardio: Regular rate and rhythm. No murmurs, gallops, or rubs. No lower extremity edema. No JVD. Pulmonary: No respiratory distress. No accessory muscle usage. Musculoskeletal: Normal range of motion in joints throughout the body. No deformity or other signs of injury. Feeling of swollen knees Neuro: Alert and oriented x4. Cranial nerves 2-12 grossly intact. No focal deficits appreciated. 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 Alvarenga is here for follow-up treatment for HSP - diagnosis Henoch-Schoenlein purpura given the triad of rash abdominal pain and arthritis pain and status post upper respiratory infection - she was treated for strep and the genital herpes outbreak in the preceding weeks. The rash is since resolved. Even though there is no overt swelling that can be seen to her lower extremities, she continues to have knee pain. 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 The patient remains on 60 mg of prednisone and is being tapered by Nephrology. She is contending with some side effects of prednisone and it does make her uncomfortable - weight gain, puffy face, and fluid retention. I encouraged her that lets to focus on the kidney healing at this time. She will try using a plastic sweat suit to see if the excess fluid under her skin can be released and improve her comfort #Proteinuria: She continues to follow with Nephrology. Had a kidney biopsy done 01/29/2024. on CYtoxan therapy #Bloody nose:The patient says she continues to have bloody nose so she went to ENT referral. It is improving with Saline wash and it is healing. episodes are almost non-recurring. ENT revisit in 2 months. 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
[2024-03-23 16:13] VITALS: BP 122/60; PULSE 102; O2SAT 93; BMI 49.0
== END 2024-03-23 16:29 | disposition home or self-care (01) ==
PROVIDERS: PCP Internal Medicine; Visit Provider Nurse Practitioner Family
DX: D69.0 Allergic purpura (principal); R80.8 Other proteinuria; R04.0 Epistaxis; R23.1 Pallor
CPT/HCPCS: 99213; G2211

== ENCOUNTER → 2024-03-23 16:02 | Outpatient (BNVA) | payer OTHER, SELFPAY | PROVIDERS: PCP Internal Medicine; Visit Provider Nurse Practitioner Family | DX: D69.0 Allergic purpura (principal); R80.8 Other proteinuria; R04.0 Epistaxis; R23.1 Pallor | CPT/HCPCS: 99212 ==

== ENCOUNTER 2024-03-31 15:04 | Outpatient (REF) | payer OTHER, SELFPAY ==
[2024-03-31 15:49] LABS: Basophils Percent Auto 0.2 % (0-2); Hematocrit 44.3 % (37.0-47.0); Imm Gran Abs Auto 0.15 X10*3/uL (0.00-0.03); Imm Gran Pct Auto 0.9 % (0.0-0.4); Lymphocytes Absolute Auto 1.3 X10*3/uL (1.2-4.9); Lymphocytes Percent Auto 7.4 % (20-40); MANUAL DIFF FLAG SCAN; Mean Corpuscular HGB Conc 33.9 g/dl (31.0-35.0); Mean Corpuscular Hemoglobin 30.2 pg (27.0-33.0); Mean Corpuscular Volume 89.3 fL (80.0-98.0); Mean Platelet Volume 10.2 fL (9.4-12.3); Monocytes Absolute Auto 0.2 X10*3/uL (0.1-1.2); Monocytes Percent Auto 1.2 % (2-11); Neutrophils Absolute Auto 15.4 x10*3/uL (2.0-8.3); Neutrophils Percent Auto 90.3 % (45-73); Platelet Count 277 X10*3/uL (160-400); Red Blood Count 4.96 X10*6/uL (4.20-5.50); Red Cell Distribution Width 13.8 % (11.0-16.0); SCAN SMEAR FLAG 1
[2024-03-31 16:07] LABS: SLIDE REVIEW VERIFIED
[2024-03-31 16:12] LABS: Anion Gap 14 (12-20); Blood Urea Nitrogen 17 mg/dL (9-16); Carbon Dioxide 22 mmol/L (22-29); Chloride 106 mmol/L (96-108); Estimated Glomerular Filt Rate > 60; Potassium 4.1 mmol/L (3.3-5.1); Sodium 138 mmol/L (135-145)
[2024-03-31 16:28] LABS: HCG Quantitative < 2 mIU/mL
[2024-03-31 17:12] LABS: Creatinine Urine 49.23 mg/dL
[2024-03-31 17:30] LABS: Protein/Creatinine Ratio, Ur 6.36 (<0.2); Total Protein Urine Random 313 mg/dL (<12)
[2024-04-01 09:15] LABS: Alanine Aminotransferase 18 U/L (0-31); Albumin Level 3.3 g/dL (3.5-5.0); Alkaline Phosphatase 47 U/L (39-117); Aspartate Amino Transferase 13 U/L (5-31); Bilirubin Direct 0.1 mg/dL (0.0-0.5); Bilirubin Total 0.3 mg/dL (0.0-1.0); Magnesium 1.9 mg/dL (1.6-2.6); Total Protein 5.5 g/dL (6.5-8.0)
== END 2024-03-31 15:05 | disposition home or self-care (01) ==
LOC: HO.LAB 15:04
PROVIDERS: Obstetrics & Gynecology; PCP Internal Medicine; Visit Provider Internal Medicine Nephrology
DX: N02.B9 Other recurrent and persistent immunoglobulin A nephropathy (principal); M25.50 Pain in unspecified joint; R10.9 Unspecified abdominal pain; R21 Rash and other nonspecific skin eruption; R60.0 Localized edema; R80.8 Other proteinuria; I77.6 Arteritis, unspecified; O03.4 Incomplete spontaneous abortion without complication
CPT/HCPCS: 36415; 80051; 80076; 82565; 82570; 83735; 84156; 84520; 84702; 85025; 99212

== ENCOUNTER 2024-03-31 15:33 | Outpatient (AMB) | payer OTHER, SELFPAY ==
[2024-03-31 15:46] VITALS: BP 130/80; PULSE 107; O2SAT 94; BMI 49.3
--- NOTE | 2024-03-31 15:46 | HO.NEPHOV_ITS ---
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 She had been on PO prednisone, ACEI and supportive care. She received 500 mg IV cytoxan yesterday ( Dose 1- 03/04/2024, Dose 2- 03/18/2024).She denies any fevers, chills, chest pain, shortness of breath, dy suria, hematuria, urinary frequency or urgency. She has some nausea but relieved with Zofran. She has history of genital herpes and usually take Valcyclovir. She wants to come down on Prednsione dose. Her renal function remains normal. She has been having some vaginal bleeding and spotting. She also complained of edema in her lower extremity. 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 Morbid obesity with BMI of 40.0-44.9, adult Recurrent epistaxis Proteinuria Anxiety Bipolar depression Elevated d-dimer Asthma Obesity Surgical History Hx of adenoidectomy History of surgery Hx of tonsillectomy Family History Mother No known health problems Father No known health problems Other Mental health disorder Substance use disorder Social History Housing: Apartment Alcohol intake: current Alcohol intake frequency: does not drink Comment: medicated prior to discharge Patient Tobacco Use Status: Tobacco use Unknown e-Cigarette/Vaping Use: Never Used Second Hand Smoke Exposure: No Substance Use Type: Marijuana service: No Current occupational status: student Cognitive needs: No Hearing needs: No Vision needs: No Physical Exam Vital Signs: Last Vital Signs Pulse 107 H 03/31/24 15:46 BP 130/80 03/31/24 15:46 Pulse Ox 94 03/31/24 15:46 Oxygen Delivery Method Room Air 03/31/24 15:46 BMI result Body Mass Index 49.3 Const General: comfortable and no acute distress Orientation/consciousness: patient oriented x3 HEENT Head: Yes normocephalic Mouth: Normal oral and palatal mucosa present Eyes EOM: EOMs intact bilaterally Neck Neck: Yes supple Resp Auscultation: clear to auscultation bilaterally Cardio Jugular venous distension: no JVD Rate: regular rate GI Palpation (GI): Soft to palpation Auscultation: normal bowel sounds General: Yes no CVA tenderness Back/Spine/Pelvis Back: no CVA tenderness Skin General skin exam: no rashes or lesions noted Neuro General: patient oriented x3 and moves all extremities Extrem General: Yes edema Results Reviewed Nephrology Results: Hgb 15.0 g/dl (12.0-16.0) 03/31/24 WBC 17.0 X10*3/uL (4.8-10.8) H 03/31/24 Plt Count 277 X10*3/uL (160-400) 03/31/24 Sodium 138 mmol/L (135-145) 03/31/24 Potassium 4.1 mmol/L (3.3-5.1) 03/31/24 Chloride 106 mmol/L (96-108) 03/31/24 Carbon Dioxide 22 mmol/L (22-29) 03/31/24 BUN 17 mg/dL (9-16) H 03/31/24 Creatinine 0.80 mg/dL (0.5-1.4) 03/31/24 Calcium 8.5 mg/dL (8.4-10.2) 03/18/24 Urine Creatinine 49.23 mg/dL 03/31/24 Protein/Creatinin Ratio 6.36 (<0.2) H 03/31/24 Assessment & Plan Assessment & Plan (1) Proteinuria: Code(s): R80.9 - Proteinuria, unspecified Category: Medical Qualifiers: Proteinuria type: other Qualified Code(s): R80.8 - Other proteinuria (2) Vasculitis: Code(s): I77.6 - Arteritis, unspecified Category: Medical (3) IgA nephropathy determined by biopsy of kidney: Code(s): N02.B9 - Other recurrent and persistent immunoglobulin A nephropathy Category: Medical (4) Edema: Code(s): R60.9 - Edema, unspecified Category: Medical Qualifiers: Edema type: localized Qualified Code(s): R60.0 - Localized edema Marina Mancia has glomerular proteinuria. She recently had vasculitic rash with microscopic hematuria and abdominal pain. 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 She is currently on prednisone, which I asked to continue at 50 mg daily. She was started on cytoxan IV 500 mg twice a month for 3 months regimen. ( Dose one was given on 03/04/2024, Dose 2 was on 03/18/2024; DOse 3 is due 04/01/2024). This will be followed by maintenance immunosuppression for some time. I discussed the side effects. She is on PCP prophylaxis. She is on PPI. She is taking calcium and Vitamin D. She should continue lisinopril 20 mg twice daily. Seen by Gynae; needs to follow up with Gynae given intermittent vaginal bleeding and spotting. I also started her on Lasix 40 mg daily for 10 days to optimize her volume status. Follow-up labs ordered : F/U given. Answered all questions Orders: Orders Creatinine 2 Weeks I77.6 - Arteritis, unspecified, N02.B9 - Other recurrent and persistent immunoglobulin A nephropathy, R80.8 - Other proteinuria Blood Urea Nitrogen 2 Weeks I77.6 - Arteritis, unspecified, N02.B9 - Other recurrent and persistent immunoglobulin A nephropathy, R80.8 - Other proteinuria Electrolytes 2 Weeks I77.6 - Arteritis, unspecified, N02.B9 - Other recurrent and persistent immunoglobulin A nephropathy, R80.8 - Other proteinuria Protein Creatinine Ratio, Ur 2 Weeks I77.6 - Arteritis, unspecified, N02.B9 - Other recurrent and persistent immunoglobulin A nephropathy, R80.8 - Other proteinuria Complete Blood Count Auto Diff 2 Weeks I77.6 - Arteritis, unspecified, N02.B9 - Other recurrent and persistent immunoglobulin A nephropathy, R80.8 - Other proteinuria Albumin Level Today R60.0 - Localized edema Medications: New furosemide (Lasix) 40 mg PO DAILY 10 tabs 0RF Coding Level of Care Code Est Pt Level 4 (07714) Diagnoses Other proteinuria R80.8 Proteinuria type: other Vasculitis I77.6 IgA nephropathy determined by biopsy of kidney N02.B9 Localized edema R60.0 Edema type: localized
== END 2024-03-31 16:16 | disposition home or self-care (01) ==
PROVIDERS: PCP Internal Medicine; Visit Provider Internal Medicine Nephrology
DX: R80.8 Other proteinuria (principal); I77.6 Arteritis, unspecified; N02.B9 Other recurrent and persistent immunoglobulin A nephropathy; R60.0 Localized edema
CPT/HCPCS: 99214

== ENCOUNTER 2024-04-07 12:34 | Emergency (ER) | payer OTHER, SELFPAY ==
[2024-04-07 13:22] VITALS: BP 151/92; PULSE 111; RESP 16; TEMP 36.9; O2SAT 96; BMI 47.8
--- NOTE | 2024-04-07 13:24 | ED.GENADULT ---
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 on Cytoxan and prednisone dose of prednisone decreased to 50 mg 3 days ago reason functions comes here for muscle cramping and pain all for last 3 days no nausea no vomiting no fever no urinary symptoms labs done showed elevated WBC count from 17,000 to 22.3 K with normal lactic acid level of 0.8 UA showing moderate amount of leukocytes with 1+ bacteria no fever no chills patient is on Bactrim 2 times a week for chronic suppressive treatment Related Data Home Medications ?Medication ?Instructions ?Recorded ?Confirmed albuterol sulfate 90 mcg/actuation 2 puff inhalation Q6H PRN 03/09/23 01/20/24 aerosol inhaler (Ventolin HFA) Shortness Of Breath Or Wheezing levonorgestrel 21 mcg/24 hours (8 intrauterine 02/11/24 yrs) 52 mg intrauterine device (Mirena) Previous Rx's ?Medication ?Instructions ?Recorded lorazepam 0.5 mg tablet 0.5 mg PO DAILY PRN severe anxiety 01/20/24 #15 tabs mupirocin 2 % topical ointment 1 appl topical TID #22 grams 01/20/24 cyclopentolate 1 % eye drops 1 drp ophthalmic-Left BID 3 days 02/03/24 #15 mL erythromycin 5 mg/gram (0.5 %) eye 0.5 inch ophthalmic-Left BID #3.5 02/03/24 ointment grams lisinopril 10 mg tablet See Rx Instructions .Route 02/12/24 .COMPLEX #60 tabs omeprazole 20 mg capsule,delayed 20 mg PO DAILY 3 months #90 caps 02/13/24 release sulfamethoxazole 800 1 tab PO .COMPLEX 3 months #30 tabs 02/13/24 mg-trimethoprim 160 mg tablet (Bactrim DS) ondansetron 8 mg disintegrating 8 mg PO Q8H PRN nausea and 03/04/24 tablet vomiting #30 tabs calcium carbonate 1,000 mg-vitamin 1 tab PO .COMPLEX #30 tabs 03/05/24 D3 20 mcg (800 unit) tablet prednisone 20 mg tablet 60 mg (3 x 20 mg) PO DAILY 30 days 03/24/24 #90 tabs furosemide 40 mg tablet (Lasix) 40 mg PO DAILY #90 tabs 04/01/24 tramadol 50 mg tablet 50 mg PO TID PRN pain 10 days #30 04/01/24 tabs cefuroxime axetil 250 mg tablet 250 mg PO BID 7 days #14 tabs 04/08/24 Allergies Allergy/AdvReac Type Severity Reaction Status Date / Time No Known Allergies Allergy Verified 04/07/24 13:24 [No Known Allergies*] Review of Systems Review of Systems: Yes all other systems are reviewed and are negative PMFSH Past Medical History Medical History 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 Morbid obesity with BMI of 40.0-44.9, adult Recurrent epistaxis Proteinuria Anxiety Bipolar depression Elevated d-dimer Asthma Obesity Surgical History Hx of adenoidectomy History of surgery Hx of tonsillectomy Family History Family History Mother No known health problems Father No known health problems Other Mental health disorder Substance use disorder Social History Social History Housing: Apartment Alcohol intake: current Alcohol intake frequency: does not drink Comment: medicated prior to discharge Patient Tobacco Use Status: Tobacco use Unknown Smoked in Last 30 Days: No e-Cigarette/Vaping Use: Never Used Second Hand Smoke Exposure: No Use of substances other than those prescribed or required for medical reasons: Yes Substance Use Type: Marijuana Substance Use Frequency: Daily Advance Directives: No Advance Directives Information Provided: No Do you have a plan to hurt others: No Plan Patient : No service: No Current occupational status: student Cognitive needs: No Hearing needs: No Vision needs: No Physical Exam ED Vital Signs: Vital Signs - 24 hr 04/07/24 13:22 04/07/24 16:56 04/07/24 18:24 Temperature 98.4 F 98.3 F Pulse Rate 111 H 83 128 H Respiratory Rate 16 16 19 Blood Pressure 151/92 H 138/83 130/85 Pulse Oximetry 96 96 97 Oxygen Delivery Method Room Air Room Air Room Air 04/07/24 20:10 04/07/24 22:58 04/08/24 00:35 Temperature 97.9 F 97.1 F 97.1 F Pulse Rate 82 69 73 Respiratory Rate 16 16 16 Blood Pressure 109/55 L 116/40 L 116/84 Pulse Oximetry 98 95 98 Oxygen Delivery Method Room Air Room Air Room Air 04/08/24 00:43 Temperature 97.1 F Pulse Rate 73 Respiratory Rate 16 Blood Pressure 116/84 Pulse Oximetry 98 Oxygen Delivery Method Room Air BMI result Body Mass Index 47.8 Appearance: Alert. Oriented X3. No acute distress. Anxious Eyes: PERRLA, No Nystagmus ENT: Pharynx normal. Oral Mucosa moist Neck: Normal inspection. Neck supple. CVS: Normal heart rate and rhythm. Pulses normal. Respiratory: No respiratory distress. Equal air entry bilateral, no wheezing/rales/rhonchi Abdomen: Soft and nontender. Bowel sounds are present, no mass palpable, no CVA tenderness Skin: Skin warm and dry. Normal skin color. Normal skin turgor. Extremities: No lower extremity edema. No calf tenderness Neuro: Oriented X 3. No motor deficit. No sensory deficit.No cerebellar signs , cranial nerves II-XII intact Course Course Course Narrative: This is a rapid medical exam performed by Romain Matt NP: Additional HPI, ROS, PE not included below will be deferred to primary provider. Patient is a 23-year-old female with history of IgA nephropathy, glomerulonephritis currently on chemo presenting to the ED on referral from regeneration operator. Recently started Lasix on Friday and also had her prednisone decreased. Complains of constant muscle cramping and spasming. Also reports chest congestion, specifically requesting a Covid test. Plan: viral serology, ekg, labs Patient returned to triage office stating that she spoke with her oncologist and was advised that she could be dehydrated despite how her labs appear due to her treatment, she recommends reaching out to oncology once in a room. Medications Administered Discontinued Medications Generic Name Dose Route Start Last Admin Trade Name Freq PRN Reason Stop Dose Admin Sodium Chloride 1,000 mls @ 999 mls/hr 04/07/24 21:08 04/07/24 22:20 Ns IV 04/07/24 22:08 Infused .Q1H1M ONE Infusion Ceftriaxone Sodium 1 gm/ 50 mls @ 100 mls/hr 04/07/24 21:08 04/07/24 23:57 Sodium Chloride IV 04/07/24 21:37 Infused ONCE ONE Infusion Sodium Chloride 1,000 mls @ 999 mls/hr 04/07/24 23:52 04/08/24 00:00 Ns IV 04/08/24 00:52 Not Given .Q1H1M ONE Ketorolac Tromethamine 30 mg 04/07/24 23:52 04/07/24 23:58 Ketorolac Tromethamine 30 Mg/Ml Vial IVPUSH 04/07/24 23:53 30 mg ONCE ONE Administration Midazolam HCl 2 mg 04/07/24 21:18 04/07/24 21:34 Midazolam Hcl/Pf 2 Mg/2 Ml Vial IVPUSH 04/07/24 21:19 2 mg ONCE ONE Administration Medical Decision Making Medical Decision Making [facility] Narrative: Patient with diffuse body spasm noted to have leukocytosis with UTI without elevated lactic acid level patient was given IV fluids and antibiotics patient felt much better after will discharge patient home advised to continue Ceftin leukocytosis partially could be from chronic prednisone use Differential Diagnosis Differential Diagnoses: The differential diagnosis associated with the presentation includes UTI/pyelonephritis/metabolic Lab Data [facility] Lab Attestation statement: I reviewed the patient's lab results. 04/07/24 13:52 04/07/24 13:52 Labs: Lab Results 04/07/24 04/07/24 04/07/24 Range/Units 13:52 17:10 21:28 WBC 22.3 H (4.8-10.8) X10*3/uL RBC 5.57 H (4.20-5.50) X10*6/uL Hgb 16.8 H (12.0-16.0) g/dl Hct 48.3 H (37.0-47.0) % MCV 86.7 (80.0-98.0) fL MCH 30.2 (27.0-33.0) pg MCHC 34.8 (31.0-35.0) g/dl RDW 14.0 (11.0-16.0) % Plt Count 295 (160-400) X10*3/uL MPV 9.5 (9.4-12.3) fL Immature Gran % (Auto) 0.8 H (0.0-0.4) % Neut % (Auto) 92.8 H (45-73) % Lymph % (Auto) 4.2 L (20-40) % Anderson % (Auto) 1.8 L (2-11) % Eos % (Auto) 0.2 (0-4) % Baso % (Auto) 0.2 (0-2) % Lymph # (Auto) 0.9 L (1.2-4.9) X10*3/uL Anderson # (Auto) 0.4 (0.1-1.2) X10*3/uL Eos # (Auto) 0.0 (0.0-0.4) X10*3/uL Baso # (Auto) 0.1 (0.0-0.2) X10*3/uL Abs Immat Gran (auto) 0.17 H (0.00-0.03) X10*3/uL Absolute Neuts (auto) 20.7 H (2.0-8.3) x10*3/uL Absolute Nucleated RBC 0.000 (0.0-0.012) X10*3/uL Nucleated RBC % (auto) 0.0 (0.0-0.2) /100WBC Smear Tech's Comments VERIFIED PT 9.9 L (11.1-13.3) SEC INR 0.8 L (0.9-1.1) Sodium 137 (135-145) mmol/L Potassium 4.4 (3.3-5.1) mmol/L Chloride 104 (96-108) mmol/L Carbon Dioxide 25 (22-29) mmol/L Anion Gap 12 (12-20) BUN 21 H (9-16) mg/dL Creatinine 0.99 (0.5-1.4) mg/dL Estim Creat Clear Calc 114.3 Estimated GFR > 60 Random Glucose 128 H (60-115) mg/dL Lactic Acid 0.8 (0.5-2.0) mmol/L Calcium 9.5 D (8.4-10.2) mg/dL Magnesium 2.0 (1.6-2.6) mg/dL Total Bilirubin 0.4 (0.0-1.0) mg/dL AST 14 (5-31) U/L ALT 22 (0-31) U/L Alkaline Phosphatase 57 (39-117) U/L Total Protein 6.5 (6.5-8.0) g/dL Albumin 3.6 (3.5-5.0) g/dL Beta HCG, Quant < 2 mIU/mL Urine Color [place] A Urine Appearance Cloudy Urine pH 7.5 (5.0-9.0) Ur Specific [place] >= 1.030 H (1.005-1.025) Urine Protein >=1000 (4+) H (Neg-Trace) mg/dL Urine Glucose (UA) Negative (Negative) mg/dL Urine Ketones Negative (Negative) mg/dL Urine Blood Large (3+) H (Negative) Urine Nitrite Negative (Negative) Ur Leukocyte Esterase Moderate (2+) H (Negative) Urine RBC >20 H (0-2) /HPF Urine WBC >50 H (0-5) /HPF Ur Squamous Epith Cells 6-10 (0-2) /HPF Urine Bacteria 1+ (None Seen) Hyaline Casts 11-20 (0-2) /LPF Influenza Type A (PCR) NEGATIVE (Negative) Influenza Type B (PCR) NEGATIVE (Negative) RSV RNA Qual (PCR) NEGATIVE (Negative) SARS-CoV-2 RNA (RT-PCR) NEGATIVE (Negative) Discharge Plan Discharge Clinical Impression: Urinary tract infection, Muscle cramp Patient Disposition: Home, Self-Care Instructions: Urinary Tract Infection in Women (ED), Muscle Cramp (ED) Additional Instructions: Drink plenty of fluids Take antibiotic as prescribed Follow with nephrology Report to the ER if high fever/vomiting/abdominal pain Prescriptions: New cefuroxime axetil 250 mg tablet 250 mg PO BID 7 Days Qty: 14 0RF No Action lisinopril 10 mg tablet See Rx Instructions .ROUTE .COMPLEX Qty: 60 3RF Dose Instruction: Rx Instructions: Take 10 mg PO bid prednisone 20 mg tablet 60 mg PO DAILY 30 Days Qty: 90 1RF furosemide [Lasix] 40 mg tablet 40 mg PO DAILY Qty: 90 0RF tramadol 50 mg tablet 50 mg PO TID PRN (Reason: pain) 10 Days Qty: 30 0RF erythromycin 5 mg/gram (0.5 %) ointment 0.5 inch ophthalmic-Left BID Qty: 3.5 0RF cyclopentolate 1 % drops 1 drp ophthalmic-Left BID 3 Days Qty: 15 0RF Rx Instructions: compress lacrimal sac for 1-2 minutes after instillation albuterol sulfate [Ventolin HFA] 90 mcg/actuation HFA aerosol inhaler 2 puff inhalation Q6H PRN (Reason: Shortness Of Breath Or Wheezing) mupirocin 2 % ointment 1 appl topical TID Qty: 22 1RF lorazepam 0.5 mg tablet 0.5 mg PO DAILY PRN (Reason: severe anxiety) Qty: 15 0RF Rx Instructions: Take only as needed for severe anxiety omeprazole 20 mg capsule,delayed release(DR/EC) 20 mg PO DAILY 90 Days Qty: 90 4RF sulfamethoxazole-trimethoprim [Bactrim DS] 800-160 mg tablet 1 tab PO .COMPLEX 90 Days Qty: 30 0RF Rx Instructions: 1 tab orally three times a week; ( PCP prophylaxis) Mirena 21 mcg/24 hours (8 yrs) 52 mg intrauterine device intrauterine ondansetron 8 mg tablet,disintegrating 8 mg PO Q8H PRN (Reason: nausea and vomiting) Qty: 30 0RF calcium carbonate-vitamin D3 1,000 mg-20 mcg (800 unit) tablet 1 tab PO .COMPLEX Qty: 30 3RF Rx Instructions: 1 tab orally 3 times a week; Interventions: ED Discharge Assessment Last Done: 04/08/24 00:43 Print Language: Croatian
--- NOTE | 2024-04-07 13:26 | ECG_ITS ---
Test Reason : POSSIBLE ELECTROLYTE ABNORMALITY Blood Pressure : / mmHG Vent. Rate : 111 BPM Atrial Rate : 111 BPM P-R Int : 128 ms QRS Dur : 072 ms QT Int : 298 ms P-R-T Axes : 074 109 042 degrees QTc Int : 405 ms Sinus tachycardia Right atrial enlargement Rightward axis Borderline ECG When compared with ECG of 18-MAR-2019 11:56, Vent. rate has increased BY 39 BPM T wave amplitude has increased in Anterior leads Referred By: Crystal Matt Electronically Signed By:LISBETH SCHNEIDER
[2024-04-07 14:05] LABS: Basophils Absolute Auto 0.1 X10*3/uL (0.0-0.2); Basophils Percent Auto 0.2 % (0-2); Eosinophils Percent Auto 0.2 % (0-4); Hematocrit 48.3 % (37.0-47.0); Hemoglobin 16.8 g/dl (12.0-16.0); INTERNATIONAL NORM RATIO 0.8 (0.9-1.1); Imm Gran Abs Auto 0.17 X10*3/uL (0.00-0.03); Imm Gran Pct Auto 0.8 % (0.0-0.4); Lymphocytes Absolute Auto 0.9 X10*3/uL (1.2-4.9); Lymphocytes Percent Auto 4.2 % (20-40); MANUAL DIFF FLAG SCAN; Mean Corpuscular HGB Conc 34.8 g/dl (31.0-35.0); Mean Corpuscular Hemoglobin 30.2 pg (27.0-33.0); Mean Corpuscular Volume 86.7 fL (80.0-98.0); Mean Platelet Volume 9.5 fL (9.4-12.3); Monocytes Absolute Auto 0.4 X10*3/uL (0.1-1.2); Monocytes Percent Auto 1.8 % (2-11); Neutrophils Absolute Auto 20.7 x10*3/uL (2.0-8.3); Neutrophils Percent Auto 92.8 % (45-73); Platelet Count 295 X10*3/uL (160-400); Prothrombin Time 9.9 SEC (11.1-13.3); Red Blood Count 5.57 X10*6/uL (4.20-5.50); SCAN SMEAR FLAG 1; White Blood Count 22.3 X10*3/uL (4.8-10.8)
[2024-04-07 14:21] LABS: Alanine Aminotransferase 22 U/L (0-31); Albumin Level 3.6 g/dL (3.5-5.0); Alkaline Phosphatase 57 U/L (39-117); Anion Gap 12 (12-20); Aspartate Amino Transferase 14 U/L (5-31); Bilirubin Total 0.4 mg/dL (0.0-1.0); Blood Urea Nitrogen 21 mg/dL (9-16); Calcium 9.5 mg/dL (8.4-10.2); Carbon Dioxide 25 mmol/L (22-29); Chloride 104 mmol/L (96-108); Creatinine Clr Calc Pharmacy 114.3; Estimated Glomerular Filt Rate > 60; Glucose Random 128 mg/dL (60-115); Potassium 4.4 mmol/L (3.3-5.1); Sodium 137 mmol/L (135-145); Total Protein 6.5 g/dL (6.5-8.0)
[2024-04-07 14:30] LABS: HCG Quantitative < 2 mIU/mL
[2024-04-07 14:32] LABS: SLIDE REVIEW VERIFIED
[2024-04-07 14:41] LABS: Influenza A PCR NEGATIVE (Negative); Influenza B PCR NEGATIVE (Negative); Resp Syncy Virus RNA Qual PCR NEGATIVE (Negative); SARS COV2 PCR INHOUSE NEGATIVE (Negative)
[2024-04-07 16:56] VITALS: BP 138/83; PULSE 83; RESP 16; TEMP 36.8; O2SAT 96
[2024-04-07 17:30] LABS: Appearance Urine Cloudy; Color Urine Orange; Glucose Urine UA Negative (Negative); Leukocyte Esterase Urine Moderate (2+) (Negative); Nitrite Urine Negative (Negative); PH 7.5 (5.0-9.0); Specific Gravity - Urine >= 1.030 (1.005-1.025); UMIC TRIGGER UACC YES; Urine Blood Large (3+) (Negative); Urine Ketones Negative (Negative); Urine Protein >=1000 (4+) mg/dL (Neg-Trace)
[2024-04-07 18:17] LABS: Bacteria Urine 1+ (None Seen); RBC Urine >20 /HPF (0-2); UACC Culture Trigger YES; WBC Urine >50 /HPF (0-5)
[2024-04-07 18:24] VITALS: BP 130/85; PULSE 128; RESP 19; O2SAT 97
--- NOTE | 2024-04-07 18:36 | PC.NURSE ---
Pt reports she has IJnephritis and is being treated with chemo, high dose steroids and lasix. Had third round of chemo this past Friday. Reports severe muscle cramps and spasms since Friday all over her body. Denies fevers, cough, CP, SOB, N/V/D. Pt reports normal PO intake. Alert and oriented, breathing even and unlabored, noted to be tachycardic. Sinus tach on bedside cardiac montior.
--- NOTE | 2024-04-07 19:32 | PC.NURSE ---
This RN assumed pt care @ 1900. Pt ca&Ox4, no signs of distress. Pt reporting 5/10 headache. Plan of care ongoing.
[2024-04-07 20:10] VITALS: BP 109/55; PULSE 82; RESP 16; TEMP 36.6; O2SAT 98
--- NOTE | 2024-04-07 21:12 | PC.NURSE ---
Pt upset that has not been seen by provider or given fluids. This RN redirected pt and able to get Pt back into bed. Provider made aware. Plan of care ongoing.
[2024-04-07] MEDS: 0.9 % Sodium Chloride 1,000 ML 999 ML IV (21:17)
[2024-04-07] MEDS: Midazolam HCl/PF 2 MG/2 ML VIAL IVPUSH (21:34)
[2024-04-07 21:43] LABS: Lactic Acid 0.8 mmol/L (0.5-2.0)
[2024-04-07] MEDS: cefTRIAXone sodium 1 GM in 0.9 % Sodium Chloride 50 ML IV (21:58)
--- NOTE | 2024-04-07 22:02 | PC.NURSE ---
Pt medicated per dec. Plan of care ongoing.
[2024-04-07 22:58] VITALS: BP 116/40; PULSE 69; RESP 16; TEMP 36.2; O2SAT 95
[2024-04-07] MEDS: Ketorolac Tromethamine 30 MG/ML VIAL IVPUSH (23:58)
--- NOTE | 2024-04-08 | PC.NURSE ---
Pt refusing normal saline. Pt ambulates to the restroom with a steady gait. Pt states I dont feel comfortable going home without answers Provider notified. Pt Medicated per mar with Toradol Plan of care ongoing.
[2024-04-08 00:35] VITALS: BP 116/84; PULSE 73; RESP 16; TEMP 36.2; O2SAT 98
[2024-04-08 00:43] VITALS: BP 116/84; PULSE 73; RESP 16; TEMP 36.2; O2SAT 98
== END 2024-04-08 00:43 | disposition home or self-care (01) ==
PROVIDERS: Registered Nurse Emergency; Emergency Provider Internal Medicine; PCP Internal Medicine
DX: N39.0 Urinary tract infection, site not specified (principal); R25.2 Cramp and spasm; N02.B1 Recurrent and persistent immunoglobulin A nephropathy with glomerular lesion; Z79.60 Long term (current) use of unspecified immunomodulators and immunosuppressants; Z79.899 Other long term (current) drug therapy; Z03.818 Encounter for observation for suspected exposure to other biological agents ruled out
CPT/HCPCS: 0241U; 36415; 80053; 81001; 83605; 83735; 84702; 85025; 85610; 87040; 87086; 93005; 96361; 96365; 96375; 99284; 99285; J0696; J1885; J2250

== ENCOUNTER → 2024-04-07 13:26 | Outpatient (BNV) | payer OTHER, SELFPAY | PROVIDERS: Emergency Provider Internal Medicine; PCP Internal Medicine; Visit Provider Internal Medicine | DX: R00.0 Tachycardia, unspecified (principal); R94.31 Abnormal electrocardiogram [ECG] [EKG] | CPT/HCPCS: 93010 ==

== ENCOUNTER 2024-04-12 16:15 | Outpatient (AMB) | payer OTHER, SELFPAY ==
--- NOTE | 2024-04-12 16:19 | A.OFFPC_ITS ---
Vital Signs 04/12/24 16:20 Height 5 ft 4 in Weight 286 lb 6 oz BMI 49.2 BP 110/70 Blood Pressure Location Lt brachial Position Sitting Pulse 84 Pulse Source Pulse Oximeter Pulse Oximetry (%) 96 Oxygen Delivery Method Room Air Intake Visit Reasons: [facility] 04/08 Muscle spasms- see comments Intake Note: Patient is here to follow-up after a visit the emergency department at [facility] on 04/07/24, [facility] 04/09/24. Request for lab results from 04/07/24 and EKG. Optical Effects Camera Operator Required: No Boiler Plant Operator: Not Required per policy Accompanied by: Self / Same As Patient Allergies No Known Allergies [No Known Allergies*] Allergy (Verified 04/30/24 04:22) Medication List - Last Reconciled 04/12/24 by Cedric Bingham MD albuterol sulfate 90 mcg/actuation (Ventolin HFA) 2 puffs inhalation Q6H PRN calcium carbonate-vitamin D3 1,000 mg-20 mcg (800 unit) 1 tab orally 3 times a week; cefuroxime axetil 250 mg PO BID 7 days levonorgestrel (Mirena) intrauterine lisinopril Take 10 mg PO bid lorazepam 0.5 mg PO DAILY PRN omeprazole 20 mg PO DAILY 3 months ondansetron 8 mg PO Q8H PRN prednisone 50 mg PO DAILY sulfamethoxazole-trimethoprim 800-160 mg (Bactrim DS) 1 tab orally three times a week; ( PCP prophylaxis) 3 months tramadol 50 mg PO TID PRN 10 days Tobacco use date assessed: 04/12/24 Dental Screening Dental Screen Date: 01/20/24 HPI [facility] 04/08 Muscle spasms- see comments HPI Details Patient comes in today for her HDF follow up visit She initially went to the ER at [facility] on 04/07/24 (was sent by nephrology) for increased diffuse muscle pain Work ups done revealed (+) UTI; WBC was elevated but patient is currently on IV Cyclophosphamide and oral Prednisone for her IgA nephropathy She was discharged home on oral Cefuroxime She then went to the ER at [facility] a few days later for the same complaint but now also has increased headache Tests done came back positive for rhinovirus Head CT came back negative; patient also underwent a spinal tap, which came back negative as well Meningitis panel was negative Patient then asked to go home and declined to stay in the hospital for further work ups as she was apparently feeling better at the time She was instructed to continue on and complete her previous Abx regimen (Cefuroxime) and to follow up with her PCP SHANE Patient states that she currently feels okay and that her previous symptoms have been gradually improving She continues to follow up with nephrology for continuing Tx of her IgA nephropathy She still has on and off headaches and neck pain but states that these are mostly manageable at present She denies any dizziness Denies any chest pains, no increased SOB No nausea/vomiting, no abdominal pain No change in bowel habits noted PFSH Medical History 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 Morbid obesity with BMI of 40.0-44.9, adult Recurrent epistaxis Proteinuria Anxiety Bipolar depression Elevated d-dimer Asthma Obesity Surgical History History of biopsy Hx of adenoidectomy History of surgery Hx of tonsillectomy Family History Mother No known health problems Father No known health problems Other Mental health disorder Substance use disorder Social History Housing: Apartment Alcohol intake: current Alcohol intake frequency: does not drink Comment: medicated prior to discharge Patient Tobacco Use Status: Never used Tobacco e-Cigarette/Vaping Use: Never Used Second Hand Smoke Exposure: No Substance Use Type: Marijuana service: No Current occupational status: student Cognitive needs: No Hearing needs: No Vision needs: No Questionnaire Thrive Questionnaire Date Thrive assessed: 01/20/24 YOU-7 AMB Questionnaire YOU-7 Date YOU - 7 assessed: 01/20/24 Source: Developed by Drs. Desmond Bowman, Ban Hurtado, Blas Sanchez and colleagues, with an educational hammad from [employer]. Review of Systems Const Denies chills, Reports fatigue, Denies fever(s) and Reports headache(s) (on and off) ENT Denies dysphagia, Denies dizziness, Denies otalgia, Reports headache(s) (on and off), Denies epistaxis, Reports neck pain (see HPI), Denies odynophagia and Denies sore throat Card Denies chest pain, Denies palpitations and Denies dyspnea Resp Reports chest congestion (mild), Reports cough (on and off), Denies dyspnea and Denies wheezing GI Denies abdominal pain, Denies constipation, Denies dysphagia, Denies heartburn, Denies diarrhea, Denies nausea, Denies odynophagia and Denies vomiting Denies difficulty voiding, Denies nocturia, Denies dysuria and Denies urinary urgency Musc Reports arthralgias (on and off, over both knees) and Reports neck pain (see HPI) Skin/Breast Denies rash Neuro Denies dizziness and Reports headache(s) (on and off) Psych Reports anxiety, Reports depression and Denies suicidal ideation Endo Reports fatigue and Denies palpitations Aller/Immun Denies wheezing Physical exam (Primary Care) Vital Signs: Last Vital Signs Pulse 84 04/12/24 16:20 BP 110/70 04/12/24 16:20 Pulse Ox 96 04/12/24 16:20 Oxygen Delivery Method Room Air 04/12/24 16:20 BMI result Body Mass Index 49.2 Tobacco/Smoking Status: Tobacco use Status Tobacco use date assessed 04/12/24 04/12/24 16:23 Patient Tobacco Use Status Never used Tobacco 04/12/24 16:28 e-Cigarette/Vaping Use Never Used 04/12/24 16:23 Thrive Assessment: Date of Thrive Assessment Date Thrive assessed 01/20/24 04/12/24 16:23 Const General: no acute distress and alert HENMT Ears: TM's normal bilaterally and EAC's normal Throat: Yes posterior oropharynx normal and Yes tonsils normal (no TP congestion) Neck Neck: Yes no lymphadenopathy and Yes supple Thyroid: Thyroid normal Resp Auscultation: no rales, rhonchi (scattered) throughout, no wheezes and bronchial breath sounds (occasional) bilateral Cardio Rate: regular rate Rhythm: regular rhythm Heart sounds: no murmurs GI Palpation (GI): Soft to palpation and nontender Auscultation: normal bowel sounds General: Yes no CVA tenderness Back/Spine/Pelvis Back: no CVA tenderness Thoracic/Lumbar Spine: No lumbar spinal tenderness Skin Rashes: no rashes Extrem General: Yes no clubbing, cyanosis or edema Assessment and Plan Assessment & Plan (1) Urinary tract infection: Code(s): N39.0 - Urinary tract infection, site not specified Qualifiers: Urinary tract infection type: site unspecified Hematuria presence: without hematuria Qualified Code(s): N39.0 - Urinary tract infection, site not specified Plan: Resolving - continue Cefuroxime 500 mg BID until her Abx Rx is completed Will have patient recheck her U/A after she is done with her current Abx Rx (2) Viral respiratory illness: Code(s): J98.8 - Other specified respiratory disorders; B97.89 - Other viral agents as the cause of diseases classified elsewhere Plan: Patient tested positive for rhinovirus at the ER at [facility] a couple of days ago As she currently still has recurrent coughing and her chest sounds somewhat congested, she would like to get some chest x-rays for further evaluation - ordered (3) IgA nephropathy determined by biopsy of kidney: Code(s): N02.B9 - Other recurrent and persistent immunoglobulin A nephropathy Plan: She is now on IV Cytoxan 500 mg twice a month for 3 months and this will then be followed by maintenance immunosuppression for some time Continue Prednisone 50 mg QD She is also currently on Bactrim DS 1 tablet 3 times a week for PCP prophylaxis Continue Omeprazole 20 mg QD as well for GI prophylaxis Follow up with nephrology as scheduled (4) Proteinuria: Code(s): R80.9 - Proteinuria, unspecified Qualifiers: Proteinuria type: other Qualified Code(s): R80.8 - Other proteinuria Plan: Patient has significant and persistent proteinuria due to her IgA nephropathy and this is currently undergoing Tx Continue Lisinopril 10 mg BID Follow up with nephrology as scheduled (5) Asthma: Code(s): J45.909 - Unspecified asthma, uncomplicated Qualifiers: Asthma severity: mild Asthma persistence: intermittent Asthma complication type: uncomplicated Qualified Code(s): J45.20 - Mild intermittent asthma, uncomplicated Plan: Appears controlled/stable Continue Albuterol HFA 1 to 2 inhalations Q 6 hours PRN (6) Anxiety: Code(s): F41.9 - Anxiety disorder, unspecified Plan: Continue Lorazepam 0.5 mg QD PRN (7) Bipolar depression: Code(s): F31.9 - Bipolar disorder, unspecified Plan: Continue Citalopram 40 mg QD and Lamotrigine 100 mg BID She was apparently discharged from her previous psychiatrist's practice after missing a couple of appointments and states that she is in the process of looking for a new psychiatrist and will transfer her prescription management and refills over to them once she is established with her new psychiatrist (8) Morbid obesity with BMI of 40.0-44.9, adult: Code(s): E66.01 - Morbid (severe) obesity due to excess calories; Z68.41 - Body mass index [BMI] 40.0-44.9, adult Plan: Reinforced diet; exercise and weight loss are not realistic at this time due to patient's multiple comorbidities Plan Follow up as scheduled in 2 weeks Orders: Orders 2 UA CC w/rflx Micro + Cult 04/12/24 Cedric Bingham MD N39.0 - Urinary tract infection, site not specified XR chest 2V 04/12/24 Cedric Bingham MD J98.8 - Other specified respiratory disorders Medications: Changed From prednisone 60 mg (3 x 20 mg) PO DAILY 30 days 90 tabs 1RF To prednisone 50 mg PO DAILY Eugene Chicas MD Coding Level of Care Code Est Pt Level 3 (88527) Diagnoses Urinary tract infection without hematuria, site unspecified N39.0 Urinary tract infection type: site unspecified Hematuria presence: without hematuria Viral respiratory illness J98.8; B97.89 IgA nephropathy determined by biopsy of kidney N02.B9 Other proteinuria R80.8 Proteinuria type: other Mild intermittent asthma without complication J45.20 Asthma severity: mild Asthma persistence: intermittent Asthma complication type: uncomplicated Anxiety F41.9 Bipolar depression F31.9 Morbid obesity with BMI of 40.0-44.9, adult E66.01; Z68.41
[2024-04-12 16:20] VITALS: BP 110/70; PULSE 84; O2SAT 96; BMI 49.2
== END 2024-04-12 17:10 | disposition home or self-care (01) ==
PROVIDERS: PCP Internal Medicine; Visit Provider Internal Medicine
DX: N39.0 Urinary tract infection, site not specified (principal); F31.9 Bipolar disorder, unspecified; E66.01 Morbid (severe) obesity due to excess calories; Z68.41 Body mass index [BMI] 40.0-44.9, adult; J98.8 Other specified respiratory disorders; B97.89 Other viral agents as the cause of diseases classified elsewhere; N02.B9 Other recurrent and persistent immunoglobulin A nephropathy; R80.8 Other proteinuria; J45.20 Mild intermittent asthma, uncomplicated; F41.9 Anxiety disorder, unspecified
CPT/HCPCS: 99213

== ENCOUNTER 2024-04-15 07:48 | Day surgery (SDC) | payer OTHER, SELFPAY ==
--- NOTE | ~2024-04-15 | IR_ITS ---
CLINICAL HISTORY: 23-year-old female with poor IV access and IgA nephropathy who requires cytotoxin infusions.. The patient presents to interventional radiology for placement of a port. PROCEDURES: 1. Real-time ultrasound-guided access into the right internal jugular vein after documentation of selected vessel patency, and permanent image storing in the patient records. 2. Placement of a 6.6 Guamanian single-lumen power port. CLINICIAN: Last Zambrano PA-C MEDICATIONS: - Versed 2 mg, Fentanyl 100 mcg, Lidocaine 1% 10 mL SQ -Antibiotics: Ancef 2g -For additional details, please see nursing flowsheet. Complications: None. Estimated blood loss: <5 ml Specimens: None. Contrast: None. Fluoroscopy time: 1.4 min MODERATE SEDATION TIME: 39 min PROCEDURE NOTE: The procedure, risks, benefits, and alternatives were carefully explained to the patient and written informed consent was obtained. The patient was placed supine on the fluoroscopy table. A timeout was performed. The right neck and chest was prepped and draped in usual sterile fashion. Maximum barrier technique was utilized. Local anesthesia was administered to the access site with 1% lidocaine. Under ultrasound guidance, the right internal jugular vein was accessed with a 5 fr micropuncture set. A 0.035 in wire was advanced into the IVC. A peel-away sheath was advanced over the wire and into the SVC, and the wire was removed. Next, subcutaneous lidocaine was administered to the chest. The port pocket was created after the skin incision, utilizing blunt dissection. Using blunt dissection, a subcutaneous tunnel was created that connects from the port pocket to the venotomy site. Through the peel-away sheath, the 6.6 Guamanian port catheter was placed. The catheter position was verified with fluoroscopy to be at the superior vena cava/right atrial junction. The port was connected to the catheter and was placed in the pocket. The venotomy site was closed with a 3-0 Vicryl subcutaneous suture. The port incision site was closed with interrupted 3-0 Vicryl subcutaneous sutures and surgical glue. Prior to closing the skin, 1 g of Ancef solution was placed in the pocket. The port was tested, flushed, and packed with heparin per routine protocol. The patient tolerated the procedure well. The patient was stable after the procedure and was transferred to the PACU. The procedure was performed under moderate sedation and with a dedicated nurse with continuous monitoring of vital signs. A permanent image of the ultrasound the neck and fluoroscopic image of the chest was saved and sent to PACS. FINDINGS: 1. Patent right internal jugular vein 2. Placement of a 6.6 Guamanian single lumen power port. 3. Port flushes and aspirates very well with a 10 mL syringe. No pneumothorax. 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 PLAN: - The patient will be discharged home when stable by sedation protocol. - Port may be used immediately. This procedure was performed by Last Zambrano PA-C, and directly supervised by Dr. Rosenbaum
[2024-04-15 07:55] VITALS: BMI 49.8
[2024-04-15 08:02] VITALS: BP 144/90; PULSE 105; RESP 16; TEMP 36.3; O2SAT 97
[2024-04-15 08:07] LABS: UPreg QC Valid YES; Urine Pregnancy NEGATIVE (NEGATIVE)
--- NOTE | 2024-04-15 08:30 | P.HPSUR_ITS ---
Pre-Procedural Eval Section A - 24 Hr Update-Section A only Date of Service: 04/15/24 Section B - Complete if H&P > 30 days Chief Complaint: PROTEINURIA Details of Present Illness: 23 y/o female with IgA nephropathy and poor iv access who requires frequent IV Cytoxan. 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 Relevant Family History (Specify if Yes): No Relevant Social History: None Present Medications: see Short Stay Collaborative assessment Medical History: Significant History (IgA nephropathy, ) History of Previous Operations: Relevant previous surgery/procedure and date(s) (renal bx 01/2024) Allergies: Allergies Allergy/AdvReac Type Severity Reaction Status Date / Time No Known Allergies Allergy Verified 04/12/24 17:10 [No Known Allergies*] Review of Systems Sugical H&P ROS: Negative: Constitution, Cardiovascular and Respiratory and Yes, Specify: Integumentary (bruising on arms) Exam Surgical H&P Exam: Normal: Heart, Normal: Lungs, Normal: Skin (ecchymosis on BUE) and Normal: Neurological Plan Port placement for fci iv access for Cytoxan therapy and blood draws Time Spent With Patient Time: Total time managing care of this patient today ____ minutes.
[2024-04-15 10:50] VITALS: BP 112/61; PULSE 71; RESP 16; TEMP 36.4; O2SAT 98
[2024-04-15 11:05] VITALS: BP 121/75; PULSE 65; RESP 16; O2SAT 97
[2024-04-15 11:20] VITALS: BP 131/74; PULSE 76; RESP 16; TEMP 36.4; O2SAT 97
== END 2024-04-15 11:22 | disposition home or self-care (01) ==
PROVIDERS: Physician Assistant Surgical; Radiology Vascular & Interventional Radiology; PCP Internal Medicine; Visit Provider Internal Medicine Nephrology
DX: R80.9 Proteinuria, unspecified (principal); N02.B9 Other recurrent and persistent immunoglobulin A nephropathy; I77.6 Arteritis, unspecified; R60.0 Localized edema
CPT/HCPCS: 36561; 76937; 81025; 99152; 99153; A4364; C1769; C1788; J0690; J1642; J1644; J2250; J2310; J3010

== ENCOUNTER → 2024-04-15 09:00 | Outpatient (BNV) | payer OTHER, SELFPAY | PROVIDERS: PCP Internal Medicine; Visit Provider Physician Assistant Surgical | DX: N02.B9 Other recurrent and persistent immunoglobulin A nephropathy (principal); R80.9 Proteinuria, unspecified | CPT/HCPCS: 36561; 76937; 77001 ==

== ENCOUNTER 2024-04-21 14:26 | Outpatient (REF) | payer OTHER, SELFPAY ==
[2024-04-21 15:19] LABS: Appearance Urine Cloudy; Color Urine Yellow; Glucose Urine UA Negative (Negative); Leukocyte Esterase Urine Trace (Negative); Nitrite Urine Negative (Negative); UMIC TRIGGER UACC YES; Urine Blood Large (3+) (Negative); Urine Ketones Negative (Negative); Urine Protein >=1000 (4+) mg/dL (Neg-Trace)
[2024-04-21 15:43] LABS: Bacteria Urine None Seen (None Seen)
[2024-04-21 15:44] LABS: RBC Urine >20 /HPF (0-2); UACC Culture Trigger YES
== END 2024-04-21 14:27 | disposition home or self-care (01) ==
LOC: HO.LAB 14:26
PROVIDERS: PCP Internal Medicine; Visit Provider Internal Medicine
DX: N02.B9 Other recurrent and persistent immunoglobulin A nephropathy (principal); N39.0 Urinary tract infection, site not specified; Z79.52 Long term (current) use of systemic steroids
CPT/HCPCS: 81001; 87086; 99212

== ENCOUNTER 2024-04-21 14:52 | Outpatient (AMB) | payer OTHER, SELFPAY ==
--- NOTE | 2024-04-21 15:13 | HO.NEPHOV ---
Vital Signs 04/21/24 15:14 Height 5 ft 4 in Weight 288 lb 8 oz BMI 49.5 BP 128/80 Blood Pressure Location Lt brachial Position Sitting Pulse 97 Pulse Source Pulse Oximeter Pulse Oximetry (%) 98 Oxygen Delivery Method Room Air Intake Visit Reasons: IgA nephropathy determined by biopsy of kidney Mica Splitter Required: No Accompanied by: Mother Allergies No Known Allergies [No Known Allergies*] Allergy (Verified 04/21/24 15:19) HPI Comments Details: 23-year-old female recently has been having joint pains, abdominal pain, and vasculitic rash with proteinuria. 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 She had been on PO prednisone, ACEI and supportive care. She has been getting 500 mg IV cytoxan Q 2 weeks( altogether 4 doses- 2 more pending). She recently had UTI & CHEMO needing brief hospitalization. ACEI was held at that time. She has restarted low dose of diuretics due to edema. She denies any fevers, chills, chest pain, shortness of breath, dysuria, hematuria, urinary frequency or urgency. She has some nausea but relieved with Zofran. She has history of genital herpes and usually take Valcyclovir. Her serum creatinine has gone back to baseline now. 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 Morbid obesity with BMI of 40.0-44.9, adult Recurrent epistaxis Proteinuria Anxiety Bipolar depression Elevated d-dimer Asthma Obesity Surgical History History of biopsy Hx of adenoidectomy History of surgery Hx of tonsillectomy Family History Mother No known health problems Father No known health problems Other Mental health disorder Substance use disorder Social History Housing: Apartment Alcohol intake: current Alcohol intake frequency: does not drink Comment: medicated prior to discharge Patient Tobacco Use Status: Never used Tobacco e-Cigarette/Vaping Use: Never Used Second Hand Smoke Exposure: No Substance Use Type: Marijuana service: No Current occupational status: student Cognitive needs: No Hearing needs: No Vision needs: No Physical Exam Vital Signs: Last Vital Signs Pulse 97 04/21/24 15:14 BP 128/80 04/21/24 15:14 Pulse Ox 98 04/21/24 15:14 Oxygen Delivery Method Room Air 04/21/24 15:14 BMI result Body Mass Index 49.5 Const General: comfortable and no acute distress Orientation/consciousness: patient oriented x3 HEENT Head: Yes normocephalic Mouth: Normal oral and palatal mucosa present Eyes EOM: EOMs intact bilaterally Neck Neck: Yes supple Resp Auscultation: clear to auscultation bilaterally Cardio Jugular venous distension: no JVD Rate: regular rate GI Palpation (GI): Soft to palpation Auscultation: normal bowel sounds General: Yes no CVA tenderness Back/Spine/Pelvis Back: no CVA tenderness Skin General skin exam: no rashes or lesions noted Neuro General: patient oriented x3 and moves all extremities Extrem General: Yes edema Results Reviewed Nephrology Results: Hgb 13.2 g/dl (12.0-16.0) 04/16/24 WBC 14.4 X10*3/uL (4.8-10.8) H 04/16/24 Plt Count 211 X10*3/uL (160-400) 04/16/24 Sodium 141 mmol/L (135-145) 04/16/24 Potassium 3.4 mmol/L (3.3-5.1) 04/16/24 Chloride 106 mmol/L (96-108) 04/16/24 Carbon Dioxide 25 mmol/L (22-29) 04/16/24 BUN 21 mg/dL (9-16) H 04/16/24 Creatinine 0.72 mg/dL (0.5-1.4) 04/16/24 Calcium 8.7 mg/dL (8.4-10.2) 04/16/24 Urine Protein >=1000 (4+) mg/dL (Neg-Trace) H 04/21/24 Urine Creatinine 159.70 mg/dL 04/16/24 Protein/Creatinin Ratio 6.39 (<0.2) H 04/16/24 Assessment & Plan Assessment & Plan (1) Glomerulonephritis, IgA: Code(s): N02.B9 - Other recurrent and persistent immunoglobulin A nephropathy Category: Medical Plan Blanche has glomerular proteinuria. She recently had vasculitic rash with microscopic hematuria and abdominal pain. 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 She is currently on prednisone, which I asked to continue at 50 mg daily. She is on cytoxan IV 500 mg twice a month for 3 months regimen- 2 more doses pending. This will be followed by maintenance immunosuppression for some time. I discussed the side effects. She is on PCP prophylaxis. She is on PPI. She is taking calcium and Vitamin D. I restarted lisinopril 10 mg twice daily. She was seen by Gynae. Follow-up labs ordered : F/U given. Answered all questions Orders: Orders Creatinine 3 Weeks N02.B9 - Other recurrent and persistent immunoglobulin A nephropathy Blood Urea Nitrogen 3 Weeks N02.B9 - Other recurrent and persistent immunoglobulin A nephropathy Electrolytes 3 Weeks N02.B9 - Other recurrent and persistent immunoglobulin A nephropathy Albumin Level 3 Weeks N02.B9 - Other recurrent and persistent immunoglobulin A nephropathy Coding Level of Care Code Est Pt Level 4 (16563) Diagnoses Glomerulonephritis, IgA N02.B9
[2024-04-21 15:14] VITALS: BP 128/80; PULSE 97; O2SAT 98; BMI 49.5
== END 2024-04-21 15:54 | disposition home or self-care (01) ==
PROVIDERS: PCP Internal Medicine; Visit Provider Internal Medicine Nephrology
DX: N02.B9 Other recurrent and persistent immunoglobulin A nephropathy (principal)
CPT/HCPCS: 99214

== ENCOUNTER 2024-04-26 12:32 | Outpatient (AMB) | payer OTHER, SELFPAY ==
--- NOTE | 2024-04-26 12:35 | MHC.PC.OV ---
Vital Signs 04/26/24 12:37 Height 5 ft 4 in Weight 286 lb 2 oz BMI 49.1 BP 110/76 Blood Pressure Location Lt brachial Position Sitting Pulse 120 H Pulse Source Pulse Oximeter Pulse Oximetry (%) 95 Oxygen Delivery Method Room Air Intake Visit Reasons: 3mth f/u Intake Note: Patient is here to follow up on Asthma, Bipolar Depression, Obesity. 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: No Tandem Mill Operator: Not Required per policy Accompanied by: Self / Same As Patient Allergies No Known Allergies [No Known Allergies*] Allergy (Verified 04/26/24 12:51) Medication List - Last Reconciled 04/26/24 by Cedric Bingham MD albuterol sulfate 90 mcg/actuation (Ventolin HFA) 2 puffs inhalation Q6H PRN calcium carbonate-vitamin D3 1,000 mg-20 mcg (800 unit) 1 tab orally 3 times a week; cyclophosphamide 0.5 grams IV .twice a month furosemide 40 mg PO DAILY levonorgestrel (Mirena) intrauterine lidocaine 5% 1 patch topical DAILY lisinopril 10 mg PO BID omeprazole 20 mg PO DAILY 3 months ondansetron 8 mg PO Q8H PRN prednisone 50 mg PO DAILY sulfamethoxazole-trimethoprim 800-160 mg (Bactrim DS) 1 tab orally three times a week; ( PCP prophylaxis) 3 months tizanidine 4 mg PO Q8H PRN 30 days tramadol 50 mg PO TID PRN 10 days Tobacco use date assessed: 04/26/24 Dental Screening Dental Screen Date: 01/20/24 HPI 3mth f/u HPI Details Patient comes in today for her follow up visit States that she has been experiencing increased pain and spasms over the left side of the back of her neck ever since she had her infusion port placed on her right upper chest area about 10 to 11 days ago - recalls that the pain started the next day She denies any fever or chills; denies any headaches or dizziness Thinks that her recent neck symptoms are likely due to muscular strain from the way her head was positioned during her recent procedure wherein her port was being inserted She went to the ER at [facility] a few days ago for the same complaint and reportedly had a trigger point injection done with 2% Lidocaine, which provided her with temporary relief of her symptoms She was then discharged home with instructions to follow up with her PCP Patient states that her neck symptoms recurred a few hours after her ER visit She has since tried using the Lidocaine patch that we sent in for her before last weekend but states that because of her hair (close to the area of her pain), the patches would not stick She is now wondering if any imaging studies like a CT would be helpful in her case She is presently still on IV Cytoxan, which she will be receiving regularly twice a month for the next 3 months, after which will be followed by maintenance immunosuppression for some time She is currently on Bactrim DS 3 times a week for PCP prophylaxis She denies any chest pains, no increased SOB No nausea/vomiting, no abdominal pain No change in bowel habits noted She had some follow up labs done a couple of weeks ago - to discuss her results [facility] Medical History 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 Morbid obesity with BMI of 40.0-44.9, adult Recurrent epistaxis Proteinuria Anxiety Bipolar depression Elevated d-dimer Asthma Obesity Surgical History History of biopsy Hx of adenoidectomy History of surgery Hx of tonsillectomy Family History Mother No known health problems Father No known health problems Other Mental health disorder Substance use disorder Social History Housing: Apartment Alcohol intake: current Alcohol intake frequency: does not drink Comment: medicated prior to discharge Patient Tobacco Use Status: Never used Tobacco e-Cigarette/Vaping Use: Never Used Second Hand Smoke Exposure: No Substance Use Type: Marijuana service: No Current occupational status: student Cognitive needs: No Hearing needs: No Vision needs: No Questionnaire Thrive Questionnaire Date Thrive assessed: 01/20/24 YOU-7 AMB Questionnaire YOU-7 Date YOU - 7 assessed: 01/20/24 Source: Developed by Drs. Desmond Bowman, Ban Hurtado, Blas Sanchez and colleagues, with an educational hammad from [employer]. Review of Systems Const Denies chills, Reports fatigue, Denies fever(s) and Denies headache(s) ENT Denies dysphagia, Denies dizziness, Denies otalgia, Denies headache(s), Denies epistaxis, Reports neck pain (see HPI), Denies odynophagia and Denies sore throat Card Denies chest pain, Denies palpitations and Denies dyspnea Resp Denies cough, Denies dyspnea and Denies wheezing GI Denies abdominal pain, Denies constipation, Denies dysphagia, Denies heartburn, Denies diarrhea, Denies nausea, Denies odynophagia and Denies vomiting Denies difficulty voiding, Denies nocturia, Denies dysuria and Denies urinary urgency Musc Reports arthralgias (on and off, over both knees) and Reports neck pain (see HPI) Skin/Breast Denies rash Neuro Denies dizziness and Denies headache(s) Psych Reports anxiety, Reports depression and Denies suicidal ideation Endo Reports fatigue and Denies palpitations Aller/Immun Denies wheezing Physical exam (Primary Care) Vital Signs: Last Vital Signs Pulse 120 H 04/26/24 12:37 BP 110/76 04/26/24 12:37 Pulse Ox 95 04/26/24 12:37 Oxygen Delivery Method Room Air 04/26/24 12:37 BMI result Body Mass Index 49.1 Tobacco/Smoking Status: Tobacco use Status Tobacco use date assessed 04/26/24 04/26/24 12:44 Patient Tobacco Use Status Never used Tobacco 04/26/24 12:44 e-Cigarette/Vaping Use Never Used 04/26/24 12:44 Thrive Assessment: Date of Thrive Assessment Date Thrive assessed 01/20/24 04/26/24 12:44 Const General: no acute distress and alert HENMT Ears: TM's normal bilaterally and EAC's normal Throat: Yes posterior oropharynx normal and Yes tonsils normal (no TP congestion) Neck Other: (+) tenderness on palpation over the muscles on the left side of the back of the neck - pain seems to be mostly localized over the left levator scapulae muscle Neck: Yes no lymphadenopathy and Yes supple Thyroid: Thyroid normal Chest Other: (+) infusion port present under the skin over the right upper chest wall Resp Auscultation: clear to auscultation bilaterally, no rales and no wheezes Cardio Rate: regular rate Rhythm: regular rhythm Heart sounds: no murmurs GI Palpation (GI): Soft to palpation and nontender Auscultation: normal bowel sounds General: Yes no CVA tenderness Back/Spine/Pelvis Back: no CVA tenderness Thoracic/Lumbar Spine: No lumbar spinal tenderness Skin Rashes: no rashes Extrem General: Yes no clubbing, cyanosis or edema Results Reviewed Results Reviewed: Laboratory Tests 04/16/24 04/21/24 08:30 14:40 WBC 14.4 H Hgb 13.2 D Hct 38.8 Plt Count 211 D Sodium 141 Potassium 3.4 D Creatinine 0.72 Estimated GFR > 60 Calcium 8.7 D Total Bilirubin 0.2 AST 14 ALT 14 Ur Specific [place] 1.020 Urine Protein >=1000 (4+) H Urine Glucose (UA) Negative Urine Blood Large (3+) H Urine Nitrite Negative Ur Leukocyte Esterase Trace H Assessment and Plan Assessment & Plan (1) Acute strain of neck muscle: Code(s): S16.1XXA - Strain of muscle, fascia and tendon at neck level, initial encounter Qualifiers: Encounter type: sequela Qualified Code(s): S16.1XXS - Strain of muscle, fascia and tendon at neck level, sequela Plan: Discussed that the most likely muscle involved her is her left levator scapulae and as she previously mentioned, it is possible that her injury occurred when she was having her infusion port inserted just under 2 weeks ago when she likely had to hold / turn her head to the opposite direction throughout the entire procedure She is advised that she can continue applying OTC muscle rub/ointment/cream or apply the patch PRN (provide that she can keep it on) Have advised that she can try applying some warm compress to the painful area behind her neck PRN for symptomatic relief Will start her as well on Tizandine 4 mg TID PRN - cautioned about potential drowsiness as a side effect of the muscle relaxant Have advised her that in this case, imaging studies would be redundant and will really not provide us with any information that we do not already know at present (2) IgA nephropathy determined by biopsy of kidney: Code(s): N02.B9 - Other recurrent and persistent immunoglobulin A nephropathy Plan: She is now on IV Cytoxan 500 mg twice a month for 3 months and this will then be followed by maintenance immunosuppression for some time Continue Prednisone 50 mg QD She is also currently on Bactrim DS 1 tablet 3 times a week for PCP prophylaxis Continue Omeprazole 20 mg QD as well for GI prophylaxis Follow up with nephrology as scheduled (3) Proteinuria: Code(s): R80.9 - Proteinuria, unspecified Qualifiers: Proteinuria type: other Qualified Code(s): R80.8 - Other proteinuria Plan: Patient has significant and persistent proteinuria due to her IgA nephropathy and this is currently undergoing Tx Continue Lisinopril 10 mg BID Follow up with nephrology as scheduled (4) Asthma: Code(s): J45.909 - Unspecified asthma, uncomplicated Qualifiers: Asthma severity: mild Asthma persistence: intermittent Asthma complication type: uncomplicated Qualified Code(s): J45.20 - Mild intermittent asthma, uncomplicated Plan: Appears controlled/stable Continue Albuterol HFA 1 to 2 inhalations Q 6 hours PRN (5) Edema: Code(s): R60.9 - Edema, unspecified Qualifiers: Edema type: localized Qualified Code(s): R60.0 - Localized edema Plan: Her renal function appears normal on her recent labs Continue Furosemide 40 mg QD PRN for edema (6) Anxiety: Code(s): F41.9 - Anxiety disorder, unspecified Plan: Continue Lorazepam 0.5 mg QD PRN (7) Bipolar depression: Code(s): F31.9 - Bipolar disorder, unspecified Plan: Per request, she was started back previously on Citalopram 40 mg QD and Lamotrigine 100 mg BID - to continue on current Rx She was apparently discharged from her previous psychiatrist's practice after missing a couple of appointments and states that she is in the process of looking for a new psychiatrist and will transfer her prescription management and refills over to them once she is established with her new psychiatrist (8) Morbid obesity with BMI of 40.0-44.9, adult: Code(s): E66.01 - Morbid (severe) obesity due to excess calories; Z68.41 - Body mass index [BMI] 40.0-44.9, adult Plan: Reinforced diet; exercise and weight loss are not realistic at this time due to patient's multiple comorbidities Plan Follow up in 3 months Medications: New tizanidine 4 mg PO Q8H 30 days PRN 90 tabs 0RF muscle spasms Coding Level of Care Code Est Pt Level 4 (01903) Diagnoses Acute strain of neck muscle, sequela S16.1XXS Encounter type: sequela IgA nephropathy determined by biopsy of kidney N02.B9 Other proteinuria R80.8 Proteinuria type: other Mild intermittent asthma without complication J45.20 Asthma severity: mild Asthma persistence: intermittent Asthma complication type: uncomplicated Localized edema R60.0 Edema type: localized Anxiety F41.9 Bipolar depression F31.9 Morbid obesity with BMI of 40.0-44.9, adult E66.01; Z68.41
[2024-04-26 12:37] VITALS: BP 110/76; PULSE 120; O2SAT 95; BMI 49.1
== END 2024-04-26 13:00 | disposition home or self-care (01) ==
PROVIDERS: PCP Internal Medicine; Visit Provider Internal Medicine
DX: J45.20 Mild intermittent asthma, uncomplicated (principal); F31.9 Bipolar disorder, unspecified; E66.01 Morbid (severe) obesity due to excess calories; Z68.41 Body mass index [BMI] 40.0-44.9, adult; S16.1XXS Strain of muscle, fascia and tendon at neck level, sequela; N02.B9 Other recurrent and persistent immunoglobulin A nephropathy; R80.8 Other proteinuria; R60.0 Localized edema; F41.9 Anxiety disorder, unspecified
CPT/HCPCS: 99214

== ENCOUNTER 2024-04-30 04:10 | Emergency (ER) | payer OTHER, SELFPAY ==
[2024-04-30 04:19] VITALS: BP 131/78; PULSE 95; RESP 20; TEMP 37.1; O2SAT 97; BMI 50.3
--- NOTE | 2024-04-30 05:10 | ED_ITS ---
HPI - Neck Pain/Injury General Chief Complaint: Neck Pain/Injury Stated Complaint: neck pain Time Seen by Provider: 04/30/24 04:52 Source: patient Mode of arrival: ambulatory Limitations: no limitations History of Present Illness ED Provider: farshad GALVAN Narrative: Patient's history of HS purpura immunoglobulin A nephropathy on 50 mg prednisone daily since 01/17 apparently had port placed 2 weeks ago since then complaining of pain in the left side of the neck patient was seen by PCP and ER doctor was given local lidocaine injection for occipital neuritis got pain relief in for some time again pain started pain localized to the left side no midline pain no increase in pain in neck movement no paresthesia or tingling sensation in the upper extremity no leg weakness Related Data Home Medications ?Medication ?Instructions ?Recorded ?Confirmed albuterol sulfate 90 mcg/actuation 2 puff inhalation Q6H PRN 03/09/23 04/26/24 aerosol inhaler (Ventolin HFA) Shortness Of Breath Or Wheezing levonorgestrel 21 mcg/24 hr (up to intrauterine 02/11/24 04/26/24 8 years) 52 mg intrauterine device (Mirena) prednisone 20 mg tablet 50 mg PO DAILY 04/12/24 04/26/24 cyclophosphamide 500 mg 0.5 g IV .twice a month 04/26/24 04/26/24 intravenous powder for solution furosemide 40 mg tablet 40 mg PO DAILY 04/26/24 04/26/24 lisinopril 10 mg tablet 10 mg PO BID 04/26/24 Previous Rx's ?Medication ?Instructions ?Recorded omeprazole 20 mg capsule,delayed 20 mg PO DAILY 3 months #90 caps 02/13/24 release sulfamethoxazole 800 1 tab PO .COMPLEX 3 months #30 tabs 02/13/24 mg-trimethoprim 160 mg tablet (Bactrim DS) ondansetron 8 mg disintegrating 8 mg PO Q8H PRN nausea and 03/04/24 tablet vomiting #30 tabs calcium carbonate 1,000 mg-vitamin 1 tab PO .COMPLEX #30 tabs 03/05/24 D3 20 mcg (800 unit) tablet tramadol 50 mg tablet 50 mg PO TID PRN pain 10 days #30 04/20/24 tabs lidocaine 5 % topical patch 1 patch topical DAILY #30 ea 04/23/24 tizanidine 4 mg tablet 4 mg PO Q8H PRN muscle spasms 30 04/26/24 days #90 tabs gabapentin 300 mg capsule 300 mg PO BID #30 caps 04/30/24 morphine 15 mg immediate release 15 mg PO BID PRN pain #15 tabs 04/30/24 tablet Allergies Allergy/AdvReac Type Severity Reaction Status Date / Time No Known Allergies Allergy Verified 04/30/24 04:22 [No Known Allergies*] [facility] Past Medical History Medical History 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 Morbid obesity with BMI of 40.0-44.9, adult Recurrent epistaxis Proteinuria Anxiety Bipolar depression Elevated d-dimer Asthma Obesity Surgical History History of biopsy Hx of adenoidectomy History of surgery Hx of tonsillectomy Family History Family History Mother No known health problems Father No known health problems Other Mental health disorder Substance use disorder Social History Social History Housing: Apartment Alcohol intake: current Alcohol intake frequency: does not drink Comment: medicated prior to discharge Patient Tobacco Use Status: Never used Tobacco e-Cigarette/Vaping Use: Never Used Second Hand Smoke Exposure: No Substance Use Type: Marijuana Advance Directives: No Advance Directives Information Provided: No Do you have a plan to hurt others: No Plan service: No Current occupational status: student Cognitive needs: No Hearing needs: No Vision needs: No Physical Exam Vital Signs: Vital Signs: Last Vital Signs Temp 98.7 F 04/30/24 04:19 Pulse 95 04/30/24 04:19 Resp 20 04/30/24 04:19 BP 131/78 04/30/24 04:19 Pulse Ox 97 04/30/24 04:19 O2 Del Method Room Air 04/30/24 04:19 BMI result Body Mass Index 50.3 Appearance: Alert. Oriented X3. No acute distress. Eyes: PERRLA, No Nystagmus ENT: Pharynx normal. Oral Mucosa moist Neck: Normal inspection. Neck supple. No midline tenderness local muscular tenderness left upper part of the neck and occipital area CVS: Normal heart rate and rhythm. Pulses normal. Respiratory: No respiratory distress. Equal air entry bilateral, no wheezing/rales/rhonchi Abdomen: Soft and nontender. Bowel sounds are present, Skin: Skin warm and dry. Normal skin color. Normal skin turgor. Extremities: No lower extremity edema. No calf tenderness Neuro: Oriented X 3. No motor deficit. No sensory deficit.No cerebellar signs , cranial nerves II-XII intact Medications Administered Discontinued Medications Generic Name Dose Route Start Last Admin Trade Name Freq PRN Reason Stop Dose Admin Gabapentin 300 mg 04/30/24 05:19 04/30/24 05:23 Gabapentin 300 Mg Capsule PO 04/30/24 05:20 300 mg ONCE ONE Administration Morphine Sulfate 15 mg 04/30/24 05:19 04/30/24 05:23 Morphine Sulfate Immed Release 15 Mg Tablet PO 04/30/24 05:20 15 mg ONCE ONE Administration Medical Decision Making Medical Decision Making [facility] Narrative: Patient with cervical muscular pain no signs of spinal cord injury already received lidocaine injection at the occipital nerve with partial relief will give her gabapentin and morphine for severe pain advised to follow with PCP Discharge Plan Discharge Clinical Impression: Acute cervical myofascial strain Patient Disposition: Home, Self-Care Instructions: Cervical Strain (ED) Additional Instructions: Likely have left occipital neuralgia with cervical muscular pain Take gabapentin as prescribed Morphine for severe pain Follow with your PCP Prescriptions: New gabapentin 300 mg capsule 300 mg PO BID Qty: 30 0RF morphine 15 mg tablet 15 mg PO BID PRN (Reason: pain) Qty: 15 0RF Rx Instructions: Partial Fill upon patient request. No Action tramadol 50 mg tablet 50 mg PO TID PRN (Reason: pain) 10 Days Qty: 30 0RF lidocaine 5 % adhesive patch,medicated 1 patch topical DAILY Qty: 30 0RF Rx Instructions: leave on most painful area for up to 12 hrs albuterol sulfate [Ventolin HFA] 90 mcg/actuation HFA aerosol inhaler 2 puff inhalation Q6H PRN (Reason: Shortness Of Breath Or Wheezing) prednisone 20 mg tablet 50 mg PO DAILY furosemide 40 mg tablet 40 mg PO DAILY tizanidine 4 mg tablet 4 mg PO Q8H PRN (Reason: muscle spasms) 30 Days Qty: 90 0RF lisinopril 10 mg tablet 10 mg PO BID cyclophosphamide 500 mg recon soln 0.5 g IV .twice a month omeprazole 20 mg capsule,delayed release(DR/EC) 20 mg PO DAILY 90 Days Qty: 90 4RF sulfamethoxazole-trimethoprim [Bactrim DS] 800-160 mg tablet 1 tab PO .COMPLEX 90 Days Qty: 30 0RF Rx Instructions: 1 tab orally three times a week; ( PCP prophylaxis) Mirena 21 mcg/24 hours (8 yrs) 52 mg intrauterine device intrauterine ondansetron 8 mg tablet,disintegrating 8 mg PO Q8H PRN (Reason: nausea and vomiting) Qty: 30 0RF calcium carbonate-vitamin D3 1,000 mg-20 mcg (800 unit) tablet 1 tab PO .COMPLEX Qty: 30 3RF Rx Instructions: 1 tab orally 3 times a week; Print Language: Tuvaluan
[2024-04-30] MEDS: Gabapentin 300 MG CAPSULE PO (05:23)
[2024-04-30] MEDS: Morphine Sulfate Immed Release 15 MG TABLET PO (05:23)
[2024-04-30 05:53] VITALS: BP 131/78; PULSE 95; RESP 20; TEMP 37.1; O2SAT 97
== END 2024-04-30 05:53 | disposition home or self-care (01) ==
PROVIDERS: Emergency Provider Internal Medicine; PCP Internal Medicine
DX: S16.1XXA Strain of muscle, fascia and tendon at neck level, initial encounter (principal); X58.XXXA Exposure to other specified factors, initial encounter; N02.B9 Other recurrent and persistent immunoglobulin A nephropathy; Z95.828 Presence of other vascular implants and grafts; Y93.9 Activity, unspecified; Y92.9 Unspecified place or not applicable; Y99.9 Unspecified external cause status; Z79.52 Long term (current) use of systemic steroids; Z79.899 Other long term (current) drug therapy
CPT/HCPCS: 99283

== ENCOUNTER 2024-05-19 14:14 | Outpatient (REF) | payer OTHER, SELFPAY | END 2024-05-19 14:15 | disposition home or self-care (01) | LOC: HO.LAB 14:14 | PROVIDERS: PCP Internal Medicine; Visit Provider Internal Medicine Nephrology | DX: N02.B9 Other recurrent and persistent immunoglobulin A nephropathy (principal); R10.9 Unspecified abdominal pain | CPT/HCPCS: 99212 ==

== ENCOUNTER 2024-05-19 15:12 | Outpatient (AMB) | payer OTHER, SELFPAY ==
--- NOTE | 2024-05-19 15:20 | HO.NEPHOV ---
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 She had been on PO prednisone, ACEI and supportive care. She had been getting 500 mg IV cytoxan Q 2 weeks( altogether 6 doses given). She recently had UTI & CHEMO needing brief hospitalization. ACEI was held at that time. She has restarted low dose of diuretics due to edema but had a recent hospitalization again as she was having complaints suggestive of electrolyte disorder. She denies any fevers, chills, chest pain, shortness of breath, dysuria, hematuria, urinary frequency or urgency. She has history of genital herpes and usually take Valcyclovir. Her serum creatinine is at baseline now. She is back on ACEI. She wants to hold any further immunosuppression for at least a month. She is not taking any diuretics and has edema. 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 Morbid obesity with BMI of 40.0-44.9, adult Recurrent epistaxis Proteinuria Anxiety Bipolar depression Elevated d-dimer Asthma Obesity Surgical History History of biopsy Hx of adenoidectomy History of surgery Hx of tonsillectomy Family History Mother No known health problems Father No known health problems Other Mental health disorder Substance use disorder Social History Housing: Apartment Alcohol intake: current Alcohol intake frequency: does not drink Comment: medicated prior to discharge Patient Tobacco Use Status: Never used Tobacco e-Cigarette/Vaping Use: Never Used Second Hand Smoke Exposure: No Substance Use Type: Marijuana service: No Current occupational status: student Cognitive needs: No Hearing needs: No Vision needs: No Physical Exam Vital Signs: Last Vital Signs Pulse 89 05/19/24 15:21 BP 130/76 05/19/24 15:21 Pulse Ox 96 05/19/24 15:21 Oxygen Delivery Method Room Air 05/19/24 15:21 BMI result Body Mass Index 51.6 Const General: comfortable and no acute distress Orientation/consciousness: patient oriented x3 HEENT Head: Yes normocephalic Mouth: Normal oral and palatal mucosa present Eyes EOM: EOMs intact bilaterally Neck Neck: Yes supple Resp Auscultation: clear to auscultation bilaterally Cardio Jugular venous distension: no JVD Rate: regular rate GI Palpation (GI): Soft to palpation Auscultation: normal bowel sounds General: Yes no CVA tenderness Back/Spine/Pelvis Back: no CVA tenderness Skin General skin exam: no rashes or lesions noted Neuro General: patient oriented x3 and moves all extremities Results Reviewed Nephrology Results: Hgb 13.9 g/dl (12.0-16.0) 05/19/24 WBC 12.8 X10*3/uL (4.8-10.8) H 05/19/24 Plt Count 182 X10*3/uL (160-400) 05/19/24 Sodium 139 mmol/L (135-145) 05/19/24 Potassium 4.3 mmol/L (3.3-5.1) 05/19/24 Chloride 106 mmol/L (96-108) 05/19/24 Carbon Dioxide 26 mmol/L (22-29) 05/19/24 BUN 20 mg/dL (9-16) H 05/19/24 Creatinine 0.72 mg/dL (0.5-1.4) 05/19/24 Calcium 8.7 mg/dL (8.4-10.2) 05/19/24 Phosphorus 3.4 mg/dL (2.7-4.5) 05/19/24 Assessment & Plan Assessment & Plan (1) IgA nephropathy determined by biopsy of kidney: Code(s): N02.B9 - Other recurrent and persistent immunoglobulin A nephropathy Category: Medical Plan Blanche has glomerular proteinuria. She has H/O vasculitic rash with microscopic hematuria and abdominal pain. 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 She is currently on prednisone, which I asked to reduce to 40 mg daily. She was given cytoxan IV 500 mg twice a month for 3 months. She will be started on maintenance immunosuppression soon ( she wants to hold any further immunosuppression for at least a month. She has been having emotional lability on prednisone. I also started her on Bumex 0.5 mg daily. I increased her lisinopril to 15 mg bid. She may need Jardiance and Rituximab in the future. She is on PCP prophylaxis. She is on PPI. She is taking calcium and Vitamin D. She was seen by Gynae. Follow-up labs ordered .F/U given. Answered all questions Orders: Orders Creatinine 05/19/24 N02.B9 - Other recurrent and persistent immunoglobulin A nephropathy Electrolytes 05/19/24 N02.B9 - Other recurrent and persistent immunoglobulin A nephropathy Blood Urea Nitrogen 05/19/24 N02.B9 - Other recurrent and persistent immunoglobulin A nephropathy Calcium 05/19/24 N02.B9 - Other recurrent and persistent immunoglobulin A nephropathy Magnesium 05/19/24 N02.B9 - Other recurrent and persistent immunoglobulin A nephropathy Complete Blood Count Auto Diff 2 Weeks N02.B9 - Other recurrent and persistent immunoglobulin A nephropathy Albumin Level 05/19/24 N02.B9 - Other recurrent and persistent immunoglobulin A nephropathy Medications: New bumetanide 0.5 mg PO DAILY 30 tabs 3RF Coding Level of Care Code Est Pt Level 4 (53077) Diagnoses IgA nephropathy determined by biopsy of kidney N02.B9
[2024-05-19 15:21] VITALS: BP 130/76; PULSE 89; O2SAT 96; BMI 51.6
== END 2024-05-19 15:50 | disposition home or self-care (01) ==
PROVIDERS: PCP Internal Medicine; Visit Provider Internal Medicine Nephrology
DX: N02.B9 Other recurrent and persistent immunoglobulin A nephropathy (principal)
CPT/HCPCS: 99214

== ENCOUNTER 2024-05-28 13:47 | Outpatient (AMB) | payer OTHER, SELFPAY ==
--- NOTE | 2024-05-28 13:53 | A.OFFPC_ITS ---
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 Accompanied by: Friend Allergies No Known Allergies [No Known Allergies*] Allergy (Verified 05/28/24 14:08) Medication List - Last Reconciled 05/28/24 by Cedric Bingham MD albuterol sulfate 90 mcg/actuation (Ventolin HFA) 2 puffs inhalation Q6H PRN bumetanide 0.5 mg PO DAILY calcium carbonate-vitamin D3 1,000 mg-20 mcg (800 unit) 1 tab orally 3 times a week; cyclophosphamide 0.5 grams IV .twice a month gabapentin 300 mg PO TID 30 days levonorgestrel (Mirena) intrauterine lisinopril 10 mg PO BID morphine 15 mg PO BID PRN 7 days omeprazole 20 mg PO DAILY 3 months tizanidine 4 mg PO Q8H PRN 30 days tramadol 50 mg PO TID PRN 10 days Tobacco use date assessed: 04/26/24 Dental Screening Dental Screen Date: 01/20/24 HPI Neck Pain HPI Details Patient comes in today for her follow up visit States that she is still experiencing increased pain and spasms over the left side of the back of her neck ever since she had her infusion port placed on her right upper chest area almost 2 months ago in late March 2024 She is finally going to be starting physical therapy for her neck on 06/04/2024 States that she has gotten acupuncture once about 1 to 2 weeks ago as she wanted to see how much that will help - states that she did experience (+) relief immediately after her acupuncture session but her symptoms have gradually inc reased again since She has also been experiencing frequent increased burning sensation over the back of her neck and left shoulder lately Notes that her Gabapentin has been helping but its effects seem to be wearing off a lot earlier now than they used to - is wondering if she should try taking her Gabapentin 4 times a day instead of just 3 times a day Notes that her prednisone dosage was lowered recently to 10 mg daily and is wondering if this has any effect of her shoulder symptoms She has also been feeling very shaky often lately Relates that she was just in the hospital recently for some electrolyte abnormality / imbalance and is wondering how often she should get her labs checked to make sure she does not run into the same problem(s) She also needs her Morphine Rx refilled today She relates feeling fatigued but denies any increased headaches or dizziness lately Denies any chest pains, no increased SOB No nausea/vomiting, no abdominal pain No change in bowel habits noted PFSH Medical History 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 Morbid obesity with BMI of 40.0-44.9, adult Recurrent epistaxis Proteinuria Anxiety Bipolar depression Elevated d-dimer Asthma Obesity Surgical History History of biopsy Hx of adenoidectomy History of surgery Hx of tonsillectomy Family History Mother No known health problems Father No known health problems Other Mental health disorder Substance use disorder Social History Housing: Apartment Alcohol intake: current Alcohol intake frequency: does not drink Comment: medicated prior to discharge Patient Tobacco Use Status: Never used Tobacco e-Cigarette/Vaping Use: Never Used Second Hand Smoke Exposure: No Substance Use Type: Marijuana service: No Current occupational status: student Cognitive needs: No Hearing needs: No Vision needs: No Questionnaire Thrive Questionnaire Date Thrive assessed: 01/20/24 YOU-7 AMB Questionnaire YOU-7 Date YOU - 7 assessed: 01/20/24 Source: Developed by Drs. Desmond Bowman, Ban Hurtado, Blas Sanchez and colleagues, with an educational hammad from [employer]. Review of Systems Const Denies chills, Reports fatigue, Denies fever(s) and Denies headache(s) ENT Denies dysphagia, Denies dizziness, Denies otalgia, Denies headache(s), Denies epistaxis, Reports neck pain (over the left side of the back of the neck), Denies odynophagia and Denies sore throat Card Denies chest pain, Denies palpitations and Denies dyspnea Resp Denies cough, Denies dyspnea and Denies wheezing GI Denies abdominal pain, Denies constipation, Denies dysphagia, Denies heartburn, Denies diarrhea, Denies nausea, Denies odynophagia and Denies vomiting Denies difficulty voiding, Denies nocturia, Denies dysuria and Denies urinary urgency Musc Details: hands feels shaky at times Reports arthralgias (on and off, over both knees) and Reports neck pain (over the left side of the back of the neck) Skin/Breast Denies rash Neuro Details: (+) recurrent burning sensation over the back of the left side of the neck Denies dizziness and Denies headache(s) Psych Reports anxiety, Reports depression and Denies suicidal ideation Endo Reports fatigue and Denies palpitations Aller/Immun Denies wheezing Physical exam (Primary Care) Vital Signs: Last Vital Signs Pulse 108 H 05/28/24 13:57 BP 120/78 05/28/24 13:57 Pulse Ox 100 05/28/24 13:57 Oxygen Delivery Method Room Air 05/28/24 13:57 BMI result Body Mass Index 49.8 Tobacco/Smoking Status: Tobacco use Status Tobacco use date assessed 04/26/24 05/28/24 13:55 Patient Tobacco Use Status Never used Tobacco 05/28/24 13:55 e-Cigarette/Vaping Use Never Used 05/28/24 13:55 Thrive Assessment: Date of Thrive Assessment Date Thrive assessed 01/20/24 05/28/24 13:55 Const General: no acute distress and alert Neck Other: (+) tenderness on palpation over the muscles on the left side of the back of the neck - pain seems to be mostly localized over the left levator scapulae muscle Neck: Yes no lymphadenopathy Chest Other: (+) infusion port present under the skin over the right upper chest wall Resp Auscultation: clear to auscultation bilaterally, no rales and no wheezes Cardio Rate: regular rate Rhythm: regular rhythm Heart sounds: no murmurs GI Palpation (GI): Soft to palpation and nontender Auscultation: normal bowel sounds General: Yes no CVA tenderness Back/Spine/Pelvis Back: no CVA tenderness Thoracic/Lumbar Spine: No lumbar spinal tenderness Extrem General: Yes no clubbing, cyanosis or edema Assessment and Plan Assessment & Plan (1) Acute strain of neck muscle: Code(s): S16.1XXA - Strain of muscle, fascia and tendon at neck level, initial encounter Qualifiers: Encounter type: sequela Qualified Code(s): S16.1XXS - Strain of muscle, fascia and tendon at neck level, sequela Plan: Continue Morphine 15 mg BID PRN for increased pain - Rx refilled Continue Tizanidine 4 mg TID PRN Will increase her Gabapentin to 400 mg TID She will be starting physical therapy next week on 06/04/2024 - advised that this will hopefully turn things around for her and speed up her recovery from her neck injury (2) IgA nephropathy determined by biopsy of kidney: Code(s): N02.B9 - Other recurrent and persistent immunoglobulin A nephropathy Plan: She is on IV Cytoxan 500 mg twice a month for 3 months and this will then be followed by maintenance immunosuppression for some time Continue Prednisone - dose has reportedly been lowered recently to 10 mg QD She is also currently on Bactrim DS 1 tablet 3 times a week for PCP prophylaxis Continue Omeprazole 20 mg QD as well for GI prophylaxis Follow up with nephrology as scheduled (3) Proteinuria: Code(s): R80.9 - Proteinuria, unspecified Qualifiers: Proteinuria type: other Qualified Code(s): R80.8 - Other proteinuria Plan: Patient has significant and persistent proteinuria due to her IgA nephropathy and this is currently undergoing Tx Continue Lisinopril 10 mg BID Follow up with nephrology as scheduled (4) Asthma: Code(s): J45.909 - Unspecified asthma, uncomplicated Qualifiers: Asthma severity: mild Asthma persistence: intermittent Asthma complication type: uncomplicated Qualified Code(s): J45.20 - Mild intermittent asthma, uncomplicated Plan: Appears controlled/stable Continue Albuterol HFA 1 to 2 inhalations Q 6 hours PRN (5) Edema: Code(s): R60.9 - Edema, unspecified Qualifiers: Edema type: localized Qualified Code(s): R60.0 - Localized edema Plan: Her renal function appears normal on her recent labs Continue Furosemide 40 mg QD PRN for edema (6) Abnormal blood electrolyte level: Code(s): E87.8 - Other disorders of electrolyte and fluid balance, not elsewhere classified Plan: She is concerned about this as she was recently in the hospital for some electrolyte derangements and would like to get these rechecked soon Will have her get her labs rechecked in a couple of weeks for follow up Have advised her that her recent shakiness is more likely a side effect of her prednisone therapy rather than a symptoms of electrolyte imbalance as her labs done about a week ago showed normal electrolyte levels (sodium, potassium, chloride and calcium levels were all normal) (7) Anxiety: Code(s): F41.9 - Anxiety disorder, unspecified Plan: Continue Lorazepam 0.5 mg QD PRN (8) Bipolar depression: Code(s): F31.9 - Bipolar disorder, unspecified Plan: Continue Citalopram 40 mg QD and Lamotrigine 100 mg BID She was apparently discharged from her previous psychiatrist's practice after missing a couple of appointments and states that she is in the process of looking for a new psychiatrist and will transfer her prescription management and refills over to them once she is established with her new psychiatrist (9) Morbid obesity with BMI of 40.0-44.9, adult: Code(s): E66.01 - Morbid (severe) obesity due to excess calories; Z68.41 - Body mass index [BMI] 40.0-44.9, adult Plan: Reinforced diet; exercise and weight loss are not realistic at this time due to patient's multiple comorbidities Plan Follow up as scheduled in July 2024 Orders: Orders Magnesium 2 Weeks E83.42 - Hypomagnesemia, E87.8 - Other disorders of electrolyte and fluid balance, not elsewhere classified Basic Metabolic Panel 2 Weeks E87.8 - Other disorders of electrolyte and fluid balance, not elsewhere classified Medications: Changed From gabapentin 300 mg PO TID 30 days 90 caps 1RF To gabapentin 400 mg PO TID 30 days 90 caps 1RF Refilled morphine Partial Fill upon patient request. 15 mg PO BID 7 days PRN 14 tabs 0RF pain Coding Level of Care Code Est Pt Level 4 (37499) Diagnoses Acute strain of neck muscle, sequela S16.1XXS Encounter type: sequela IgA nephropathy determined by biopsy of kidney N02.B9 Other proteinuria R80.8 Proteinuria type: other Mild intermittent asthma without complication J45.20 Asthma severity: mild Asthma persistence: intermittent Asthma complication type: uncomplicated Localized edema R60.0 Edema type: localized Abnormal blood electrolyte level E87.8 Anxiety F41.9 Bipolar depression F31.9 Morbid obesity with BMI of 40.0-44.9, adult E66.01; Z68.41
[2024-05-28 13:57] VITALS: BP 120/78; PULSE 108; O2SAT 100; BMI 49.8
== END 2024-05-28 14:20 | disposition home or self-care (01) ==
PROVIDERS: PCP Internal Medicine; Visit Provider Internal Medicine
DX: S16.1XXD Strain of muscle, fascia and tendon at neck level, subsequent encounter (principal); N02.B9 Other recurrent and persistent immunoglobulin A nephropathy; R80.8 Other proteinuria; J45.20 Mild intermittent asthma, uncomplicated; R60.0 Localized edema; E87.8 Other disorders of electrolyte and fluid balance, not elsewhere classified; F41.9 Anxiety disorder, unspecified
CPT/HCPCS: 99214

== ENCOUNTER 2024-06-04 09:51 | Outpatient (RCR) | payer OTHER, SELFPAY ==
--- NOTE | 2024-06-04 14:11 | MHC.PT.EP ---
[facility] [place] [facility] [place] [facility] [place] Office [address] [phone] F: [phone] F: [phone] F: [phone] F: [phone] Physical Therapy Plan of Care Date of Evaluation: 06/04/24 Date of Surgery: Diagnosis: Cervicalgia Assessment: Pt is a 23 y/o F with PMHx of arthritis, nephritis and anxiety who is referred to PT for eval and treat of cervicalgia following a port placement in March resulting in decreased tolerance or ability for working and heavy HH chores, caring for children, and driving secondary to decreased neck ROM, decreased neck strength, headaches, decreased posture, and TTP in L UT, scalenes, and suboccipital region. Pt is motivated and is deemed an appropriate candidate to receive skilled PT services to address their physical impairments in order to improve their function. Frequency and Duration: The patient will be seen 2x/week for 4 weeks. Short Term Goals: Initiate home exercise program. Pt will be able to go to work with little to no pain; initial can hardly work at all. Pt will be able to drive with little to no pain; initial moderate pain. 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 Pt will improve cervical flex strength mmt by 1/2 grade; initial 4/5. Pt will be able to sleep without disturbance; initial 1-2 hours disturbed. Pt will be able to complete HH chores/care for children with little to no pain; initial can hardly do without pain. Treatment Plan: Modalities to reduce pain, spasms and effusion. Manual therapy to restore motion and function. Therapeutic exercise to improve strength and flexibility. Neuromuscular re-education for posture and balance. Therapeutic activities to return to functional activities of daily living. Electronically signed by: Jeff Silvestre PT. Please sign and return to therapist. Thank you for your referral.
--- NOTE | 2024-06-23 10:28 | MHC.PT.DC ---
[facility] [place] Office [place] Office [place] Office [address] [phone] F: [phone] F: [phone] F: [phone] F: [phone] Physical Therapy Discharge Report Diagnosis: Cervicalgia Date of Surgery: Date of Evaluation: 06/04/24 Date of Discharge: 06/23/24 Treatments to Date: 1 Cancellations to Date: No Shows to Date: 2 Discharge Status: Patient Elected to Stop Visit Non-compliance Discharge Summary: Pt is being discharged today after calling and reporting she has too much going on in her life to successfully complete PT at this time. She has had 2 no shows since her initial evaluation. Electronically signed by: Jeff Silvestre PT. Please sign and return to therapist. Thank you for your referral.
== END 2024-06-23 10:27 | disposition home or self-care (01) ==
LOC: HO.PT 09:51
PROVIDERS: PCP Internal Medicine; Visit Provider Internal Medicine
DX: M54.2 Cervicalgia (principal)
CPT/HCPCS: 97014; 97110; 97161

== ENCOUNTER 2024-06-23 13:41 | Outpatient (REF) | payer OTHER, SELFPAY ==
[2024-06-23 15:09] LABS: Basophils Percent Auto 0.1 % (0-2); Hematocrit 43.6 % (37.0-47.0); Hemoglobin 15.2 g/dl (12.0-16.0); Imm Gran Abs Auto 0.09 X10*3/uL (0.00-0.03); Imm Gran Pct Auto 0.5 % (0.0-0.4); Lymphocytes Absolute Auto 1.2 X10*3/uL (1.2-4.9); Lymphocytes Percent Auto 6.9 % (20-40); MANUAL DIFF FLAG SCAN; Mean Corpuscular HGB Conc 34.9 g/dl (31.0-35.0); Mean Corpuscular Hemoglobin 31.5 pg (27.0-33.0); Mean Corpuscular Volume 90.3 fL (80.0-98.0); Mean Platelet Volume 10.2 fL (9.4-12.3); Monocytes Absolute Auto 0.3 X10*3/uL (0.1-1.2); Monocytes Percent Auto 1.8 % (2-11); Neutrophils Absolute Auto 15.4 x10*3/uL (2.0-8.3); Neutrophils Percent Auto 90.7 % (45-73); Platelet Count 257 X10*3/uL (160-400); Red Blood Count 4.83 X10*6/uL (4.20-5.50); Red Cell Distribution Width 12.6 % (11.0-16.0); SCAN SMEAR FLAG 1
[2024-06-23 15:23] LABS: Alanine Aminotransferase 20 U/L (0-31); Albumin Level 3.6 g/dL (3.5-5.0); Alkaline Phosphatase 47 U/L (39-117); Anion Gap 12 (12-20); Aspartate Amino Transferase 13 U/L (5-31); Bilirubin Total 0.3 mg/dL (0.0-1.0); Blood Urea Nitrogen 18 mg/dL (9-16); Calcium 9.8 mg/dL (8.4-10.2); Carbon Dioxide 26 mmol/L (22-29); Chloride 103 mmol/L (96-108); Estimated Glomerular Filt Rate > 60; Glucose Random 115 mg/dL (60-115); Potassium 4.4 mmol/L (3.3-5.1); Sodium 137 mmol/L (135-145); Total Protein 6.4 g/dL (6.5-8.0)
[2024-06-23 15:30] LABS: SLIDE REVIEW VERIFIED
== END 2024-06-23 13:42 | disposition home or self-care (01) ==
LOC: HO.LAB 13:41
PROVIDERS: Absent Provider Internal Medicine Nephrology; PCP Internal Medicine; Visit Provider Internal Medicine
DX: N02.B9 Other recurrent and persistent immunoglobulin A nephropathy (principal)
CPT/HCPCS: 36415; 80053; 83735; 85025

== ENCOUNTER 2024-07-02 15:46 | Outpatient (AMB) | payer OTHER, SELFPAY ==
[2024-07-02 15:47] VITALS: BP 130/80; PULSE 102; O2SAT 99; BMI 51.0
--- NOTE | 2024-07-02 15:47 | HO.NEPHOV ---
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 She had been on PO prednisone, ACEI and supportive care. She had been getting 500 mg IV cytoxan Q 2 weeks( altogether 6 doses given). She recently had UTI & CHEMO needing brief hospitalization. She denies any fevers, chills, chest pain, shortness of breath, dysuria, hematuria, urinary frequency or urgency. She has history of genital herpes and usually take Valcyclovir. Her serum creatinine is at baseline now. She is back on ACEI. She wants to hold any further immunosuppression for some time, if possible. She is on diuretics and her edema has improved. 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 Morbid obesity with BMI of 40.0-44.9, adult Recurrent epistaxis Proteinuria Anxiety Bipolar depression Elevated d-dimer Asthma Obesity Surgical History History of biopsy Hx of adenoidectomy History of surgery Hx of tonsillectomy Family History Mother No known health problems Father No known health problems Other Mental health disorder Substance use disorder Social History Housing: Apartment Alcohol intake: current Alcohol intake frequency: does not drink Comment: medicated prior to discharge Patient Tobacco Use Status: Never used Tobacco e-Cigarette/Vaping Use: Never Used Second Hand Smoke Exposure: No Substance Use Type: Marijuana service: No Current occupational status: student Cognitive needs: No Hearing needs: No Vision needs: No Review of Systems Const All systems reviewed & are unremarkable except as noted in HPI and below Physical Exam Vital Signs: Last Vital Signs Pulse 102 H 07/02/24 15:47 BP 130/80 07/02/24 15:47 Pulse Ox 99 07/02/24 15:47 Oxygen Delivery Method Room Air 07/02/24 15:47 BMI result Body Mass Index 51.0 Const General: comfortable and no acute distress Orientation/consciousness: patient oriented x3 HEENT Head: Yes normocephalic Mouth: Normal oral and palatal mucosa present Eyes EOM: EOMs intact bilaterally Neck Neck: Yes supple Resp Auscultation: clear to auscultation bilaterally Cardio Jugular venous distension: no JVD Rate: regular rate GI Palpation (GI): Soft to palpation Auscultation: normal bowel sounds General: Yes no CVA tenderness Back/Spine/Pelvis Back: no CVA tenderness Skin General skin exam: no rashes or lesions noted Neuro General: patient oriented x3 and moves all extremities Results Reviewed Nephrology Results: Hgb 15.2 g/dl (12.0-16.0) 06/23/24 WBC 17.0 X10*3/uL (4.8-10.8) H 06/23/24 Plt Count 257 X10*3/uL (160-400) 06/23/24 Sodium 137 mmol/L (135-145) 06/23/24 Potassium 4.4 mmol/L (3.3-5.1) 06/23/24 Chloride 103 mmol/L (96-108) 06/23/24 Carbon Dioxide 26 mmol/L (22-29) 06/23/24 BUN 18 mg/dL (9-16) H 06/23/24 Creatinine 0.79 mg/dL (0.5-1.4) 06/23/24 Calcium 9.8 mg/dL (8.4-10.2) 06/23/24 Phosphorus 3.4 mg/dL (2.7-4.5) 05/19/24 Urine Protein 300 (3+) mg/dL (Neg-Trace) H 06/23/24 Urine Creatinine 159.70 mg/dL 04/16/24 Protein/Creatinin Ratio 6.39 (<0.2) H 04/16/24 Assessment & Plan Assessment & Plan (1) Glomerulonephritis, IgA: Code(s): N02.B9 - Other recurrent and persistent immunoglobulin A nephropathy Category: Medical Plan Blanche has glomerular proteinuria. She has H/O vasculitic rash with microscopic hematuria and abdominal pain. 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 She is currently on prednisone, which I asked to reduce to 35 mg daily for 2 weeks followed by 30 mg daily. She was given cytoxan IV 500 mg twice a month for 3 months. She will be started on maintenance immunosuppression soon ( she wants to hold any further immunosuppression for now). She has been having emotional lability on prednisone. She should continue on Bumex 0.5 mg daily. I increased her lisinopril to 20 mg bid. She may need Jardiance and Rituximab/ FABHALTA in the future. She is on PPI. She is taking calcium and Vitamin D. She was also seen by Gynae. Follow-up labs ordered .F/U given. Answered all questions Orders: Orders Creatinine 1 Month N02.B9 - Other recurrent and persistent immunoglobulin A nephropathy Complete Blood Count Auto Diff 1 Month N02.B9 - Other recurrent and persistent immunoglobulin A nephropathy Albumin Level 1 Month N02.B9 - Other recurrent and persistent immunoglobulin A nephropathy Blood Urea Nitrogen 1 Month N02.B9 - Other recurrent and persistent immunoglobulin A nephropathy Electrolytes 1 Month N02.B9 - Other recurrent and persistent immunoglobulin A nephropathy Medications: Changed From lisinopril 10 mg PO BID 180 tabs 1RF To lisinopril 20 mg PO BID 90 days 180 tabs 1RF From prednisone 40 mg (2 x 20 mg) PO DAILY 30 days 60 tabs 3RF To prednisone 35 mg (3.5 x 10 mg) PO DAILY 30 days 105 tabs 3RF Coding Level of Care Code Est Pt Level 4 (60228) Diagnoses Glomerulonephritis, IgA N02.B9
== END 2024-07-02 16:19 | disposition home or self-care (01) ==
PROVIDERS: PCP Internal Medicine; Visit Provider Internal Medicine Nephrology
DX: N02.B9 Other recurrent and persistent immunoglobulin A nephropathy (principal)
CPT/HCPCS: 99214

== ENCOUNTER → 2024-07-02 15:46 | Outpatient (BNVA) | payer OTHER, SELFPAY | PROVIDERS: PCP Internal Medicine; Visit Provider Internal Medicine Nephrology | DX: N02.B9 Other recurrent and persistent immunoglobulin A nephropathy (principal) | CPT/HCPCS: 99212 ==

== ENCOUNTER 2024-07-27 13:45 | Outpatient (REF) | payer OTHER, SELFPAY | END 2024-07-27 13:46 | disposition home or self-care (01) | LOC: HO.LAB 13:45 | PROVIDERS: PCP Internal Medicine; Visit Provider Internal Medicine Nephrology | DX: Z13.89 Encounter for screening for other disorder (principal) ==

== ENCOUNTER 2024-08-13 14:55 | Outpatient (REF) | payer OTHER, SELFPAY ==
[2024-08-13 16:44] LABS: Creatinine Urine 103.58 mg/dL
[2024-08-13 17:50] LABS: Protein/Creatinine Ratio, Ur 5.83 (<0.2); Total Protein Urine Random 604 mg/dL (<12)
== END 2024-08-13 14:56 | disposition home or self-care (01) ==
LOC: HO.LAB 14:55
PROVIDERS: Visit Provider Internal Medicine Nephrology
DX: N02.B9 Other recurrent and persistent immunoglobulin A nephropathy (principal); R80.8 Other proteinuria
CPT/HCPCS: 82570; 84156; 99212

== ENCOUNTER 2024-08-13 15:42 | Outpatient (AMB) | payer OTHER, SELFPAY ==
[2024-08-13 15:45] VITALS: BP 110/70; PULSE 115; O2SAT 96; BMI 51.7
--- NOTE | 2024-08-13 15:45 | HO.NEPHOV_ITS ---
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 She had been on PO prednisone, ACEI and supportive care. She had been getting 500 mg IV cytoxan Q 2 weeks( altogether 6 doses given). She recently had UTI & CHEMO needing brief hospitalization. She denies any fevers, chills, chest pain, shortness of breath, dysuria, hematuria, urinary frequency or urgency. She has history of genital herpes and usually take Valcyclovir. Her serum creatinine is at baseline now. She is back on ACEI. She wants to hold any further immunosuppression for some time, if possible. She is on diuretics and her edema has improved. 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 Morbid obesity with BMI of 40.0-44.9, adult Recurrent epistaxis Proteinuria Anxiety Bipolar depression Elevated d-dimer Asthma Obesity Surgical History History of biopsy Hx of adenoidectomy History of surgery Hx of tonsillectomy Family History Mother No known health problems Father No known health problems Other Mental health disorder Substance use disorder Social History Housing: Apartment Alcohol intake: current Alcohol intake frequency: does not drink Comment: medicated prior to discharge Patient Tobacco Use Status: Never used Tobacco e-Cigarette/Vaping Use: Never Used Second Hand Smoke Exposure: No Substance Use Type: Marijuana service: No Current occupational status: student Cognitive needs: No Hearing needs: No Vision needs: No Review of Systems Const All systems reviewed & are unremarkable except as noted in HPI and below Physical Exam Vital Signs: Last Vital Signs Pulse 115 H 08/13/24 15:45 BP 110/70 08/13/24 15:45 Pulse Ox 96 08/13/24 15:45 Oxygen Delivery Method Room Air 08/13/24 15:45 BMI result Body Mass Index 51.7 Const General: comfortable and no acute distress Orientation/consciousness: patient oriented x3 HEENT Head: Yes normocephalic Mouth: Normal oral and palatal mucosa present Eyes EOM: EOMs intact bilaterally Neck Neck: Yes supple Resp Auscultation: clear to auscultation bilaterally Cardio Jugular venous distension: no JVD Rate: regular rate GI Palpation (GI): Soft to palpation Auscultation: normal bowel sounds General: Yes no CVA tenderness Back/Spine/Pelvis Back: no CVA tenderness Skin General skin exam: no rashes or lesions noted Neuro General: patient oriented x3 and moves all extremities Extrem General: Yes no pedal edema Results Reviewed Nephrology Results: Hgb 14.2 g/dl (12.0-16.0) 07/27/24 WBC 17.7 X10*3/uL (4.8-10.8) H 07/27/24 Plt Count 272 X10*3/uL (160-400) 07/27/24 Sodium 140 mmol/L (135-145) 07/27/24 Potassium 3.9 mmol/L (3.3-5.1) 07/27/24 Chloride 105 mmol/L (96-108) 07/27/24 Carbon Dioxide 24 mmol/L (22-29) 07/27/24 BUN 15 mg/dL (9-16) 07/27/24 Creatinine 0.80 mg/dL (0.5-1.4) 07/27/24 Calcium 9.8 mg/dL (8.4-10.2) 06/23/24 Phosphorus 3.4 mg/dL (2.7-4.5) 05/19/24 Assessment & Plan Assessment & Plan (1) Glomerulonephritis, IgA: Code(s): N02.B9 - Other recurrent and persistent immunoglobulin A nephropathy Category: Medical (2) Proteinuria: Code(s): R80.9 - Proteinuria, unspecified Category: Medical Qualifiers: Proteinuria type: other Qualified Code(s): R80.8 - Other proteinuria Plan Blanche has glomerular proteinuria. She has H/O vasculitic rash with microscopic hematuria and abdominal pain. 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 She is currently on prednisone, which I asked to reduce to 25 mg daily for 1 month followed by 20 mg daily. She was given cytoxan IV 500 mg twice a month for 3 months. She will be started on maintenance immunosuppression soon ( she wants to hold any further immunosuppression for now). She has been having emotional lability on prednisone. She should continue on Bumex 0.5 mg daily. C/W lisinopril to 20 mg bid. She may need Jardiance and Rituximab/ FABHALTA in the future. She is on PPI. She is taking calcium and Vitamin D. She was also seen by Gynae. Follow- up labs ordered .F/U given. Answered all questions Orders: Orders Creatinine 10 Weeks N02.B9 - Other recurrent and persistent immunoglobulin A nephropathy Blood Urea Nitrogen 10 Weeks N02.B9 - Other recurrent and persistent immunoglobulin A nephropathy Electrolytes 10 Weeks N02.B9 - Other recurrent and persistent immunoglobulin A nephropathy Albumin Level 10 Weeks N02.B9 - Other recurrent and persistent immunoglobulin A nephropathy Calcium 10 Weeks N02.B9 - Other recurrent and persistent immunoglobulin A nephropathy Complete Blood Count Auto Diff 10 Weeks N02.B9 - Other recurrent and persistent immunoglobulin A nephropathy Medications: Refilled omeprazole 20 mg PO DAILY 3 months 90 caps 4RF Coding Level of Care Code Est Pt Level 4 (76460) Diagnoses Glomerulonephritis, IgA N02.B9 Other proteinuria R80.8 Proteinuria type: other
== END 2024-08-13 16:20 | disposition home or self-care (01) ==
PROVIDERS: PCP Internal Medicine; Visit Provider Internal Medicine Nephrology
DX: N02.B9 Other recurrent and persistent immunoglobulin A nephropathy (principal); R80.8 Other proteinuria
CPT/HCPCS: 99214

== ENCOUNTER 2024-10-01 13:30 | Outpatient (AMB) | payer OTHER, SELFPAY ==
--- NOTE | 2024-10-01 13:40 | MHC.OFFVIS ---
Vital Signs 10/01/24 13:42 Height 5 ft 4 in Weight 306 lb 7.08 oz BMI 52.6 BP 112/64 Blood Pressure Location Lt brachial Position Sitting Pulse 108 H Pulse Source Pulse Oximeter Pulse Oximetry (%) 98 Oxygen Delivery Method Room Air Intake Visit Reasons: HSP Vasculitis with Proteinuria/CM Intake Note: Patient presents today for follow up on HSP vasculitis with proteinuria. She was last seen in the office by Rhonda Milian on 03/23/24. Patient is requesting refill of Tramadol at this time. Allergies No Known Allergies [No Known Allergies*] Allergy (Verified 10/01/24 13:43) Medication List - Last Reconciled 10/01/24 by Maisha Herrera MD albuterol sulfate 90 mcg/actuation (Ventolin HFA) 2 puffs inhalation Q6H PRN bumetanide 0.5 mg PO DAILY calcium carbonate-vitamin D3 1,000 mg-20 mcg (800 unit) 1 tab orally 3 times a week; levonorgestrel (Mirena) intrauterine lisinopril 20 mg PO BID 90 days omeprazole 20 mg PO DAILY 3 months prednisone 20 mg PO DAILY quetiapine ER 100 mg PO BEDTIME tramadol 50 mg PO TID PRN 10 days valacyclovir 500 mg PO DAILY HPI Comments Details: Patient is a 23-year-old female who presents for 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 At that time she reported her knees feeling swollen and painful. There was no obvious synovitis on examination at that. No changes or additions made to medication. Today, patient presents for follow-up. She continues to have intermittent pain involving her hands, and knees. Patient is quite tearful about being on steroids and her weight gain Rheumatologic History: Diagnosed with IgA vasculitis after presenting with triad of rash, vague abdominal pain and joint pain. She was also noted to have proteinuria. Status post renal biopsy 01/29/2024 which confirmed IgA deposition with crescentic glomerular nephritis minimal to no sclerosis. Started on Cytoxan by Nephrology and received 6 cycles. 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 Morbid obesity with BMI of 40.0-44.9, adult Recurrent epistaxis Proteinuria Anxiety Bipolar depression Elevated d-dimer Asthma Obesity Surgical History History of biopsy Hx of adenoidectomy History of surgery Hx of tonsillectomy Family History Mother No known health problems Father No known health problems Other Mental health disorder Substance use disorder Social History Housing: Apartment Alcohol intake: current Alcohol intake frequency: does not drink Comment: medicated prior to discharge Patient Tobacco Use Status: Never used Tobacco e-Cigarette/Vaping Use: Never Used Second Hand Smoke Exposure: No Substance Use Type: Marijuana service: No Current occupational status: student Cognitive needs: No Hearing needs: No Vision needs: No Review of Systems Const Details: Review of Systems Constitutional: Denies fever, chills, weight loss ENT: Denies vision changes, eye pain or eye redness, dental caries, dry mouth GI: Denies nausea, vomiting, diarrhea, abdominal pain, change in BM Pulm: Denies SOB, COMER, hemoptysis, wheezing Cards: Denies chest pain, palpitations Skin: Denies Raynaud's, rash, nail changes, photosensitivity, 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 Well appearing and in no apparent painful distress. Patient with tillman facies HEENT Conjunctiva and sclera clear. ?Pupils equal round and reactive to light. ?No lymphadenopathy. ?Normal dentition. No oral or nasal ulcers noted. No evidence of discoid rash to the aarti of ears CHEST/RESPIRATORY SYSTEM Normal respiratory effort and able to speak in complete sentences. ?Clear to auscultation bilaterally. ?No crackles, rales, rhonchi, wheezes heard. CARDIAC SYSTEM Regular rate and rhythm. ?S1 and S2 heard no murmurs. ?Radial pulses intact bilaterally MSK Hands: ?Good electroencephalographic technician strength bilaterally ?No deformities noted. ?No synovitis noted to the MCPs, PIPs or DIPs. ?No tenderness to palpation of these joints. Joints feel full but no synovitis Wrists: ?Full range of motion at the wrists without pain. ?No tenderness to palpation or synovitis noted to the wrists. Elbows: Full range of motion without pain. No tenderness, weakness, swelling, increased warmth or erythema. Shoulders: Full range of motion without pain. No tenderness, weakness, swelling, increased warmth or erythema. Hips: Full range of motion without pain. Hip bursa: No tenderness to palpation Knees: ?Full range of motion. ?No tenderness, swelling, increased warmth or erythema.?No effusion or crepitations Ankles: Full range of motion. ?No tenderness, swelling, increased warmth or erythema.? Feet: ?Negative squeeze test. ?No tenderness to palpation or swelling of the MTPs. Tender points:??No tenderness to palpation of the neck, shoulders, chest, elbows, hips, buttocks or knees. SKIN Abdominal and upper arm striae noted Results Reviewed Results Reviewed: Laboratory Tests 03/31/24 04/16/24 07/27/24 15:15 13:58 14:35 WBC 17.7 H RBC 4.50 Hgb 14.2 Hct 41.0 Plt Count 272 Sodium 140 Potassium 3.9 Chloride 105 Carbon Dioxide 24 Anion Gap 15 BUN 15 Creatinine 0.80 Protein/Creatinin Ratio 6.36 H 6.39 H 08/13/24 15:07 WBC RBC Hgb Hct Plt Count Sodium Potassium Chloride Carbon Dioxide Anion Gap BUN Creatinine Protein/Creatinin Ratio 5.83 H Assessment & Plan Assessment & Plan (1) Glomerulonephritis, IgA: Code(s): N02.B9 - Other recurrent and persistent immunoglobulin A nephropathy Category: Medical Plan: #IgA vasculitis Patient with IgA vasculitis and biopsy-proven glomerulonephritis Status post Cytoxan induction Currently awaiting maintenance medication Given her young age I think it is reasonable to do maintenance with rituximab therapy similar to ANCA vasculitis maintenance therapy 500 mg every 6 months Unfortunately the protein creatinine ratio has not responded as much as we would have liked to however we should wait a bit seeing that we just completed induction therapy with Cytoxan At this time no additional medication from a rheumatologic standpoint. She is currently on 20 mg of prednisone (taper as per renal) this should cover any inflammatory type joint pain. RTC 4 months Plan I spent 30 minutes reviewing the record and labs, seeing the patient, discussing the treatment plan and documenting in the medical record ? Coding Level of Care Code Est Pt Level 4 (28444) Complex EM visit Add On G2211 Diagnoses Glomerulonephritis, IgA N02.B9
[2024-10-01 13:42] VITALS: BP 112/64; PULSE 108; O2SAT 98; BMI 52.6
== END 2024-10-01 14:06 | disposition home or self-care (01) ==
PROVIDERS: PCP Internal Medicine; Visit Provider Student in an Organized Health Care Education/Training Program
DX: N02.B9 Other recurrent and persistent immunoglobulin A nephropathy (principal)
CPT/HCPCS: 99214; G2211

== ENCOUNTER → 2024-10-01 13:30 | Outpatient (BNVA) | payer OTHER, SELFPAY | PROVIDERS: PCP Internal Medicine; Visit Provider Student in an Organized Health Care Education/Training Program | DX: N02.B9 Other recurrent and persistent immunoglobulin A nephropathy (principal) | CPT/HCPCS: 99212 ==

== ENCOUNTER 2024-10-22 14:38 | Outpatient (REF) | payer OTHER, SELFPAY ==
[2024-10-22 15:18] LABS: MANUAL DIFF FLAG NO
[2024-10-22 15:20] LABS: Basophils Percent Auto 0.3 % (0-2); Eosinophils Absolute Auto 0.1 X10*3/uL (0.0-0.4); Hematocrit 37.7 % (37.0-47.0); Imm Gran Abs Auto 0.07 X10*3/uL (0.00-0.03); Imm Gran Pct Auto 0.5 % (0.0-0.4); Lymphocytes Absolute Auto 3.2 X10*3/uL (1.2-4.9); Lymphocytes Percent Auto 21.8 % (20-40); Mean Corpuscular HGB Conc 34.5 g/dl (31.0-35.0); Mean Corpuscular Hemoglobin 31.3 pg (27.0-33.0); Mean Corpuscular Volume 90.8 fL (80.0-98.0); Mean Platelet Volume 10.4 fL (9.4-12.3); Monocytes Absolute Auto 0.9 X10*3/uL (0.1-1.2); Monocytes Percent Auto 6.2 % (2-11); Neutrophils Absolute Auto 10.1 x10*3/uL (2.0-8.3); Neutrophils Percent Auto 70.2 % (45-73); Platelet Count 214 X10*3/uL (160-400); Red Blood Count 4.15 X10*6/uL (4.20-5.50); Red Cell Distribution Width 12.4 % (11.0-16.0); White Blood Count 14.4 X10*3/uL (4.8-10.8)
[2024-10-22 16:05] LABS: Albumin Level 3.3 g/dL (3.5-5.0); Anion Gap 15 (12-20); Blood Urea Nitrogen 13 mg/dL (9-16); Calcium 8.3 mg/dL (8.4-10.2); Carbon Dioxide 23 mmol/L (22-29); Chloride 105 mmol/L (96-108); Estimated Glomerular Filt Rate > 60; Potassium 3.6 mmol/L (3.3-5.1); Sodium 139 mmol/L (135-145)
== END 2024-10-22 14:39 | disposition home or self-care (01) ==
LOC: HO.LAB 14:38
PROVIDERS: PCP Internal Medicine; Visit Provider Internal Medicine Nephrology
DX: N02.B9 Other recurrent and persistent immunoglobulin A nephropathy (principal)
CPT/HCPCS: 36415; 80051; 82040; 82310; 82565; 84520; 85025

== ENCOUNTER 2024-11-01 10:27 | Outpatient (AMB) | payer OTHER, SELFPAY ==
--- NOTE | 2024-11-01 10:47 | MHC.PC.OV ---
Vital Signs 11/01/24 10:51 Height 5 ft 4 in Weight 318 lb 8 oz BMI 54.7 BP 120/72 Blood Pressure Location Lt brachial Position Sitting Intake Visit Reasons: Establish care from [facility]. Intake Note: Patient is here today to Transfer of Care from Dr Bingham. Pt decline flu shot today Occupational Therapist'S Assistant Required: No Bookbinding Machine Operator: Not Required per policy Accompanied by: Self / Same As Patient Allergies No Known Allergies [No Known Allergies*] Allergy (Verified 11/01/24 11:06) Medication List - Last Reconciled 11/01/24 by Gretchen Kumar PA-C albuterol sulfate 90 mcg/actuation (Ventolin HFA) 2 puffs inhalation Q6H PRN bumetanide 0.5 mg PO DAILY calcium carbonate-vitamin D3 1,000 mg-20 mcg (800 unit) 1 tab orally 3 times a week; levonorgestrel (Mirena) intrauterine lisinopril 20 mg PO BID 90 days omeprazole 20 mg PO DAILY 3 months prednisone 20 mg PO DAILY quetiapine ER 100 mg PO BEDTIME tramadol 50 mg PO TID PRN 10 days valacyclovir 500 mg PO DAILY Tobacco use date assessed: 11/01/24 Dental Screening Dental Screen Date: 11/01/24 Did you have a dental visit in the last 12 months?: Yes Did you have a dental problem in the last 6 months where you did not have access to dental care?: No Was dental information given to patient?: Patient has dentist HPI Establish care from [facility]. HPI Details 23-year-old female with past medical history of herpes, bipolar depression, anxiety, asthma, and morbid obesity last seen by Dr. Bingham May 2024 coming in for transfer of care. Patient has a history of IgA nephropathy and vasculitis recently underwent chemotherapy last summer and has been on steroids for the last year. Since being started on the steroids patient has gained significant amount of weight and has been having muscle spasms and shakiness. She has been evaluated by her film and video graphics designer for these concerns and workup has not been negative. She states the muscle pain will wake her from sleep and has not been taking any for thing for the pain. She does follow with a counselor as she has been having increased anxiety and depression surrounding her diagnosis. 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 Morbid obesity with BMI of 40.0-44.9, adult Recurrent epistaxis Proteinuria Anxiety Bipolar depression Elevated d-dimer Asthma Obesity Surgical History History of biopsy Hx of adenoidectomy History of surgery Hx of tonsillectomy Family History Mother No known health problems Father No known health problems Other Mental health disorder Substance use disorder Social History Housing: Apartment Alcohol intake: current Alcohol intake frequency: does not drink Comment: medicated prior to discharge Patient Tobacco Use Status: Never used Tobacco e-Cigarette/Vaping Use: Never Used Second Hand Smoke Exposure: No Substance Use Type: Marijuana service: No Current occupational status: student Cognitive needs: No Hearing needs: No Vision needs: No Questionnaire PHQ-9 Over the last 2 weeks, how often have you been bothered by any of the following problems? 1. Little interest or pleasure in doing things: not at all 2. Feeling down, depressed, or hopeless: not at all 3. Trouble falling or staying asleep, or sleeping too much: not at all 4. Feeling tired or having little energy: not at all 5. Poor appetite or overeating: not at all 6. Feeling bad about yourself - or that you are a failure or have let yourself or your family down: not at all 7. Trouble concentrating on things, such as reading the newspaper or watching television: not at all 8. Moving or speaking so slowly that other people could have noticed. Or the opposite - being so fidgety or restless that you have been moving around a lot more than usual: not at all 9. Thoughts that you would be better off or of hurting yourself in some way: not at all Total score: 0 Depression Screening Interpretation: Negative Depression Screening Done: Yes Source: Developed by Drs. Desmond Bowman, Ban Hurtado, Blas Sanchez and colleagues, with an educational hammad from [employer]. Thrive Questionnaire Date Thrive assessed: 11/01/24 I am a: Patient What is your living situation today?: I have a steady place to live Within the past 12 months, did the food you bought not last and you didn't have the money to get more?: Never true Within the past 12 months, did you worry whether your food would run out before you got money to buy more?: Never true Do you have trouble paying for medicines?: No Do you have trouble getting transportation to medical appointments?: No Do you have trouble paying your heating and electricity bill?: No Do you have trouble taking care of your child, family member or friend?: No Do you have trouble with day-to-day activities such as bathing, preparing meals, shopping, managing finances, etc.?: No Are you currently unemployed and looking for a job?: No Are you interested in more education?: No Currently or been in a relationship where the following occur: No concerns reported THRIVE Score: 0 AUDIT C Alcohol Use Questionnaire (AUDIT-C) 1. How often do you have a drink containing alcohol?: Never Total Score: 0 YOU-7 AMB Questionnaire YOU-7 Date YOU - 7 assessed: 11/01/24 Feeling nervous, anxious, or on edge: 1 = Several days Not being able to stop or control worryin = Several days Worrying too much about different things: 1 = Several days Trouble relaxin = More than half the days Being so restless that it is hard to sit still: 1 = Several days Becoming easily annoyed or irritable: 3 = Nearly every day Feeling afraid as if something awful might happen: 1 = Several days Total YOU-7 score (0-4 normal; 5-9 mild; 10-14 moderate; 15-21 severe): 10 Source: Developed by Drs. Desmond Bowman, Ban Hurtado, Blas Sanchez and colleagues, with an educational hammad from [employer]. Review of Systems Const Denies body aches, Denies chills, Denies fever(s) and Denies poor appetite Card Denies chest pain, Denies syncope, Denies edema, Denies irregular heart rhythm, Denies lightheadedness and Denies dyspnea Resp Denies cough and Denies dyspnea GI Denies abdominal pain, Denies constipation, Denies diarrhea, Denies nausea and Denies vomiting Reports no additional complaints Musc Reports no additional complaints and Denies abnormal gait Skin/Breast Reports system reviewed and no additional complaints, except as documented Neuro Denies abnormal gait and Denies syncope Psych Reports no additional complaints Endo Details: Weight gain, fatigue Physical exam (Primary Care) Vital Signs: Last Vital Signs BP 120/72 11/01/24 10:51 BMI result Body Mass Index 54.7 Tobacco/Smoking Status: Tobacco use Status Tobacco use date assessed 11/01/24 11/01/24 10:58 Patient Tobacco Use Status Never used Tobacco 11/01/24 10:58 e-Cigarette/Vaping Use Never Used 11/01/24 10:58 PHQ-9: PHQ-9 Score PHQ-9: Total score 0 11/01/24 11:10 Depression Screening Interpretation: Negative Thrive Assessment: Date of Thrive Assessment Date Thrive assessed 11/01/24 11/01/24 10:58 Currently or been in a relationship where the following occur: No concerns reported Const Other: Patient having central obesity with thin extremities General: cooperative, healthy appearing, comfortable and no acute distress Orientation/consciousness: patient oriented x3 HENMT Head: Yes normocephalic Ears: hearing grossly normal bilaterally General nose exam: Normal external nose present Eyes General: appearance normal, both eyes and all related structures Conjunctivae: conjunctivae normal Neck Neck: Yes full ROM and Yes no lymphadenopathy Resp Effort & Inspection: normal respiratory effort Auscultation: clear to auscultation bilaterally, no crackles, no rales, no rhonchi and no wheezes Cardio Rate: regular rate Rhythm: regular rhythm Skin General skin exam: no rashes or lesions noted Neuro General: patient oriented x3 Gait exam (Neuro): Normal gait present Extrem General: Yes normal to inspection, Yes full ROM and No edema Psych Affect: normal affect Attitude: cooperative Insight: Good insight present (Psych) Judgement: Good judgement present (Psych) Coding Level of Care Code Est Pt Level 4 (37429) Diagnoses Morbid obesity with BMI of 50.0-59.9, adult E66.01; Z68.43 Hypersomnolence G47.10 Bipolar depression F31.9 IgA nephropathy determined by biopsy of kidney N02.B9 Assessment & Plan Assessment & Plan (1) Morbid obesity with BMI of 50.0-59.9, adult: Code(s): E66.01 - Morbid (severe) obesity due to excess calories; Z68.43 - Body mass index [BMI] 50.0-59.9, adult Category: Medical Plan: Healthy diet and regular exercise is encouraged. Likely related to large amounts of steroids she has been taking over the last several years. She is requesting weight loss injections such as Wegovy or Ozempic advised to discuss with film and video graphics designer in ordered for updated blood work. I did primary counselor patient on this medication and as long as approved by Nephrology we will send a prescription. Referral placed to nutrition as well. (2) Hypersomnolence: Code(s): G47.10 - Hypersomnia, unspecified Category: Medical Plan: Patient having hypersomnolence and we will occasionally find herself choking at night. Ordered for home sleep study and encouraged weight loss. Also ordered for updated blood work. (3) Bipolar depression: Code(s): F31.9 - Bipolar disorder, unspecified Category: Medical Plan: Currently following with counselor and psychiatrist for management of depression and anxiety. (4) IgA nephropathy determined by biopsy of kidney: Code(s): N02.B9 - Other recurrent and persistent immunoglobulin A nephropathy Category: Medical Plan: Continue to follow with Nephrology currently on prednisone. I did discuss with patient that many of her symptoms may be related to the excessive amounts of steroids and likely symptoms will not improve completely until off of steroid. Ordered for blood work. Continue to follow with Nephrology Plan This note was constructed using voice recognition software. While every effort has been made to ensure accuracy and sash maker, still areas may have been included sometimes these areas may affect the content or meeting of the given symptoms. Total time spent caring for the patient today was 30 minutes. This includes time spent before the visit reviewing the chart, time spent during the visit, and time spent after the visit and documentation. Orders: Orders RT home sleep study Today G47.10 - Hypersomnia, unspecified Free T4 (Free Thyroxine) Today G47.10 - Hypersomnia, unspecified, Z00.00 - Encounter for general adult medical examination without abnormal findings Cortisol Random Today E66.01 - Morbid (severe) obesity due to excess calories, Z68.43 - Body mass index [BMI] 50.0-59.9, adult TSH reflex Free T4 Today G47.10 - Hypersomnia, unspecified, Z00.00 - Encounter for general adult medical examination without abnormal findings Hemoglobin A1c Today E11.65 - Type 2 diabetes mellitus with hyperglycemia, E66.01 - Morbid (severe) obesity due to excess calories, Z68.43 - Body mass index [BMI] 50.0-59.9, adult Comprehensive Met. Panel Today E66.01 - Morbid (severe) obesity due to excess calories, Z00.00 - Encounter for general adult medical examination without abnormal findings, Z68.43 - Body mass index [BMI] 50.0-59.9, adult Referrals Medical Nutrition Therapy Referral E66.01 - Morbid (severe) obesity due to excess calories, Z68.43 - Body mass index [BMI] 50.0-59.9, adult
[2024-11-01 10:51] VITALS: BP 120/72; BMI 54.7
== END 2024-11-01 11:34 | disposition home or self-care (01) ==
PROVIDERS: PCP Internal Medicine
DX: E66.01 Morbid (severe) obesity due to excess calories (principal); Z68.43 Body mass index [BMI] 50.0-59.9, adult; G47.10 Hypersomnia, unspecified; F31.9 Bipolar disorder, unspecified; N02.B9 Other recurrent and persistent immunoglobulin A nephropathy

== ENCOUNTER → 2024-11-01 10:27 | Outpatient (BNVA) | payer OTHER, SELFPAY | PROVIDERS: PCP Internal Medicine | DX: N02.B9 Other recurrent and persistent immunoglobulin A nephropathy (principal); R80.8 Other proteinuria; B00.9 Herpesviral infection, unspecified; F41.9 Anxiety disorder, unspecified; J45.909 Unspecified asthma, uncomplicated; G47.10 Hypersomnia, unspecified; F31.9 Bipolar disorder, unspecified; E66.01 Morbid (severe) obesity due to excess calories; Z68.43 Body mass index [BMI] 50.0-59.9, adult | CPT/HCPCS: 99212 ==

== ENCOUNTER 2024-11-01 15:36 | Outpatient (AMB) | payer OTHER, SELFPAY ==
--- NOTE | 2024-11-01 15:40 | HO.NEPHOV ---
Vital Signs 11/01/24 15:42 Height 5 ft 4 in Weight 318 lb BMI 54.6 BP 110/60 Blood Pressure Location Rt brachial Position Sitting Intake Visit Reasons: Oct follow up/ Conf Medical Office Supervisor Required: No Accompanied by: Mother Allergies No Known Allergies [No Known Allergies*] Allergy (Verified 11/01/24 15:42) HPI Comments Details: 23-year-old female who had joint pains, abdominal pain, and vasculitic rash with proteinuria. 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 She had been on PO prednisone, ACEI and supportive care. She had been getting 500 mg IV cytoxan Q 2 weeks( altogether 6 doses given). She denies any fevers, chills, chest pain, shortness of breath, dysuria, hematuria, urinary frequency or urgency. She has history of genital herpes and usually take Valcyclovir. Her serum creatinine is at baseline now. She is on ACEI. She is on diuretics and her edema has improved. She was accompanied by her mom during this visit 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 Morbid obesity with BMI of 40.0-44.9, adult Recurrent epistaxis Proteinuria Anxiety Bipolar depression Elevated d-dimer Asthma Obesity Surgical History History of biopsy Hx of adenoidectomy History of surgery Hx of tonsillectomy Family History Mother No known health problems Father No known health problems Other Mental health disorder Substance use disorder Social History Housing: Apartment Alcohol intake: current Alcohol intake frequency: does not drink Comment: medicated prior to discharge Patient Tobacco Use Status: Never used Tobacco e-Cigarette/Vaping Use: Never Used Second Hand Smoke Exposure: No Substance Use Type: Marijuana service: No Current occupational status: student Cognitive needs: No Hearing needs: No Vision needs: No Review of Systems Const All systems reviewed & are unremarkable except as noted in HPI and below Physical Exam Vital Signs: Last Vital Signs BP 110/60 11/01/24 15:42 BMI result Body Mass Index 54.6 Const General: comfortable and no acute distress Orientation/consciousness: patient oriented x3 HEENT Head: Yes normocephalic Mouth: Normal oral and palatal mucosa present Eyes EOM: EOMs intact bilaterally Neck Neck: Yes supple Resp Auscultation: clear to auscultation bilaterally Cardio Jugular venous distension: no JVD Rate: regular rate GI Palpation (GI): Soft to palpation Auscultation: normal bowel sounds General: Yes no CVA tenderness Back/Spine/Pelvis Back: no CVA tenderness Skin General skin exam: no rashes or lesions noted Neuro General: patient oriented x3 and moves all extremities Extrem General: Yes no pedal edema Results Reviewed Nephrology Results: Hgb 13.0 g/dl (12.0-16.0) 10/22/24 WBC 14.4 X10*3/uL (4.8-10.8) H 10/22/24 Plt Count 214 X10*3/uL (160-400) 10/22/24 Sodium 139 mmol/L (135-145) 10/22/24 Potassium 3.6 mmol/L (3.3-5.1) 10/22/24 Chloride 105 mmol/L (96-108) 10/22/24 Carbon Dioxide 23 mmol/L (22-29) 10/22/24 BUN 13 mg/dL (9-16) 10/22/24 Creatinine 0.81 mg/dL (0.5-1.4) 10/22/24 Calcium 8.3 mg/dL (8.4-10.2) L 10/22/24 Phosphorus 3.4 mg/dL (2.7-4.5) 05/19/24 Assessment & Plan Assessment & Plan (1) IgA nephropathy determined by biopsy of kidney: Code(s): N02.B9 - Other recurrent and persistent immunoglobulin A nephropathy Category: Medical (2) Proteinuria: Code(s): R80.9 - Proteinuria, unspecified Category: Medical Qualifiers: Proteinuria type: other Qualified Code(s): R80.8 - Other proteinuria Plan Blanche has glomerular proteinuria. She has H/O vasculitic rash with microscopic hematuria and abdominal pain. 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 She is currently on prednisone, which I asked to reduce to 15 mg daily. She was given cytoxan IV 500 mg twice a month for 3 months. She will be started on maintenance immunosuppression soon. She has been having emotional lability on prednisone. She should continue on Bumex 0.5 mg daily. C/W lisinopril to 20 mg bid. She will need Sparsentan and FABHALTA in the future. She is on PPI. I started her on Jardiance 5 mg daily. She is taking calcium and Vitamin D. She was also seen by Gynae. Follow-up labs ordered .F/U given. Answered all questions Orders: Orders Electrolytes 2 Months N02.B9 - Other recurrent and persistent immunoglobulin A nephropathy Creatinine 2 Months N02.B9 - Other recurrent and persistent immunoglobulin A nephropathy Blood Urea Nitrogen 2 Months N02.B9 - Other recurrent and persistent immunoglobulin A nephropathy Albumin Level 2 Months N02.B9 - Other recurrent and persistent immunoglobulin A nephropathy Medications: New empagliflozin (Jardiance) 5 mg (1/2 x 10 mg) PO DAILY 30 days 15 tabs 4RF Coding Level of Care Code Est Pt Level 4 (12309) Diagnoses IgA nephropathy determined by biopsy of kidney N02.B9 Other proteinuria R80.8 Proteinuria type: other
[2024-11-01 15:42] VITALS: BP 110/60; BMI 54.6
== END 2024-11-01 16:13 | disposition home or self-care (01) ==
PROVIDERS: PCP Internal Medicine; Visit Provider Internal Medicine Nephrology
DX: N02.B9 Other recurrent and persistent immunoglobulin A nephropathy (principal); R80.8 Other proteinuria
CPT/HCPCS: 99214

== ENCOUNTER 2024-12-16 10:25 | Outpatient (REF) | payer OTHER, SELFPAY ==
[2024-12-16 11:02] LABS: MANUAL DIFF FLAG NO
--- OUTSIDE RECORDS SUMMARY | 2024-12-16 11:35 | XMS_ITS | Encounter Summary ---
Author Organization [facility] Address [address] [place] [address] Care Team Providers Care Robotics Systems Engineer Name Role Phone Community, Pcp Primary Care Provider Unavailabl e Reason for Visit * Reason Comments E-prescribe Rx Request Encounter Details Date Type Department Care Team Description 09/29/2020 Refill OBGYN - [facility] [address], [place] [id number] Federica Shah DO E-prescribe Rx Request Social History Tobacco Use Types Packs/Day Years Used Date Smoking Tobacco: Former Cigarettes Q uit: 04/2017 Smokeless Tobacco: Never Alcohol Use Standard Drinks/Week Comments No 0 (1 standard drink = 0.6 oz pur e alcohol) Ocassional Sex Assigned at Date Recorded Not on file documented as of this encounter Miscellaneous Notes * Telephone Encounter - Ani Romo R.N. - 09/29/2020 3:41 PM EST Pt needs to schedule annual exam before refills given. Valtrex at this time denied (looks like she will need refill on patch soon too). * Telephone Encounter - Zeina Marsh - 09/29/2020 3:20 PM EST WHEN WAS THE PATIENTS LAST ANNUAL ADJUSTMENT EXAMINER EXAM? 09/01/19 problem Does patient have an upcoming appointment? [facility] (THE MEDICATION REQUESTED IS ON THE MED LIST ABOVE) Did you check the Pharmacy information above?: YES Indicate how soon the patient needs the script: BY THE END OF THE DAY Patient would like script to be: E-PRESCRIBED/FAXED TO PHARMACY Is the doctor here today?: NO Can the message wait until the doctor returns?: NO Has the patient been told that the prescription will not be filled until the end of the day? NO Pay[place] / [place] / Product Type: MEDICAID [id number] documented in this encounter Plan of Treatment Not on file documented as of this encounter Visit Diagnoses Diagnosis HSV-2 infection Herpes simplex without mention of complication documented in this encounter Care Teams Robotics Systems Engineer Relationship Specialty Start Date End Date Community, Pcp PCP - General Internal Medicine 09/09/17 documented as of this encounter
--- OUTSIDE RECORDS SUMMARY | 2024-12-16 11:35 | XMS_ITS | Encounter Summary ---
Author Organization [facility] Address [address] [place] [address] Care Team Providers Care Moisture Meter Reader Name Role Phone Community, Pcp Primary Care Provider Unavailabl e Encounter Details Date Type Department Care Team Description 05/27/2018 Pt. Non Urgent Medic al Question OBGYN - [facility] [address] [place] [address] Berto Esqueda CNM Social History Tobacco Use Types Packs/Day Years Used Date Smoking Tobacco: Former Cigarettes Q uit: 04/2017 Smokeless Tobacco: Never Alcohol Use Standard Drinks/Week Comments No 0 (1 standard drink = 0.6 oz pure alcohol) 1 per month prior to , none since +hpt Sex Assigned at Date Recorded Not on file documented as of this encounter Plan of Treatment Not on file documented as of this encounter Visit Diagnoses Not on filedocumented in this encounter Care Teams Moisture Meter Reader Relationship Specialty Start Date End Date Community, Pcp PCP - General Internal Medicine 09/09/17 documented as of this encounter
--- OUTSIDE RECORDS SUMMARY | 2024-12-16 11:35 | XMS_ITS | Encounter Summary ---
Author Organization [facility] Address [address] [place] [address] Care Team Providers Care Director Chemistry Name Role Phone Community, Pcp Primary Care Provider Unavailabl e Reason for Visit * Reason Onset Date Comments Iud Insertion 05/25/2018 Encounter Details Date Type Department Care Team Description 05/25/2018 Telephone OBGYN - [facility] [address] [place], [place] [id number] Berto Esqueda CNM Iud Insertion Social History Tobacco Use Types Packs/Day Years Used Date Smoking Tobacco: Former Cigarettes Q uit: 04/2017 Smokeless Tobacco: Never Alcohol Use Standard Drinks/Week Comments No 0 (1 standard drink = 0.6 oz pure alcohol) 1 per month prior to , none since +hpt Sex Assigned at Date Recorded Not on file documented as of this encounter Miscellaneous Notes * Telephone Encounter - ROSALINA Castillo, DEION - 05/25/2018 5:03 PM EDT That appt is appropriate * Telephone Encounter - Gloria Marin - 05/25/2018 4:55 PM EDT Chief Complaint/problem: Pt states Berto said that she could schedule her Mirena IUD (booked for 06/26/18); she was seen today, but her post is not until 06/10/18. There was nothing in check out notes for me to verify. Is this ok? How long has the patient had this problem? Pt???s NUCLEAR STATION OPERATOR provider: Berto Esqueda CNM Last menstrual period (LMP) or EDC (due date): N/A documented in this encounter Plan of Treatment Not on file documented as of this encounter Visit Diagnoses Not on filedocumented in this encounter Care Teams Director Chemistry Relationship Specialty Start Date End Date Community, Pcp PCP - General Internal Medicine 09/09/17 documented as of this encounter
--- OUTSIDE RECORDS SUMMARY | 2024-12-16 11:35 | XMS_ITS | Encounter Summary ---
Author Organization [facility] Address [address] [place] [address] Care Team Providers Care Engine Assembly Supervisor Name Role Phone Community, Pcp Primary Care Provider Unavailabl e Encounter Details Date Type Department Care Team Description 10/14/2017 Zika Virus Medical Records [address] [place] [address] Abstract, Provider Social History Tobacco Use Types Packs/Day Years [...] on filedocumented in this encounter Care Teams Engine Assembly Supervisor Relationship Specialty Start Date End Date Community, Pcp PCP - General Internal Medicine 09/09/17 documented as of this encounter
--- OUTSIDE RECORDS SUMMARY | 2024-12-16 11:35 | XMS_ITS | Encounter Summary ---
Author Organization [facility] Address [address] [place] [address] Care Team Providers Care Night Shift Supervisor Name Role Phone Community, Pcp Primary Care Provider Unavailabl e Reason for Visit * Reason Onset Date Comments 07/23/2021 Encounter Details Date Type Department Care Team Description 07/23/2021 Telephone OBGYN - [place] [address] [place], [place] [id number] Johny Willis MD [address] [place], [place] [id number] Social History Tobacco Use Types Packs/Day Years Used Date Smoking Tobacco: Former Cigarettes Q uit: 04/2017 Smokeless Tobacco: Never Alcohol Use Standard Drinks/Week Comments No 0 (1 standard drink = 0.6 oz pur e alcohol) Ocassional Sex Assigned at Date Recorded Not on file documented as of this encounter Miscellaneous Notes * Telephone Encounter - Flaca Ceballos R.N. - 07/25/2021 3:31 PM EDT Unable to Contact letter sent. * Telephone Encounter - Flaca Ceballos R.N. - 07/24/2021 9:50 AM EDT Call to patient: NADEGE left with request for callback. Should patient call back: please schedule earliest MD appt available at any site. * Telephone Encounter - Flaca Ceballos R.N. - 07/23/2021 4:48 PM EDT Return call to patient: VM left to contact office @[phone]. There is availability to be scheduled with an MD at the [facility] office on 07/26/21 and to call back as soon as possible to schedule this appointment with an MD. Should patient call back; ok to schedule with Dr. Shah on 07/26 in one of the 'amarilis' slots. * Telephone Encounter - Shanti Garcia - 07/23/2021 3:22 PM EDT Pt upset went to [place] today and was told she could not be seen today and needs to be seen withand MD. Pt requesting appt for this week. No open availabilty at any location with an MD. Saw Dr Shah has appts but are blocked for SUPERINTENDENT MAINTENANCE appt? Pt while on IUD and wants to speak with the nurse. documented in this encounter Plan of Treatment Not on file documented as of this encounter Visit Diagnoses Not on filedocumented in this encounter Care Teams Night Shift Supervisor Relationship Specialty Start Date End Date Community, Pcp PCP - General Internal Medicine 09/09/17 documented as of this encounter
--- OUTSIDE RECORDS SUMMARY | 2024-12-16 11:35 | XMS_ITS | Clinical Summary ---
Author Organization [facility] Facility Address [address] [place] [id number] Care Team Providers Care Insole And Heel Stiffener Name Role Phone Cedric Bingham MD Primary Care Provider [phone] Social History Tobacco Use Types Packs/Day Years Used Date Smoking Tobacco: Never Assessed Comments Unknown Sex and Gender Information Value Date Recorded Sex Assigned at Not on file Legal Sex Female 2:52 PM EDT Gender Identity Not on file Sexual Orientation Not on file Plan of Treatment Health Maintenance Due Date Last Done Comments Pneumococcal Vaccine: Pediat rics (0 to 5 Years) and At-Risk Patients (6 to 64 Years) (1 of 2 - PCV) 2004 Hepatitis B Vaccine (1 of 3 - 19+ 3-dose series) 11/25 Influenza Vaccine (#1) 2024 Insurance [facility] [place] [address] Care Teams Insole And Heel Stiffener Relationship Specialty Start Date End Date Cedric Bingham MD [address] [place] [address] PCP - General Internal Medicine 03/27/24
--- OUTSIDE RECORDS SUMMARY | 2024-12-16 11:35 | XMS_ITS | Clinical Summary ---
Author Organization [facility] Address [address] [place] [address] Care Team Providers Care Hospital Product Specialist Name Role Phone Unavailable Primary Care Provider Unavailabl e Surgical History Surgery Date Site/Laterality Comments TONSILLECTOMY PROCEDURE: HISTORICAL TONSILLECTOMY ADENOIDECTOMY PROCEDURE: HISTORICAL ADENOIDECTOMY WISDOM TOOTH EXTRACTION PROCEDURE: HISTORICAL WISDOM TEETH EXTRACTION OTHER SURGICAL HISTORY PROCEDURE: HISTORICAL D&C; COMMENT: TAB Medical History Medical History Date Comments HSV-2 (herpes simplex virus 2) infection DX:HSV-2 (herpes simplex virus 2) infection Menorrhagia DX:Menorrhagia Bipolar disorder (CMS/[facility]) DX:Bi polar disorder ([facility]); COMMENT: on lamictal, prescribed by her psychiatrist. Depression with anxiety DX:Depre ssion with anxiety; COMMENT: on Celexa prescribed by her psychiatrist Morbid obesity (CMS/[facility]) DX:Morb id obesity ([facility]) Family History Medical History Relation Name Comments No Known Problems Father Other: Other Maternal Grandfather states young from surgery-developed blood clots Depression Maternal Grandmother No Known Problems Mother No Known Problems Paternal Grandfather Arthritis Paternal Grandmother Breast cancer Neg Hx Colon cancer Neg Hx Ovarian cancer Neg Hx Relation Name Status Comments Father Alive Maternal Grandfather Maternal Grandmother Alive Mother Alive Paternal Grandfather Alive Paternal Grandmother Alive Social History Tobacco Use Types Packs/Day Years Used Date Smoking Tobacco: Former Cigarettes Q uit: 04/26/2017 Smokeless Tobacco: Never Alcohol Use Standard Drinks/Week Comments No 0 (1 standard drink = 0.6 oz pur e alcohol) Comments Unknown Sex and Gender Information Value Date Recorded Sex Assigned at Not on file Legal Sex Female 1:24 PM EST Gender Identity Not on file Sexual Orientation Not on file Obstetrics History Plan of Treatment Health Maintenance Due Date Last Done Comments HPV Vaccines (1 - 3-dose series) 2013 Hepatitis B Vaccines (1 of 3 - 19+ 3-dose series) 2017 Cervical Cancer Screening: P ap Smear 2019 COVID-19 Vaccine (1 - 2023-2 5 season) 2024 Influenza Vaccine (#1) 2024 DTaP,Tdap,and Td Vaccines (2 - Td or Tdap) 02/13/2028 02/12/2018 HIB Vaccines Aged Out No longer eligi ble based on patient's age to complete this topic Hepatitis A Vaccines Aged Out No long er eligible based on patient's age to complete this topic IPV Vaccines Aged Out No longer eligi ble based on patient's age to complete this topic MMR Vaccines Aged Out No longer eligi ble based on patient's age to complete this topic Meningococcal ACWY Vaccine Aged Out N o longer eligible based on patient's age to complete this topic Meningococcal B Vacine Aged Out No lo nger eligible based on patient's age to complete this topic Pneumococcal Vaccine: Pediat rics (0 to 5 Years) and At-Risk Patients (6 to 64 Years) Aged Out No longer eligi ble based on patient's age to complete this topic RSV Immunization Patients Un zev 20 months Aged Out No longer eligible b ased on patient's age to complete this topic Varicella Vaccines Aged Out No longer eligible based on patient's age to complete this topic
--- OUTSIDE RECORDS SUMMARY | 2024-12-16 11:35 | XMS_ITS | Encounter Summary ---
Author Organization [facility] Address [address] [place] [address] Care Team Providers Care Patient Escort Name Role Phone Community, Pcp Primary Care Provider Unavailabl e Reason for Visit * Reason Onset Date Comments REFERRAL 03/27/2018 Encounter Details Date Type Department Care Team Description 03/27/2018 Telephone OBGYN - [place] [address] [place], [place] [phone] Adri Betancourt CNM REFERRAL Social History Tobacco Use Types Packs/Day Years Used Date Smoking Tobacco: Former Cigarettes Q uit: 04/2017 Smokeless Tobacco: Never Alcohol Use Standard Drinks/Week Comments No 0 (1 standard drink = 0.6 oz pure alcohol) 1 per month prior to , none since +hpt Sex Assigned at Date Recorded Not on file documented as of this encounter Miscellaneous Notes * Telephone Encounter - Aleida Jefferson M.A. - 03/31/2018 1:57 PM EDT Left message for patient. Spoke with Flores at [facility], Dr. Og states that patient does not need any follow up, had sufficient follow up at [facility]. [facility] * Telephone Encounter - Aleida Jefferson M.A. - 03/30/2018 12:44 PM EDT Tried to call patient. Phone number states 'call can not be completed as dialed'. Referral and episode faxed again. CMB * Telephone Encounter - Diamond Michelle - 03/30/2018 11:32 AM EDT Patient called [facility] told her they did not receive the referral ,she is upset and wants this done SHANE * Telephone Encounter - Diamond Michelle - 03/30/2018 11:07 AM EDT Patient called to check status of this * Telephone Encounter - Razia Li M.A. - 03/27/2018 10:11 AM EDT Order for Level 2 faxed, waiting on response-MO documented in this encounter Plan of Treatment Not on file documented as of this encounter Visit Diagnoses Not on filedocumented in this encounter Care Teams Patient Escort Relationship Specialty Start Date End Date Community, Pcp PCP - General Internal Medicine 09/09/17 documented as of this encounter
--- OUTSIDE RECORDS SUMMARY | 2024-12-16 11:35 | XMS_ITS | Encounter Summary ---
Author Organization [facility] Address [address] [place] [address] Care Team Providers Care Cruise Counselor Name Role Phone Community, Pcp Primary Care Provider Unavailabl e Reason for Visit * Reason Onset Date Comments Medication 04/12/2020 Encounter Details Date Type Department Care Team Description 04/12/2020 Telephone OBGYN - [address] [address] Federica Shah, Medication Social History Tobacco Use Types Packs/Day Years Used Date Smoking Tobacco: Former Cigarettes Q uit: 04/2017 Smokeless Tobacco: Never Alcohol Use Standard Drinks/Week Comments No 0 (1 standard drink = 0.6 oz pur e alcohol) Ocassional Sex Assigned at Date Recorded Not on file documented as of this encounter Miscellaneous Notes * Telephone Encounter - Ani Romo R.N. - 04/12/2020 1:56 PM EDT Spoke with pt. She is calling asking to switch back to the control patch (was originally prescribed this in Aug). She states that she never started on the control pills prescribed by Myrna Ribera CNM in October. [facility]. States she gained 20lbs since then and never wants to do shot again. Of note, pt has not had annual exam or pap smear yet - she was advised to schedule this but is unable to schedule at this time as her child just fell and hit head. To Myrna Ribera CNM to review and approve - how many refills do you want her to have? * Telephone Encounter - Ani Romo R.N. - 04/12/2020 1:10 PM EDT Message left for patient to return call to triage. Pt was started on Xulane patch in August by . In October this was switched to Tivlad Ribera [facility]. * Telephone Encounter - Ratna Shipley - 04/12/2020 12:24 PM EDT Chief Complaint/problem: Patient would like to speak to nurse - she would like to switch from her control pills to the patch - questions How long has the patient had this problem? - Pt???s SAP DATA ARCHITECT provider: Federica Shah, DO Last menstrual period (LMP) or EDC (due date): N/A documented in this encounter Plan of Treatment Not on file documented as of this encounter Visit Diagnoses Not on filedocumented in this encounter Care Teams Cruise Counselor Relationship Specialty Start Date End Date Community, Pcp PCP - General Internal Medicine 09/09/17 documented as of this encounter
--- OUTSIDE RECORDS SUMMARY | 2024-12-16 11:35 | XMS_ITS | Data Portability ---
Author Organization DAYNA White s, [address] Address [address] [place] [address] Assessment No assessment recorded. Plan of Treatment Reminders Order Date Submit Date Provider Last Modified By Organization Details Last Modified Time Details Appointments None recorded. Lab chlamydia trachomatis + neisseria gonorrhoeae + trichomonas vaginalis DNA panel, HAFSA+probe, unspecified specimen 2023 024 [facility] ([place] [place], [address], 4 20:06:24 SARS CoV 2 (COVID-19) Ag, QL, IA, upper respiratory specimen 2023 024 [email or web address] 20999[facility], [address] [place] [address], [address], 4 11:15:54 rapid strep group A, throat 2023 024 [email or web address] _[facility], [address] [place] [address], [address], 4 11:15:51 culture, respiratory 2023 024 [facility]), [facility] [place], [address], 4 06:06:29 Referral emergency medicine referral 2022 023 [email or web address] Not available 3 20:08:47 Procedures None recorded. Surgeries None recorded. Imaging XR, hand, 3 or more view 2022 023 [facility] [address] [facility] [place], [address], 21:38:21 Medication Orders Valtrex 1 gram tablet 2023 024 [email or web address] [facility]acy #[id number], [address] [place], [address], 4 11:28:08 prednisone 20 mg tablet 2023 024 [email or web address] [facility]/Pharmacy #[id number], [address] [place], [address], 4 10:52:53 albuterol sulfate 2.5 mg/3 mL (0.083 %) solution for nebulizatio n 2023 024 [id number] [address] [place], [address], 11:32:09 Patient TargetsNo targets recorded. Patient Instructions Encounter Date Encounter Id Patient Instructions Last Modified By Organization Details Last Modified Time 10/28/2022 [id number] learning about rice (rest, ice, compression, and elevation) [email or web address] Not available 10/28/2022 19:49:42 You have a fracture of your right 5th metacarpal with angulation that requires reduction. You have been advised to go now to the Emergency Department for further evaluation. [facility] has been advised of your impending arrival. [email or web address] Not available 10/28/2022 20:05:50 12/05/2023 [id number] sore throat: car e instructions [email or web address] Not available 12/05/2023 11:15:51 Reason for Referral Emergency Medicine Referral for Closed fracture of fifth metacarpal bone of right hand Referring Physician: Dilia Cardenas, Urgent Care, Encounter Date: 10/28/2022 Results Created Date Observation Date Name Description Value Unit Range Abnormal Flag Note LastModifiedBy Organization Detail LastModifiedTime 12/05/19 24 12/07/2023 CT, NG, TRICH VAG BY HAFSA chlamydia by HAFSA NEGATI VE negati ve Not Available [facility] ([facility]) [address] [place], [address], 12/07/2023 20:06:24 12/05/19 24 12/07/2023 CT, NG, TRICH VAG BY HAFSA gonococcus by HAFSA NEGATI VE negati ve Not Available [facility] ([facility]) [address] [place], [address], 12/07/2023 20:06:24 12/05/19 24 12/07/2023 CT, NG, TRICH VAG BY HAFSA trich vag by HAFSA NEGATI VE negati ve Not Available [facility] ([facility]) [address] [place], [address], 12/07/2023 20:06:24 12/05/19 24 12/08/2023 UPPER RESPI RATOR Y CULTU RE upper respiratory culture FINAL REPORT Not Available [facility] ([facility]) [address] [place], [address], 12/08/2023 14:06:02 12/05/19 24 12/08/2023 UPPER RESPI RATOR Y CULTU RE result 1 COMMEN T Routi ne respi rator y katherin Not Available [facility] ([facility]) [address] [place], [address], 12/08/2023 14:06:02 12/05/19 24 12/05/2023 rapid strep group A, throa t Unknown Analyte negati ve Not Available [facility] [place] [address], [address], 12/05/2023 10:53:59 12/05/19 24 12/05/2023 SARS CoV 2 (COVI D-19) Ag, QL, IA, upper respi rator y speci men Unknown Analyte negati ve Not Available roman yr [address], [place], [address], 12/05/2023 10:53:37 10/28/19 23 10/28/2022 XR, hand, 3 or more view No observ ation record ed. [email or web address] [facility] [address] [facility], [place], [address], 10/29/2022 08:27:08 Result Notes None recorded. Problems Name Problem SNOMED Code Status Onset Date Resolution Date Notes Provider Name and Address Organization Details Recorded Time Anxiety 45045714 Active 2022 Keyanaethan Young null, PA - [facility] 3 18:47:36 Depressive disorder 09340129 Active 2022 Keyana Young null, PA - [facility] 3 18:47:42 Bipolar disorder 66401319 Active 2022 Keyanaethan Young null, PA - [facility] 3 18:48:10 Attention deficit hyperactivity disorder 909633167 Active 2022 Keyanaethan Young null, PA - [facility] 3 18:48:17 Herpes simplex 03322286 Active 2022 Keyanaethan Young null, PA - [facility] 3 18:48:25 Asthma 860762056 Active 2023 JAQUI YOUNGBLOOD null, PA - [facility] 4 11:16:58 Sore throat 209557525 Active 2023 JAQUI YOUNGBLOOD null, PA - [facility] 4 10:53:43 Problem Notes None recorded. Procedures Surgical History Date Name Laterality Status Provider Name and Address Organization Details Recorded Time Remove tonsils and adenoids completed Keyana Young PA - [facility] 10/28/2022 18:48:52 operation for retained placenta completed Keyana Young PA - [facility] 10/28/2022 18:49:00 Imaging Results Imaging Date Name Status LastModified by Organiz ation Details LastModified Time 10/28/2022 XR, hand, 3 or more view completed [email or web address] [facility] [address] [facility] [place], [address], 10/29/2022 08:27:08 Procedure Notes None recorded. Medical Equipment None Reported. Allergies No known drug allergies Medications Name Sig Start Date Stop Date Status Note LastModified by Organization Details LastModified Time lamotrigine 150 mg tablet TAKE 1 TABLET BY MOUTH TWICE DAILY active Not Available Not Available No t Available albuterol sulfate 2.5 mg/3 mL (0.083 %) solution for nebulizatio n INHALE 3 ML 3 TIMES A DAY BY NEBULIZAT ION ROUTE FOR 90 DAYS. active Not Available Not Available No t Available citalopram 40 mg tablet TAKE 1 TABLET BY MOUTH EVERY DAY active Not Available Not Available No t Available fluconazole 150 mg tablet TAKE 1 TABLET BY MOUTH 1 TIME. REPEAT DOSE IN 72 HOURS active Not Available Not Available No t Available valacyclovi r 1 gram tablet Take 1 tablet every 12 hours by oral route for 7 days. active Not Available Not Available No t Available albuterol sulfate 1.25 mg/3 mL solution for nebulizatio n Inhale 3 mL 3 times a day by inhalatio n route. active Not Available Not Available No t Available prednisone 20 mg tablet TAKE 3 TABS A DAY FOR 3 DAYS, THEN 2 TABS A DAY FOR 3 DAYS, THEN 1 TAB A DAY FOR 3 DAYS 12/05 completed Not Available Not Available Not Available Noritate 1 % topical cream active Not Available Not Available Not Available metronidazo le 500 mg tablet TAKE 1 TABLET BY MOUTH EVERY 8 HOURS FOR 7 DAYS active Not Available Not Available No t Available lidocaine HCl 2 % mucosal jelly active Not Available Not Available Not Available valacyclovi r 500 mg tablet TAKE 1 TABLET BY MOUTH EVERY DAY active Not Available Not Available No t Available acyclovir 800 mg tablet TAKE 1 TABLET BY MOUTH 3 TIMES A DAY FOR 2 DAYS active Not Available Not Available No t Available amoxicillin 875 mg tablet TAKE 1 TABLET BY MOUTH TWICE A DAY FOR 10 DAYS active Not Available Not Available No t Available citalopram 20 mg tablet TAKE 1 TABLET BY MOUTH EVERY DAY active Not Available Not Available No t Available benzonatate 100 mg capsule TAKE 2 CAPSULES BY MOUTH 2 TO 3 TIMES PER DAY (COUGH) FOR 5 DAYS 12/05 completed Not Available Not Available Not Available polymyxin B sulfate 10,000 unit-trimet hoprim 1 mg/mL eye drops active Not Available Not Available Not Available clotrimazol e 1 % topical cream APPLY TO AFFECTED AREA TWICE A DAY FOR 14 DAYS active Not Available Not Available No t Available lamotrigine 100 mg tablet TAKE 1 TABLET BY MOUTH EVERY DAY active Not Available Not Available No t Available amoxicillin 875 mg-potassiu m clavulanate 125 mg tablet TAKE 1 TABLET BY MOUTH TWICE A DAY active Not Available Not Available No t Available Ventolin HFA 90 mcg/actuati on aerosol inhaler INHALE 2 PUFFS INTO THE LUNGS 4 TIMES PER DAY (SHORTNES S OF BREATH OR WHEEZING) FOR 14 DAYS active Not Available Not Available No t Available lamotrigine 200 mg daily active Not Available Not Available No t Available prednisone 11/17 completed Not Available Not Available Not Available valacyclovi r active Not Available Not Available Not Available Celexa 40 mg daily active Not Available Not Available No t Available Adderall 10 mg daily active Not Available Not Available No t Available levonorgest rel 1.5 mg tablet 1 TABLET BY MOUTH NEEDED active Not Available Not Available No t Available lidocaine 4 % topical gel Apply to affected area TID as needed 2023 active Not Available Not Available Not Avai lable albuterol 90 mcg-budeson bess 80 mcg/actuati on HFA aerosol inhaler Inhale by inhalatio n route. active Not Available Not Available No t Available Vitals Date Recorded Body height Body mass index (BMI) Body weight Oxygen saturation Oxygen saturation in Arterial blood by Pulse oximetry Heart rate Respiratory rate Body temperature Systolic blood pressure Diastolic blood pressure Provider Name and Address Organization Details Last Updated DateTime 3 165.1 cm 41.6 kg/m2 874280. 09 g 98 % 98 % 84 /min 20 /min 98 [degF] 112 mm[Hg] 80 mm[Hg] Keyana MCINTOSH - [facility] 3 18:49:18 Date Recorded Body height Body mass index (BMI) Body weight Pain severity - 0-10 verbal numeric rating [Score] - Reported Respiratory rate Body temperature Oxygen saturation Oxygen saturation in Arterial blood by Pulse oximetry Heart rate Systolic blood pressure Diastolic blood pressure Provider Name and Address Organization Details Last Updated DateTime 4 165.1 cm 43.3 kg/m2 939939. 02 g 0 18 /min 97.7 [degF] 99 % 99 % 100 /min 124 mm[Hg] 79 mm[Hg] JAQUI RYLIE PA - [facility] 4 11:19:06 Date Recorded Body height Body mass index (BMI) Body weight Pain severity - 0-10 verbal numeric rating [Score] - Reported Respiratory rate Body temperature Oxygen saturation Oxygen saturation in Arterial blood by Pulse oximetry Heart rate Systolic blood pressure Diastolic blood pressure Provider Name and Address Organization Details Last Updated DateTime 4 165.1 cm 43.3 kg/m2 252518. 02 g 3 18 /min 97.3 [degF] 97 % 97 % 66 /min 127 mm[Hg] 84 mm[Hg] JAQUI RYLIE PA - [facility] 4 10:56:13 Social History Question Answer Notes LastModified by Organizat ion Details LastModified Time Tobacco Smoking Status Never Smoker [facility] 10/28/2022 18:48:41 What Is Your Level Of Alcohol Consumption? Occasional Information not available 10/28/2022 Which Illicit Or Recreational Drugs Have You Used? Marijuanna [email or web address] Information not available 10/28/2022 Do You Use Any Illicit Or Recreational Drugs? Yes [email or web address] Information not available 10/28/2022 Have You Recently Traveled Abroad? No Information not available 10/28/2022 Do You Or Have You Ever Used Any Other Forms Of Tobacco Or Nicotine? No [email or web address] Information not available 10/28/2022 Sex: Unknown Functional Status None recorded. Mental Status None recorded. Family History Nothing Reported. Medical History No medical history recorded. Gynecological History Statement/Question Response Date of LMP Is there any chance of ? No Obstetrics History GPAL:G 0 P 0 0 0 0 Immunizations Vaccine Type Date Status Note Provider Nam e and Address Organization Details Recorded Time COVID-19, mRNA, LNP-S, PF, 30 mcg/0.3 mL dose 07/30/2021 completed [facility] 10/28/2022 18:45:03 Tdap 02/12/2018 completed [facility] 10/28/2022 18:45:03 COVID-19, mRNA, LNP-S, PF, 30 mcg/0.3 mL dose 08/23/2021 completed Keyana Young null, PA - [facility] 10/28/2022 18:45:03 Tdap 01/11/2022 completed Keyana Young null, PA - [facility] 10/28/2022 18:45:03 COVID-19, mRNA, LNP-S, bivalent, PF, 30 mcg/0.3 mL dose 10/09/2022 completed Keyana Young null, PA - [facility] 10/28/2022 18:45:03 Past Encounters Encounter ID Performer Location Encounter Start Date Encounter Closed Date Diagnosis/Indication Diagnosis SNOMED-CT Code Diagnosis ICD10 Code Diagnosis Note [id number] [address] [place] [address] 04/26/2020 11:31:06 04/26/2020 12:18:07 [id number] [facility] [address] [place] [address] 04/26/2020 11:30:37 04/26/2020 12:14:15 [id number] [facility] [facility] [address] [place] [address] 03/16/2019 09:58:08 03/16/2019 10:27:00 [id number] [address] [place] [address] 09/30/2018 10:30:44 09/30/2018 12:01:17 [id number] [address] [place] [address] 09/27/2019 09:28:43 09/27/2019 10:12:33 [id number] [address] [place] [address] 10/03/2019 18:39:53 10/03/2019 19:16:21 [id number] [address] [place] [address] 08/07/2017 09:52:15 08/07/2017 10:29:17 [id number] [facility] [address] [facility] [place] [address] 09/30/2019 19:29:47 09/30/2019 20:36:56 [id number] Dilia Cardenas MD [address] [facility] [address] [facility] [place] [address] 10/28/2022 11:07:12 10/28/2022 20:08:47 Pain in right hand 0580491170 71623 M79.641 Closed fra cture of fifth metacarpal bone of right hand 3175787511 [id number] S62.306A [id number] DAYNA Zuñiga [address] [facility] [place] Spears [address] 11/17/2023 10:56:01 11/17/2023 11:39:27 Exacerbation of intermittent asthma 488989746 J45.21 You are having an asthma exacerbati on and bronchospa sm. These can occur due to environmen anjana exposure. Make sure that you carry your albuterol inhaler with you. Currently your exam does not suggest anything worrisome like pneumonia or a bacterial infection. The following are my recommenda tions to help you with your symptoms and recovery.1 . Start an antihistam ine like loratadine or cetirizine .2. Do not take any decongesta nts at this time because this will dry out that tract too much. If you have a lot of nasal congestion you can try nasal decongesta nts, but I would not take them more than 5 days.3. Make sure you use your nebulizer machine if you have one.4. Salt Water Gargles5. Saline nasal spray is helpful. I would be seen again if you develop any of the following. 1. Cough last longer than 3 weeks - and has not worsened2. You develop a thick productive cough3. Develop shortness of breath or wheezing4. Develop achy feel or discomfort in a specific chest location5. Fever > 100.5 I would go immediatel y to the Emergency Room if you develop:1. Chest Pain2. Severe Shortness of breath3. Coughing up Blood.4. significan t wheezing5. light headedness . Thank you for using [facility] today - please don't hesitate to contact up or return to see if you have any questions or concerns. [id number] Harjit BlayneDO taina [address] [place] [address] 12/05/2023 10:39:30 12/05/2023 11:37:40 Sore throat 971653852 J02.9 Rapid strep NEGATIVE Likely viral etiology Recommend fluids and restHumidi fied airibu/tyl enol prn pain/fever Salt water gargles recommend that they change toothbrush sterilize anything else that touches their mouth Will send a throat culture and contact patient if culture is positive Patient advised to follow up as needed for worsening symptoms or no improvemen t. Discussed concerning red flags with patient and reasons to follow up in the Emergency Department urgently. Genital he rpes simplex 19006563 A60.9 Rx valtrex bid x 7 dcheck self swabPatien t advised to follow up as needed for worsening symptoms or no improvemen t. Health Concerns Section Related Observation LastModified by Organization Detai ls LastModified Time None Recorded Concern Status LastModified by Organization Details LastModified Time None Recorded Advance Directives Directive None Recorded Payers Encounter Date Sequence Insurance Name Policy Number Policy Dang Covered Member ID Dang Member ID Guarantor Name 04/26/2020 1 [place] [facility] Blanche A Chenail [id number] Blanche A Chenail 10/28/2022 1 [place] [facility] Blanche A Chenail [id number] Blanche A Chenail 11/17/2023 1 [facility] PL[facility] (MEDICAID HMO) JEANA Mancia A Chenail [id number] Blanche A Chenalvin 12/05/2023 1 [facility] PLAN (MEDICAID HMO) JEANA Mancia A Chenail [id number] Blanche Abbott Chenalvin Notes Date Note Type Note Provider Name and Address Organization Details Recorded Time 10/28/2022 text/html Wrist/Hand Injur y UCReported bypatient.source of patient informationPatient arrived at Urgent Care ambulatory Location:right; hand Associated Symptoms:no redness;pain;swelling;e cchymosis Severity:moderate Duration:days; this morning Context:Punched wall Aggravating Factors:gripping; palpation Previous InjuryNo prior injury to affected body part Previous Treatmentnone Prior Imaging:noneNotes:21 year old female presenting for evaluation of right hand pain, swelling and bruising after punching a wall this morning. The pain is worse with movement and palpation. No dayron numbness or weakness of the hand. No other injuries or complaints. No skin redness, abrasons or lacerations. Dilia Cardenas MD [address] [place], [address], PA - [facility] 10/28/2022 20:07:46 11/17/2023 text/html 22 y/o female he re after having a cold last week, with some SOB related to her asthma. 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
[2024-12-16 12:29] LABS: Basophils Absolute Auto 0.1 X10*3/uL (0.0-0.2); Basophils Percent Auto 0.4 % (0-2); Eosinophils Absolute Auto 0.2 X10*3/uL (0.0-0.4); Eosinophils Percent Auto 1.2 % (0-4); Hematocrit 42.7 % (37.0-47.0); Hemoglobin 14.2 g/dl (12.0-16.0); Imm Gran Abs Auto 0.05 X10*3/uL (0.00-0.03); Imm Gran Pct Auto 0.4 % (0.0-0.4); Lymphocytes Absolute Auto 2.7 X10*3/uL (1.2-4.9); Lymphocytes Percent Auto 21.6 % (20-40); Mean Corpuscular HGB Conc 33.3 g/dl (31.0-35.0); Mean Corpuscular Hemoglobin 29.6 pg (27.0-33.0); Mean Corpuscular Volume 89.1 fL (80.0-98.0); Monocytes Absolute Auto 0.9 X10*3/uL (0.1-1.2); Monocytes Percent Auto 6.7 % (2-11); Neutrophils Absolute Auto 8.9 x10*3/uL (2.0-8.3); Neutrophils Percent Auto 69.7 % (45-73); Platelet Count 252 X10*3/uL (160-400); Red Blood Count 4.79 X10*6/uL (4.20-5.50); Red Cell Distribution Width 11.9 % (11.0-16.0); White Blood Count 12.7 X10*3/uL (4.8-10.8)
[2024-12-16 12:30] LABS: Estimated Average Glucose 100 mg/dL; Hemoglobin A1C 118.3763 umol/L; Hemoglobin A1c % 5.1 % (<6.0); Total Hemoglobin (HGBA1C) 3719.5453 umol/L
[2024-12-16 12:51] LABS: Alanine Aminotransferase 14 U/L (0-31); Albumin Level 3.7 g/dL (3.5-5.0); Alkaline Phosphatase 71 U/L (39-117); Anion Gap 12 (12-20); Aspartate Amino Transferase 19 U/L (5-31); Bilirubin Total 0.3 mg/dL (0.0-1.0); Blood Urea Nitrogen 23 mg/dL (9-16); Calcium 9.2 mg/dL (8.4-10.2); Carbon Dioxide 25 mmol/L (22-29); Chloride 106 mmol/L (96-108); Estimated Glomerular Filt Rate > 60; Glucose Random 87 mg/dL (60-115); Potassium 3.9 mmol/L (3.3-5.1); Sodium 139 mmol/L (135-145); Total Protein 6.9 g/dL (6.5-8.0)
[2024-12-16 13:08] LABS: Cortisol Random 5.2 ug/dL
[2024-12-16 13:15] LABS: Free T4 (Free Thyroxine) 0.96 ng/dL (0.71-1.85); TSH reflex Free T4 0.74 uIU/mL (0.32-4.0)
== END 2024-12-16 10:26 | disposition home or self-care (01) ==
LOC: HO.LAB 10:25
PROVIDERS: Absent Provider Internal Medicine Nephrology
DX: Z00.00 Encounter for general adult medical examination without abnormal findings (principal); N02.B9 Other recurrent and persistent immunoglobulin A nephropathy; G47.10 Hypersomnia, unspecified; E11.65 Type 2 diabetes mellitus with hyperglycemia; E66.01 Morbid (severe) obesity due to excess calories; Z68.43 Body mass index [BMI] 50.0-59.9, adult
CPT/HCPCS: 36415; 80053; 82533; 83036; 84439; 84443; 85025

== ENCOUNTER 2024-12-17 15:17 | Outpatient (AMB) | payer OTHER, SELFPAY ==
--- OUTSIDE RECORDS SUMMARY | 2024-12-17 15:20 | XMS_ITS | Clinical Summary ---
Author Organization [facility] Facility Address [address] [place] [address] Care Team Providers Care Financial Processing Clerk Name Role Phone Cedric Bingham MD Primary Care Provider [phone] Social History Tobacco Use Types Packs/Day Years [...] series) 11/25 Influenza Vaccine (#1) 2024 Insurance [facility] MEDICAID Care Teams Financial Processing Clerk Relationship Specialty Start Date End Date Cedric Bingham MD [address] [place] [address] PCP - General Internal Medicine 03/27/24
--- OUTSIDE RECORDS SUMMARY | 2024-12-17 15:20 | XMS_ITS | Encounter Summary ---
Author Organization [facility] Address [address] [place] [address] Care Team Providers Care Automatic Transmission Mechanic Name Role Phone Community, Pcp Primary Care Provider Unavailabl e Reason for Visit * Reason Onset Date Comments REFERRAL 03/27/2018 Encounter Details Date Type Department Care Team Description 03/27/2018 Telephone OBGYN - [facility] [address] [place], [place] [phone] Adri Betancourt CNM REFERRAL Social History Tobacco [...] message for patient. Spoke with Flores at [facility], Dr. Og states that patient does not need any follow up, had sufficient follow up at [facility]. CMB * Telephone Encounter - Aleida Jefferson M.A. - 03/30/2018 12:44 PM EDT Tried to call patient. Phone number states 'call can not be completed as dialed'. Referral and episode faxed again. CMB * Telephone Encounter - Diamond Michelle - 03/30/2018 11:32 AM EDT Patient called [facility] told her they did not receive the [...] on filedocumented in this encounter Care Teams Automatic Transmission Mechanic Relationship Specialty Start Date End Date Community, Pcp PCP - General Internal Medicine 09/09/17 documented as of this encounter
--- OUTSIDE RECORDS SUMMARY | 2024-12-17 15:20 | XMS_ITS | Encounter Summary ---
Author Organization [facility] Address [address] [place] [address] Care Team Providers Care Consumer Loan Underwriter Name Role Phone Community, Pcp Primary Care Provider Unavailabl e Encounter Details Date Type Department Care Team Description 04/27/2018 Hospital Medical Records [address] [place] [address] Social History Tobacco Use Types Packs/Day Years [...] on filedocumented in this encounter Care Teams Consumer Loan Underwriter Relationship Specialty Start Date End Date Community, Pcp PCP - General Internal Medicine 09/09/17 documented as of this encounter
--- OUTSIDE RECORDS SUMMARY | 2024-12-17 15:20 | XMS_ITS | Encounter Summary ---
[facility] Address [address] [place] [address] Care Team Providers Care Miner Name Role Phone Community, Pcp Primary Care Provider Unavailabl e Reason for Visit * Reason Comments E-prescribe Rx Request Encounter Details Date Type Department Care Team Description 09/29/2020 Refill OBGYN - [facility] [address] [place], [place] [phone] Federica Shah DO E-prescribe Rx Request Social [...] EST WHEN WAS THE PATIENTS LAST ANNUAL CHILD CARE GROUP LEADER EXAM? 09/01/19 problem Does patient have an [...] / Plan: [place] / Product Type: MEDICAID [id number] documented in this encounter Plan of Treatment Not on file documented as of this encounter Visit Diagnoses Diagnosis HSV-2 infection Herpes simplex without mention of complication documented in this encounter Care Teams Miner Relationship Specialty Start Date End Date Community, Pcp PCP - General Internal Medicine 09/09/17 documented as of this encounter
--- OUTSIDE RECORDS SUMMARY | 2024-12-17 15:20 | XMS_ITS | Encounter Summary ---
[facility] Organization [facility] Address [address] [place] [address] Care Team Providers Care Otr Tanker Truck Driver Name Role Phone Community, Pcp Primary Care Provider Unavailabl e Reason for Visit * Reason Comments E-prescribe Rx Request Encounter Details Date Type Department Care Team Description 09/23/2018 Refill OBGYN - [facility] [address] [place] [address] Gloria Okeefe CNM [address] [place] [address] E-prescribe Rx Request Social History Tobacco Use [...] Telephone Encounter - Aleida Jefferson M.A. - 09/24/2018 10:08 AM EST * Telephone Encounter - Diamond Michelle - 09/24/2018 9:39 AM EST WHEN WAS THE PATIENTS LAST ANNUAL STEERER EXAM? 10/17/17 IP Does patient have an upcoming appointment? Yes 10/22/18 (THE MEDICATION REQUESTED IS ON THE MED LIST ABOVE) Did you check the Pharmacy information above?: NO Indicate how soon the patient needs the script: BY THE END OF THE DAY Patient would like script to be: E-PRESCRIBED/FAXED TO PHARMACY Is the doctor here today?: YES Can the message wait until the doctor returns?: YES Has the patient been told that the prescription will not be filled until the end of the day? NO Payor: CLAIR / Plan: [employer] $15 / Product Type: PPO Lug-wij-Pojbase documented in this encounter Plan of Treatment Not on file documented as of this encounter Visit Diagnoses Diagnosis HSV-2 infection Herpes simplex without mention of complication documented in this encounter Care Teams Otr Tanker Truck Driver Relationship Specialty Start Date End Date Community, Pcp PCP - General Internal Medicine 09/09/17 documented as of this encounter
--- OUTSIDE RECORDS SUMMARY | 2024-12-17 15:20 | XMS_ITS | Clinical Summary ---
Author Organization [facility] Address [address] [place] [address] Care Team Providers Care Airfreight Operations Agent Name Role Phone Community, Pcp Primary Care Provider Unavailabl e Allergies No known active allergies Medications Medication Sig Dispensed Refills Start Date End Date Status valacyclovir (VALTREX) 500 MG tabletIndications:HSV- 2 infection Take 1 Tab by mouth daily. 30 Tab 11 09/01/2019 Active levonorgestrel-ethinyl estradiol (AVIANE) 0.1-20 MG-MCG per tablet Take 1 tablet by mouth daily for 360 days. 28 Tab 11 11/12/2019 Active norelgestromin-ethinyl estradiol (ORTHO EVRA) 150-35 MCG/24HR Place 1 Patch onto the skin once a week. 3 Patch 6 04/12/2020 Active Active Problems Problem Noted Date Morbid obesity with BMI of 45.0-49.9, ad ult 11/17/2020 Overview: 11/17/2020: Pre-Preg BMI 45.3 - must keep weight below 292lb (BMI 50). HgbA1C at initial labs One hour GTT in first trimester Repeat GTT 24-28 weeks if early is normal Level 2 Survey Refer to nutrition for BMI?40 Growth US at 32 and 36 weeks for BMI?40 Weekly NST at 32 weeks for BMI? 45 Screen for WILMA (using tool) and refer for sleep study if positive Anesthesia consult for pre- BMI ?45 or ?50 lb weight gain Transfer to [facility] for pre- BMI?50 DVT prophylaxis- Lovenox if CS and BMI?35 Resolved Problems Problem Noted Date Resolved Date Obesity complicating 04/15/2018 0 06/10/2018 Overview: Growth at 32 weeks 71%ile, normal BPP. Last Assessment & Plan: Repeat growth US and BPP for dates. Morbid obesity with BMI of 40.0-44.9, adult 02/2406/10/2018 Overview: Anesthesia consult completed - ok for delivery at [facility] per pt, no consult paper available from anesthesia Marijuana use 03/13/2018 06/10/2018 Overview: 09/2017 - positive MJ 12/2017 - positive MJ 02/2018 - negative UDS Insufficient care in third trimester 06/10/2018 HSV-2 (herpes simplex virus 2) infection 018 06/10/2018 Overview: 03/12/18: pt reports she currently takes daily suppressive medication Marginal insertion of umbili tammy cord affecting management of mother 2017 06/10/2018 GBS bacteriuria 10/13/2017 06/10/2018 Overview: No GBS needed at 36 weeks. Will treat in labor. Supervision of high risk , antepartum 1 12/11/2016 06/10/2018 Overview: At 12w6d transfer from [facility] 1. [facility] site: [place] 2. Delivery site: [facility] 3. Dating criteria: LMP confirmed by 1st trimester ultrasound 3. Blood type: B positive 4. Genetic screening: Date: Result: 5. GBS: positive in urine 6. FOB name: Not involved 7. Plans A. Epidural or other pain management - Corrugator Operator Helper B. Labor support identified - Her partner: Boogie and her mother C. Tdap - Date: 02/12/18 D. Breast or Bottle feed: Breast feed E. Baby's name - David Turner. Circumcision - no Zika assessment screening: negative Obesity 10/06/2017 04/15/2018 Immunizations Name Administration Dates Next Due Tdap 02/12/2018 Family History Medical History Relation Name Comments No Known Problems Father Other Maternal Grandfather states young from surgery-developed blood clots Depression Maternal Grandmother No Known Problems Mother No Known Problems Paternal Grandfather Arthritis Paternal Grandmother CA Breast Negative Hx CA Colon Negative Hx CA Ovarian Negative Hx Relation Name Status Comments Father Alive [...] Assigned at Date Recorded Not on file Last Filed Vital Signs Vital Sign Reading Time Taken Comments Blood Pressure 108/78 11/12/2019 10:28 AM EST Pulse 84 11/12/2019 10:28 AM EST Temperature 36.8 ??C (98.3 ??F) 02/12/2018 3:39 PM ED T Respiratory Rate 20 11/12/2019 10:28 AM EST Oxygen Saturation - - Inhaled Oxygen Concentration - - Weight 114.1 kg (251 lb 8 oz) 11/12/2019 10:28 A M EST Height 162.6 cm (5' 4 ) 11/12/2019 10:28 AM EST Body Mass Index 43.17 11/12/2019 10:28 AM EST Plan of Treatment Health Maintenance Due Date Last Done Comments Covid-19 Vaccine (#1) 05/25/1999 HUMAN PAPILLOMAVIRUS (HPV) ( 1 - 2-dose series) 2009 CHOLESTEROL SCREENING 2018 CERVICAL CANCER SCREENING 2019 INFLUENZA (#1) 2024 BMI CHECK/ADVISE 10/27/2024 11/12/2019, , 03/17/2019, Additional history exists BASELINE HEALTH EXAM 18-39 07/20/2026 07/20/2021, DTAP/TDAP/TD (2 - Td or Tdap) 02/13/2028 02/12/2018 PNEUMOCOCCAL VACCINE FOR HIG H RISK PATIENTS (#1) 2063 Care Teams Airfreight Operations Agent Relationship Specialty Start Date End Date Community, Pcp PCP - General Internal Medicine 09/09/17
--- OUTSIDE RECORDS SUMMARY | 2024-12-17 15:20 | XMS_ITS | Encounter Summary ---
Author Organization [facility] Address [address] [place] [address] Care Team Providers Care Transmission Specialist Name Role Phone Community, Pcp Primary Care Provider Unavailabl e Reason for Visit * Reason Onset Date Comments 07/23/2021 Encounter Details Date Type Department Care Team Description 07/23/2021 Telephone OBGYN - [place] [address] [place], [place] [phone] Johny Willis MD [address] [place], [place] [phone] Social History Tobacco Use Types Packs/Day Years [...] to patient: VM left to contact office @[phone]. There is availability to be scheduled with an MD at the [facility] office on 07/26/21 and to call back as soon as possible to schedule this appointment with an MD. Should patient call back; ok to schedule with Dr. Shah on 07/26 in one of the 'amarilis' slots. * Telephone Encounter - Shanti Garcia - 07/23/2021 3:22 PM EDT Pt upset went to [place] today and was told she could not be seen today and needs to be seen withand MD. Pt requesting appt for this week. No open availabilty at any location with an MD. Saw Dr Shah has appts but are blocked for TOP LIFT TRIMMER appt? Pt while on IUD and wants to speak with the nurse. documented in this encounter Plan of Treatment Not on file documented as of this encounter Visit Diagnoses Not on filedocumented in this encounter Care Teams Transmission Specialist Relationship Specialty Start Date End Date Community, Pcp PCP - General Internal Medicine 09/09/17 documented as of this encounter
--- OUTSIDE RECORDS SUMMARY | 2024-12-17 15:20 | XMS_ITS | Clinical Summary ---
Author Organization [facility] Address [address] [place] [address] Care Team Providers Care Drivers' Cash Clerk Name Role Phone Unavailable Primary Care Provider Unavailabl e Surgical History Surgery Date Site/Laterality Comments TONSILLECTOMY PROCEDURE: HISTORICAL TONSILLECTOMY ADENOIDECTOMY PROCEDURE: HISTORICAL ADENOIDECTOMY WISDOM TOOTH EXTRACTION PROCEDURE: HISTORICAL WISDOM TEETH EXTRACTION OTHER SURGICAL HISTORY PROCEDURE: HISTORICAL D&C; COMMENT: TAB Medical History Medical History Date Comments HSV-2 (herpes simplex virus 2) infection DX:HSV-2 (herpes simplex virus 2) infection Menorrhagia DX:Menorrhagia Bipolar disorder ([facility]) DX:Bi polar disorder ([facility]); COMMENT: on lamictal, prescribed by her psychiatrist. Depression with anxiety DX:Depre ssion with anxiety; COMMENT: on Celexa prescribed by her psychiatrist Morbid obesity ([facility]) DX:Morb id obesity ([facility]) Family History Medical History Relation Name Comments [...]
--- OUTSIDE RECORDS SUMMARY | 2024-12-17 15:20 | XMS_ITS | Data Portability ---
Author Organization [facility], [address] Address [address] [place] [address] Assessment No assessment recorded. Plan of Treatment Reminders Order Date Submit Date Provider Last Modified By Organization Details Last Modified Time Details Appointments None recorded. Lab chlamydia trachomatis + neisseria gonorrhoeae + trichomonas vaginalis DNA panel, HAFSA+probe, unspecified specimen 2023 024 [facility] [place], [address], 4 20:06:24 SARS CoV 2 (COVID-19) Ag, QL, IA, upper respiratory specimen 2023 024 [email or web address] 20999[facility], [address] [place] [address], [phone], 4 11:15:54 rapid strep group A, throat 2023 [email or web address] [facility], [address] [place] [address], [phone], 4 11:15:51 culture, respiratory 2023 024 [facility] [place], [address], 4 06:06:29 Referral emergency medicine referral 2022 023 [email or web address] Not available 3 20:08:47 Procedures None recorded. Surgeries None recorded. Imaging XR, hand, 3 or more view 2022 023 [place] [facility], [address] [place], [address], 21:38:21 Medication Orders Valtrex 1 gram tablet 2023 024 [email or web address] [id number], [address] [place], [address], 4 11:28:08 prednisone 20 mg tablet 2023 024 [email or web address] [id number], [address] [place], [address], 4 10:52:53 albuterol sulfate 2.5 mg/3 mL (0.083 %) solution for nebulizatio n 2023 024 [id number] [address] [place], [address], 11:32:09 Patient TargetsNo targets recorded. Patient Instructions Encounter Date Encounter Id Patient Instructions Last Modified By Organization Details Last Modified Time 10/28/2022 [id number] learning about rice (rest, ice, compression, and elevation) [email or web address] Not available 10/28/2022 19:49:42 You have a fracture of your right 5th metacarpal with angulation that requires reduction. You have been advised to go now to the Emergency Department for further evaluation. [facility] has been advised of your impending arrival. Not available 10/28/2022 20:05:50 12/05/2023 [id number] sore throat: car e instructions [email or web address] Not [...] NEGATI VE negati ve Not Available [facility] ([facility]) [address] [place], [address], 12/07/2023 20:06:24 12/05/19 24 12/07/2023 CT, NG, TRICH VAG BY HAFSA gonococcus by HAFSA NEGATI VE negati ve Not Available [facility] ([facility]) [address] [place], [address], 12/07/2023 20:06:24 12/05/19 24 12/07/2023 CT, NG, TRICH VAG BY HAFSA trich vag by HAFSA NEGATI VE negati ve Not Available [facility] ([facility]) [address] [place], [address], 12/07/2023 20:06:24 12/05/19 24 12/08/2023 UPPER RESPI RATOR Y CULTU RE upper respiratory culture FINAL REPORT Not Available [facility] ([facility]) [address] [place], [address], 12/08/2023 14:06:02 12/05/19 24 12/08/2023 UPPER RESPI RATOR Y CULTU RE result 1 COMMEN T Routi ne respi rator y katherin Not Available [facility] ([facility]) [address] [place], [address], 12/08/2023 14:06:02 12/05/19 24 12/05/2023 rapid strep group A, throa t Unknown Analyte negati ve Not Available [facility] [place] [address], [address], 12/05/2023 10:53:59 12/05/19 24 12/05/2023 SARS CoV 2 (COVI D-19) Ag, QL, IA, upper respi rator y speci men Unknown Analyte negati ve Not Available roman yr [address], [place], [address], 12/05/2023 10:53:37 10/28/19 23 10/28/2022 XR, hand, 3 or more view No observ ation record ed. [email or web address] [facility] [address] [facility], [place], [address], 10/29/2022 08:27:08 Result Notes None recorded. Problems Name Problem SNOMED Code Status Onset Date Resolution Date Notes Provider Name and Address Organization Details Recorded Time Anxiety 48001653 Active 2022 Keyanaethan Young null, PA - [facility] 3 18:47:36 Depressive disorder 34113823 Active 2022 Keyana Young null, PA - [facility] 3 18:47:42 Bipolar disorder 94288975 Active 2022 Keyanaethan Young null, PA - [facility] 3 18:48:10 Attention deficit hyperactivity disorder 858411618 Active 2022 Keyanaethan Young null, PA - [facility] 3 18:48:17 Herpes simplex 66075707 Active 2022 Keyanaethan Young null, PA - [facility] 3 18:48:25 Asthma 730163343 Active 2023 JAQUI YOUNGBLOOD null, PA - [facility] 4 11:16:58 Sore throat 345031799 Active 2023 JAQUI YOUNGBLOOD null, PA - [...] XR, hand, 3 or more view completed [facility] [address] [facility] [place], [address], 10/29/2022 08:27:08 Procedure Notes None recorded. Medical [...] Updated DateTime 3 165.1 cm 41.6 kg/m2 332333. 09 g 98 % 98 % 84 [...] Updated DateTime 4 165.1 cm 43.3 kg/m2 496665. 02 g 0 18 /min 97.7 [degF] [...] Updated DateTime 4 165.1 cm 43.3 kg/m2 877724. 02 g 3 18 /min 97.3 [degF] 97 % 97 % 66 /min 127 mm[Hg] 84 mm[Hg] JAQUI RYLIE PA - [facility] 4 10:56:13 Social History Question Answer Notes LastModified by Organizat ion Details LastModified Time Tobacco Smoking Status Never Smoker [facility] 10/28/2022 18:48:41 What Is Your Level Of Alcohol Consumption? Occasional [email or web address] Information not available 10/28/2022 Which Illicit Or Recreational Drugs Have You Used? Marijuanna Information not available 10/28/2022 Do You Use Any Illicit Or Recreational Drugs? Yes Information not available 10/28/2022 Have You Recently Traveled Abroad? No [email or web address] Information not available 10/28/2022 Do You Or Have You Ever Used Any Other Forms Of Tobacco Or Nicotine? No [email or web address] Information not available 10/28/2022 Sex: Unknown Functional [...] SNOMED-CT Code Diagnosis ICD10 Code Diagnosis Note [id number] [address] [place] [address] 04/26/2020 11:31:06 04/26/2020 12:18:07 [id number] [facility] [address] [address] [place] [address] 04/26/2020 11:30:37 04/26/2020 12:14:15 [id number] [facility]1009[facility] [address] [place] [address] 03/16/2019 09:58:08 03/16/2019 10:27:00 [id number] [address] [address] [place] [address] 09/30/2018 10:30:44 09/30/2018 12:01:17 [id number] 20[address] [facility] [place] [address] 09/27/2019 09:28:43 09/27/2019 10:12:33 [id number] 20[address] [place] [address] 10/03/2019 18:39:53 10/03/2019 19:16:21 [id number] 20995[address] [place] [address] 08/07/2017 09:52:15 08/07/2017 10:29:17 [id number] [facility] [address] [facility] [place] [address] 09/30/2019 19:29:47 09/30/2019 20:36:56 [id number] Dilia Cardenas MD [address] [facility] [address] [facility] [place] [address] 10/28/2022 11:07:12 10/28/2022 20:08:47 Pain in right hand 1431914216 56718 M79.641 Closed fra cture of fifth metacarpal bone of right hand 9818952518 7040636 S62.306A [id number] DAYNA Zuñiga [address] [facility] GREGG Spears [address] 11/17/2023 10:56:01 11/17/2023 11:39:27 Exacerbation of intermittent asthma 307590479 J45.21 You are having an asthma exacerbati [...] light headedness . Thank you for using [facility] today - please don't hesitate to contact up or return to see if you have any questions or concerns. [id number] Harjit BlayneDO taina [address] [place] [address] 12/05/2023 10:39:30 12/05/2023 11:37:40 Sore throat 464581244 J02.9 Rapid strep NEGATIVE Likely viral etiology [...] Emergency Department urgently. Genital he rpes simplex 70958350 A60.9 Rx valtrex bid x 7 dcheck [...] Member ID Guarantor Name 04/26/2020 1 [place] [facility] Blanche A Chenail [id number] Blanche A Chenail 10/28/2022 1 [place] [facility] Blanche A Chenail [id number] Blanche A Chenail 11/17/2023 1 [facility] (MEDICAID HMO) JEANA Mancia A Chenail [id number] Blanche A Chenalvin 12/05/2023 1 [facility] (MEDICAID HMO) JEANA Mancia A Chenail [id number] Blanche Abbott Chenalvin Notes Date Note Type [...] Dilia Cardenas MD [address] [place], [address], PA - [facility] 10/28/2022 20:07:46 11/17/2023 text/html 22 y/o female he re after having a cold last week, with some SOB related to her asthma. 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
--- OUTSIDE RECORDS SUMMARY | 2024-12-17 15:20 | XMS_ITS | Encounter Summary ---
Author Organization [facility] Address [address] [place] [address] Care Team Providers Care Heel Shaper Name Role Phone Community, Pcp Primary Care Provider Unavailabl e Reason for Visit * Reason Onset Date Comments TEST RESULTS 03/18/2019 Encounter Details Date Type Department Care Team Description 03/18/2019 Telephone OBGYN - [address] [phone] Myrna Ribera, [address] [address] TEST RESULTS Social History Tobacco Use Types Packs/Day Years Used Date Smoking Tobacco: Former Cigarettes Q uit: 04/2017 Smokeless Tobacco: Never Alcohol Use Standard Drinks/Week Comments No 0 (1 standard drink = 0.6 oz pure alcohol) 1 per month prior to , none since +hpt Sex Assigned at Date Recorded Not on file documented as of this encounter Miscellaneous Notes * Telephone Encounter - Danielle Hurtado L.P.N. - 03/18/2019 1:08 PM EDT Myrna Ribera C.N.M please review as patient is requesting results and she is + for BV. Thank you. 03/18/2019 ??1:07 PM - Interface, Lab Component Results Component Value Ref Range & Units Status TRICHOMONAS VAGINALIS NEGATIVE NEGATIVE Final GARDERELLA VAGINALIS POSITIVE (A) NEGATIVE Final JONH SPECIES NEGATIVE NEGATIVE Final * Telephone Encounter - Gloria Tomas - 03/18/2019 12:35 PM EDT Inform patient: ANY URGENT OR ABNORMAL RESULTS WIILL RESULT IN A CALL BACK TO THE PATIENT SHANE. Type of test: :test results Date test was performed: 03/17/19 Where was the test performed: spld Who ordered this test?: Myrna Ribera Is the doctor here today?: NO Can the message wait until the doctor returns?: NO IF PATIENT'S PCP IS NOT IN INSTRUCT PATIENT THAT THEY WILL RECEIVE A CALL BACK WHEN THE PCP IS IN THE OFFICE NEXT. documented in this encounter Plan of Treatment Not on file documented as of this encounter Visit Diagnoses Not on filedocumented in this encounter Care Teams Heel Shaper Relationship Specialty Start Date End Date Community, Pcp PCP - General Internal Medicine 09/09/17 documented as of this encounter
--- OUTSIDE RECORDS SUMMARY | 2024-12-17 15:20 | XMS_ITS | Encounter Summary ---
Author Organization [facility] Address [address] [place] [address] Care Team Providers Care Leather Leveler Name Role Phone Community, Pcp Primary Care Provider Unavailabl e Reason for Visit * Reason Comments E-prescribe Rx Request Encounter Details Date Type Department Care Team Description 07/27/2018 Refill OBGYN - [place] [address] [place], [place] [phone] Berto Esqueda CNM E-prescribe Rx Request Social History Tobacco Use [...] Telephone Encounter - Aleida Jefferson M.A. - 07/27/2018 1:26 PM EDT Please review in provider absence. CMB * Telephone Encounter - Kourtney Mendoza - 07/27/2018 1:21 PM EDT WHEN WAS THE PATIENTS LAST ANNUAL BUSINESS TRANSFORMATION ANALYST EXAM? Last appt 06-10-18 Does patient have an upcoming appointment? Yes 08-05-18 (THE MEDICATION REQUESTED IS ON THE MED [...] the end of the day? NO Payor: / Plan: [email or web address] $15 / Product Type: PPO [id number] documented in this encounter Plan of Treatment Not on file documented as of this encounter Visit Diagnoses Diagnosis HSV-2 infection Herpes simplex without mention of complication documented in this encounter Care Teams Leather Leveler Relationship Specialty Start Date End Date Community, Pcp PCP - General Internal Medicine 09/09/17 documented as of this encounter
--- OUTSIDE RECORDS SUMMARY | 2024-12-17 15:20 | XMS_ITS | Encounter Summary ---
Author Organization [facility] Address [address] [place] [address] Care Team Providers Care Project Development Director Name Role Phone Community, Pcp Primary Care Provider Unavailabl e Encounter Details Date Type Department Care Team Description 12/20/2019 Release of Information Medical Records [address] [place] [address] Abstract, Provider Social History Tobacco Use Types [...] on filedocumented in this encounter Care Teams Project Development Director Relationship Specialty Start Date End Date Community, Pcp PCP - General Internal Medicine 09/09/17 documented as of this encounter
--- OUTSIDE RECORDS SUMMARY | 2024-12-17 15:20 | XMS_ITS | Encounter Summary ---
Author Organization [facility] Address [address] [place] [address] Care Team Providers Care Burnisher And Bumper Name Role Phone Community, Pcp Primary Care Provider Unavailabl e Reason for Visit * Reason Onset Date Comments Iud Insertion 05/25/2018 Encounter Details Date Type Department Care Team Description 05/25/2018 Telephone OBGYN - [place] [address], [place] [phone] Berto Esqueda CNM Iud Insertion Social History [...] has the patient had this problem? 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
--- OUTSIDE RECORDS SUMMARY | 2024-12-17 15:20 | XMS_ITS | Encounter Summary ---
Author Organization [facility] Address [address] [place] [address] Care Team Providers Care Pattern Designer Name Role Phone Community, Pcp Primary Care Provider Unavailabl e Encounter Details Date Type Department Care Team Description 10/14/2017 Zika Virus Medical Records [address] [place] [address] Abstract, Provider Social History Tobacco Use Types [...] on filedocumented in this encounter Care Teams Pattern Designer Relationship Specialty Start Date End Date Community, Pcp PCP - General Internal Medicine 09/09/17 documented as of this encounter
--- NOTE | 2024-12-17 15:21 | HO.NEPHOV ---
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 She had been on PO prednisone, ACEI and supportive care. She had been getting 500 mg IV cytoxan Q 2 weeks( altogether 6 doses given). She denies any fevers, chills, chest pain, shortness of breath, dysuria, hematuria, urinary frequency or urgency. She has history of genital herpes and usually take Valcyclovir. Her serum creatinine is at baseline now. She is on ACEI. She is on diuretics and her edema has improved. She has been on tolerating Jardiance and has been on tapering dose of prednsione. 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 Morbid obesity with BMI of 40.0-44.9, adult Recurrent epistaxis Proteinuria Anxiety Bipolar depression Elevated d-dimer Asthma Obesity Surgical History History of biopsy Hx of adenoidectomy History of surgery Hx of tonsillectomy Family History Mother No known health problems Father No known health problems Other Mental health disorder Substance use disorder Social History Housing: Apartment Alcohol intake: current Alcohol intake frequency: does not drink Comment: medicated prior to discharge Patient Tobacco Use Status: Never used Tobacco e-Cigarette/Vaping Use: Never Used Second Hand Smoke Exposure: No Substance Use Type: Marijuana service: No Current occupational status: student Cognitive needs: No Hearing needs: No Vision needs: No Review of Systems Const All systems reviewed & are unremarkable except as noted in HPI and below Physical Exam Vital Signs: Last Vital Signs Pulse 123 H 12/17/24 15:24 BP 100/70 12/17/24 15:24 Pulse Ox 99 12/17/24 15:24 Oxygen Delivery Method Room Air 12/17/24 15:24 BMI result Body Mass Index 53.4 Const General: comfortable and no acute distress Orientation/consciousness: patient oriented x3 HEENT Head: Yes normocephalic Mouth: Normal oral and palatal mucosa present Eyes EOM: EOMs intact bilaterally Neck Neck: Yes supple Resp Auscultation: clear to auscultation bilaterally Cardio Jugular venous distension: no JVD Rate: regular rate GI Palpation (GI): Soft to palpation Auscultation: normal bowel sounds General: Yes no CVA tenderness Back/Spine/Pelvis Back: no CVA tenderness Skin General skin exam: no rashes or lesions noted Neuro General: patient oriented x3 and moves all extremities Extrem General: Yes no pedal edema Results Reviewed Nephrology Results: Hgb 14.2 g/dl (12.0-16.0) 12/16/24 WBC 12.7 X10*3/uL (4.8-10.8) H 12/16/24 Plt Count 252 X10*3/uL (160-400) 12/16/24 Sodium 139 mmol/L (135-145) 12/16/24 Potassium 3.9 mmol/L (3.3-5.1) 12/16/24 Chloride 106 mmol/L (96-108) 12/16/24 Carbon Dioxide 25 mmol/L (22-29) 12/16/24 BUN 23 mg/dL (9-16) H 12/16/24 Creatinine 0.75 mg/dL (0.5-1.4) 12/16/24 Calcium 9.2 mg/dL (8.4-10.2) 12/16/24 Phosphorus 3.4 mg/dL (2.7-4.5) 05/19/24 Urine Protein 300 (3+) mg/dL (Neg-Trace) H 06/23/24 Urine Creatinine 103.58 mg/dL 08/13/24 Protein/Creatinin Ratio 5.83 (<0.2) H 08/13/24 Assessment & Plan Assessment & Plan (1) Proteinuria: Code(s): R80.9 - Proteinuria, unspecified Category: Medical Qualifiers: Proteinuria type: other Qualified Code(s): R80.8 - Other proteinuria (2) IgA nephropathy determined by biopsy of kidney: Code(s): N02.B9 - Other recurrent and persistent immunoglobulin A nephropathy Category: Medical Plan Blanche has glomerular proteinuria. She has H/O vasculitic rash with microscopic hematuria and abdominal pain. 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 She is currently on prednisone, which I asked to reduce to 10 mg daily for couple of weeks followed by 5 mg for a couple of weeks. She was given cytoxan IV 500 mg twice a month for 3 months. She will be started on maintenance immunosuppression soon. She has been having emotional lability on prednisone. She should continue on Bumex 0.5 mg daily. C/W lisinopril to 20 mg bid. She will need Sparsentan and FABHALTA in the future. She is on PPI. I increased her Jardiance to 10 mg daily.She was also seen by Gynae. Follow-up labs ordered .Answered all questions Orders: Orders Electrolytes 2 Months N02.B9 - Other recurrent and persistent immunoglobulin A nephropathy, R80.8 - Other proteinuria Albumin Level 2 Months N02.B9 - Other recurrent and persistent immunoglobulin A nephropathy, R80.8 - Other proteinuria Protein, 24 Hr Urine Group 2 Months N02.B9 - Other recurrent and persistent immunoglobulin A nephropathy, R80.8 - Other proteinuria Complete Blood Count Auto Diff 2 Months N02.B9 - Other recurrent and persistent immunoglobulin A nephropathy, R80.8 - Other proteinuria Creatinine 2 Months N02.B9 - Other recurrent and persistent immunoglobulin A nephropathy, R80.8 - Other proteinuria Blood Urea Nitrogen 2 Months N02.B9 - Other recurrent and persistent immunoglobulin A nephropathy, R80.8 - Other proteinuria Calcium 2 Months N02.B9 - Other recurrent and persistent immunoglobulin A nephropathy, R80.8 - Other proteinuria Medications: Changed From empagliflozin (Jardiance) 5 mg (1/2 x 10 mg) PO DAILY 30 days 15 tabs 4RF To empagliflozin (Jardiance) 10 mg PO DAILY 30 days 30 tabs 4RF Discontinued calcium carbonate-vitamin D3 1,000 mg-20 mcg (800 unit) Discontinued Reason: Doctor's Order 1 tab orally 3 times a week; 30 tabs 3RF Coding Level of Care Code Est Pt Level 4 (79843) Diagnoses Other proteinuria R80.8 Proteinuria type: other IgA nephropathy determined by biopsy of kidney N02.B9
[2024-12-17 15:24] VITALS: BP 100/70; PULSE 123; O2SAT 99; BMI 53.4
== END 2024-12-17 15:58 | disposition home or self-care (01) ==
PROVIDERS: PCP Internal Medicine; Visit Provider Internal Medicine Nephrology
DX: R80.8 Other proteinuria (principal); N02.B9 Other recurrent and persistent immunoglobulin A nephropathy
CPT/HCPCS: 99214

== ENCOUNTER → 2024-12-17 15:17 | Outpatient (BNVA) | payer OTHER, SELFPAY | PROVIDERS: PCP Internal Medicine; Visit Provider Internal Medicine Nephrology | DX: R80.8 Other proteinuria (principal); N02.B9 Other recurrent and persistent immunoglobulin A nephropathy | CPT/HCPCS: 99212 ==

== ENCOUNTER 2024-12-30 15:29 | Outpatient (AMB) | payer OTHER, SELFPAY ==
[2024-12-30 15:39] VITALS: BP 118/68; PULSE 114; TEMP 36.3; O2SAT 96; BMI 53.3
--- NOTE | 2024-12-30 15:39 | A.OFFPC_ITS ---
Vital Signs 12/30/24 15:39 Height 5 ft 4 in Weight 310 lb 8 oz BMI 53.3 BP 118/68 Blood Pressure Location Lt brachial Position Sitting Pulse 114 H Pulse Source Pulse Oximeter Temp 97.3 F Temp Source Temporal Artery Scan Pulse Oximetry (%) 96 Oxygen Delivery Method Room Air Intake Visit Reasons: f/u obesity Guest Experience Manager Required: No Accompanied by: Self / Same As Patient Allergies No Known Allergies [No Known Allergies*] Allergy (Verified 12/30/24 15:42) Medication List - Last Reviewed 12/30/24 by Rosalba Houser CMA albuterol sulfate 90 mcg/actuation (Ventolin HFA) 2 puffs inhalation Q6H PRN bumetanide 0.5 mg PO DAILY empagliflozin (Jardiance) 10 mg PO DAILY 30 days levonorgestrel (Mirena) intrauterine lisinopril 20 mg PO BID 90 days omeprazole 20 mg PO DAILY 3 months prednisone 2.5 mg PO DAILY quetiapine ER 100 mg PO BEDTIME tramadol 50 mg PO TID PRN 10 days valacyclovir 500 mg PO DAILY Tobacco use date assessed: 12/30/24 Dental Screening Dental Screen Date: 12/30/24 Did you have a dental visit in the last 12 months?: No Did you have a dental problem in the last 6 months where you did not have access to dental care?: No Was dental information given to patient?: Patient has dentist HPI f/u obesity HPI Details 24-year-old female with past medical his tory of herpes, bipolar depression, anxiety, asthma, IgA nephropathy, and morbid obesity coming in for follow up.? In review of the notes, patient was seen by [facility] Nephrology to 11/15/2024 prednisone reduced to 10 mg daily for a couple of weeks followed by 5 mg for a couple of weeks.? She was given cytotoxin IV 500 mg twice a month for 3 months and started on immunosuppression.? Advised to continue on the Bumex, lisinopril and PPI and Jardiance was increased to 10 mg.? Presenting for evaluation of knee pain due to a fall four weeks ago. Initial urgent care assessment ruled out fractures, and she was advised potential meniscal injury. The knee pain is localized medially and exacerbated by movement. Reports nausea potentially linked to Prednisone tapering to 2.5 mg from higher doses previously taken. She denies vomiting or other toby rointestinal symptoms. A recent weight loss of 8 pounds and a plan to initiate Wegovy pending insurance approval are noted. There is an understanding of the possible effects on her mood disorder. Previous treatment for a toenail hematoma due to her fall was noted, with signs of resolution. Ongoing bipolar disorder treatment includes the use of quetiapine, which needs management as she transitions between psychiatrists. 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 Morbid obesity with BMI of 40.0-44.9, adult Recurrent epistaxis Proteinuria Anxiety Bipolar depression Elevated d-dimer Asthma Obesity Surgical History History of biopsy Hx of adenoidectomy History of surgery Hx of tonsillectomy Family History Mother No known health problems Father No known health problems Other Mental health disorder Substance use disorder Social History Housing: Apartment Alcohol intake: current Alcohol intake frequency: does not drink Comment: medicated prior to discharge Patient Tobacco Use Status: Never used Tobacco e-Cigarette/Vaping Use: Never Used Second Hand Smoke Exposure: No Substance Use Type: Marijuana service: No Current occupational status: student Cognitive needs: No Hearing needs: No Vision needs: No Questionnaire Thrive Questionnaire Date Thrive assessed: 11/01/24 YOU-7 AMB Questionnaire YOU-7 Date YOU - 7 assessed: 11/01/24 Source: Developed by Drs. Desmond Bowman, Ban Hurtado, Blas Sanchez and colleagues, with an educational hammad from [employer]. Review of Systems Const Denies body aches, Denies chills, Denies fever(s), Denies headache(s) and Denies poor appetite Eyes Reports no additional complaints ENT Denies dizziness and Denies headache(s) Card Denies chest pain, Denies syncope, Denies edema, Denies irregular heart rhythm, Denies lightheadedness and Denies dyspnea Resp Denies cough and Denies dyspnea GI Denies abdominal pain, Denies constipation, Denies diarrhea, Denies nausea and Denies vomiting Reports no additional complaints Musc Reports no additional complaints and Denies abnormal gait Skin/Breast Reports system reviewed and no additional complaints, except as documented Neuro Denies abnormal gait, Denies dizziness, Denies syncope and Denies headache(s) Psych Reports no additional complaints Physical exam (Primary Care) Vital Signs: Last Vital Signs Temp 97.3 F 12/30/24 15:39 Pulse 114 H 12/30/24 15:39 BP 118/68 12/30/24 15:39 Pulse Ox 96 12/30/24 15:39 Oxygen Delivery Method Room Air 12/30/24 15:39 BMI result Body Mass Index 53.3 Tobacco/Smoking Status: Tobacco use Status Tobacco use date assessed 12/30/24 12/30/24 15:48 Patient Tobacco Use Status Never used Tobacco 12/30/24 15:41 e-Cigarette/Vaping Use Never Used 12/30/24 15:41 Thrive Assessment: Date of Thrive Assessment Date Thrive assessed 11/01/24 12/30/24 15:41 Const General: cooperative, healthy appearing, comfortable and no acute distress Orientation/consciousness: patient oriented x3 HENMT Head: Yes normocephalic Ears: hearing grossly normal bilaterally General nose exam: Normal external nose present Eyes General: appearance normal, both eyes and all related structures Conjunctivae: conjunctivae normal Neck Neck: Yes full ROM and Yes no lymphadenopathy Resp Effort & Inspection: normal respiratory effort Auscultation: clear to auscultation bilaterally, no crackles, no rales, no rhonchi and no wheezes Cardio Rate: regular rate Rhythm: regular rhythm Skin General skin exam: no rashes or lesions noted Neuro General: patient oriented x3 Gait exam (Neuro): Normal gait present Extrem Other: Tenderness to palpation over medial aspect of right knee and pain with flexion and extension. Serous drainage from right great toe without evidence of trauma, bleeding or purulent discharge General: Yes normal to inspection, Yes full ROM and No edema Psych Affect: normal affect Attitude: cooperative Insight: Good insight present (Psych) Judgement: Good judgement present (Psych) Coding Level of Care Code Est Pt Level 3 (35714) Diagnoses Hypersomnolence G47.10 Morbid obesity with BMI of 50.0-59.9, adult E66.01; Z68.43 Anxiety F41.9 Bipolar depression F31.9 Localized edema R60.0 Edema type: localized IgA nephropathy determined by biopsy of kidney N02.B9 Right knee pain M25.561 Assessment & Plan Assessment & Plan (1) Hypersomnolence: Code(s): G47.10 - Hypersomnia, unspecified Category: Medical Plan: Patient having hypersomnolence and we will occasionally find herself choking at night. Ordered for home sleep study and encouraged weight loss. Sleep study scheduled for January (2) Morbid obesity with BMI of 50.0-59.9, adult: Code(s): E66.01 - Morbid (severe) obesity due to excess calories; Z68.43 - Body mass index [BMI] 50.0-59.9, adult Category: Medical Plan: Healthy diet and regular exercise is encouraged. Likely related to large amounts of steroids she has been taking over the last several years. She is requesting weight loss injections such as Wegovy or Ozempic which was approved by Nephrology. Prescription sent for Wegovy plan to repeat labs in 1 month Referral placed to nutrition as well however appointment was missed advised patient to follow up with nutrition (3) Anxiety: Code(s): F41.9 - Anxiety disorder, unspecified Category: Medical Plan: Currently following with counselor and psychiatrist for management of anxiety and depression (4) Bipolar depression: Code(s): F31.9 - Bipolar disorder, unspecified Category: Medical Plan: Currently following with counselor and psychiatrist for management of depression and anxiety. (5) Edema: Code(s): R60.9 - Edema, unspecified Category: Medical Qualifiers: Edema type: localized Qualified Code(s): R60.0 - Localized edema Plan: Patient is currently on Bumex prescribed by Nephrology to assist with edema (6) IgA nephropathy determined by biopsy of kidney: Code(s): N02.B9 - Other recurrent and persistent immunoglobulin A nephropathy Category: Medical Plan: Continue to follow with Nephrology currently on prednisone. I did discuss with patient that many of her symptoms may be related to the excessive amounts of steroids and likely symptoms will not improve completely until off of steroid. Ordered for blood work. Continue to follow with Nephrology as well as Hematology/Oncology (7) Right knee pain: Code(s): M25.561 - Pain in right knee Category: Medical Plan: Patient having right knee pain after a fall several weeks ago. Pain on the med ial aspect of the right knee suggestive of possible meniscus injury. Patient had knee x-ray to rule out fracture which was negative. Recommending physical therapy at this time however patient would like to defer recommend using heat and ice as needed for pain and reach out to the office if physical therapy is desired. Plan I will initiate efforts for insurance approval for Wegovy to aid in weight management, with a discussion of its potential emotional effects. If denied, options for a private service may be explored. Regular monitoring of knee pain and a physical therapy referral were discussed to work on range of motion and symptom management. There is a possibility of referral for further orthopedic evaluation if symptoms persist. Continued surveillance of toenail injury for infection, alongside dehydration prevention amidst Bumex use, is underway. A strategy to ensure continuity for bipolar disorder medication during her transition between psychiatrists was confirmed. Ensuring support and scheduled assessments every three months will help track progress and health benefits. This note was constructed using voice recognition software. While every effort has been made to ensure accuracy and half section ironer, still areas may have been included sometimes these areas may affect the content or meeting of the given symptoms. Total time spent caring for the patient today was 20 minutes. This includes time spent before the visit reviewing the chart, time spent during the visit, and time spent after the visit and documentation. Patient was informed and verbally consented to the use of an ambient scribe for clinic note documentation during this visit. Orders: Orders Basic Metabolic Panel 1 Month E66.01 - Morbid (severe) obesity due to excess calories, Z68.43 - Body mass index [BMI] 50.0-59.9, adult Medications: New semaglutide (weight loss) (Wegovy) administer weeks 1 through 4 of therapy 0.25 mg (0.5 mL) subcut QWEEK 2 mL 0RF
--- OUTSIDE RECORDS SUMMARY | 2024-12-30 18:57 | XMS_ITS | Clinical Summary ---
Author Organization [facility] Facility Address [address] [place] [id number] Care Team Providers Care Desk Lieutenant Name Role Phone Cedric Bingham MD Primary Care Provider [phone] Social History Tobacco Use Types Packs/Day Years [...] series) 11/25 Influenza Vaccine (#1) 2024 Insurance [facility] MEDICAID Care Teams Desk Lieutenant Relationship Specialty Start Date End Date Cedric Bingham MD [address] [place] [address] PCP - General Internal Medicine 03/27/24
--- OUTSIDE RECORDS SUMMARY | 2024-12-30 18:57 | XMS_ITS | Data Portability ---
Author Organization DAYNA White s, [address] Address [address] [place] [address] Assessment No assessment recorded. Plan of Treatment Reminders Order Date Submit Date Provider Last Modified By Organization Details Last Modified Time Details Appointments None recorded. Lab chlamydia trachomatis + neisseria gonorrhoeae + trichomonas vaginalis DNA panel, HAFSA+probe, unspecified specimen 2023 024 [facility] [place], [address], 4 20:06:24 SARS CoV 2 (COVID-19) Ag, QL, IA, upper respiratory specimen 2023 024 [email or web address] 20999_[facility], [address] [place] [address], [address], 4 11:15:54 rapid strep group A, throat 2023 024 [email or web address] _[facility], [address] [place] [address], [address], 4 11:15:51 culture, respiratory [address] [facility]), [facility] [place], [address], 4 06:06:29 Referral emergency medicine referral 2022 023 [email or web address] Not available 3 20:08:47 Procedures None recorded. Surgeries None recorded. Imaging XR, hand, 3 or more view 2022 023 [place] [facility], [address] [facility] [place], [address], 21:38:21 Medication Orders Valtrex 1 gram tablet 2023 024 [email or web address] [id number], [address] [place], [address], 4 11:28:08 prednisone 20 mg tablet 2023 024 [email or web address] [id number], [address] [place], [address], 4 10:52:53 albuterol sulfate 2.5 mg/3 mL (0.083 %) solution for nebulizatio n 2023 024 [id number] [address] [email or web address], [address], 11:32:09 Patient TargetsNo targets recorded. Patient Instructions Encounter Date Encounter Id Patient Instructions Last Modified By Organization Details Last Modified Time 10/28/2022 [id number] learning about rice (rest, ice, compression, and elevation) [email or web address] Not available 10/28/2022 19:49:42 You have a fracture of your right 5th metacarpal with angulation that requires reduction. You have been advised to go now to the Emergency Department for further evaluation. [facility] has been advised of your impending arrival. [email or web address] Not available 10/28/2022 20:05:50 12/05/2023 [id number] sore throat: car e instructions [email or web address] Not [...] NEGATI VE negati ve Not Available [facility] ([facility]) [address] [place], [address], 12/07/2023 20:06:24 12/05/19 24 12/07/2023 CT, NG, TRICH VAG BY HAFSA gonococcus by HAFSA NEGATI VE negati ve Not Available [facility] ([facility]) [address] [place], [address], 12/07/2023 20:06:24 12/05/19 24 12/07/2023 CT, NG, TRICH VAG BY HAFSA trich vag by HAFSA NEGATI VE negati ve Not Available [facility] ([facility]) [address] [place], [address], 12/07/2023 20:06:24 12/05/19 24 12/08/2023 UPPER RESPI RATOR Y CULTU RE upper respiratory culture FINAL REPORT Not Available [facility] ([facility]) [address] [place], [address], 12/08/2023 14:06:02 12/05/19 24 12/08/2023 UPPER RESPI RATOR Y CULTU RE result 1 COMMEN T Routi ne respi rator y katherin Not Available [facility] ([facility]) [address] [place], [address], 12/08/2023 14:06:02 12/05/19 24 12/05/2023 rapid strep group A, throa t Unknown Analyte negati ve Not Available nasir orlando [address], [address], 12/05/2023 10:53:59 12/05/19 24 12/05/2023 SARS CoV 2 (COVI D-19) Ag, QL, IA, upper respi rator y speci men Unknown Analyte negati ve Not Available roman yr [address], [place], [address], 12/05/2023 10:53:37 10/28/19 23 10/28/2022 XR, hand, 3 or more view No observ ation record ed. [email or web address] [facility] [address] [facility], [place], [address], 10/29/2022 08:27:08 Result Notes None recorded. Problems Name Problem SNOMED Code Status Onset Date Resolution Date Notes Provider Name and Address Organization Details Recorded Time Anxiety 80466066 Active 2022 Keyanaethan Young null, [place] - [facility] 3 18:47:36 Depressive disorder 33910169 Active 2022 Keyana Young null, [place] - [facility] 3 18:47:42 Bipolar disorder 49474793 Active 2022 Keyanaethan Young null, [place] - [facility] 3 18:48:10 Attention deficit hyperactivity disorder 262583953 Active 2022 Keyanaethan Young null, [place] - [facility] 3 18:48:17 Herpes simplex 78612116 Active 2022 Keyanaethan Young null, [place] - [facility] 3 18:48:25 Asthma 785429398 Active 2023 JAQUI YOUNGBLOOD null, PA - [facility] 4 11:16:58 Sore throat 055755184 Active 2023 JAQUI YOUNGBLOOD null, PA - [...] XR, hand, 3 or more view completed [email or web address] [facility] [address] [facility] [place], [address], 10/29/2022 08:27:08 Procedure Notes None recorded. Medical [...] Updated DateTime 3 165.1 cm 41.6 kg/m2 270912. 09 g 98 % 98 % 84 [...] Updated DateTime 4 165.1 cm 43.3 kg/m2 310370. 02 g 0 18 /min 97.7 [degF] [...] Updated DateTime 4 165.1 cm 43.3 kg/m2 195802. 02 g 3 18 /min 97.3 [degF] 97 % 97 % 66 /min 127 mm[Hg] 84 mm[Hg] JAQUI RYLIE PA - [facility] 4 10:56:13 Social History Question Answer Notes LastModified by Organizat ion Details LastModified Time Tobacco Smoking Status Never Smoker DAY[facility] 10/28/2022 18:48:41 What Is Your Level Of Alcohol Consumption? Occasional [email or web address] Information not available 10/28/2022 Which Illicit Or Recreational Drugs Have You Used? Marijuanna [email or web address] Information not available 10/28/2022 Do You Use Any Illicit Or Recreational Drugs? Yes [email or web address] Information not available 10/28/2022 Have You Recently Traveled Abroad? No [email or web address] Information not available 10/28/2022 Do You Or Have You Ever Used Any Other Forms Of Tobacco Or Nicotine? No Information not available 10/28/2022 Sex: Unknown Functional [...] SNOMED-CT Code Diagnosis ICD10 Code Diagnosis Note [id number] [address] [place] [address] 04/26/2020 11:31:06 04/26/2020 12:18:07 [id number] 20[facility] [address] [address] [place] [address] 04/26/2020 11:30:37 04/26/2020 12:14:15 [id number] 21009[facility] [address] [place] [address] 03/16/2019 09:58:08 03/16/2019 10:27:00 [id number] 20995[address] [place] [address] 09/30/2018 10:30:44 09/30/2018 12:01:17 [id number] 20[address] [place] [address] 09/27/2019 09:28:43 09/27/2019 10:12:33 [id number] 20[address] [place] [address] 10/03/2019 18:39:53 10/03/2019 19:16:21 [id number] 20995[address] [place] [address] 08/07/2017 09:52:15 08/07/2017 10:29:17 [id number] [facility] [address] [facility] [place] [address] 09/30/2019 19:29:47 09/30/2019 20:36:56 [id number] Dilia Cardenas MD 20993[facility] [address] [place] [address] 10/28/2022 11:07:12 10/28/2022 20:08:47 Pain in right hand 5062488186 32196 M79.641 Closed fra cture of fifth metacarpal bone of right hand 9477954036 3708002 S62.306A [id number] DAYNA Zuñiga [address] [facility] GREGG Spears [address] 11/17/2023 10:56:01 11/17/2023 11:39:27 Exacerbation of intermittent asthma 293736066 J45.21 You are having an asthma exacerbati [...] light headedness . Thank you for using [email or web address] today - please don't hesitate to contact up or return to see if you have any questions or concerns. [id number] Harjit BlayneDO taina [address] [place] [address] 12/05/2023 10:39:30 12/05/2023 11:37:40 Sore throat 228934867 J02.9 Rapid strep NEGATIVE Likely viral etiology [...] Emergency Department urgently. Genital he rpes simplex 72921250 A60.9 Rx valtrex bid x 7 dcheck [...] Member ID Guarantor Name 04/26/2020 1 [place] [facility] Blanche A Chenail [id number] Blanche A Chenail 10/28/2022 1 [place] [facility] Blanche A Chenail [id number] Blanche A Chenail 11/17/2023 1 [facility] (MEDICAID HMO) JEANA Mancia A Chenail [id number] Blanche A Chenalvin 12/05/2023 1 [facility] (MEDICAID HMO) JEANA Mancia A Chenail [id number] Blanche Abbott Chenalvin Notes Date Note Type [...] Dilia Cardenas MD [address] [place], [address], [place] - [facility] 10/28/2022 20:07:46 11/17/2023 text/html 22 y/o female he re after having a cold last week, with some SOB related to her asthma. 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
--- OUTSIDE RECORDS SUMMARY | 2024-12-30 18:57 | XMS_ITS | Clinical Summary ---
Author Organization [facility] Address [address] [place] [address] Care Team Providers Care Cabinetmaker Maintenance Name Role Phone Unavailable Primary Care Provider Unavailabl e Surgical History Surgery Date Site/Laterality Comments TONSILLECTOMY PROCEDURE: HISTORICAL TONSILLECTOMY ADENOIDECTOMY PROCEDURE: HISTORICAL ADENOIDECTOMY WISDOM TOOTH EXTRACTION PROCEDURE: HISTORICAL WISDOM TEETH EXTRACTION OTHER SURGICAL HISTORY PROCEDURE: HISTORICAL D&C; COMMENT: TAB Medical History Medical History Date Comments HSV-2 (herpes simplex virus 2) infection DX:HSV-2 (herpes simplex virus 2) infection Menorrhagia DX:Menorrhagia Bipolar disorder (CMS/[facility]) DX:Bi polar disorder ([facility]); COMMENT: on lamictal, prescribed by her psychiatrist. Depression with anxiety DX:Depre ssion with anxiety; COMMENT: on Celexa prescribed by her psychiatrist Morbid obesity (CMS/[facility]) DX:Morb id obesity ([facility]) Family History Medical History Relation Name [...]
== END 2024-12-30 16:10 | disposition home or self-care (01) ==
PROVIDERS: PCP Internal Medicine
DX: R60.0 Localized edema (principal); F31.9 Bipolar disorder, unspecified; E66.01 Morbid (severe) obesity due to excess calories; Z68.43 Body mass index [BMI] 50.0-59.9, adult; G47.10 Hypersomnia, unspecified; F41.9 Anxiety disorder, unspecified; N02.B9 Other recurrent and persistent immunoglobulin A nephropathy; M25.561 Pain in right knee

== ENCOUNTER → 2024-12-30 15:29 | Outpatient (BNVA) | payer OTHER, SELFPAY | PROVIDERS: PCP Internal Medicine | DX: G47.10 Hypersomnia, unspecified (principal); E66.01 Morbid (severe) obesity due to excess calories; Z68.43 Body mass index [BMI] 50.0-59.9, adult; F41.9 Anxiety disorder, unspecified; F31.9 Bipolar disorder, unspecified; R60.0 Localized edema; M25.561 Pain in right knee; N02.B9 Other recurrent and persistent immunoglobulin A nephropathy | CPT/HCPCS: 99212 ==

== ENCOUNTER 2025-01-21 14:09 | Outpatient (RCR) | payer OTHER, SELFPAY ==
--- NOTE | 2025-01-21 14:51 | MHC.PT.EP ---
[facility] [place] Office [place] Office [place] Office [address] Paige Good [address] [phone] F: [phone] F: [phone] F: [phone] F: [phone] Physical Therapy Plan of Care Date of Evaluation: 01/21/25 Date of Surgery: Diagnosis: This is a 24 yo female presenting to skilled PT with a script for R knee pain. Assessment: This is a 24 yo female presenting to skilled PT with a script for R knee pain. Patient reporting that she fell down the outdoor stairs due to ice about 5 weeks ago. Her R knee was bent behind her stuck in the railing. Pain is throbbing, burning and located at the medial patella and medial knee joint. She still gets some occasional swelling. Denies crepitus. She has been using ibuprofen for pain relief. She was provided an umu wrap at the walk in but this has not been helpful. Assessment reveals pain that ranges from up to a 6/10 at the worst. Patient demos decreased R knee and hip ROM, strength of R LE, TTP at and impaired gait, balance and LE posture. Based on functional limitations, impaired QOL and pain tolerance patient is a good candidate for skilled PT 2x/wk for 4wks. Frequency and Duration: The patient will be seen 2x/wk for 4wks Short Term Goals: (in 2 weeks) Patient will improve knee AROM flexion and extension by at least 10 degs without assist Patient will demo good understanding and performance of quad set in multiple different planes without cues from PT Patient will be able to don/doff shoes I Patient will be I in [facility] Group Home Goals: (in 4 weeks) Patient will report 75% improvement in balance and strength of LLE as evidenced by reports no of falls or buckling in LE Patient will improve LEFs by 10 points Patient will demo WFL AROM of hip, knee and ankle Patient will demo proper squat and lift techniques without increase in pain Patient will perform stairs with reciprocal gait Treatment Plan: Modalities to reduce pain, spasms and effusion. Manual therapy to restore motion and function. Therapeutic exercise to improve strength and flexibility. Neuromuscular re-education for posture and balance. Therapeutic activities to return to functional activities of daily living. Electronically signed by: Meredith Watts PT Please sign and return to therapist. Thank you for your referral.
--- NOTE | 2025-02-17 07:51 | MHC.PT.DC ---
[facility] Office [place] Office [place] Office [address] Paige Good [address] [phone] F: [phone] F: [phone] F: [phone] F: [phone] Physical Therapy Discharge Report Diagnosis: This is a 24 yo female presenting to skilled PT with a script for R knee pain. Date of Surgery: Date of Evaluation: 01/21/25 Date of Discharge: 02/17/25 Treatments to Date: 1 Cancellations to Date: 0 No Shows to Date: 0 Discharge Status: Patient Elected to Stop Visit Non-compliance Discharge Summary: Patient with noncompliance with appointments following eval date. Chart DC'd after 30 days. Electronically signed by: Meredith Watts PT Please sign and return to therapist. Thank you for your referral.
== END 2025-02-17 07:51 | disposition home or self-care (01) ==
LOC: HO.PTCHIC 14:09
DX: M25.561 Pain in right knee (principal)
CPT/HCPCS: 97110; 97162

== ENCOUNTER 2025-02-23 09:41 | Outpatient (REF) | payer OTHER, SELFPAY ==
--- OUTSIDE RECORDS SUMMARY | 2025-02-23 10:30 | XMS_ITS | Clinical Summary ---
Author Organization [facility] Address [address] [place] [address] Care Team Providers Care Board Setter Name Role Phone Unavailable Primary Care Provider Unavailabl e Surgical History Surgery Date Site/Laterality Comments TONSILLECTOMY PROCEDURE: HISTORICAL TONSILLECTOMY ADENOIDECTOMY PROCEDURE: HISTORICAL ADENOIDECTOMY WISDOM TOOTH EXTRACTION PROCEDURE: HISTORICAL WISDOM TEETH EXTRACTION OTHER SURGICAL HISTORY PROCEDURE: HISTORICAL D&C; COMMENT: TAB Medical History Medical History Date Comments HSV-2 (herpes simplex virus 2) infection DX:HSV-2 (herpes simplex virus 2) infection Menorrhagia DX:Menorrhagia Bipolar disorder ([facility] V2 4, [facility] V28) DX:Bipolar disorder ([facility]); C OMMENT: on lamictal, prescribed by her psychiatrist. Depression with anxiety DX:Depre ssion with anxiety; COMMENT: on Celexa prescribed by her psychiatrist Morbid obesity (CMS/[facility] V24, [facility] V28) DX:Morbid obesity ([facility]) Family History Medical History Relation Name [...] Screening: P ap Smear 2019 COVID-19 Vaccine ( - 2023-2 5 season) 2024 Influenza Vaccine (Season Ended) 2025 DTaP,Tdap,and Td Vaccines (2 - Td or [...] age to complete this topic Meningococcal B Vaccine Aged Out No l onger eligible based on patient's age to complete [...]
--- OUTSIDE RECORDS SUMMARY | 2025-02-23 10:30 | XMS_ITS | Clinical Summary ---
Author Organization [facility] Facility Address [address] [place] [address] Care Team Providers Care Sweeper Brush Maker Machine Name Role Phone Cedric Bingham MD Primary Care Provider +1- [phone] Social History Tobacco Use Types Packs/Day Years Used Date Smoking Tobacco: Never Assessed Comments Unknown Sex and Gender Information Value Date Recorded Sex Assigned at Not on file Legal Sex Female 2:52 PM EDT Gender Identity Not on file Sexual Orientation Not on file Plan of Treatment Health Maintenance Due Date Last Done Comments Hepatitis B Vaccine (1 of 3 - 19+ 3-dose series) 11/25 Pneumococcal Vaccine: Peds ( 0 to 5 Years) and At-Risk Patients (6 to 49 Years) (1 of 2 - PCV) 2017 Influenza Vaccine (Season Ended) 2025 Insurance [facility] Medicaid Care Teams Sweeper Brush Maker Machine Relationship Specialty Start Date End Date Cedric Bingham MD [address] [place] [address] PCP - General Internal Medicine 03/27/24
[2025-02-23 10:39] LABS: MANUAL DIFF FLAG NO
[2025-02-23 10:41] LABS: Basophils Percent Auto 0.3 % (0-2); Eosinophils Absolute Auto 0.1 X10*3/uL (0.0-0.4); Hematocrit 41.2 % (37.0-47.0); Hemoglobin 13.6 g/dl (12.0-16.0); Imm Gran Abs Auto 0.04 X10*3/uL (0.00-0.03); Imm Gran Pct Auto 0.3 % (0.0-0.4); Lymphocytes Percent Auto 16.4 % (20-40); Mean Corpuscular Hemoglobin 28.5 pg (27.0-33.0); Mean Corpuscular Volume 86.4 fL (80.0-98.0); Mean Platelet Volume 10.1 fL (9.4-12.3); Monocytes Absolute Auto 0.7 X10*3/uL (0.1-1.2); Neutrophils Absolute Auto 9.2 x10*3/uL (2.0-8.3); Platelet Count 228 X10*3/uL (160-400); Red Blood Count 4.77 X10*6/uL (4.20-5.50); Red Cell Distribution Width 12.3 % (11.0-16.0); White Blood Count 12.1 X10*3/uL (4.8-10.8)
[2025-02-23 10:53] LABS: Albumin Level 3.6 g/dL (3.5-5.0); Anion Gap 14 (12-20); Blood Urea Nitrogen 12 mg/dL (9-16); Calcium 8.7 mg/dL (8.4-10.2); Carbon Dioxide 24 mmol/L (22-29); Chloride 106 mmol/L (96-108); Estimated Glomerular Filt Rate > 60; Glucose Random 98 mg/dL (60-115); Potassium 3.6 mmol/L (3.3-5.1); Sodium 140 mmol/L (135-145)
== END 2025-02-23 09:42 | disposition home or self-care (01) ==
LOC: HO.LAB 09:41
PROVIDERS: Visit Provider Internal Medicine Nephrology
DX: N02.B9 Other recurrent and persistent immunoglobulin A nephropathy (principal); R80.8 Other proteinuria; E66.01 Morbid (severe) obesity due to excess calories; Z68.43 Body mass index [BMI] 50.0-59.9, adult; R80.9 Proteinuria, unspecified
CPT/HCPCS: 36415; 80048; 82040; 85025

== ENCOUNTER 2025-02-25 15:42 | Outpatient (AMB) | payer OTHER, SELFPAY ==
--- OUTSIDE RECORDS SUMMARY | 2025-02-25 15:44 | XMS_ITS | Clinical Summary ---
Author Organization [facility] Facility Address [address] [place] [address] Care Team Providers Care Corrugator Operator Name Role Phone Cedric Bingham MD Primary Care Provider +1- [phone] Social History Tobacco Use Types Packs/Day Years [...] 2017 Influenza Vaccine (Season Ended) 2025 Insurance [facility] Medicaid Care Teams Corrugator Operator Relationship Specialty Start Date End Date Cedric Bingham MD [address] [place] [address] PCP - General Internal Medicine 03/27/24
--- OUTSIDE RECORDS SUMMARY | 2025-02-25 15:44 | XMS_ITS | Data Portability ---
Author Organization DAYNA White s, [address] Address [address] [place] [address] Assessment No assessment recorded. Plan of Treatment Reminders Order Date Submit Date Provider Last Modified By Organization Details Last Modified Time Details Appointments None recorded. Lab chlamydia trachomatis + neisseria gonorrhoeae + trichomonas vaginalis DNA panel, HAFSA+probe, unspecified specimen [address] [facility] ([place]), [facility] [place], [address], 4 20:06:24 SARS CoV 2 (COVID-19) Ag, QL, [place], upper respiratory specimen 2023 024 [email or web address] 20999[facility], [address] [place] [address], [address], 4 11:15:54 rapid strep group A, throat 2023 024 [email or web address] _[facility], [address] [place] [address], [address], 4 11:15:51 culture, respiratory 2023 024 [facility]), [facility] [place], [address], 4 06:06:29 Referral emergency medicine referral 2022 023 [email or web address] Not available 3 20:08:47 Procedures None recorded. Surgeries None recorded. Imaging XR, hand, 3 or more view 2022 023 [facility], [address] [facility] [place], [address], 21:38:21 Medication Orders Valtrex 1 gram tablet 2023 024 [email or web address] [id number], [address] [place], [address], 4 11:28:08 prednisone 20 mg tablet 2023 024 [email or web address] [id number], [address] [place], [address], 4 10:52:53 albuterol sulfate 2.5 mg/3 mL (0.083 %) solution for nebulizatio n 2023 024 [id number] [address] [place], [address], 11:32:09 Patient TargetsNo targets recorded. Patient Instructions Encounter Date Encounter Id Patient Instructions Last Modified By Organization Details Last Modified Time 10/28/2022 [id number] learning about rice (rest, ice, compression, and elevation) [email or web address] Not available 10/28/2022 19:49:42 You have a fracture of your right 5th metacarpal with angulation that requires reduction. You have been advised to go now to the Emergency Department for further evaluation. [facility] has been advised of your impending arrival. [email or web address] Not available 10/28/2022 20:05:50 12/05/2023 [id number] sore throat: car e instructions [email or web address] Not [...] NEGATI VE negati ve Not Available [facility] ([facility]) [address] [place], [address], 12/07/2023 20:06:24 12/05/19 24 12/07/2023 CT, NG, TRICH VAG BY HAFSA gonococcus by HAFSA NEGATI VE negati ve Not Available [facility] ([facility]) [address] [place], [address], 12/07/2023 20:06:24 12/05/19 24 12/07/2023 CT, NG, TRICH VAG BY HAFSA trich vag by HAFSA NEGATI VE negati ve Not Available [facility] ([facility]) [address] [place], [address], 12/07/2023 20:06:24 12/05/19 24 12/08/2023 UPPER RESPI RATOR Y CULTU RE upper respiratory culture FINAL REPORT Not Available [facility] ([facility]) [address] [place], [address], 12/08/2023 14:06:02 12/05/19 24 12/08/2023 UPPER RESPI RATOR Y CULTU RE result 1 COMMEN T Routi ne respi rator y katherin Not Available [facility] ([facility]) [address] [place], [address], 12/08/2023 14:06:02 12/05/19 24 12/05/2023 rapid strep group A, throa t Unknown Analyte negati ve Not Available [facility] [place] [address], [address], 12/05/2023 10:53:59 12/05/19 24 12/05/2023 SARS CoV 2 (COVI D-19) Ag, QL, IA, upper respi rator y speci men Unknown Analyte negati ve Not Available roman yr [address], [place], [address], 12/05/2023 10:53:37 10/28/19 23 10/28/2022 XR, hand, 3 or more view No observ ation record ed. [email or web address] [facility] [address] [facility], [place], [address], 10/29/2022 08:27:08 Result Notes None recorded. Problems Name Problem SNOMED Code Status Onset Date Resolution Date Notes Provider Name and Address Organization Details Recorded Time Anxiety 46046386 Active 2022 Keyanaethan Young null, [place] - [facility] 3 18:47:36 Depressive disorder 08381134 Active 2022 Keyana Young null, PA - [facility] 3 18:47:42 Bipolar disorder 21277263 Active 2022 Keyanaethan Young null, PA - [facility] 3 18:48:10 Attention deficit hyperactivity disorder 204692470 Active 2022 Keyanaethan Young null, PA - [facility] 3 18:48:17 Herpes simplex 90722041 Active 2022 Keyanaethan Young null, PA - [facility] 3 18:48:25 Asthma 904571435 Active 2023 JAQUI YOUNGBLOOD null, PA - [facility] 4 11:16:58 Sore throat 380608288 Active 2023 JAQUI YOUNGBLOOD null, PA - [...] XR, hand, 3 or more view completed [email or web address] [facility] [address] [facility] [place], [address], 10/29/2022 08:27:08 Procedure Notes None recorded. Medical [...] Updated DateTime 3 165.1 cm 41.6 kg/m2 032831. 09 g 98 % 98 % 84 [...] Updated DateTime 4 165.1 cm 43.3 kg/m2 371725. 02 g 0 18 /min 97.7 [degF] [...] Updated DateTime 4 165.1 cm 43.3 kg/m2 932504. 02 g 3 18 /min 97.3 [degF] 97 % 97 % 66 /min 127 mm[Hg] 84 mm[Hg] JAQUI RYLIE PA - [facility] 4 10:56:13 Social History Question Answer Notes LastModified by Organizat ion Details LastModified Time Tobacco Smoking Status Never Smoker DAYNA [facility] 10/28/2022 18:48:41 What Is Your Level Of Alcohol Consumption? Occasional [email or web address] Information not available 10/28/2022 Which Illicit Or Recreational Drugs Have You Used? Marijuanna [email or web address] Information not available 10/28/2022 Do You Use Any Illicit Or Recreational Drugs? Yes [email or web address] Information not available 10/28/2022 Have You Recently Traveled Abroad? No [email or web address] Information not available 10/28/2022 Do You Or Have You Ever Used Any Other Forms Of Tobacco Or Nicotine? No [email or web address] Information not available 10/28/2022 Sex: Unknown Functional [...] SNOMED-CT Code Diagnosis ICD10 Code Diagnosis Note [id number] [address] [place] [address] 04/26/2020 11:31:06 04/26/2020 12:18:07 [id number] [address] [place] [address] 04/26/2020 11:30:37 04/26/2020 12:14:15 [id number] [address] [place] [address] 03/16/2019 09:58:08 03/16/2019 10:27:00 [id number] [address] [place] [address] 09/30/2018 10:30:44 09/30/2018 12:01:17 [id number] [address] [place] [address] 09/27/2019 09:28:43 09/27/2019 10:12:33 [id number] [address] [place], [place] [address] [address] 10/03/2019 18:39:53 10/03/2019 19:16:21 [id number] [address] [employer] [address] [facility] [address] 08/07/2017 09:52:15 08/07/2017 10:29:17 [id number] [address] [facility] [address] [place] [address] 09/30/2019 19:29:47 09/30/2019 20:36:56 [id number] Dilia Cardenas MD [address] [place] [address] 10/28/2022 11:07:12 10/28/2022 20:08:47 Pain in right hand 4780350473 90034 M79.641 Closed fra cture of fifth metacarpal bone of right hand 2902285410 0374136 S62.306A [id number] DAYNA Zuñiga [address] [place] [address] 11/17/2023 10:56:01 11/17/2023 11:39:27 Exacerbation of intermittent asthma 331356881 J45.21 You are having an asthma exacerbati [...] light headedness . Thank you for using [employer] today - please don't hesitate to contact up or return to see if you have any questions or concerns. [id number] [place] [address] [place] [address] 12/05/2023 10:39:30 12/05/2023 11:37:40 Sore throat 890346546 J02.9 Rapid strep NEGATIVE Likely viral etiology [...] Emergency Department urgently. Genital he rpes simplex 61373830 A60.9 Rx valtrex bid x 7 dcheck [...] Member ID Guarantor Name 04/26/2020 1 [place] [facility] Blanche Abbott Chenail [id number] Blanche Allen 10/28/2022 1 [place] [facility] Blanche Abbott Chenail [id number] Blanche Abbott Chenail 11/17/2023 1 [facility] PLAN (MEDICAID HMO) JEANA Allen [id number] Blanche Allen 12/05/[address] [facility] PLAN (MEDICAID HMO) JEANA Allen [id number] Blanche Abbott Elenitaalvin Notes Date Note Type Note Provider Name [...] Dilia Cardenas MD [address] [place], [address], [place] - [facility] 10/28/2022 20:07:46 11/17/2023 text/html 22 y/o female he re after having a cold last week, with some SOB related to her asthma. 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 / Fractionating Still Operator Problems-FemaleReported bypatient.Notes:c/o outbreak of painful herpetic lesions x2 weeks (dx in past)Sore throatReported bypatient.Notes:23 yo female c/o sore throat x3 days No feverNo chillsNo nausea+ vomiting x 1No coughNo wheezeNo difficulty breathing or respiratory distressNo CP+ congestionNo sinus painNo ear painNo sore throatNo Abdominal painNo diarrheaNo myalgiaNo fatigueNo rashNo HANo dizzinessNo recent travelNo known sick contacts Harjit Hillman DO [address] [place], [address], [place] - [facility] 12/05/2023 11:32:35 OBGyn Episode No OBEpisode recorded.
--- OUTSIDE RECORDS SUMMARY | 2025-02-25 15:44 | XMS_ITS | Clinical Summary ---
Author Organization [facility] Address [address] [place] [address] Care Team Providers Care Library Manager Name Role Phone Unavailable Primary Care Provider Unavailabl e Surgical History Surgery Date Site/Laterality Comments TONSILLECTOMY PROCEDURE: HISTORICAL TONSILLECTOMY ADENOIDECTOMY PROCEDURE: HISTORICAL ADENOIDECTOMY WISDOM TOOTH EXTRACTION PROCEDURE: HISTORICAL WISDOM TEETH EXTRACTION OTHER SURGICAL HISTORY PROCEDURE: HISTORICAL D&C; COMMENT: TAB Medical History Medical History Date Comments HSV-2 (herpes simplex virus 2) infection DX:HSV-2 (herpes simplex virus 2) infection Menorrhagia DX:Menorrhagia Bipolar disorder ([facility] V2 4, [facility] V28) DX:Bipolar disorder ([facility]); C OMMENT: on lamictal, prescribed by her psychiatrist. Depression with anxiety DX:Depre ssion with anxiety; COMMENT: on Celexa prescribed by her psychiatrist Morbid obesity ([facility] V24, [facility] V28) DX:Morbid obesity ([facility]) Family History Medical History Relation [...]
[2025-02-25 15:46] VITALS: BP 122/64; PULSE 93; O2SAT 99; BMI 54.1
--- NOTE | 2025-02-25 15:46 | HO.NEPHOV_ITS ---
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 She had been on PO prednisone, ACEI and supportive care. She had been getting 500 mg IV cytoxan Q 2 weeks( altogether 6 doses given). She denies any fevers, chills, chest pain, shortness of breath, dysuria, hematuria, urinary frequency or urgency. She has history of genital herpes and usually take Valcyclovir. Her serum creatinine is at baseline now. She is on ACEI. She is on diuretics and her edema has improved. She has been on tolerating Jardiance and had tapered & stopped prednsione but she restarted again at 10 mg daily. She feels well. 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 Morbid obesity with BMI of 40.0-44.9, adult Recurrent epistaxis Proteinuria Anxiety Bipolar depression Elevated d-dimer Asthma Obesity Surgical History History of biopsy Hx of adenoidectomy History of surgery Hx of tonsillectomy Family History Mother No known health problems Father No known health problems Other Mental health disorder Substance use disorder Social History Housing: Apartment Alcohol intake: current Alcohol intake frequency: does not drink Comment: medicated prior to discharge Patient Tobacco Use Status: Never used Tobacco e-Cigarette/Vaping Use: Never Used Second Hand Smoke Exposure: No Substance Use Type: Marijuana service: No Current occupational status: student Cognitive needs: No Hearing needs: No Vision needs: No Review of Systems Const All systems reviewed & are unremarkable except as noted in HPI and below Physical Exam Vital Signs: Last Vital Signs Pulse 93 02/25/25 15:46 BP 122/64 02/25/25 15:46 Pulse Ox 99 02/25/25 15:46 Oxygen Delivery Method Room Air 02/25/25 15:46 BMI result Body Mass Index 54.1 Const General: comfortable and no acute distress Orientation/consciousness: patient oriented x3 HEENT Head: Yes normocephalic Mouth: Normal oral and palatal mucosa present Eyes EOM: EOMs intact bilaterally Neck Neck: Yes supple Resp Auscultation: clear to auscultation bilaterally Cardio Jugular venous distension: no JVD Rate: regular rate GI Palpation (GI): Soft to palpation Auscultation: normal bowel sounds General: Yes no CVA tenderness Back/Spine/Pelvis Back: no CVA tenderness Skin General skin exam: no rashes or lesions noted Neuro General: patient oriented x3 and moves all extremities Extrem General: Yes no pedal edema Results Reviewed Nephrology Results: Hgb 13.6 g/dl (12.0-16.0) 02/23/25 WBC 12.1 X10*3/uL (4.8-10.8) H 02/23/25 Plt Count 228 X10*3/uL (160-400) 02/23/25 Sodium 140 mmol/L (135-145) 02/23/25 Potassium 3.6 mmol/L (3.3-5.1) 02/23/25 Chloride 106 mmol/L (96-108) 02/23/25 Carbon Dioxide 24 mmol/L (22-29) 02/23/25 BUN 12 mg/dL (9-16) 02/23/25 Creatinine 0.72 mg/dL (0.5-1.4) 02/23/25 Calcium 8.7 mg/dL (8.4-10.2) 02/23/25 Assessment & Plan Assessment & Plan (1) Glomerulonephritis, IgA: Code(s): N02.B9 - Other recurrent and persistent immunoglobulin A nephropathy Category: Medical Plan Blanche has glomerular proteinuria. She has H/O vasculitic rash with microscopic hematuria and abdominal pain. 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 She is currently on prednisone 10 mg daily. She was given cytoxan IV 500 mg twice a month for 3 months. She will be started on maintenance immunosuppression soon ( wants to wait). She has been having emotional lability on prednisone. She should continue on Bumex 0.5 mg daily. C/W lisinopril to 20 mg bid. She will need Sparsentan and FABHALTA in the future. She is on PPI. She can continue Jardiance 10 mg daily. 24 hour urine for protein pending. Follow-up labs ordered .Answered all questions Orders: Orders Albumin Level 3 Months N02.B9 - Other recurrent and persistent immunoglobulin A nephropathy Creatinine 3 Months N02.B9 - Other recurrent and persistent immunoglobulin A nephropathy Protein, 24 Hr Urine Group 1 Week N02.B9 - Other recurrent and persistent immunoglobulin A nephropathy Blood Urea Nitrogen 3 Months N02.B9 - Other recurrent and persistent immunoglobulin A nephropathy Electrolytes 3 Months N02.B9 - Other recurrent and persistent immunoglobulin A nephropathy Coding Level of Care Code Est Pt Level 4 (41905) Diagnoses Glomerulonephritis, IgA N02.B9
== END 2025-02-25 16:24 | disposition home or self-care (01) ==
LOC: HO.HKA 15:42
PROVIDERS: PCP Internal Medicine; Visit Provider Internal Medicine Nephrology
DX: N02.B9 Other recurrent and persistent immunoglobulin A nephropathy (principal)
CPT/HCPCS: 99214

== ENCOUNTER → 2025-02-25 15:42 | Outpatient (BNVA) | payer OTHER, SELFPAY | PROVIDERS: PCP Internal Medicine; Visit Provider Internal Medicine Nephrology | DX: N02.B9 Other recurrent and persistent immunoglobulin A nephropathy (principal) | CPT/HCPCS: 99212 ==

== ENCOUNTER 2025-03-15 12:51 | Outpatient (AMB) | payer OTHER, SELFPAY ==
[2025-03-15 12:56] VITALS: BP 114/70; PULSE 72; O2SAT 96; BMI 53.4
--- NOTE | 2025-03-15 12:56 | A.OFFVIS_ITS ---
Vital Signs 03/15/25 12:56 Height 5 ft 4 in Weight 311 lb 4.683 oz BMI 53.4 BP 114/70 Blood Pressure Location Lt brachial Position Sitting Pulse 72 Pulse Source Pulse Oximeter Pulse Oximetry (%) 96 Oxygen Delivery Method Room Air Intake Visit Reasons: follow up Intake Note: Patient presents for follow up on Glomerulonephritis.? 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 At that time she was following up for her HSP vasculitis. The plan at that time was to start maintenance rituximab test cyst in tapering her prednisone. Patient states that she wanted to hold off on immunosuppression and tried to taper her prednisone on her own. Was able to come off prednisone for a few weeks but had widespread joint pain and swelling. Restarted prednisone and is currently on 10mg with some improvement to her symptoms Rheumatologic History: Diagnosed with IgA vasculitis after presenting with triad of rash, vague abdominal pain and joint pain. She was also noted to have proteinuria. Status post renal biopsy 01/29/2024 which confirmed IgA deposition with crescentic glomerular nephritis minimal to no sclerosis. Started on Cytoxan by Nephrology and received 6 cycles. 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 Morbid obesity with BMI of 40.0-44.9, adult Recurrent epistaxis Proteinuria Anxiety Bipolar depression Elevated d-dimer Asthma Obesity Surgical History History of biopsy Hx of adenoidectomy History of surgery Hx of tonsillectomy Family History Mother No known health problems Father No known health problems Other Mental health disorder Substance use disorder Social History Housing: Apartment Alcohol intake: current Alcohol intake frequency: does not drink Comment: medicated prior to discharge Patient Tobacco Use Status: Never used Tobacco e-Cigarette/Vaping Use: Never Used Second Hand Smoke Exposure: No Substance Use Type: Marijuana service: No Current occupational status: student Cognitive needs: No Hearing needs: No Vision needs: No Review of Systems Const Details: Review of Systems Constitutional: Denies fever, chills, weight loss ENT: Denies vision changes, eye pain or eye redness, dental caries, dry mouth GI: Denies nausea, vomiting, diarrhea, abdominal pain, change in BM Pulm: Denies SOB, COMER, hemoptysis, wheezing Cards: Denies chest pain, palpitations Skin: Denies Raynaud's, rash, nail changes, photosensitivity, DIGITAL FORENSICS INVESTIGATOR: Denies headaches, weakness, paresthesias, recurrent falls MSK: as per HPI All other systems reviewed and are unremarkable except noted above Physical Exam Vital Signs: Last Vital Signs Pulse 72 03/15/25 12:56 BP 114/70 03/15/25 12:56 Pulse Ox 96 03/15/25 12:56 Oxygen Delivery Method Room Air 03/15/25 12:56 BMI result Body Mass Index 53.4 Vital signs reviewed Physical Examination CONSTITUITIONAL Patient alert and cooperative. Well appearing and in no apparent painful distress HEENT Conjunctiva and sclera clear. ?Pupils equal round and reactive to light. ?No lymphadenopathy. ? CHEST/RESPIRATORY SYSTEM Normal respiratory effort and able to speak in complete sentences. ?Clear to auscultation bilaterally. ?No crackles, rales, rhonchi, wheezes heard. CARDIAC SYSTEM Regular rate and rhythm. ?S1 and S2 heard no murmurs. ?Radial pulses intact bilaterally MSK Hands: ?Able to make a fist. No synovitis noted to the MCPs, PIPs or DIPs. ?No tenderness to palpation of these joints. No deformities noted. ? Wrists: ?Full range of motion at the wrists without pain. ?No tenderness to palpation or synovitis noted to the wrists. Elbows: Full range of motion without pain. No tenderness, weakness, swelling, increased warmth or erythema. Shoulders: Full range of active range of motion without pain. No tenderness, weakness, swelling, increased warmth or erythema. Knees: ?Full range of motion. ?No tenderness, swelling, increased warmth or erythema.?No effusion or crepitations Ankles: Full range of motion. ?No tenderness, swelling, increased warmth or erythema.? Feet: ?Negative squeeze test. ?No tenderness to palpation or swelling of the MTPs. Tender points:?No tenderness to palpation of the bilateral trapezius, supraspinatus, greater trochanters, anterior costochondral junctions, bilateral gluteal areas, bilateral suboccipital muscle insertions SKIN Skin intact without rashes. Results Reviewed Results Reviewed: Laboratory Tests 12/16/24 02/23/25 11:00 10:30 WBC 12.1 H RBC 4.77 Hgb 13.6 Hct 41.2 Plt Count 228 Sodium 140 Potassium 3.6 Chloride 106 Carbon Dioxide 24 BUN 12 Creatinine 0.72 AST 19 ALT 14 Alkaline Phosphatase 71 Immunology labs 01/19/24 12:06 Proteinase 3 (PR3) Ab <1.0 Myeloperoxidase Ab <1.0 Urine tests 08/13/24 03/15/25 15:07 13:47 Urine Blood Large (3+) H Urine RBC >20 H Protein/Creatinin Ratio 5.83 H 4.94 H Right Kidney Biopsy 01/2024 The findings are compatible with IgA nephropathy/Henoch-Schoenlein purpura. Active crescents are seen in approximately 14% of glomeruli, while proliferative lesions are seen in most of the glomeruli available for review. In addition, the ultra structure reveals a thin glomerular basement membranes. Thin glomerular basement membranes are typically the manifestation of a hereditary abnormality in her glabellar Humira basement membrane collagen and lead to nonprogressive, ?benign? but persistent microscopic hematuria. Ultrastructural features of Alport syndrome are not present Assessment & Plan Assessment & Plan (1) Glomerulonephritis, IgA: Code(s): N02.B9 - Other recurrent and persistent immunoglobulin A nephropathy Category: Medical Plan: #IgA Crescentic Glomerulonephritis/Vasculitis Patient is a 24-year-old female with biopsy-proven necrotizing crescentic glomerular nephritis/IgA vasculitis. Patient unable to taper her steroids. Discussed immunosuppression with patient. Rituximab, based on the RAVE and MAINRITSAN trials, is non inferior in inducing remission and superior maintaining remission when compared to CYC and azathioprine respectively. While this was related to ANCA associated vasculitis it can be extrapolated to treatment of IgA vasculitis (3), especially since rituximab is able to cover her joint pain as well. Plan - Rituximab 1000mg day 1 and day 15 every 6 months - Prednisone 10mg - Labs today: CBC, CMP, ESR, CRP, UA, UPC, Immunoglobulins, Hep B and C, T spot - RTC 4 months 1. Bernardo JH, Stephanie PA, Gui R, Rory P, Lisseth CA, Nagi GS, Melissa CG, [facility] EW, Herbert A, Cindy NK, Araceli L, López L, Mauro LP, Chalo K, Joe D, Mustapha D, Cleveland V, Jonah M, Cora P, Javier NB, Forrest FC, Miriam D, Mamadou KA, Gina EY, Concetta PA, Mango T, Mel C, Nguyễn SR, Amari U; RAVE-ITN Research Group. Rituximab versus c yclophosphamide for ANCA-associated vasculitis. N Engl J Med. 2009May 10;363(3):221-32. doi: 10.1056/[id number]. PMID: 25867289; PMCID: [id number]. 2. Coco F, Eloy P, Coco A, Morena C, N?el A, Vidal P, Auma?maile O, Fazelalemer S, Gobert P, Magailer F, Rajesh M, Godlai P, Mario B, Vamsi V, Bobo-Esau C, Eulalia Bazan T, Ady PL, Sammie H, Karla G, Kathy- Chance N, Moreno F, Roel-Siu N, Purobbyet G, Qu?m?neur T, Oswaldo M, Lonny Y, Odalys E, Juan Carlos E, Martin N, Mercy M, Kevin A, Cori JF, Max E, Suly E, Pufrank X, David L, Fernanda R, Fercho B; [place] Vasculitis Study Group (FVSG). Rituximab as maintenance therapy for ANCA- associated vasculitides: pooled analysis and long-term outcome of 277 patients included in the MAINRITSAN trials. Anh Rheum Dis. 2023Nov 06;83(2):233-241. doi: 10.1136/[id number]. PMID: 15902940. 3. Odalys?ndez-Rodr?gautam J, Tim C, Dony?n-Zana JA, Linda-Jose Francisco S, Tobin M, Iva MAJANO. Rituximab treatment for IgA vasculitis: A systematic review. Autoimmun Rev. 2020 Jan;19(4):156747. doi: 10.1016/j.autrev.2020.951215. Ep2019Dec 09. PMID: 04777677. (2) Encounter for monitoring rituximab therapy: Code(s): Z51.81 - Encounter for therapeutic drug level monitoring; Z79.620 - moth exterminator (current) use of immunosuppressive biologic Plan: #Long-term Use of Rituxumab Discussed with this patient the risks and benefits of rituximab use to the management of the rheumatic condition Benefits include improved disease control and maintenance of remission Risks include hypogammaglobulinemia and increased risk of opportunistic infections, reactivation of hepatitis-B, infusion reactions Monitoring: ?Immunoglobulins, hepatitis-B serologies, CBC (3) moth exterminator (current) use of systemic steroids: Code(s): Z79.52 - moth exterminator (current) use of systemic steroids Plan: #Long-term Use of Steroids Discussed with patient the risks and benefits of steroid for managing the rheuma tic condition Benefits include: - Reduced pain, improved mobility, increased participation in activities, and decreased progression of disease Risks include: - GI upset, potential ultrasound worsening or formation (especially in patients > 65 years old), elevated blood pressure/worsening hypertension, elevated blood sugar/worsening diabetes control, worsening of bone density, elevated lipids/wor sening triglycerides, cataract formation, weight gain Recommended using proton pump inhibitors (PPIs) for the duration of steroid use to reduce the risk of gastric ulcers and vitamin-D daily to reduce the risk of osteoporosis Labs checked: ?A1c, T spot, hepatitis-B and C serologies Pneumocystis jiroveci prophylaxis: ?Patient with risk factors including steroids greater than 50 mg for more than 30 days, age greater than 60 years, and lung involvement from underlying rheumatic disease requires prophylaxis and will be given so Plan I spent 45 minutes reviewing the record and labs, taking a history, examining the patient, discussing the treatment plan, ordering diagnostic work up, filling out infusion paperwork and documenting in the medical record Orders: Orders Complete Blood Count Auto Diff 03/15/25 N02.B9 - Other recurrent and persistent immunoglobulin A nephropathy Comprehensive Met. Panel 03/15/25 N02.B9 - Other recurrent and persistent immunoglobulin A nephropathy Hepatitis A,B,C Profile 03/15/25 N02.B9 - Other recurrent and persistent immunoglobulin A nephropathy Immunoglobulins,IgG IgA IgM 03/15/25 N02.B9 - Other recurrent and persistent immunoglobulin A nephropathy T Spot TB 03/15/25 N02.B9 - Other recurrent and persistent immunoglobulin A nephropathy C Reactive Protein 03/15/25 N02.B9 - Other recurrent and persistent immunoglobulin A nephropathy Erythrocyte Sedimentation Rate 03/15/25 N02.B9 - Other recurrent and persistent immunoglobulin A nephropathy UA w Microscopic 03/15/25 N02.B9 - Other recurrent and persistent immunoglobulin A nephropathy Protein Creatinine Ratio, Ur 03/15/25 N02.B9 - Other recurrent and persistent immunoglobulin A nephropathy Referrals Infusion Center Notification I77.6 - Arteritis, unspecified Medications: Changed From prednisone 2.5 mg PO DAILY To prednisone 10 mg PO DAILY Coding Level of Care Code Est Pt Level 5 (32443) Complex EM visit Add On G2211 Diagnoses Glomerulonephritis, IgA N02.B9 Encounter for monitoring rituximab therapy Z51.81; Z79.620 moth exterminator (current) use of systemic steroids Z79.52
--- OUTSIDE RECORDS SUMMARY | 2025-03-15 13:56 | XMS_ITS | Clinical Summary ---
Author Organization [facility] Address [address] [place] [address] Care Team Providers Care Cosmetician Name Role Phone Unavailable Primary Care Provider Unavailabl e Surgical History Surgery Date Site/Laterality Comments TONSILLECTOMY PROCEDURE: HISTORICAL TONSILLECTOMY ADENOIDECTOMY PROCEDURE: HISTORICAL ADENOIDECTOMY WISDOM TOOTH EXTRACTION PROCEDURE: HISTORICAL WISDOM TEETH EXTRACTION OTHER SURGICAL HISTORY PROCEDURE: HISTORICAL D&C; COMMENT: TAB Medical History Medical History Date Comments HSV-2 (herpes simplex virus 2) infection DX:HSV-2 (herpes simplex virus 2) infection Menorrhagia DX:Menorrhagia Bipolar disorder ([facility] V2 4, [facility] V28) DX:Bipolar disorder ([facility]); C OMMENT: on lamictal, prescribed by her psychiatrist. Depression with anxiety DX:Depre ssion with anxiety; COMMENT: on Celexa prescribed by her psychiatrist Morbid obesity ([facility] V24, [facility] V28) DX:Morbid obesity ([facility]) Family History Medical History Relation Name Comments [...]
--- OUTSIDE RECORDS SUMMARY | 2025-03-15 13:56 | XMS_ITS | Clinical Summary ---
Author Organization [facility] Facility Address [address] [place] [address] Care Team Providers Care Relocation Specialist Name Role Phone Cedric Bingham MD Primary Care Provider [phone]- [phone] Social History Tobacco Use Types Packs/Day Years [...] 2017 Influenza Vaccine (Season Ended) 2025 Insurance [facility] Medicaid Care Teams Relocation Specialist Relationship Specialty Start Date End Date Cedric Bingham MD [address] [place] [address] PCP - General Internal Medicine 03/27/24
== END 2025-03-15 13:29 | disposition home or self-care (01) ==
LOC: HO.RHE 12:51
PROVIDERS: PCP Internal Medicine; Visit Provider Student in an Organized Health Care Education/Training Program
DX: N02.B9 Other recurrent and persistent immunoglobulin A nephropathy (principal); Z51.81 Encounter for therapeutic drug level monitoring; Z79.620 Long term (current) use of immunosuppressive biologic; Z79.52 Long term (current) use of systemic steroids
CPT/HCPCS: 99215; G2211

== ENCOUNTER 2025-03-15 12:51 | Outpatient (REF) | payer OTHER, SELFPAY ==
[2025-03-15 14:38] LABS: Appearance Urine Cloudy; Color Urine Yellow; Glucose Urine UA Negative (Negative); Leukocyte Esterase Urine Negative (Negative); Nitrite Urine Negative (Negative); PH 5.5 (5.0-9.0); UMIC TRIGGER UA YES; Urine Blood Large (3+) (Negative); Urine Ketones Negative (Negative); Urine Protein >=1000 (4+) mg/dL (Neg-Trace)
--- OUTSIDE RECORDS SUMMARY | 2025-03-15 14:47 | XMS_ITS | Clinical Summary ---
Author Organization [facility] Address [address] [place] [address] Care Team Providers Care Destination Coordinator Name Role Phone Unavailable Primary Care Provider Unavailabl e Surgical History Surgery Date Site/Laterality Comments TONSILLECTOMY PROCEDURE: HISTORICAL TONSILLECTOMY ADENOIDECTOMY PROCEDURE: HISTORICAL ADENOIDECTOMY WISDOM TOOTH EXTRACTION PROCEDURE: HISTORICAL WISDOM TEETH EXTRACTION OTHER SURGICAL HISTORY PROCEDURE: HISTORICAL D&C; COMMENT: TAB Medical History Medical History Date Comments HSV-2 (herpes simplex virus 2) infection DX:HSV-2 (herpes simplex virus 2) infection Menorrhagia DX:Menorrhagia Bipolar disorder ([facility] V2 4, [facility] V28) DX:Bipolar disorder ([facility]); C OMMENT: on lamictal, prescribed by her psychiatrist. Depression with anxiety DX:Depre ssion with anxiety; COMMENT: on Celexa prescribed by her psychiatrist Morbid obesity ([facility] V24, [facility] V28) DX:Morbid obesity ([facility]) Family History Medical History Relation Name Comments [...]
--- OUTSIDE RECORDS SUMMARY | 2025-03-15 14:47 | XMS_ITS | Clinical Summary ---
Author Organization [facility] Facility Address [address] [place] [address] Care Team Providers Care Circulation Assistant Name Role Phone Cedric Bingham MD Primary Care Provider [phone]- [phone] Social History Tobacco Use Types Packs/Day Years [...] 2017 Influenza Vaccine (Season Ended) 2025 Insurance [facility] Medicaid Care Teams Circulation Assistant Relationship Specialty Start Date End Date Cedric Bingham MD [address] [place] [address] PCP - General Internal Medicine 03/27/24
--- OUTSIDE RECORDS SUMMARY | 2025-03-15 14:47 | XMS_ITS | Data Portability ---
Author Organization DAYNA White s, [address] Address [address] [place] [address] Assessment No assessment recorded. Plan of Treatment Reminders Order Date Submit Date Provider Last Modified By Organization Details Last Modified Time Details Appointments None recorded. Lab chlamydia trachomatis + neisseria gonorrhoeae + trichomonas vaginalis DNA panel, HAFSA+probe, unspecified specimen 2023 024 [facility]), [facility] [place], [address], 4 20:06:24 SARS CoV 2 (COVID-19) Ag, QL, IA, upper respiratory specimen 2023 024 [email or web address] 20999[facility], [address] [place] [address], [phone], 4 11:15:54 rapid strep group A, throat 2023 024 [email or web address] [facility], [address] [place] [address], [phone], 4 11:15:51 culture, respiratory 2023 024 [facility]), [facility] [place], [address], 4 06:06:29 Referral emergency medicine referral 2022 023 [email or web address] Not available 3 20:08:47 Procedures None recorded. Surgeries None recorded. Imaging XR, hand, 3 or more view 2022 023 [facility], [address] [facility] [place], [address], 21:38:21 Medication Orders Valtrex 1 gram tablet 2023 024 [email or web address] [facility]acy #[id number], [address] [place], [address], 4 11:28:08 prednisone 20 mg tablet 2023 024 [email or web address] [facility]/Pharmacy #[id number], [address] [place], [address], 4 10:52:53 albuterol sulfate 2.5 mg/3 mL (0.083 %) solution for nebulizatio n 2023 024 [id number] [address] [place], [address], 11:32:09 Patient TargetsNo targets recorded. Patient Instructions Encounter Date Encounter Id Patient Instructions Last Modified By Organization Details Last Modified Time 10/28/2022 [id number] learning about rice (rest, ice, compression, and elevation) [email or web address] Not available 10/28/2022 19:49:42 You have a fracture of your right 5th metacarpal with angulation that requires reduction. You have been advised to go now to the Emergency Department for further evaluation. [facility] has been advised of your impending arrival. [email or web address] Not available 10/28/2022 20:05:50 12/05/2023 [id number] sore throat: car e instructions [email or web address] Not [...] NEGATI VE negati ve Not Available [facility] ([facility]) [address] [place], [address], 12/07/2023 20:06:24 12/05/19 24 12/07/2023 CT, NG, TRICH VAG BY HAFSA gonococcus by HAFSA NEGATI VE negati ve Not Available [facility] ([facility]) [address] [place], [address], 12/07/2023 20:06:24 12/05/19 24 12/07/2023 CT, NG, TRICH VAG BY HAFSA trich vag by HAFSA NEGATI VE negati ve Not Available [facility] ([facility]) [address] [place], [address], 12/07/2023 20:06:24 12/05/19 24 12/08/2023 UPPER RESPI RATOR Y CULTU RE upper respiratory culture FINAL REPORT Not Available [facility] ([facility]) [address] [place], [address], 12/08/2023 14:06:02 12/05/19 24 12/08/2023 UPPER RESPI RATOR Y CULTU RE result 1 COMMEN T Routi ne respi rator y katherin Not Available [facility] ([facility]) [address] [place], [address], 12/08/2023 14:06:02 12/05/19 24 12/05/2023 rapid strep group A, throa t Unknown Analyte negati ve Not Available [facility] [place] [address], [address], 12/05/2023 10:53:59 12/05/19 24 12/05/2023 SARS CoV 2 (COVI D-19) Ag, QL, IA, upper respi rator y speci men Unknown Analyte negati ve Not Available roman yr [address], [place], [address], 12/05/2023 10:53:37 10/28/19 23 10/28/2022 XR, hand, 3 or more view No observ ation record ed. [email or web address] [facility] [address] [facility], [place], [address], 10/29/2022 08:27:08 Result Notes None recorded. Problems Name Problem SNOMED Code Status Onset Date Resolution Date Notes Provider Name and Address Organization Details Recorded Time Anxiety 29062545 Active 2022 Keyanaethan Young null, PA - [facility] 3 18:47:36 Depressive disorder 31877663 Active 2022 Keyana Young null, PA - [facility] 3 18:47:42 Bipolar disorder 68357134 Active 2022 Keyanaehtan Young null, PA - [facility] 3 18:48:10 Attention deficit hyperactivity disorder 403768391 Active 2022 Keyanaethan Young null, PA - [facility] 3 18:48:17 Herpes simplex 43349100 Active 2022 Keyanaethan Young null, PA - [facility] 3 18:48:25 Asthma 772072473 Active 2023 JAQUI YOUNGBLOOD null, PA - [facility] 4 11:16:58 Sore throat 684296690 Active 2023 JAQUI YOUNGBLOOD null, PA - [...] XR, hand, 3 or more view completed [email or web address] [facility] [address] [facility] [place], [address], 10/29/2022 08:27:08 Procedure Notes None recorded. Medical [...] Updated DateTime 3 165.1 cm 41.6 kg/m2 193075. 09 g 98 % 98 % 84 /min 20 /min 98 [degF] 112 mm[Hg] 80 mm[Hg] Keyana MCINTOSH - [facility] 3 18:49:18 Date Recorded Body height Body mass index (BMI) Body weight Respiratory rate Body temperature Oxygen saturation Oxygen saturation in Arterial blood by Pulse oximetry Heart rate Systolic blood pressure Diastolic blood pressure Provider Name and Address Organization Details Last Updated DateTime 4 165.1 cm 43.3 kg/m2 522382. 02 g 18 /min 97.7 [degF] 99 % 99 % 100 /min 124 mm[Hg] 79 mm[Hg] JAQUI YOUNGBLOOD PA - [facility] 4 11:19:06 Date Recorded Body height Body mass index (BMI) Body weight Respiratory rate Body temperature Oxygen saturation Oxygen saturation in Arterial blood by Pulse oximetry Heart rate Systolic blood pressure Diastolic blood pressure Provider Name and Address Organization Details Last Updated DateTime 4 165.1 cm 43.3 kg/m2 294867. 02 g 18 /min 97.3 [degF] 97 % 97 % 66 /min 127 mm[Hg] 84 mm[Hg] JAQUI YOUNGBLOOD PA - [facility] 4 10:56:13 Social History Question Answer Notes LastModified by [email or web address] ion Details LastModified Time Tobacco Smoking Status Never Smoker Keyana brady PA [facility] 10/28/2022 18:48:41 Which Illicit Or Recreational Drugs Have You Used? Natalee [email or web address] Information not available 10/28/2022 Have You Recently Traveled Abroad? No [email or web address] Information not available 10/28/2022 Sex: Unknown Functional Status Question Answer Note LastModified by [employer] ion Details LastModified Time Do you use any illicit or recreational drugs? Yes [email or web address] Information not available 10/28/2022 Do you or have you ever used any other forms of tobacco or nicotine? No [email or web address] Information not available 10/28/2022 What is your level of alcohol consumption? Occasional Information not available 10/28/2022 Mental Status None recorded. Family History Nothing Reported. Medical History No medical history recorded. Gynecological History Statement/Question Response Date of LMP Is there any chance of ? No Obstetrics History GPAL:G 0 P 0 0 0 0 Immunizations Vaccine Type Date Status Note Provider Nam e and Address Organization Details Recorded Time COVID-19, mRNA, LNP-S, PF, 30 mcg/0.3 mL dose 07/30/2021 completed Keyana brady PA - [facility] 10/28/2022 18:45:03 Tdap 02/12/2018 completed Keyana brady PA - [facility] 10/28/2022 18:45:03 COVID-19, mRNA, LNP-S, PF, 30 mcg/0.3 mL dose 08/23/2021 completed Keyana brady, PA - [facility] 10/28/2022 18:45:03 Tdap 01/11/2022 completed Keyana Young null, PA - [facility] 10/28/2022 18:45:03 COVID-19, mRNA, LNP-S, bivalent, PF, 30 mcg/0.3 mL dose 10/09/2022 completed Keyana Young null, PA - [facility] 10/28/2022 18:45:03 Past Encounters Encounter ID Performer Location Encounter Start Date Encounter Closed Date Diagnosis/Indication Diagnosis SNOMED-CT Code Diagnosis ICD10 Code Diagnosis Note [id number] [address] [place] [address] 04/26/2020 11:31:06 04/26/2020 12:18:07 [id number] [address] [place] [address] 04/26/2020 11:30:37 04/26/2020 12:14:15 [id number] [address] [place] [address] 03/16/2019 09:58:08 03/16/2019 10:27:00 [id number] [address] [place] [address] 09/30/2018 10:30:44 09/30/2018 12:01:17 [id number] [address] [place] [address] 09/27/2019 09:28:43 09/27/2019 10:12:33 [id number] [address] [place] [address] 10/03/2019 18:39:53 10/03/2019 19:16:21 [id number] [address] [facility] GREGG Camacho [address] 08/07/2017 09:52:15 08/07/2017 10:29:17 [id number] [address] [facility] [address] 09/30/2019 19:29:47 09/30/2019 20:36:56 [id number] Dilia Cardenas MD [address] [place] [address] 10/28/2022 11:07:12 10/28/2022 20:08:47 Pain in right hand 1529329268 31807 M79.641 Closed fra cture of fifth metacarpal bone of right hand 3320833303 [id number] S62.306A [id number] DAYNA Zuñiga [address] [facility] [address] [place] [address] 11/17/2023 10:56:01 11/17/2023 11:39:27 Exacerbation of intermittent asthma 828871418 J45.21 You are having an asthma exacerbati [...] light headedness . Thank you for using [employer] today - please don't hesitate to contact up or return to see if you have any questions or concerns. [id number] [place] [address] [place] [address] 12/05/2023 10:39:30 12/05/2023 11:37:40 Sore throat 026365653 J02.9 Rapid strep NEGATIVE Likely viral etiology [...] Emergency Department urgently. Genital he rpes simplex 81876961 A60.9 Rx valtrex bid x 7 dcheck self swabPatien t advised to follow up as needed for worsening symptoms or no improvemen t. Health Concerns Section Related Observation LastModified by Organization Detai ls LastModified Time None Recorded Concern Status LastModified by Organization Details LastModified Time None Recorded Advance Directives Directive None Recorded Payers Insurance Date Sequence Insurance Name Policy Number Policy Dang Covered Member ID Dang Member ID Guarantor Name 11/17/2023 1 [place] [facility] Blanche Allen [id number] Blanche Allen 12/05/2023 1 [facility] - HEALTH NET PLAN (MEDICAID HMO) JEANA Allen [id number] Blanche Allen Notes Date Note Type Note Provider Name [...] complaints. No skin redness, abrasons or lacerations. Dliia Cardenas MD [address] [place], [address], PA - [facility] 10/28/2022 20:07:46 11/17/2023 text/html 22 y/o female he re after having a cold last week, with some SOB related to her asthma. 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
[2025-03-15 14:49] LABS: Bacteria Urine 1+ (None Seen); Hyaline Casts Urine 0-2 /LPF (0-2); RBC Urine >20 /HPF (0-2)
[2025-03-15 15:26] LABS: Creatinine Urine 100.32 mg/dL
[2025-03-15 15:55] LABS: Protein/Creatinine Ratio, Ur 4.94 (<0.2); Total Protein Urine Random 496 mg/dL (<12)
== END 2025-03-15 12:52 | disposition home or self-care (01) ==
LOC: HO.LAB 12:51
PROVIDERS: PCP Internal Medicine; Visit Provider Student in an Organized Health Care Education/Training Program
DX: N02.B9 Other recurrent and persistent immunoglobulin A nephropathy (principal); Z51.81 Encounter for therapeutic drug level monitoring; Z79.52 Long term (current) use of systemic steroids; D69.0 Allergic purpura
CPT/HCPCS: 81001; 82570; 84156; 99212

== ENCOUNTER 2025-03-18 11:25 | Emergency (ER) | payer OTHER, SELFPAY ==
[2025-03-18 11:26] VITALS: BP 115/74; PULSE 123; RESP 18; TEMP 36.6; O2SAT 98; BMI 51.9
--- NOTE | 2025-03-18 11:33 | ED_ITS ---
HPI - General Adult General Chief complaint: Eye Problems Stated complaint: Swelling R eye Time Seen by Provider: 03/18/25 13:27 History of Present Illness ED Provider: Miguel Holder MD HPI narrative: 24-year-old female with right eyelid swelling worsening over the past 2-3 days she went to urgent care yesterday was prescribed Augmentin and topical drops. She is on numerous medications but has no other skin findings or swelling subjectively. No difficulty breathing no history of anaphylaxis no recent bug bites or injury to the eye. Her vision is okay subjectively Related Data Home Medications ?Medication ?Instructions ?Recorded ?Confirmed albuterol sulfate 90 mcg/actuation 2 puff inhalation Q6H PRN 03/09/23 03/15/25 aerosol inhaler (Ventolin HFA) Shortness Of Breath Or Wheezing levonorgestrel 21 mcg/24 hr (up to intrauterine 02/11/24 03/15/25 8 years) 52 mg intrauterine device (Mirena) prednisone 10 mg tablet 10 mg PO DAILY 03/15/25 03/15/25 Previous Rx's ?Medication ?Instructions ?Recorded omeprazole 20 mg capsule,delayed 20 mg PO DAILY 3 months #90 caps 11/30/24 release empagliflozin 10 mg tablet 10 mg PO DAILY 30 days #30 tabs 12/17/24 (Jardiance) lisinopril 20 mg tablet 20 mg PO BID 90 days #180 tabs 01/07/25 quetiapine 150 mg tablet 150 mg PO DAILY #90 tabs 01/19/25 valacyclovir 500 mg tablet 500 mg PO DAILY #90 tabs 01/19/25 bumetanide 0.5 mg tablet 0.5 mg PO DAILY #90 tabs 03/04/25 Allergies Allergy/AdvReac Type Severity Reaction Status Date / Time No Known Allergies Allergy Verified 03/18/25 11:29 [No Known Allergies*] [facility] Past Medical History Medical History 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 Son No problems noted. Other Mental health disorder Substance use disorder Social History Social History Housing: Apartment Alcohol intake: current Alcohol intake frequency: does not drink Comment: medicated prior to discharge Patient Tobacco Use Status: Never used Tobacco e-Cigarette/Vaping Use: Never Used Second Hand Smoke Exposure: No Substance Use Type: Marijuana Advance Directives: No Advance Directives Information Provided: Yes service: No Current occupational status: student Cognitive needs: No Hearing needs: No Vision needs: No Physical Exam ED Vital Signs: Vital Signs - 24 hr 03/18/25 11:26 03/18/25 13:59 03/18/25 14:19 Temperature 98 F 98.0 F Pulse Rate 123 H 81 81 Respiratory Rate 18 16 16 Blood Pressure 115/74 126/69 126/69 Pulse Oximetry 98 96 96 Oxygen Delivery Method Room Air Room Air Room Air BMI result Body Mass Index 51.9 Const Other: General well-appearing comfortable normal breathing. Eye: Right eye with lid swelling and visible obstructed gland at the middle of the upper lid margin consistent with hordeolum. Boggy mild edema of the upper eyelid. No conjunctival injection, no hypopyon or hyphema. EOMI without pain. No significant facial swelling Eyes Other: Course Course Course Narrative: RME, this is a rapid medical exam performed by Troy Chung please refer to primary provider for complete H&P- 24-year-old female presents for evaluation of right upper eyelid swelling. Symptoms started 3 days ago. She is on Augmentin without any improvement. She reports that she is on chronic prednisone due to IgA nephropathy. Plan for visual acuity and focused eye exam Medical Decision Making Medical Decision Making MDM Narrative: 24-year-old healthy female with upper eyelid swelling only. 2049 right eye, 2019 left eye. No evidence of injury or inflammation of the eye itself this is only the upper eyelid. No clinical suggestion of retro-orbital process or orbital cellulitis. Likely hordeolum continue with previously prescribed medications and warm compresses as instructed NSAIDs as needed Discharge Plan Discharge Clinical Impression: Hordeolum, Preseptal cellulitis of right eye Patient Disposition: Home, Self-Care Instructions: Ron (ED), Periorbital Cellulitis (ED) Additional Instructions: _ DISCHARGE DIAGNOSES: Hordeolum/preseptal cellulitis right side HISTORY OF PRESENTATION: Swelling right upper eyelid EMERGENCY DEPARTMENT COURSE,TESTS, TREATMENTS: While in the ED today we gave you it warm compresses for the eye and advised continuing the medications you were prescribed DISCHARGE MEDICATIONS: ?[We have made no changes to your regular medication regimen] continue with the previously prescribed medications from urgent Care we agree with the though you may not need the drops FOLLOW-UP: ?Call your primary or general physician soon as possible to discuss your symptoms, your ED visit and to discuss follow up plans Follow up with primary doctor INSTRUCTIONS ?& RETURN PRECAUTIONS: If any symptoms change first call your primary physician, if it is after-hours your primary doctors office should have a provider transportation superintendent you can speak with. If the symptoms are severe or very concerning to you then call 911 or return to the ED. ED or urgent care for worsening in his right eye symptoms Miguel Holder MD Emergency Physician [facility] Prescriptions: No Action omeprazole 20 mg capsule,delayed release(DR/EC) 20 mg PO DAILY 90 Days Qty: 90 4RF lisinopril 20 mg tablet 20 mg PO BID 90 Days Qty: 180 4RF valacyclovir 500 mg tablet 500 mg PO DAILY Qty: 90 3RF quetiapine 150 mg tablet 150 mg PO DAILY Qty: 90 0RF bumetanide 0.5 mg tablet 0.5 mg PO DAILY Qty: 90 1RF albuterol sulfate [Ventolin HFA] 90 mcg/actuation HFA aerosol inhaler 2 puff inhalation Q6H PRN (Reason: Shortness Of Breath Or Wheezing) Mirena 21 mcg/24 hours (8 yrs) 52 mg intrauterine device intrauterine Jardiance 10 mg tablet 10 mg PO DAILY 30 Days Qty: 30 4RF prednisone 10 mg tablet 10 mg PO DAILY Interventions: ED Discharge Assessment Last Done: 03/18/25 14:19 Discharge Date/Time: 03/18/25 14:19 Print Language: Jamaican
[2025-03-18 13:59] VITALS: BP 126/69; PULSE 81; RESP 16; O2SAT 96
[2025-03-18 14:19] VITALS: BP 126/69; PULSE 81; RESP 16; TEMP 36.7; O2SAT 96
== END 2025-03-18 14:19 | disposition home or self-care (01) ==
PROVIDERS: Emergency Provider Emergency Medicine
DX: H00.011 Hordeolum externum right upper eyelid (principal); L03.213 Periorbital cellulitis
CPT/HCPCS: 99282; 99283

== ENCOUNTER 2025-04-01 15:57 | Outpatient (AMB) | payer OTHER, SELFPAY ==
--- NOTE | 2025-04-01 15:59 | A.OFFPC_ITS ---
Vital Signs 3 04/01/25 16:00 Height 5 ft 4 in Weight 311 lb 4 oz BMI 53.4 BP 130/78 Blood Pressure Location Lt brachial Position Sitting Pulse 84 Pulse Source Pulse Oximeter Temp 97.1 F Temp Source Temporal Artery Scan Pulse Oximetry (%) 96 Oxygen Delivery Method Room Air Intake Visit Reasons: f/u obesity Intake Note: Patient is here to follow up on Obesity. 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 Welfare Service Aide: Present Accompanied by: Son Allergies No Known Allergies [No Known Allergies*] Allergy (Verified 04/01/25 16:17) Medication List - Last Reconciled 04/01/25 by Gretchen Kumar PA-C albuterol sulfate 90 mcg/actuation (Ventolin HFA) 2 puffs inhalation Q6H PRN bumetanide 0.5 mg PO DAILY empagliflozin (Jardiance) 10 mg PO DAILY 30 days levonorgestrel (Mirena) intrauterine lisinopril 20 mg PO BID 90 days omeprazole 20 mg PO DAILY 3 months prednisone 10 mg PO DAILY quetiapine 150 mg PO DAILY valacyclovir 500 mg PO DAILY Tobacco use date assessed: 04/01/25 Dental Screening Dental Screen Date: 12/30/24 HPI f/u obesity 2 HPI0 Details 24-year-old female with past medical his tory of herpes, bipolar depression, anxiety, asthma, IgA nephropathy, and morbid obesity coming in for follow up.? Patient was recently seen by rheumatology 02/2025 rituximab and prednisone started.?Seen by nephrology 02/2025 advised to continue on Jardiance and Bumex. Presenting with recurrent sty and eyelid swelling. The condition improved initially with oral antibiotics and eye drops; however, no topical cream was initially provided. Symptoms worsened after cessation of oral antibiotics, with ongoing swelling of the right eyelid. There is a history of eyelid cellulitis, managed by the emergency department, with similar presenting symptoms. The patient reports consistent bilateral lower extremity swelling notable in the mornings, with some reduction following activity. The long-term use of prednisone for rheumatoid arthritis management has led to difficulty in tapering off, given marked discomfort. Past right knee pain, post-fall, has resolved following physical therapy, and an associated toenail injury has healed with normal nail growth now observed. 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 Son No problems noted. Other Mental health disorder Substance use disorder Social History Housing: Apartment Alcohol intake: current Alcohol intake frequency: does not drink Comment: medicated prior to discharge Patient Tobacco Use Status: Never used Tobacco e-Cigarette/Vaping Use: Never Used Second Hand Smoke Exposure: No Substance Use Type: Marijuana service: No Current occupational status: student Cognitive needs: No Hearing needs: No Vision needs: No Questionnaire PHQ-9 Over the last 2 weeks, how often have you been bothered by any of the following problems? 1. Little interest or pleasure in doing things: not at all 2. Feeling down, depressed, or hopeless: not at all 3. Trouble falling or staying asleep, or sleeping too much: not at all 4. Feeling tired or having little energy: not at all 5. Poor appetite or overeating: not at all 6. Feeling bad about yourself - or that you are a failure or have let yourself or your family down: not at all 7. Trouble concentrating on things, such as reading the newspaper or watching television: not at all 8. Moving or speaking so slowly that other people could have noticed. Or the opposite - being so fidgety or restless that you have been moving around a lot more than usual: not at all 9. Thoughts that you would be better off or of hurting yourself in some way: not at all Total score: 0 Depression Screening Interpretation: Negative Depression Screening Done: Yes Source: Developed by Drs. Desmond Bowman, Ban Hurtado, Blas Sanchez and colleagues, with an educational hammad from [employer]. Thrive Questionnaire Date Thrive assessed: 04/01/25 I am a: Patient What is your living situation today?: I have a steady place to live Within the past 12 months, did the food you bought not last and you didn't have the money to get more?: I choose not to answer this question Within the past 12 months, did you worry whether your food would run out before you got money to buy more?: I choose not to answer this question Do you have trouble paying for medicines?: I choose not to answer this question Do you have trouble getting transportation to medical appointments?: I choose not to answer this question Do you have trouble paying your heating and electricity bill?: I choose not to answer this question Do you have trouble taking care of your child, family member or friend?: I choose not to answer this question Do you have trouble with day-to-day activities such as bathing, preparing meals, shopping, managing finances, etc.?: I choose not to answer this question Are you currently unemployed and looking for a job?: I choose not to answer this question Are you interested in more education?: I choose not to answer this question Please select the resources that you would like help with: None Currently or been in a relationship where the following occur: I choose not to answer THRIVE Score: 0 AUDIT C Alcohol Use Questionnaire (AUDIT-C) 1. How often do you have a drink containing alcohol?: Never Total Score: 0 YOU-7 AMB Questionnaire YOU-7 Date YOU - 7 assessed: 04/01/25 Feeling nervous, anxious, or on edge: 0 = Not at all Not being able to stop or control worryin = Not at all Worrying too much about different things: 0 = Not at all Trouble relaxin = Not at all Being so restless that it is hard to sit still: 0 = Not at all Becoming easily annoyed or irritable: 0 = Not at all Feeling afraid as if something awful might happen: 0 = Not at all Total YOU-7 score (0-4 normal; 5-9 mild; 10-14 moderate; 15-21 severe): 0 Source: Developed by Drs. Desmond Bowman, Ban Hurtado, Blas Sanchez and colleagues, with an educational hammad from [employer]. Review of Systems Const Denies body aches, Denies chills, Denies fever(s), Denies headache(s) and Denies poor appetite Eyes Reports no additional complaints ENT Denies dizziness and Denies headache(s) Card Denies chest pain and Denies dyspnea Resp Denies dyspnea GI Denies nausea and Denies vomiting Reports no additional complaints Musc Reports no additional complaints and Denies abnormal gait Skin/Breast Reports system reviewed and no additional complaints, except as documented Neuro Denies abnormal gait, Denies dizziness and Denies headache(s) Psych Reports no additional complaints Physical exam (Primary Care) Vital Signs: Last Vital Signs Temp 97.1 F 04/01/25 16:00 Pulse 84 04/01/25 16:00 BP 130/78 04/01/25 16:00 Pulse Ox 96 04/01/25 16:00 Oxygen Delivery Method Room Air 04/01/25 16:00 BMI result Body Mass Index 53.4 Tobacco/Smoking Status: Tobacco use Status Tobacco use date assessed 04/01/25 04/01/25 16:03 Patient Tobacco Use Status Never used Tobacco 04/01/25 16:03 e-Cigarette/Vaping Use Never Used 04/01/25 16:03 PHQ-9: PHQ-9 Score PHQ-9: Total score 0 04/01/25 16:17 Depression Screening Interpretation: Negative Thrive Assessment: Date of Thrive Assessment Date Thrive assessed 04/01/25 04/01/25 16:03 Currently or been in a relationship where the following occur: I choose not to answer Const General: cooperative, healthy appearing, comfortable and no acute distress Orientation/consciousness: patient oriented x3 HENMT Head: Yes normocephalic Ears: hearing grossly normal bilaterally General nose exam: Normal external nose present Face images: 2 1. Stye without evidence of preseptal cellulitis Eyes General: appearance normal, both eyes and all related structures Conjunctivae: conjunctivae normal Neck Neck: Yes full ROM and Yes no lymphadenopathy Resp Effort & Inspection: normal respiratory effort Auscultation: clear to auscultation bilaterally, no crackles, no rales, no rhonchi and no wheezes Cardio Rate: regular rate Rhythm: regular rhythm Skin General skin exam: no rashes or lesions noted Neuro General: patient oriented x3 Gait exam (Neuro): Normal gait present Extrem General: Yes normal to inspection, Yes full ROM and No edema Psych Affect: normal affect Attitude: cooperative Insight: Good insight present (Psych) Judgement: Good judgement present (Psych) Coding Level of Care Code Est Pt Level 3 (45918) Diagnoses Hordeolum H00.019 Hypersomnolence G47.10 Morbid obesity with BMI of 50.0-59.9, adult E66.01; Z68.43 Localized edema R60.0 Edema type: localized IgA nephropathy determined by biopsy of kidney N02.B9 Right knee pain M25.561 Assessment & Plan Assessment & Plan (1) Hordeolum: Code(s): H00.019 - Hordeolum externum unspecified eye, unspecified eyelid Category: Medical Plan: Patient's stye has returned despite the antibiotic treatment and warm compresses. Advised patient to continue with warm compresses and prescription sent for erythromycin ointment for treatment. Good eyelid hygiene including washing the area with baby shampoo and changing out mascara and other eye makeup. Given history of preseptal cellulitis and upcoming weekend plan to send antibiotic however gave patient has strict instructions on how and when to start this medication if needed. Strict return to clinic instructions were given to patient as well. Denies any fevers, visual changes, or visual deficits. No evidence of preseptal cellulitis at this time and patient is afebrile. (2) Hypersomnolence: Code(s): G47.10 - Hypersomnia, unspecified Category: Medical Plan: Patient having hypersomnolence and we will occasionally find herself choking at night. Ordered for home sleep study and encouraged weight loss. Sleep study has to be re-scheduled (3) Morbid obesity with BMI of 50.0-59.9, adult: Code(s): E66.01 - Morbid (severe) obesity due to excess calories; Z68.43 - Body mass index [BMI] 50.0-59.9, adult Category: Medical Plan: Healthy diet and regular exercise is encouraged. Patient is currently following with weight management clinic and has not upcoming appointment with Dr. La. (4) Edema: Code(s): R60.9 - Edema, unspecified Category: Medical Qualifiers: Edema type: localized Qualified Code(s): R60.0 - Localized edema Plan: Patient is currently on Bumex prescribed by Nephrology to assist with edema (5) IgA nephropathy determined by biopsy of kidney: Code(s): N02.B9 - Other recurrent and persistent immunoglobulin A nephropathy Category: Medical Plan: Continue to follow with Nephrology currently on prednisone. I did discuss with patient that many of her symptoms may be related to the excessive amounts of steroids and likely symptoms will not improve completely until off of steroid. Continue to follow with Nephrology as well as Hematology/Oncology (6) Right knee pain: Code(s): M25.561 - Pain in right knee Category: Medical Plan: Patient recently has completed physical therapy for the right knee and symptoms have completely resolved at this time. Plan I prescribed erythromycin ointment for the recurrent sty and instructed the patient to apply warm compresses. I provided oral antibiotics to hold until warranted by symptom escalation. The edema management would involve tubing mill setter consultation before adjusting diuretic. Rheumatoid arthritis necessitates continued prednisone until Rituximab insurance authorization, aiming to substitute steroids. For weight management, engagement with the specialized team is vital, considering insurance constraints. I recommended a 24-hour urine collection for detailed proteinuria assessment. A follow-up in three months is set to evaluate these conditions and adjust care as needed. This note was constructed using voice recognition software. While every effort has been made to ensure accuracy and automotive tire tester, still areas may have been included sometimes these areas may affect the content or meeting of the given symptoms. Total time spent caring for the patient today was 20 minutes. This includes time spent before the visit reviewing the chart, time spent during the visit, and time spent after the visit and documentation. Patient was informed and verbally consented to the use of an ambient scribe for clinic note documentation during this visit. Medications: New 2 erythromycin 1 appl ophthalmic (eye) DAILY 3.5 grams 0RF amoxicillin-pot clavulanate 875-125 mg 1 tab PO BID 14 tabs 0RF
[2025-04-01 16:00] VITALS: BP 130/78; PULSE 84; TEMP 36.2; O2SAT 96; BMI 53.4
--- OUTSIDE RECORDS SUMMARY | 2025-04-01 16:00 | XMS_ITS | Data Portability ---
Author Organization DAYNA White s, [address] Address [address] [place] [address] Assessment No assessment recorded. Plan of Treatment Reminders Order Date Submit Date Provider Last Modified By Organization Details Last Modified Time Details Appointments None recorded. Lab chlamydia trachomatis + neisseria gonorrhoeae + trichomonas vaginalis DNA panel, HAFSA+probe, unspecified specimen 2023 024 [facility] [place], [address], 4 20:06:24 SARS CoV 2 (COVID-19) Ag, QL, IA, upper respiratory specimen 2023 024 [email or web address] 20999[facility], [address] [place] [address], [address], 4 11:15:54 rapid strep group A, throat 2023 024 [email or web address] _[facility], [address] [place] [address], [address], 4 11:15:51 culture, respiratory 2023 024 [facility]), [facility] [place], [address], 4 06:06:29 Referral emergency medicine referral 2022 023 [email or web address] Not available 3 20:08:47 Procedures None recorded. Surgeries None recorded. Imaging XR, hand, 3 or more view 2022 023 [facility], [address] [facility] [place], [address], 21:38:21 Medication Orders Valtrex 1 gram tablet 2023 024 [email or web address] [id number], [address] [place], [address], 4 11:28:08 prednisone 20 mg tablet 2023 024 [email or web address] [id number], [address] [place], [address], 4 10:52:53 albuterol sulfate 2.5 mg/3 mL (0.083 %) solution for nebulizatio n 2023 024 [id number], [address] [place], [address], 11:32:09 Patient TargetsNo targets recorded. Patient Instructions Encounter Date Encounter Id Patient Instructions Last Modified By Organization Details Last Modified Time 10/28/2022 [id number] learning about rice (rest, ice, compression, and elevation) [email or web address] Not available 10/28/2022 19:49:42 You have a fracture of your right 5th metacarpal with angulation that requires reduction. You have been advised to go now to the Emergency Department for further evaluation. [facility] has been advised of your impending arrival. [email or web address] Not available 10/28/2022 20:05:50 12/05/2023 [id number] sore throat: car e instructions [email or web address] Not [...] NEGATI VE negati ve Not Available [facility] ([facility]) [address] [place], [address], 12/07/2023 20:06:24 12/05/19 24 12/07/2023 CT, NG, TRICH VAG BY HAFSA gonococcus by HAFSA NEGATI VE negati ve Not Available [facility] ([facility]) [address] [place], [address], 12/07/2023 20:06:24 12/05/19 24 12/07/2023 CT, NG, TRICH VAG BY HAFSA trich vag by HAFSA NEGATI VE negati ve Not Available [facility] ([facility]) [address] [place], [address], 12/07/2023 20:06:24 12/05/19 24 12/08/2023 UPPER RESPI RATOR Y CULTU RE upper respiratory culture FINAL REPORT Not Available [facility] ([facility]) [address] [place], [address], 12/08/2023 14:06:02 12/05/19 24 12/08/2023 UPPER RESPI RATOR Y CULTU RE result 1 COMMEN T Routi ne respi rator y katherin Not Available [facility] ([facility]) [address] [place], [address], 12/08/2023 14:06:02 12/05/19 24 12/05/2023 rapid strep group A, throa t Unknown Analyte negati ve Not Available nasir orlando [address], [address], 12/05/2023 10:53:59 12/05/19 24 12/05/2023 SARS CoV 2 (COVI D-19) Ag, QL, IA, upper respi rator y speci men Unknown Analyte negati ve Not Available roman yr [address], [place], [address], 12/05/2023 10:53:37 10/28/19 23 10/28/2022 XR, hand, 3 or more view No observ ation record ed. [email or web address] [facility] [address] [facility] [place], [address], 10/29/2022 08:27:08 Result Notes None recorded. Problems Name Problem SNOMED Code Status Onset Date Resolution Date Notes Provider Name and Address Organization Details Recorded Time Anxiety 86004824 Active 2022 Keyanaethan Young null, PA - [facility] 3 18:47:36 Depressive disorder 86786777 Active 2022 Keyana Young null, PA - [facility] 3 18:47:42 Bipolar disorder 29660083 Active 2022 Keyana Young null, PA - [facility] 3 18:48:10 Attention deficit hyperactivity disorder 866546134 Active 2022 Keyanaethan Young null, PA - [facility] 3 18:48:17 Herpes simplex 78006318 Active 2022 Keyana Young null, PA - [facility] 3 18:48:25 Asthma 914963984 Active 2023 JAQUI YOUNGBLOOD null, PA - [facility] 4 11:16:58 Sore throat 147777578 Active 2023 JAQUI YOUNGBLOOD null, PA - [facility] 4 10:53:43 Problem Notes None recorded. Procedures Surgical History Date Name Laterality Status Provider Name and Address Organization Details Recorded Time Remove tonsils and adenoids completed Keyana Young PA - [facility] 10/28/2022 18:48:52 operation for retained placenta completed Keyana Young PA - [facility] 10/28/2022 18:49:00 Imaging Results None recorded. Procedure Notes None recorded. Medical Equipment None [...] Not Available No t Available amoxicillin 875 mg-hilariou m clavulanate 125 mg tablet TAKE 1 [...] Updated DateTime 3 165.1 cm 41.6 kg/m2 961586. 09 g 98 % 98 % 84 /min 20 /min 98 [degF] 112 mm[Hg] 80 mm[Hg] Keyana Young PA - [facility] 3 18:49:18 Date Recorded Body height Body mass index (BMI) Body weight Respiratory rate Body temperature Oxygen saturation Oxygen saturation in Arterial blood by Pulse oximetry Heart rate Systolic blood pressure Diastolic blood pressure Provider Name and Address Organization Details Last Updated DateTime 4 165.1 cm 43.3 kg/m2 165405. 02 g 18 /min 97.7 [degF] 99 [...] Updated DateTime 4 165.1 cm 43.3 kg/m2 677995. 02 g 18 /min 97.3 [degF] 97 % 97 % 66 /min 127 mm[Hg] 84 mm[Hg] JAQUI YOUNGBLOOD PA - [facility] 4 10:56:13 Social History Question Answer Notes LastModified by Realeyes 3D Details LastModified Time Tobacco Smoking Status Never Smoker Keyana brady, PA - [facility] 10/28/2022 18:48:41 Which Illicit Or Recreational Drugs Have You Used? Natalee Information not available 10/28/2022 Have You Recently Traveled Abroad? No [email or web address] Information not available 10/28/2022 Sex: Unknown Functional Status Question Answer Note LastModified by Realeyes 3D Details LastModified Time Do you use any illicit or recreational drugs? Yes [email or web address] Information not available 10/28/2022 Do you or have you ever used any other forms of tobacco or nicotine? No [email or web address] Information not available 10/28/2022 What is your level of alcohol consumption? Occasional [email or web address] Information not available 10/28/2022 Mental Status None [...] 30 mcg/0.3 mL dose 07/30/2021 completed Keyana Young null, PA - [facility] 10/28/2022 18:45:03 Tdap 02/12/2018 completed Keyana Young null, PA - [facility] 10/28/2022 18:45:03 COVID-19, mRNA, LNP-S, PF, 30 mcg/0.3 mL dose 08/23/2021 completed Keyana Young null, PA - [facility] 10/28/2022 18:45:03 Tdap 01/11/2022 completed Keyana Young null, PA - [facility] 10/28/2022 18:45:03 COVID-19, mRNA, LNP-S, bivalent, PF, 30 mcg/0.3 mL dose 10/09/2022 completed DAYNA Cuadra - [facility] 10/28/2022 18:45:03 Past Encounters Encounter ID Performer Location Encounter Start Date Encounter Closed Date Diagnosis/Indication Diagnosis SNOMED-CT Code Diagnosis ICD10 Code Diagnosis Note [id number] [address] [place] [address] 04/26/2020 11:31:06 04/26/2020 12:18:07 [id number] [address] [place] [address] 04/26/2020 11:30:37 04/26/2020 12:14:15 [id number] [address] [place] [address] 03/16/2019 09:58:08 03/16/2019 10:27:00 [id number] [address] [place] [address] 09/30/2018 10:30:44 09/30/2018 12:01:17 [id number] [address] [place] [address] 09/27/2019 09:28:43 09/27/2019 10:12:33 [id number] [address] [place] [address] 10/03/2019 18:39:53 10/03/2019 19:16:21 [id number] [address] [place] [address] 08/07/2017 09:52:15 08/07/2017 10:29:17 [id number] [address] [facility] [facility] [address] [facility] [place] [address] 09/30/2019 19:29:47 09/30/2019 20:36:56 [id number] Dilia [facility]ardenas MD [facility] [address] [facility] [place] [address] 10/28/2022 11:07:12 10/28/2022 20:08:47 Pain in right hand 3212158499 01726 M79.641 Closed fra cture of fifth metacarpal bone of right hand 5197727285 [id number] S62.306A [id number] DAYNA Zuñiga [address] [facility] GREGG Spears [address] 11/17/2023 10:56:01 11/17/2023 11:39:27 Exacerbation of intermittent asthma 639783036 J45.21 You are having an asthma exacerbati [...] light headedness . Thank you for using [employer] today - please don't hesitate to contact up or return to see if you have any questions or concerns. [id number] [place] [address] [place] [address] 12/05/2023 10:39:30 12/05/2023 11:37:40 Sore throat 884532164 J02.9 Rapid strep NEGATIVE Likely viral etiology [...] Emergency Department urgently. Genital he rpes simplex [id number] A60.9 Rx valtrex bid x 7 dcheck [...] Member ID Guarantor Name 11/17/2023 1 [place] [facility] Blanche Allen [id number] Blanche Allen 12/05/2023 1 [facility] NET PLAN (MEDICAID HMO) [facility] Blanche Allen [id number] Blanche Allen Notes Date Note Type Note [...] Dilia Cardenas MD [address] [place], [address], PA - [facility] 10/28/2022 20:07:46 11/17/2023 text/html 22 y/o female he re after having a cold last week, with some SOB related to her asthma. 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
== END 2025-04-01 16:48 | disposition home or self-care (01) ==
LOC: HO.HMCH 15:58
PROVIDERS: PCP Internal Medicine
DX: H00.019 Hordeolum externum unspecified eye, unspecified eyelid (principal); G47.10 Hypersomnia, unspecified; E66.01 Morbid (severe) obesity due to excess calories; Z68.43 Body mass index [BMI] 50.0-59.9, adult; R60.0 Localized edema; N02.B9 Other recurrent and persistent immunoglobulin A nephropathy; M25.561 Pain in right knee

== ENCOUNTER → 2025-04-01 15:57 | Outpatient (BNVA) | payer OTHER, SELFPAY | PROVIDERS: PCP Internal Medicine | DX: H00.011 Hordeolum externum right upper eyelid (principal); B00.9 Herpesviral infection, unspecified; F31.9 Bipolar disorder, unspecified; F41.9 Anxiety disorder, unspecified; J45.909 Unspecified asthma, uncomplicated; G62.9 Polyneuropathy, unspecified; E66.01 Morbid (severe) obesity due to excess calories; G47.10 Hypersomnia, unspecified; R60.0 Localized edema; N02.B9 Other recurrent and persistent immunoglobulin A nephropathy; M25.561 Pain in right knee; Z68.43 Body mass index [BMI] 50.0-59.9, adult | CPT/HCPCS: 99212 ==

== ENCOUNTER 2025-04-08 14:09 | Outpatient (REF) | payer OTHER, SELFPAY ==
--- OUTSIDE RECORDS SUMMARY | 2025-04-08 14:13 | XMS_ITS | Data Portability ---
Author Organization DAYNA White s, [address] Address [address] [place] [address] Assessment No assessment recorded. Plan of Treatment Reminders Order Date Submit Date Provider Last Modified By Organization Details Last Modified Time Details Appointments None recorded. Lab chlamydia trachomatis + neisseria gonorrhoeae + trichomonas vaginalis DNA panel, HAFSA+probe, unspecified specimen 2023 024 [facility] [place], [address], 4 20:06:24 SARS CoV 2 (COVID-19) Ag, QL, IA, upper respiratory specimen 2023 024 [email or web address] 20999_[facility], [address] [place] [address], [address], 4 11:15:54 rapid strep group A, throat 2023 024 [email or web address] _[facility], [address] [place] [address], [address], 4 11:15:51 culture, respiratory [address] [facility] [place], [address], 4 06:06:29 Referral emergency medicine referral 2022 023 [email or web address] Not available 3 20:08:47 Procedures None recorded. Surgeries None recorded. Imaging XR, hand, 3 or more view 2022 023 [facility], [address] [facility] [place], [address], 21:38:21 Medication Orders Valtrex 1 gram tablet [email or web address] [facility]armacy #[id number], [address] [place], [address], 4 11:28:08 prednisone 20 mg tablet [address] [facility]armacy #[id number], [address] [place], [address], 4 10:52:53 albuterol sulfate 2.5 mg/3 mL (0.083 %) solution for nebulizatio n 2023 024 [id number] [address] [place], [address], 11:32:09 Patient TargetsNo targets recorded. Patient Instructions Encounter Date Encounter Id Patient Instructions Last Modified By Organization Details Last Modified Time 10/28/2022 [id number] learning about rice (rest, ice, compression, and elevation) [email or web address] Not available 10/28/2022 19:49:42 You have a fracture of your right 5th metacarpal with angulation that requires reduction. You have been advised to go now to the Emergency Department for further evaluation. [facility] has been advised of your impending arrival. [email or web address] Not available 10/28/2022 20:05:50 12/05/2023 [id number] sore throat: car e instructions [email or web address] Not [...] NEGATI VE negati ve Not Available [facility] ([facility]) [address] [place], [address], 12/07/2023 20:06:24 12/05/19 24 12/07/2023 CT, NG, TRICH VAG BY HAFSA gonococcus by HAFSA NEGATI VE negati ve Not Available [facility] ([facility]) [address] [place], [address], 12/07/2023 20:06:24 12/05/19 24 12/07/2023 CT, NG, TRICH VAG BY HAFSA trich vag by HAFSA NEGATI VE negati ve Not Available [facility] ([facility]) [address] [place], [address], 12/07/2023 20:06:24 12/05/19 24 12/08/2023 UPPER RESPI RATOR Y CULTU RE upper respiratory culture FINAL REPORT Not Available [facility] ([facility]) [address] [place], [address], 12/08/2023 14:06:02 12/05/19 24 12/08/2023 UPPER RESPI RATOR Y CULTU RE result 1 COMMEN T Routi ne respi rator y katherin Not Available [facility] ([facility]) [address] [place], [address], 12/08/2023 14:06:02 12/05/19 24 12/05/2023 rapid strep group A, throa t Unknown Analyte negati ve Not Available nasir orlando [address], [address], 12/05/2023 10:53:59 12/05/19 24 12/05/2023 SARS CoV 2 (COVI D-19) Ag, QL, IA, upper respi rator y speci men Unknown Analyte negati ve Not Available roman yr [address], [place], [address], 12/05/2023 10:53:37 10/28/19 23 10/28/2022 XR, hand, 3 or more view No observ ation record ed. [email or web address] [facility] [address] [facility] [place], [address], 10/29/2022 08:27:08 Result Notes None recorded. Problems Name Problem SNOMED Code Status Onset Date Resolution Date Notes Provider Name and Address Organization Details Recorded Time Anxiety 42974732 Active 2022 Keyanaethan Young null, PA - [facility] 3 18:47:36 Depressive disorder 15533882 Active 2022 Keyana Young null, PA - [facility] 3 18:47:42 Bipolar disorder 59496049 Active 2022 Keyana Young null, PA - [facility] 3 18:48:10 Attention deficit hyperactivity disorder 392451656 Active 2022 Keyanaethan Young null, PA - [facility] 3 18:48:17 Herpes simplex 87799101 Active 2022 Keyana Young null, PA - [facility] 3 18:48:25 Asthma 237023710 Active 2023 JAQUI YOUNGBLOOD null, PA - [facility] 4 11:16:58 Sore throat 688255188 Active 2023 JAQUI YOUNGBLOOD null, PA - [...] Updated DateTime 3 165.1 cm 41.6 kg/m2 772821. 09 g 98 % 98 % 84 [...] Updated DateTime 4 165.1 cm 43.3 kg/m2 313285. 02 g 18 /min 97.7 [degF] 99 [...] Updated DateTime 4 165.1 cm 43.3 kg/m2 319531. 02 g 18 /min 97.3 [degF] 97 % 97 % 66 /min 127 mm[Hg] 84 mm[Hg] JAQUI YOUNGBLOOD PA - [facility] 4 10:56:13 Social History Question Answer Notes LastModified by Campan[employer] Details LastModified Time Tobacco Smoking Status Never Smoker Keyana brady, PA - [facility] 10/28/2022 18:48:41 Which Illicit Or Recreational Drugs Have You Used? Natalee [email or web address] Information not available 10/28/2022 Have You Recently Traveled Abroad? No [email or web address] Information not available 10/28/2022 Sex: Unknown Functional Status Question Answer Note LastModified by Camp[employer] Details LastModified Time Do you use any illicit or recreational drugs? Yes [email or web address] Information not available 10/28/2022 Do you or have you ever used any other forms of tobacco or nicotine? No Information not available 10/28/2022 What is your level of alcohol consumption? Occasional [email or web address] Information not available 10/28/2022 Mental Status None [...] SNOMED-CT Code Diagnosis ICD10 Code Diagnosis Note [id number] [address] [place] [address] 04/26/2020 11:31:06 04/26/2020 12:18:07 [id number] [address] [place] [address] 04/26/2020 11:30:37 04/26/2020 12:14:15 [id number] [address] [place] [address] 03/16/2019 09:58:08 03/16/2019 10:27:00 [id number] [address] [place] [address] 09/30/2018 10:30:44 09/30/2018 12:01:17 [id number] [address] [place] [address] 09/27/2019 09:28:43 09/27/2019 10:12:33 [id number] [address] [place] [address] 10/03/2019 18:39:53 10/03/2019 19:16:21 [id number] [address] [place] [address] 08/07/2017 09:52:15 08/07/2017 10:29:17 [id number] [address] [facility] [address] [facility] [place] [address] 09/30/2019 19:29:47 09/30/2019 20:36:56 [id number] Dilia Cardenas MD [facility] [address] [facility] [place] [address] 10/28/2022 11:07:12 10/28/2022 20:08:47 Pain in right hand 3445024427 37348 M79.641 Closed fra cture of fifth metacarpal bone of right hand 0590067396 2141430 S62.306A [id number] DAYNA Zuñiga [address] [facility] [place] Spears [address] 11/17/2023 10:56:01 11/17/2023 11:39:27 Exacerbation of intermittent asthma 724797295 J45.21 You are having an asthma exacerbati [...] light headedness . Thank you for using [employer] today - please don't hesitate to contact up or return to see if you have any questions or concerns. [id number] [place] [address] [place] [address] 12/05/2023 10:39:30 12/05/2023 11:37:40 Sore throat 404684244 J02.9 Rapid strep NEGATIVE Likely viral etiology [...] Emergency Department urgently. Genital he rpes simplex 11357730 A60.9 Rx valtrex bid x 7 dcheck [...] Member ID Guarantor Name 11/17/2023 1 [place] [facility] Blanche Allen [id number] Blanche Allen 12/05/2023 1 [facility] - HEALTH NET PLAN (MEDICAID HMO) [facility] Blanche Allen [id number] Blanche Allen Notes Date Note Type Note [...] Dilia Cardenas MD [address] [place], [address], [place] - [facility] 10/28/2022 20:07:46 11/17/2023 text/html 22 y/o female he re after having a cold last week, with some SOB related to her asthma. 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
[2025-04-08 15:11] LABS: MANUAL DIFF FLAG NO
[2025-04-08 15:13] LABS: Basophils Percent Auto 0.2 % (0-2); Eosinophils Percent Auto 0.3 % (0-4); Hematocrit 39.2 % (37.0-47.0); Hemoglobin 13.3 g/dl (12.0-16.0); Imm Gran Abs Auto 0.06 X10*3/uL (0.00-0.03); Imm Gran Pct Auto 0.4 % (0.0-0.4); Lymphocytes Absolute Auto 1.6 X10*3/uL (1.2-4.9); Lymphocytes Percent Auto 11.2 % (20-40); Mean Corpuscular HGB Conc 33.9 g/dl (31.0-35.0); Mean Corpuscular Hemoglobin 28.4 pg (27.0-33.0); Mean Corpuscular Volume 83.6 fL (80.0-98.0); Mean Platelet Volume 10.4 fL (9.4-12.3); Monocytes Absolute Auto 0.5 X10*3/uL (0.1-1.2); Monocytes Percent Auto 3.2 % (2-11); Neutrophils Absolute Auto 11.8 x10*3/uL (2.0-8.3); Neutrophils Percent Auto 84.7 % (45-73); Platelet Count 246 X10*3/uL (160-400); Red Blood Count 4.69 X10*6/uL (4.20-5.50); Red Cell Distribution Width 13.2 % (11.0-16.0); White Blood Count 13.9 X10*3/uL (4.8-10.8)
[2025-04-08 15:27] LABS: Alanine Aminotransferase 13 U/L (0-31); Albumin Level 3.7 g/dL (3.5-5.0); Alkaline Phosphatase 66 U/L (39-117); Anion Gap 11 (12-20); Aspartate Amino Transferase 19 U/L (5-31); Bilirubin Total 0.2 mg/dL (0.0-1.0); Blood Urea Nitrogen 12 mg/dL (9-16); C Reactive Protein 0.81 mg/dL (< or = 0.50); Calcium 9.1 mg/dL (8.4-10.2); Carbon Dioxide 25 mmol/L (22-29); Chloride 106 mmol/L (96-108); Estimated Glomerular Filt Rate > 60; Glucose Random 125 mg/dL (60-115); Potassium 3.8 mmol/L (3.3-5.1); Sodium 138 mmol/L (135-145)
[2025-04-08 15:53] LABS: Erythrocyte Sedimentation Rate 25 MM/HR (0-20)
[2025-04-11 02:09] LABS: TS Negative Control Passed; TS Panel A 0; TS Panel B 0; TS Positive Control Passed; TSpotTB Negative (Negative)
[2025-04-11 04:18] LABS: HBS Num1 0.58 mIU/mL (0-7.99); HBsAGNum1 0.32 S/CO (0.00-0.99); HIV AB/AG Nonreactive (Nonreactive); HIV Num 1 0.06 S/CO (0.00-0.99); Hepatitis A Antibody IgM 0.21 Index (0-0.79); Hepatitis B Core Antibody Nonreactive (Nonreactive); Hepatitis B Surface Antigen Negative (Negative); ~HepC Num1 0.09 S/CO (0.00-0.79); ~Hepatitis A Antibody IgM Nonreactive (Nonreactive); ~Hepatitis B Surface Antibody NONREACTIVE (Nonreactive); ~Hepatitis C Antibody Nonreactive (Nonreactive)
[2025-04-11 08:44] LABS: IgA 107 mg/dL (47-310); IgG 487 mg/dL (600-1640); IgM 154 mg/dL (50-300)
[2025-04-12 17:39] LABS: Quantiferon TB Gold Plus 1 NEGATIVE (NEGATIVE); TB Test (QFT) Mitogen -Nil >10.00 IU/mL; TB Test (QFT) Nil 0.03 IU/mL; TB Test (QFT) Plus TB1 -Nil <0.00 IU/mL; TB Test (QFT) Plus TB2 -Nil <0.00 IU/mL
[2025-04-13 16:29] LABS: Varicella IgM Antibody <=0.90 (<=0.90)
== END 2025-04-08 14:10 | disposition home or self-care (01) ==
LOC: HO.LAB 14:09
PROVIDERS: Visit Provider Student in an Organized Health Care Education/Training Program
DX: I77.6 Arteritis, unspecified (principal); N02.B9 Other recurrent and persistent immunoglobulin A nephropathy; Z11.1 Encounter for screening for respiratory tuberculosis; Z11.4 Encounter for screening for human immunodeficiency virus [HIV]
CPT/HCPCS: 36415; 80053; 82784; 85025; 85652; 86140; 86480; 86481; 86704; 86706; 86709; 86787; 86803; 87340; 87389

== ENCOUNTER 2025-04-20 13:15 | Outpatient (REF) | payer OTHER, SELFPAY ==
[2025-04-20 14:14] LABS: Appearance Urine Hazy; Color Urine Yellow; Glucose Urine UA >=1000 mg/dL (Negative); Leukocyte Esterase Urine Negative (Negative); Nitrite Urine Negative (Negative); PH 6.5 (5.0-9.0); UMIC TRIGGER UA YES; Urine Blood Large (3+) (Negative); Urine Ketones Negative (Negative); Urine Protein 300 (3+) mg/dL (Neg-Trace)
[2025-04-20 14:59] LABS: Bacteria Urine None Seen (None Seen); Hyaline Casts Urine 0-2 /LPF (0-2); RBC Urine >20 /HPF (0-2); WBC Urine 0-5 /HPF (0-5)
--- OUTSIDE RECORDS SUMMARY | 2025-04-20 15:36 | XMS_ITS | Data Portability ---
Author Organization DAYNA [facility]more [facility], [address] Address [address] [place] [address] Assessment No assessment recorded. Plan of Treatment Reminders Order Date Submit Date Provider Last Modified By Organization Details Last Modified Time Details Appointments None recorded. Lab chlamydia trachomatis + neisseria gonorrhoeae + trichomonas vaginalis DNA panel, HAFSA+probe, unspecified specimen 2023 024 [facility] [address] [place] [address], [address], 4 20:06:24 SARS CoV 2 (COVID-19) Ag, QL, IA, upper respiratory specimen 2023 024 [email or web address] [facility], [address] [place] [address], [address], 4 11:15:54 rapid strep group A, throat 2023 024 [email or web address] [facility], [address] [place] [address], [address], 4 11:15:51 culture, respiratory 2023 024 [facility] [address] [place] [address], [address], 4 06:06:29 Referral emergency medicine referral 2022 023 [email or web address] Not available 3 20:08:47 Procedures None recorded. Surgeries None recorded. Imaging XR, hand, 3 or more view 2022 023 [facility], [address] [facility] [place], [address], 21:38:21 Medication Orders Valtrex 1 gram tablet 2023 024 [email or web address] [facility]/Pharmacy #[id number], [address] [facility], [address], 4 11:28:08 prednisone 20 mg tablet 2023 024 [email or web address] [facility]/Pharmacy #0693, [address] [place], [address], 4 10:52:53 albuterol sulfate 2.5 mg/3 mL (0.083 %) solution for nebulizatio n 2023 024 [id number] [address] [place], [address], 4 11:32:09 Patient TargetsNo targets recorded. Patient Instructions Encounter Date Encounter Id Patient Instructions Last Modified By Organization Details Last Modified Time 10/28/2022 [id number] learning about rice (rest, ice, compression, and elevation) [email or web address] Not available 10/28/2022 19:49:42 You have a fracture of your right 5th metacarpal with angulation that requires reduction. You have been advised to go now to the Emergency Department for further evaluation. [facility] has been advised of your impending arrival. [email or web address] Not available 10/28/2022 20:05:50 12/05/2023 [id number] sore throat: car e instructions [email or web address] Not [...] NEGATI VE negati ve Not Available [facility] ([facility]) [address] [facility], [place], [address], 12/07/2023 20:06:24 12/05/19 24 12/07/2023 CT, NG, TRICH VAG BY HAFSA gonococcus by HAFSA NEGATI VE negati ve Not Available [facility] ([facility]) [address] [facility], [place], [address], 12/07/2023 20:06:24 12/05/19 24 12/07/2023 CT, NG, TRICH VAG BY HAFSA trich vag by HAFSA NEGATI VE negati ve Not Available [facility] ([facility]) [address] [facility], [place], [address], 12/07/2023 20:06:24 12/05/19 24 12/08/2023 UPPER RESPI RATOR Y CULTU RE upper respiratory culture FINAL REPORT Not Available [facility] ([facility]) [address] [facility], [place], [address], 12/08/2023 14:06:02 12/05/19 24 12/08/2023 UPPER RESPI RATOR Y CULTU RE result 1 COMMEN T Routi ne respi rator y katherin Not Available [facility] ([facility]) [address] [place], [address], 12/08/2023 14:06:02 12/05/19 24 12/05/2023 rapid strep group A, throa t Unknown Analyte negati ve Not Available nasir orlando [address], [address], 12/05/2023 10:53:59 12/05/19 24 12/05/2023 SARS CoV 2 (COVI D-19) Ag, QL, IA, upper respi rator y speci men Unknown Analyte negati ve Not Available [address] [facility], [place], [address], 12/05/2023 10:53:37 10/28/19 23 10/28/2022 XR, hand, 3 or more view No observ ation record ed. [email or web address] [facility] [address] [facility] [place], [address], 10/29/2022 08:27:08 Result Notes None recorded. Problems Name Problem SNOMED Code Status Onset Date Resolution Date Notes Provider Name and Address Organization Details Recorded Time Anxiety 68408641 Active 2022 Keyanaethan Young null, PA - [facility] 3 18:47:36 Depressive disorder 26316388 Active 2022 Keyana Young null, PA - [facility] 3 18:47:42 Bipolar disorder 27987610 Active 2022 Keyana Young null, PA - [facility] 3 18:48:10 Attention deficit hyperactivity disorder 901228322 Active 2022 Keyanaethan Young null, PA - [facility] 3 18:48:17 Herpes simplex 86561424 Active 2022 Keyana Young null, PA - [facility] 3 18:48:25 Asthma 775934948 Active 2023 JAQUI YOUNGBLOOD null, PA - [facility] 4 11:16:58 Sore throat 570161127 Active 2023 JAQUI YOUNGBLOOD null, PA - [...] Not Available No t Available amoxicillin 875 mg-herman pepe clavulanate 125 mg tablet TAKE 1 TABLET [...] Updated DateTime 3 165.1 cm 41.6 kg/m2 423663. 09 g 98 % 98 % 84 /min 20 /min 98 [degF] 112 mm[Hg] 80 mm[Hg] Keyana Young [facility] 3 18:49:18 Date Recorded Body height Body mass index (BMI) Body weight Respiratory rate Body temperature Oxygen saturation Oxygen saturation in Arterial blood by Pulse oximetry Heart rate Systolic blood pressure Diastolic blood pressure Provider Name and Address Organization Details Last Updated DateTime 4 165.1 cm 43.3 kg/m2 079853. 02 g 18 /min 97.7 [degF] 99 % 99 % 100 /min 124 mm[Hg] 79 mm[Hg] JAQUI YOUNGBLOOD [employer] [facility] 4 11:19:06 Date Recorded Body height Body mass index (BMI) Body weight Respiratory rate Body temperature Oxygen saturation Oxygen saturation in Arterial blood by Pulse oximetry Heart rate Systolic blood pressure Diastolic blood pressure Provider Name and Address Organization Details Last Updated DateTime 4 165.1 cm 43.3 kg/m2 663495. 02 g 18 /min 97.3 [degF] 97 % 97 % 66 /min 127 mm[Hg] 84 mm[Hg] JAQUI YOUNGBLOOD PA - [facility] 4 10:56:13 Social History Question Answer Notes LastModified by [employer] Details LastModified Time Tobacco Smoking Status Never Smoker Keyana brady, PA - [facility] 10/28/2022 18:48:41 Which Illicit Or Recreational Drugs Have You Used? Amydavid [email or web address] Information not available 10/28/2022 Have You Recently Traveled Abroad? No [email or web address] Information not available 10/28/2022 Sex: Unknown Functional Status Question Answer Note LastModified by [employer] Details LastModified Time Do you use any illicit or recreational drugs? Yes [email or web address] Information not available 10/28/2022 Do you or have you ever used any other forms of tobacco or nicotine? No [email or web address] Information not available 10/28/2022 What is your [...] mcg/0.3 mL dose 10/09/2022 completed DAYNA Cuadra [facility] 10/28/2022 18:45:03 Past Encounters Encounter ID Performer Location Encounter Start Date Encounter Closed Date Diagnosis/Indication Diagnosis SNOMED-CT Code Diagnosis ICD10 Code Diagnosis Note [id number] [address] [place] [address] 04/26/2020 11:31:06 04/26/2020 12:18:07 [id number] [address] [place] [address] 04/26/2020 11:30:37 04/26/2020 12:14:15 [id number] [address] [place] [address] 03/16/2019 09:58:08 03/16/2019 10:27:00 [id number] [address] [place] [address] 09/30/2018 10:30:44 09/30/2018 12:01:17 [id number] [address] [place] [address] 09/27/2019 09:28:43 09/27/2019 10:12:33 [id number] [address] [place] [address] 10/03/2019 18:39:53 10/03/2019 19:16:21 [id number] [address] [place] [address] 08/07/2017 09:52:15 08/07/2017 10:29:17 [id number] [address] [facility] [address] [place] [address] 09/30/2019 19:29:47 09/30/2019 20:36:56 [id number] Dilia Cardenas MD [facility] [facility] [address] [facility] [place] [address] 10/28/2022 11:07:12 10/28/2022 20:08:47 Pain in right hand 6874412992 92727 M79.641 Closed fra cture of fifth metacarpal bone of right hand 1105018469 0230073 S62.306A [id number] DAYNA Zuñiga [address] [place] [address] 11/17/2023 10:56:01 11/17/2023 11:39:27 Exacerbation of intermittent asthma 472862597 J45.21 You are having an asthma exacerbati [...] light headedness . Thank you for using [employer] today - please don't hesitate to contact up or return to see if you have any questions or concerns. [id number] [place] [address] [place] [address] 12/05/2023 10:39:30 12/05/2023 11:37:40 Sore throat 954008916 J02.9 Rapid strep NEGATIVE Likely viral etiology [...] Emergency Department urgently. Genital he rpes simplex 70981099 A60.9 Rx valtrex bid x 7 dcheck [...] Member ID Guarantor Name 11/17/2023 1 [place] [facility] Blanche Allen [id number] Blanche Allen 12/05/2023 1 [facility] - HEALTH NET PLAN (MEDICAID HMO) [place] Blanche Allen [id number] Blanche Allen Notes Date Note Type Note [...] Dilia Cardenas MD [address] [place], [address], [place] - [facility] 10/28/2022 20:07:46 11/17/2023 text/html 22 y/o female he re after having a cold last week, with some SOB related to her asthma. 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
== END 2025-04-20 13:16 | disposition home or self-care (01) ==
LOC: HO.LAB 13:15
PROVIDERS: Visit Provider Internal Medicine Nephrology
DX: R31.9 Hematuria, unspecified (principal)
CPT/HCPCS: 81001; 81003; 87086

== ENCOUNTER 2025-05-02 08:16 | Outpatient (AMB) | payer OTHER, SELFPAY ==
--- OUTSIDE RECORDS SUMMARY | 2025-05-02 08:22 | XMS_ITS | Clinical Summary ---
Author Organization [facility] Address [address] [place] [address] Care Team Providers Care Research Agricultural Engineer Name Role Phone Cedric Bingham MD Primary Care Provider [phone]- [phone] Social History Tobacco Use Types Packs/Day Years [...] of 2 - PCV) 2017 Influenza Vaccine (#1) 2025 Insurance [facility] Medicaid Care Teams Research Agricultural Engineer Relationship Specialty Start Date End Date Cedric Bingham MD [address] [place] [address] PCP - General Internal Medicine 03/27/24
--- OUTSIDE RECORDS SUMMARY | 2025-05-02 08:22 | XMS_ITS | Data Portability ---
Author Organization DAYNA [facility], [address] Address [address] [place] [address] Assessment No assessment recorded. Plan of Treatment Reminders Order Date Submit Date Provider Last Modified By Organization Details Last Modified Time Details Appointments None recorded. Lab chlamydia trachomatis + neisseria gonorrhoeae + trichomonas vaginalis DNA panel, HAFSA+probe, unspecified specimen 2023 024 [facility] [address] [place] [address], [address], 4 20:06:24 SARS CoV 2 (COVID-19) Ag, QL, [place], upper respiratory specimen 2023 024 [email or web address] 20999[facility], [address] [place] [address], [address], 4 11:15:54 rapid strep group A, throat 2023 024 [email or web address] _[facility], [address] [place] [address], [address], 4 11:15:51 culture, respiratory 2023 024 [facility]), [address] [place] [address], [address], 4 06:06:29 Referral emergency medicine referral 2022 023 [email or web address] Not available 3 20:08:47 Procedures None recorded. Surgeries None recorded. Imaging XR, hand, 3 or more view 2022 023 [email or web address], [address] [facility] [place], [address], 21:38:21 Medication Orders Valtrex 1 gram tablet 2023 024 [email or web address] [facility][id number], [address] [place], [address], 4 11:28:08 prednisone 20 mg tablet 2023 024 [email or web address] [facility] #[id number], [address] [place], [address], 4 10:52:53 albuterol sulfate 2.5 mg/3 mL (0.083 %) solution for nebulizatio n 2023 024 [id number] [address] [place], [address], 4 11:32:09 Patient TargetsNo targets recorded. Patient Instructions Encounter Date Encounter Id Patient Instructions Last Modified By Organization Details Last Modified Time 10/28/2022 [id number] learning about rice (rest, ice, compression, and elevation) [email or web address] Not available 10/28/2022 19:49:42 You have a fracture of your right 5th metacarpal with angulation that requires reduction. You have been advised to go now to the Emergency Department for further evaluation. [facility] has been advised of your impending arrival. [email or web address] Not available 10/28/2022 20:05:50 12/05/2023 [id number] sore throat: car e instructions [email or web address] Not [...] NEGATI VE negati ve Not Available [facility] ([facility]) [address] [facility], [place], [address], 12/07/2023 20:06:24 12/05/19 24 12/07/2023 CT, NG, TRICH VAG BY HAFSA gonococcus by HAFSA NEGATI VE negati ve Not Available [facility] ([facility]) [address] [facility], [place], [address], 12/07/2023 20:06:24 12/05/19 24 12/07/2023 CT, NG, TRICH VAG BY HAFSA trich vag by HAFSA NEGATI VE negati ve Not Available [facility] ([facility]) [address] [facility], [place], [address], 12/07/2023 20:06:24 12/05/19 24 12/08/2023 UPPER RESPI RATOR Y CULTU RE upper respiratory culture FINAL REPORT Not Available [facility] ([facility]) [address] [facility], [place], [address], 12/08/2023 14:06:02 12/05/19 24 12/08/2023 UPPER RESPI RATOR Y CULTU RE result 1 COMMEN T Routi ne respi rator y katherin Not Available [facility] ([facility]) [address] [place], [address], 12/08/2023 14:06:02 12/05/19 24 12/05/2023 rapid strep group A, throa t Unknown Analyte negati ve Not Available nasir orlando [address], [address], 12/05/2023 10:53:59 12/05/19 24 12/05/2023 SARS CoV 2 (COVI D-19) Ag, QL, IA, upper respi rator y speci men Unknown Analyte negati ve Not Available [address] [facility], [place], [address], 12/05/2023 10:53:37 10/28/19 23 10/28/2022 XR, hand, 3 or more view No observ ation record ed. [email or web address] [facility] [address] [facility] [place], [address], 10/29/2022 08:27:08 Result Notes None recorded. Problems Name Problem SNOMED Code Status Onset Date Resolution Date Notes Provider Name and Address Organization Details Recorded Time Anxiety 28122792 Active 2022 Keyanaethan Young null, [place] - [facility] 3 18:47:36 Depressive disorder 31621547 Active 2022 Keyana Young null, PA - [facility] 3 18:47:42 Bipolar disorder 82119991 Active 2022 Keyana Young null, PA - [facility] 3 18:48:10 Attention deficit hyperactivity disorder 282398142 Active 2022 Keyanaethan Young null, PA - [facility] 3 18:48:17 Herpes simplex 92889991 Active 2022 Keyana Young null, PA - [facility] 3 18:48:25 Asthma 960255885 Active 2023 JAQUI YOUNGBLOOD null, PA - [facility] 4 11:16:58 Sore throat 119057395 Active 2023 JAQUI YOUNGBLOOD null, PA - [...] Heart rate Respiratory rate Body temperature Systolic And Diastolic Provider Name and Address Organization Details Last Updated DateTime 3 165.1 cm 41.6 kg/m2 608688. 09 g 98 % 98 % 84 /min 20 /min 98 [degF] 112/80 mm[Hg] Keyana Young [place] - [employer] [facility] 3 18:49:18 Date Recorded Body height Body mass index (BMI) Body weight Respiratory rate Body temperature Oxygen saturation Oxygen saturation in Arterial blood by Pulse oximetry Heart rate Systolic And Diastolic Provider Name and Address Organization Details Last Updated DateTime 4 165.1 cm 43.3 kg/m2 159769. 02 g 18 /min 97.7 [degF] 99 % 99 % 100 /min 124/79 mm[Hg] JAQUI YOUNGBLOOD [place] - [facility] 4 11:19:06 Date Recorded Body height Body mass index (BMI) Body weight Respiratory rate Body temperature Oxygen saturation Oxygen saturation in Arterial blood by Pulse oximetry Heart rate Systolic And Diastolic Provider Name and Address Organization Details Last Updated DateTime 4 165.1 cm 43.3 kg/m2 915486. 02 g 18 /min 97.3 [degF] 97 % 97 % 66 /min 127/84 mm[Hg] JAQUI YOUNGBLOOD PA - [facility] 4 10:56:13 Social History Question Answer Notes LastModified by [employer] Details LastModified Time Tobacco Smoking Status Never Smoker Keyana brady, PA - [facility] 10/28/2022 18:48:41 Which Illicit Or Recreational Drugs Have You Used? Natalee [email or web address] Information not available 10/28/2022 Have You Recently Traveled Abroad? No [email or web address] Information not available 10/28/2022 Sex: Unknown Functional Status Question Answer Note LastModified by [employer] Details LastModified Time Do you use any illicit or recreational drugs? Yes Information not available 10/28/2022 Do you or [...] PF, 30 mcg/0.3 mL dose 08/23/2021 completed Keyanaethan Young null, PA - [facility] 10/28/2022 18:45:03 Tdap 01/11/2022 completed Keyana Young null, PA - [facility] 10/28/2022 18:45:03 COVID-19, mRNA, LNP-S, bivalent, PF, 30 mcg/0.3 mL dose 10/09/2022 completed DAYNA Cuadra - [facility] 10/28/2022 18:45:03 Past Encounters Encounter ID Performer Location Encounter Start Date Encounter Closed Date Diagnosis/Indication Diagnosis SNOMED-CT Code Diagnosis ICD10 Code Diagnosis Note [id number] [address] [place] [address] 04/26/2020 11:31:06 04/26/2020 12:18:07 [id number] [address] [place] [address] 04/26/2020 11:30:37 04/26/2020 12:14:15 [id number] [address] [place] [address] 03/16/2019 09:58:08 03/16/2019 10:27:00 [id number] [address] [place] [address] 09/30/2018 10:30:44 09/30/2018 12:01:17 [id number] [address] [place] [address] 09/27/2019 09:28:43 09/27/2019 10:12:33 [id number] [address] [place] [address] 10/03/2019 18:39:53 10/03/2019 19:16:21 [id number] [address] [place] [address] 08/07/2017 09:52:15 08/07/2017 10:29:17 [id number] [address] [facility] [address] [place] [address] 09/30/2019 19:29:47 09/30/2019 20:36:56 [id number] Dilia Cardenas MD [facility] [facility] [address] [facility] [place] [address] 10/28/2022 11:07:12 10/28/2022 20:08:47 Pain in right hand 5058075364 95778 M79.641 Closed fra cture of fifth metacarpal bone of right hand 5321949331 4218273 S62.306A [id number] DAYNA Zuñiga [address] [address] [facility] [place] [address] 11/17/2023 10:56:01 11/17/2023 11:39:27 Exacerbation of intermittent asthma 620655292 J45.21 You are having an asthma exacerbati [...] light headedness . Thank you for using [facility] today - please don't hesitate to contact up or return to see if you have any questions or concerns. [id number] Harjit Hillman [address] [facility] [address] [place] [address] 12/05/2023 10:39:30 12/05/2023 11:37:40 Sore throat 379136956 J02.9 Rapid strep NEGATIVE Likely viral etiology [...] Emergency Department urgently. Genital he rpes simplex 14356640 A60.9 Rx valtrex bid x 7 dcheck [...] Member ID Guarantor Name 11/17/2023 1 [place] [facility] Blanche Allen [id number] Blanche Allen 12/05/2023 1 [facility] - HEALTH NET PLAN (MEDICAID HMO) [place] Blanche Allen [id number] Blanche Allen Notes Date Note Type Note [...] Dilia Cardenas MD [address] [place], [address], PA - [facility] 10/28/2022 20:07:46 11/17/2023 text/html 22 y/o female he re after having a cold last week, with some SOB related to her asthma. She has been using her albuterol a lot and still having SOB, as well as hoarseness DAYNA Zuñiga [address] [place], [address], PA - [facility] 11/17/2023 11:48:04 12/05/2023 text/html Urinary / Button Grader Problems-FemaleReported bypatient.Notes:c/o outbreak of painful herpetic lesions x2 weeks (dx in past)Sore throatReported bypatient.Notes:23 yo female c/o sore throat x3 days No feverNo chillsNo nausea+ vomiting x 1No coughNo wheezeNo difficulty breathing or respiratory distressNo CP+ congestionNo sinus painNo ear painNo sore throatNo Abdominal painNo diarrheaNo myalgiaNo fatigueNo rashNo HANo dizzinessNo recent travelNo known sick contacts Harjit Hillman DO [address] [place], [address], PA - [facility] 12/05/2023 11:32:35 OBGyn Episode No OBEpisode recorded.
--- OUTSIDE RECORDS SUMMARY | 2025-05-02 08:22 | XMS_ITS | Clinical Summary ---
Author Organization [facility] Address [address] [place] [address] Care Team Providers Care Developer Relations Manager Name Role Phone Unavailable Primary Care Provider Unavailabl e Surgical History Surgery Date Site/Laterality Comments TONSILLECTOMY PROCEDURE: HISTORICAL TONSILLECTOMY ADENOIDECTOMY PROCEDURE: HISTORICAL ADENOIDECTOMY WISDOM TOOTH EXTRACTION PROCEDURE: HISTORICAL WISDOM TEETH EXTRACTION OTHER SURGICAL HISTORY PROCEDURE: HISTORICAL D&C; COMMENT: TAB Medical History Medical History Date Comments HSV-2 (herpes simplex virus 2) infection DX:HSV-2 (herpes simplex virus 2) infection Menorrhagia DX:Menorrhagia Bipolar disorder ([facility] V2 4, [facility] V28) DX:Bipolar disorder ([facility]); C OMMENT: on lamictal, prescribed by her psychiatrist. Depression with anxiety DX:Depre ssion with anxiety; COMMENT: on Celexa prescribed by her psychiatrist Morbid obesity ([facility] V24, [facility] V28) DX:Morbid obesity ([facility]) Family History Medical History Relation [...] 2023-2 5 season) 2024 Influenza Vaccine (#1) 2025 DTaP,Tdap,and Td Vaccines (2 - Td [...]
[2025-05-02 10:28] VITALS: BMI 53.4
--- NOTE | 2025-05-02 10:28 | MHC.OFFVISWM ---
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 Allergies No Known Allergies (No Known Allergies*) Allergy (Verified 05/02/25 10:30) Medication List - Last Reconciled 05/02/25 by Ryan La MD albuterol sulfate 90 mcg/actuation (Ventolin HFA) 2 puffs inhalation Q6H PRN bumetanide 0.5 mg PO DAILY empagliflozin (Jardiance) 10 mg PO DAILY 30 days escitalopram oxalate 10 mg PO DAILY levonorgestrel (Mirena) intrauterine lisinopril 20 mg PO BID 90 days omeprazole 20 mg PO DAILY 3 months prednisone 10 mg PO DAILY quetiapine 150 mg PO DAILY rituximab IV valacyclovir 500 mg PO DAILY HPI HPI 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: Details: Start time: 9.30am, End time: 11.10am ?I spent 35 minutes speaking with the patient on the phone plus an additional 5 minutes reviewing and updating records for a total of 40 minutes HPI Comments Details: Previous weight loss efforts: self diet and exercise Wakes up: 7am, Sleeps: 10pm Breakfast: [employer] (Fagan and cheese croissant) Lunch: 3pm (fast food) Dinner: skips Snacks: twice after lunch (chips, ice cream, cookies) Exercise: none Beverages: Coffee: none, tea: none, soda: Diet coke, juice: lemonade (daily), ETOH: 2/month [facility] Medical History (Updated 05/02/25 @ 11:02 by Ryan La MD) Non-insulin dependent type 2 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 Son No problems noted. Other Mental health disorder Substance use disorder Social History Housing: Apartment Alcohol intake: current Alcohol intake frequency: does not drink Comment: medicated prior to discharge Patient Tobacco Use Status: Never used Tobacco e-Cigarette/Vaping Use: Never Used Second Hand Smoke Exposure: No Substance Use Type: Marijuana service: No Current occupational status: student Cognitive needs: No Hearing needs: No Vision needs: No Telehealth Telehealth Telehealth Platform: Telephone Location of provider rendering services: practice address Location of patient: address on file Patient Identification confirmed using: Name, : Yes Telehealth method: voice only Patient verbally consented to treatment: Yes Patient verbally consented to billing insurance company: Yes Patient informed of any privacy concerns related to visit: Yes Minutes spent on Phone/Video with Pt.: 40 Assessment & Plan Assessment & Plan (1) Non-insulin dependent type 2 diabetes mellitus: Code(s): E11.9 - Type 2 diabetes mellitus without complications Category: Medical Plan: 1. ?I ordered a medication to help you with the diabetes and your kidney disease which is called Vincent. My office will try to authorize it. Please let me know when you receive it so I can give you a meal and exercise plan. Common side effects include nausea, vomiting, constipation, diarrhea, abdominal pain. Please let me know if you develop any of these symptoms. 2. You will receive a link of our software olivia to generate an individualized nutritional and exercise plan specific for you. Please send me a screenshot of the plans you will generate Meal to include lean meat (beef, fish, pork, turkey, chicken), or zambian yogurt, or egg whites, or beans with a salad with olive oil and fruits (berries, pears, apples, kiwi). Avoid salt, breads, potatoes, rice, pasta, desserts. ?3. If you choose shakes, each shake would be drunk slowly, like coffee in a period of 2 hours. ?4. If you choose bars, cut each bar in 4 pieces and eat each piece in 30min ?to make each bar last 2 hours. ?5. I emphasized the importance of measuring accurately the food portion and measure it when serving the food in plate ?6. The meal portions include a specific number of forks of meat and salad. You always eat the meat portion but you can replace up to half of salad/vegetables portion with rice, potatoes or pasta, or a fruit ?if you like. The less you do it the better weight loss will be. ?7. One full-size fork is what it can be scooped on the fork without falling aside and not what can be bit with the fork. Use regular forks like those you find in a typical restaurant. ?8.? Please buy the body composition scale we discussed and send me weight measurements as soon as possible and then once a week. Always include your diet and exercise plan. 9. The best choice would be to purchase a stationary bike, elliptical or treadmill at home that can track calories. Let me know if you do so I can give you an exercise plan. 9. The best exercise choice would be to use your treadmill at home that can track calories. You can create and exercise plan with the [employer] olivia. ?10.?It is important of avoiding and for at least 18 months postoperatively and has been discussed at the infosession. ?11. Goal is to lose at least 1.5-2lbs per week ?12. Goal to lose at least 10% of your weight, which is about 31lbs. Minimum weight goal: 280lbs 13. Please follow the diet plan exactly without any change. If you don't like something about the plan or you feel hungry you need to communicate with me so I can help you revise the plan. You should not change the plan yourself. Medications: New tirzepatide (Mounjaro) for 4 weeks 2.5 mg (0.5 mL) subcut QWEEK 2 mL 0RF
== END 2025-05-02 11:11 | disposition home or self-care (01) ==
LOC: HO.HBS 08:16
PROVIDERS: Visit Provider Surgery
DX: E11.9 Type 2 diabetes mellitus without complications (principal)
CPT/HCPCS: 99203

== ENCOUNTER 2025-05-27 14:37 | Outpatient (AMB) | payer OTHER, SELFPAY ==
--- OUTSIDE RECORDS SUMMARY | 2025-05-27 14:40 | XMS_ITS | Clinical Summary ---
Author Organization [facility] Address [address] [place] [address] Care Team Providers Care Pediatric Dietician Name Role Phone Unavailable Primary Care Provider Unavailabl e Surgical History Surgery Date Site/Laterality Comments TONSILLECTOMY PROCEDURE: HISTORICAL TONSILLECTOMY ADENOIDECTOMY PROCEDURE: HISTORICAL ADENOIDECTOMY WISDOM TOOTH EXTRACTION PROCEDURE: HISTORICAL WISDOM TEETH EXTRACTION OTHER SURGICAL HISTORY PROCEDURE: HISTORICAL D&C; COMMENT: TAB Medical History Medical History Date Comments HSV-2 (herpes simplex virus 2) infection DX:HSV-2 (herpes simplex virus 2) infection Menorrhagia DX:Menorrhagia Bipolar disorder ([facility] V2 4, [facility] V28) DX:Bipolar disorder ([facility]); C OMMENT: on lamictal, prescribed by her psychiatrist. Depression with anxiety DX:Depre ssion with anxiety; COMMENT: on Celexa prescribed by her psychiatrist Morbid obesity ([facility] V24, [facility] V28) DX:Morbid obesity ([facility]) Family History Medical History Relation Name Comments [...] Vaccine (1 - 2023-2 5 season) 2024 Depression Screening 10/27/2024 Influenza Vaccine (#1) 2025 DTaP,Tdap,and Td Vaccines [...] and At-Risk Patients (6 to 49 Years) Aged Out No longer eligi ble based on patient's age to complete this topic RSV Immunization Patients Un zev 20 months Aged Out No longer eligible b ased on patient's age to complete this topic Varicella Vaccines Aged Out No longer eligible based on patient's age to complete this topic
--- OUTSIDE RECORDS SUMMARY | 2025-05-27 14:40 | XMS_ITS | Encounter Summary ---
Author Organization [facility] Address [address] [place] [address] Phone Care Team Providers Care Slab Off Mill Tender Name Role Phone Toby Fletcher Primary Care Provider [phone] Carmelina Lamar MD Unavailable [phone] Carmelina Lamar MD Primary Care Provider + Unknown, Unknown Primary Care Provider Cedric Serrano MD Primary Care Provider [phone] Encounter Details Date Type Department Care Team (Late st Contact Info) Description 04/27/2020 Ancillary Orders Virtual Department [address], [place] [phone] Toby Fletcher PA [address] [place] [address] [email or web address] Adnexal pain Social History Tobacco Use Types Packs/Day Years Used Date Smoking Tobacco: Never Assessed Comments Unknown Sex and Gender Information Value Date Recorded Sex Assigned at Female 04/02/2022 10:48 PM EDT Legal Sex Female 3:06 PM EDT Gender Identity Female 04/02/2022 10:48 PM EDT Sexual Orientation Not on file documented as of this encounter Plan of Treatment Not on file documented as of this encounter Visit Diagnoses Diagnosis Adnexal pain Unspecified symptom associated with female genital organs documented in this encounter Additional Health Concerns Infection Onset Date Last Indicated Resolved Time COVID-19 11/06/2021 11/15/2021 11/17/2021 1:24 AM EST COVID-19 03/03/2022 03/07/2022 03/14/2022 1:24 AM EDT documented as of this encounter Care Teams Slab Off Mill Tender Relationship Specialty Start Date End Date Toby Fletcher PA [address] [place] [id number] [email or web address] PCP - General 04/27/20 06/03/21 Carmelina Lamar MD [address] [place] [id number] PCP - General Family Medicine 06/04/21 08/06/23 Unknown, Ricardo, PCP - General 08/07/23 06/11/24 Cedric Bingham MD [address] [place] [address] [place] [address] PCP - General Internal Medicine 06/12/24 Carmelina Lamar MD [address] [place] [id number] Insurance Assigned Provider 06/01/20 03/15/23 documented as of this encounter Additional Source Comments The information contained in this document represents components of the legal health record. It is not the complete legal health record.[facility]
--- OUTSIDE RECORDS SUMMARY | 2025-05-27 14:40 | XMS_ITS | Clinical Summary ---
Author Organization [facility] Address [address] [place] [address] Care Team Providers Care Chief Design Drafter Name Role Phone Cedric Bingham MD Primary Care Provider [phone] Social History Tobacco Use Types Packs/Day Years [...] PCV) 2017 Influenza Vaccine (#1) 2025 Insurance [facility] Medicaid Care Teams Chief Design Drafter Relationship Specialty Start Date End Date Cedric Bingham MD [address] [place] [address] PCP - General Internal Medicine 03/27/24
--- NOTE | 2025-05-27 15:16 | HO.NEPHOV_ITS ---
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 She had been on PO prednisone, ACEI and supportive care. She received 500 mg IV cytoxan Q 2 weeks( altogether 6 doses given). She denies any fevers, chills, chest pain, shortness of breath, dysuria, hematuria, urinary frequency or urgency. She has history of genital herpes and usually take Valcyclovir. Her serum creatinine is at baseline now. She is on ACEI. She is on diuretics and her edema has improved. She has been on tolerating Jardiance . She is taking 10 mg prednsione and had received Rituximab through Rheumatology. She has lost weight on Mounjaro. She feels well. 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 Son No problems noted. Other Mental health disorder Substance use disorder Social History Housing: Apartment Alcohol intake: current Alcohol intake frequency: does not drink Comment: medicated prior to discharge Patient Tobacco Use Status: Never used Tobacco e-Cigarette/Vaping Use: Never Used Second Hand Smoke Exposure: No Substance Use Type: Marijuana service: No Current occupational status: student Cognitive needs: No Hearing needs: No Vision needs: No Review of Systems Const All systems reviewed & are unremarkable except as noted in HPI and below Physical Exam Vital Signs: Last Vital Signs Pulse 92 05/27/25 15:17 BP 110/60 05/27/25 15:17 Pulse Ox 96 05/27/25 15:17 Oxygen Delivery Method Room Air 05/27/25 15:17 BMI result Body Mass Index 52.6 Const General: comfortable and no acute distress Orientation/consciousness: patient oriented x3 HEENT Head: Yes normocephalic Mouth: Normal oral and palatal mucosa present Eyes EOM: EOMs intact bilaterally Neck Neck: Yes supple Resp Auscultation: clear to auscultation bilaterally Cardio Jugular venous distension: no JVD Rate: regular rate GI Palpation (GI): Soft to palpation Auscultation: normal bowel sounds General: Yes no CVA tenderness Back/Spine/Pelvis Back: no CVA tenderness Skin General skin exam: no rashes or lesions noted Neuro General: patient oriented x3 and moves all extremities Extrem General: Yes no pedal edema Results Reviewed Nephrology Results: Hgb, (12.0-16.0) 13.4 g/dl 05/02/25 WBC, (4.8-10.8) 9.9 X10*3/uL 05/02/25 Plt Count, (160-400) 237 X10*3/uL 05/02/25 Sodium, (135-145) 138 mmol/L 05/02/25 Potassium, (3.3-5.1) 3.9 mmol/L 05/02/25 Chloride, (96-108) 107 mmol/L 05/02/25 Carbon Dioxide, (22-29) 26 mmol/L 05/02/25 BUN, (9-16) 17 mg/dL H 05/02/25 Creatinine, (0.5-1.4) 0.67 mg/dL 05/02/25 Calcium, (8.4-10.2) 8.3 mg/dL L Δ 05/02/25 Phosphorus, (2.7-4.5) 3.4 mg/dL 05/19/24 Urine Creatinine 100.32 mg/dL 05/20/25 Assessment & Plan Assessment & Plan (1) Glomerulonephritis, IgA: Code(s): N02.B9 - Other recurrent and persistent immunoglobulin A nephropathy Category: Medical (2) Proteinuria: Code(s): R80.9 - Proteinuria, unspecified Category: Medical Qualifiers: Proteinuria type: other Qualified Code(s): R80.8 - Other proteinuria Plan Blanche has glomerular proteinuria. She has H/O vasculitic rash with microscopic hematuria and abdominal pain. 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 She is currently on prednisone 10 mg daily which I reduced to 7.5 mg daily . In the past she received cytoxan IV 500 mg twice a month for 3 months. She was given Rituximab by Rheumatology. She should continue on Bumex 0.5 mg daily as needed. C/W lisinopril to 20 mg bid. She will need Sparsentan and FABHALTA in the future. She is on PPI. She can continue Jardiance 10 mg daily which I plan to increase to 25 mg at next visit.Follow-up labs ordered .Answered all questions Orders: Orders Blood Urea Nitrogen 2 Weeks N02.B9 - Other recurrent and persistent immunoglobulin A nephropathy, R80.8 - Other proteinuria Electrolytes 2 Weeks N02.B9 - Other recurrent and persistent immunoglobulin A nephropathy, R80.8 - Other proteinuria Albumin Level 2 Weeks N02.B9 - Other recurrent and persistent immunoglobulin A nephropathy, R80.8 - Other proteinuria Blood Urea Nitrogen 2 Months N02.B9 - Other recurrent and persistent immunoglobulin A nephropathy, R80.8 - Other proteinuria Creatinine 2 Weeks N02.B9 - Other recurrent and persistent immunoglobulin A nephropathy, R80.8 - Other proteinuria Protein Creatinine Ratio, Ur 2 Weeks N02.B9 - Other recurrent and persistent immunoglobulin A nephropathy, R80.8 - Other proteinuria Electrolytes 2 Months N02.B9 - Other recurrent and persistent immunoglobulin A nephropathy, R80.8 - Other proteinuria Creatinine 2 Months N02.B9 - Other recurrent and persistent immunoglobulin A nephropathy, R80.8 - Other proteinuria Medications: Changed From prednisone 7.5 mg PO DAILY To prednisone 7.5 mg (1.5 x 5 mg) PO DAILY 135 tabs 3RF 90 days Coding Level of Care Code Est Pt Level 4 (85322) Diagnoses Glomerulonephritis, IgA N02.B9 Other proteinuria R80.8 Proteinuria type: other
[2025-05-27 15:17] VITALS: BP 110/60; PULSE 92; O2SAT 96; BMI 52.6
== END 2025-05-27 15:40 | disposition home or self-care (01) ==
LOC: HO.HKA 14:38
PROVIDERS: PCP Internal Medicine; Visit Provider Internal Medicine Nephrology
DX: N02.B9 Other recurrent and persistent immunoglobulin A nephropathy (principal); R80.8 Other proteinuria
CPT/HCPCS: 99214

== ENCOUNTER → 2025-05-27 14:37 | Outpatient (BNVA) | payer OTHER, SELFPAY | PROVIDERS: PCP Internal Medicine; Visit Provider Internal Medicine Nephrology | DX: N02.B9 Other recurrent and persistent immunoglobulin A nephropathy (principal); R80.8 Other proteinuria | CPT/HCPCS: 99212 ==

== ENCOUNTER 2025-07-05 16:00 | Outpatient (AMB) | payer OTHER, SELFPAY ==
--- NOTE | 2025-07-05 16:07 | MHC.PC.OV ---
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 Accompanied by: Self / Same As Patient Allergies No Known Allergies (No Known Allergies*) Allergy (Verified 07/05/25 16:09) Medication List - Last Reconciled 07/05/25 by Gretchen Kumar PA-C albuterol sulfate 90 mcg/actuation (Ventolin HFA) 2 puffs inhalation Q6H PRN bumetanide 0.5 mg PO DAILY empagliflozin (Jardiance) 10 mg PO DAILY 30 days escitalopram oxalate 10 mg PO DAILY levonorgestrel (Mirena) intrauterine lisinopril 20 mg PO BID 90 days omeprazole 20 mg PO DAILY 3 months prednisone 7.5 mg (1.5 x 5 mg) PO DAILY 90 days quetiapine 100 mg PO BEDTIME rituximab IV tirzepatide (Mounjaro) 2.5 mg (0.5 mL) subcut QWEEK tirzepatide (Mounjaro) 5 mg (0.5 mL) subcut QWEEK valacyclovir 500 mg PO DAILY Tobacco use date assessed: 07/05/25 Dental Screening Dental Screen Date: 07/05/25 Did you have a dental visit in the last 12 months?: Yes Did you have a dental problem in the last 6 months where you did not have access to dental care?: No Was dental information given to patient?: Patient has dentist HPI f/u weight HPI Details 24-year-old female with past medical history of herpes, bipolar depression, anxiety, asthma, IgA nephropathy and morbid obesity last seen 04/20 coming in for follow up. In review of the notes, patient was seen by Nephrology 05/27/2025 prednisone was reduced to 7.5 mg daily she will continue with Bumex as needed, lisinopril 20 mg b.i.d. and PPI as well. Jardiance was increased to 25 mg advised to follow up in 2 months. She was seen by weight management 04/2025 discussed meal plan and prescribed Mounjaro. Presenting for weight management and mental health concerns. The patient is engaged in a weight management program, having lost 13 pounds. She is prescribed Mounjaro and is resistant to surgical intervention despite pressure from her weight management provider. The patient was informed of having diabetes by her weight event management consultant. She is on Jardiance, which may affect her A1c readings. Bipolar Disorder Diagnosed in childhood and confirmed at age 18, the patient reports mood instability due to recent medication changes. The patient is on escitalopram and Seroquel, noting improvement after resuming escitalopram following a brief lapse. 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 Son No problems noted. Other Mental health disorder Substance use disorder Social History Housing: Apartment Alcohol intake: current Alcohol intake frequency: does not drink Comment: medicated prior to discharge Patient Tobacco Use Status: Never used Tobacco e-Cigarette/Vaping Use: Never Used Second Hand Smoke Exposure: No Substance Use Type: Marijuana service: No Current occupational status: student Cognitive needs: No Hearing needs: No Vision needs: No Questionnaire PHQ-9 Over the last 2 weeks, how often have you been bothered by any of the following problems? 1. Little interest or pleasure in doing things: not at all 2. Feeling down, depressed, or hopeless: not at all 3. Trouble falling or staying asleep, or sleeping too much: not at all 4. Feeling tired or having little energy: not at all 5. Poor appetite or overeating: not at all 6. Feeling bad about yourself - or that you are a failure or have let yourself or your family down: not at all 7. Trouble concentrating on things, such as reading the newspaper or watching television: not at all 8. Moving or speaking so slowly that other people could have noticed. Or the opposite - being so fidgety or restless that you have been moving around a lot more than usual: not at all 9. Thoughts that you would be better off or of hurting yourself in some way: not at all Total score: 0 Depression Screening Interpretation: Negative Depression Screening Done: Yes 84113 - PHQ-9 Billing: Yes Source: Developed by Drs. Desmond Bowman, Ban Hurtado, Blas Sanchez and colleagues, with an educational hammad from [employer]. Thrive Questionnaire Date Thrive assessed: 07/05/25 I am a: Patient What is your living situation today?: I have a steady place to live Within the past 12 months, did the food you bought not last and you didn't have the money to get more?: I choose not to answer this question Within the past 12 months, did you worry whether your food would run out before you got money to buy more?: I choose not to answer this question Do you have trouble paying for medicines?: I choose not to answer this question Do you have trouble getting transportation to medical appointments?: I choose not to answer this question Do you have trouble paying your heating and electricity bill?: I choose not to answer this question Do you have trouble taking care of your child, family member or friend?: I choose not to answer this question Do you have trouble with day-to-day activities such as bathing, preparing meals, shopping, managing finances, etc.?: I choose not to answer this question Are you currently unemployed and looking for a job?: I choose not to answer this question Are you interested in more education?: I choose not to answer this question Please select the resources that you would like help with: None Currently or been in a relationship where the following occur: I choose not to answer THRIVE Score: 0 AUDIT C Alcohol Use Questionnaire (AUDIT-C) 1. How often do you have a drink containing alcohol?: Never Total Score: 0 YOU-7 AMB Questionnaire YOU-7 Date YOU - 7 assessed: 07/05/25 Feeling nervous, anxious, or on edge: 0 = Not at all Not being able to stop or control worryin = Not at all Worrying too much about different things: 0 = Not at all Trouble relaxin = Not at all Being so restless that it is hard to sit still: 0 = Not at all Becoming easily annoyed or irritable: 0 = Not at all Feeling afraid as if something awful might happen: 0 = Not at all Total YOU-7 score (0-4 normal; 5-9 mild; 10-14 moderate; 15-21 severe): 0 Source: Developed by Drs. Desmond Bowman, Ban Hurtado, Blas Sanchez and colleagues, with an educational hammad from [employer]. YOU-7 Assessment Billing YOU-7 Assessment Tool: YOU-7 Assessment 77433 Review of Systems Const Denies body aches, Denies chills, Denies fever(s), Denies headache(s) and Denies poor appetite Eyes Reports no additional complaints ENT Denies dysphagia, Denies dizziness, Denies headache(s) and Denies odynophagia Card Denies chest pain, Denies syncope, Denies edema, Denies irregular heart rhythm, Denies lightheadedness and Denies dyspnea Resp Denies cough and Denies dyspnea GI Denies abdominal pain, Denies constipation, Denies dysphagia, Denies diarrhea, Denies nausea, Denies odynophagia and Denies vomiting Reports no additional complaints Musc Reports no additional complaints and Denies abnormal gait Skin/Breast Reports system reviewed and no additional complaints, except as documented Neuro Denies abnormal gait, Denies dizziness, Denies syncope and Denies headache(s) Psych Reports no additional complaints Physical exam (Primary Care) Vital Signs: Last Vital Signs Pulse 90 07/05/25 16:09 BP 120/58 L 07/05/25 16:09 Pulse Ox 95 07/05/25 16:09 Oxygen Delivery Method Room Air 07/05/25 16:09 BMI result Body Mass Index 52.4 Tobacco/Smoking Status: Tobacco use Status Tobacco use date assessed 07/05/25 07/05/25 16:16 Patient Tobacco Use Status Never used Tobacco 07/05/25 16:16 e-Cigarette/Vaping Use Never Used 07/05/25 16:16 PHQ-9: PHQ-9 Score PHQ-9: Total score 0 07/05/25 16:18 Depression Screening Interpretation: Negative Thrive Assessment: Date of Thrive Assessment Date Thrive assessed 07/05/25 07/05/25 16:16 Currently or been in a relationship where the following occur: I choose not to answer Const General: cooperative, healthy appearing, comfortable and no acute distress Orientation/consciousness: patient oriented x3 HENMT Head: Yes normocephalic Ears: hearing grossly normal bilaterally General nose exam: Normal external nose present Eyes General: appearance normal, both eyes and all related structures Conjunctivae: conjunctivae normal Neck Neck: Yes full ROM and Yes no lymphadenopathy Resp Effort & Inspection: normal respiratory effort Auscultation: clear to auscultation bilaterally, no crackles, no rales, no rhonchi and no wheezes Cardio Rate: regular rate Rhythm: regular rhythm Skin General skin exam: no rashes or lesions noted Neuro General: patient oriented x3 Gait exam (Neuro): Normal gait present Extrem General: Yes normal to inspection, Yes full ROM and No edema Psych Affect: normal affect Attitude: cooperative Insight: Good insight present (Psych) Judgement: Good judgement present (Psych) Coding Level of Care Code Est Pt Level 3 (81292) Diagnoses Anxiety F41.9 Bipolar depression F31.9 Non-insulin dependent type 2 diabetes mellitus E11.9 Morbid obesity with BMI of 50.0-59.9, adult E66.01; Z68.43 Additional Codes YOU-7 Assessment Billing - YOU-7 Assessment Tool: YOU-7 Assessment 11087 ([id number]) PHQ-9 - 31830 - PHQ-9 Billing: Yes ([id number]) Assessment & Plan Assessment & Plan (1) Anxiety: Comment: Psych telehealth [facility] Code(s): F41.9 - Anxiety disorder, unspecified Category: Medical Plan: She will continue to follow with psychiatrist and counselor through [facility]. She feels good on her current medication regimen. (2) Bipolar depression: Code(s): F31.9 - Bipolar disorder, unspecified Category: Medical Plan: The patient has a history of bipolar disorder diagnosed in childhood and confirmed at age 18. Recent mood instability is noted due to medication adjustments. Continued psychiatric evaluation and medication management are advised. (3) Non-insulin dependent type 2 diabetes mellitus: Code(s): E11.9 - Type 2 diabetes mellitus without complications Category: Medical Plan: Decrease the amount of carbohydrates such as pasta, bread, rice, and potatoes and limit the amount of sweets. Although fruits are generally healthy they should be eaten in moderation as they are still high in sugar. Continue on Ifrah and Vincent (4) Morbid obesity with BMI of 50.0-59.9, adult: Code(s): E66.01 - Morbid (severe) obesity due to excess calories; Z68.43 - Body mass index [BMI] 50.0-59.9, adult Category: Medical Plan: The patient is engaged in a weight management program and has been prescribed Mounjaro. She has lost 13 pounds and is resistant to surgical intervention despite pressure from her weight management provider. Continued monitoring of weight and adherence to the prescribed medication is recommended. Healthy diet and regular exercise is encouraged. Plan This note was constructed using voice recognition software. While every effort has been made to ensure accuracy and bowl turner, still areas may have been included sometimes these areas may affect the content or meeting of the given symptoms. Total time spent caring for the patient today was 20 minutes. This includes time spent before the visit reviewing the chart, time spent during the visit, and time spent after the visit and documentation. Patient was informed and verbally consented to the use of an ambient scribe for clinic note documentation during this visit. Medications: Refilled albuterol sulfate 90 mcg/actuation (Ventolin HFA) 2 puffs inhalation Q6H PRN 8.5 grams 0RF Shortness Of Breath Or Wheezing
[2025-07-05 16:09] VITALS: BP 120/58; PULSE 90; O2SAT 95; BMI 52.4
--- OUTSIDE RECORDS SUMMARY | 2025-07-05 18:07 | XMS_ITS | Clinical Summary ---
Author Organization [facility] Address [address] [place] [phone] Phone Care Team Providers Care Rn Team Leader Name Role Phone Cedric Bingham MD Primary Care Provider [phone] Allergies No known active allergies Medications lamoTRIgine (LAMICTAL) 200 MG IMMEDIATE release tablet Take 200 mg by mouth daily. Active albuterol 90 mcg/actuation inhaler Inhale 2 puffs into the lungs every 6 (six) hours as needed for wheezing. Active FLOVENT DISKUS 50 mcg/actuation diskus inhaler Inhale 1 puff into the lungs 2 (two) times a day. 11/08/2021 Active valACYclovir (VALTREX) 500 MG tablet 1 tablet. Active citalopram (CELEXA) 20 MG tablet 1 tablet. Active dextroamphetami ne-amphetamine (ADDERALL) 10 mg Tab tablet Take 10 mg by mouth 2 (two) times a day. Active acetaminophen (TYLENOL) 325 mg tablet Take 2 tablets (650 mg total) by mouth every 4 (four) hours as needed. 02/25/2023 Active ibuprofen (ADVIL,MOTRIN) 200 MG tablet Take 3 tablets (600 mg total) by mouth every 6 (six) hours as needed for pain (specific location in comments). 02/25/2023 Active metroNIDAZOLE (FLAGYL) 500 MG tablet Take 1 tablet (500 mg total) by mouth 2 (two) times a day. 14 tablet 08/04/2023 Active Active Problems Problem Noted Date Diagnosed Date IUD (intrauterine device) in place 08/04/2023 Overview (08/04/2023): Mirena IUD placed 2022 Genital HSV 08/31/2021 Overview (08/04/2023): Takes suppression daily 1000mg Assessment & Plan (03/28/2022 2:21 PM EDT): -No active lesions at this time Assessment & Plan (03/20/2022 10:07 AM EDT): Blanche is on day 6 of 1000 mg BID for outbreak. Upon exam, no lesions present (and lesion she had last week is fully healed). She knows to stay on 1000mg QD for remainder of PG. Assessment & Plan (10/31/2021 5:06 PM EST): Spoke with DAYNA Fletcher from [facility]. He saw Blanche today for a same day visit for sore throat, reports neg rapid strep and neg rapid COVID. At the end of the visit, Blanche mentioned that she thinks she has an outbreak of genital HSV. She has h/o HSV and takes suppression daily. Toby is asking if there are any recommendations related to for an outbreak, as she is currently 20 weeks gestation. I recommended that if she does have an outbreak and is currently taking valtrex 500mg daily, she increase to 1000mg daily x 7 days. If active infection clears, she can go back to 500mg daily. We will plan to check for any symptoms or lesions at time of admission when in labor. Toby will verify that Blanche's current dose is 500mg and write for the increase to 1000mg. Assessment & Plan (08/31/2021 4:40 PM EDT): Discussed HSV risk in , she always takes suppression daily, which has helped prevent outbreaks, and will continue. Resolved Problems Problem Noted Date Diagnosed Date Resolved Date Pelvic pain 03/03/2023 08/04/2023 Assessment & Plan (03/03/2023 4:51 PM EDT): Patient with RLQ pain after suction D&C, IUD insertion on 02/25 Pelvic exam benign, no concern for endometritis at this time IUD strings visualized on exam Pelvic US ordered Comfort measures reviewed Warning signs/symptoms discussed Follow up in 1 week or sooner as indicated (spontaneous vaginal delivery) 03/29/2022 02/07/2023 Overview (03/29/2022): Delivered baby boy over intact perineum on 03/29/2022 Retained complete placenta 03/29/2022 0 02/07/2023 Normal intrauterine , antepartum 03/28/2022 02/07/2023 Assessment & Plan (03/28/2022 2:20 PM EDT): -Admit to CBC -Pt consented to COVID testing -Admission labs ordered -NST -Cont. Monitoring -May start using hydrotherapy -NO4 ordered as well -MD in house and available as needed -Anticipate Oligohydramnios antepartum, third trimester, fetus 1 03/28/2022 02/07/2023 Assessment & Plan (03/28/2022 2:25 PM EDT): -Recommended IOL -Pt agrees w/ POC Encounter for induction of labor 03/28/2022 02/07/2023 Overview (03/28/2022): 1726: Pitocin initiated at this time. Assessment & Plan (03/28/2022 3:15 PM EDT): Discussed w pt, options for next steps. We reviewed that labor induction is a slow process and can take time to produce effective contractions. Depending on a person's body the induction process can take 1-5 or more days. It is unclear whether or not induction increases the risk of . We discussed: We discussed that Pitocin is a synthetic version of oxytocin, a natural hormone that causes uterine contractions. It is intended to increase the strength or number of contractions. We discussed that this medication is given intravenously, starting at a low-dose and increasing at a regular interval until contractions are every 2 to 3 minutes. We discussed that this medication is generally considered safe and is commonly used in labor and delivery, but does carry a risk of tachysystole (too frequent or prolonged contractions). In some cases, this may temporarily affect oxygen delivery to the fetus and cause changes to the heart rate pattern. We discussed the importance of continuously monitoring heart rate pattern and contraction activity when Pitocin to maintain safety. We reviewed that any periods of tachysystole or concerning heart rate patterns would lead the RN or provider to discontinue the Pitocin and begin measures to increase oxygen delivery to the fetus, including maternal position changes, administering oxygen via mask, or giving fluids through the IV. The patient understands the risks and benefits of this therapy and opts to proceed with the plan for Pitocin induction. 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 Reviewed risks, benefits, side effects and effectiveness of each method. Pt advised that BC does not protect against STI and recommended condom use for the protection of STI. -An intrauterine device or IUD is a small T-shaped plastic device that is placed in the uterus for long-acting contraception. The Mirena or Kylenna contain levonorgestrel which is a progesterone only hormone. It works by thickening the cervical mucus which then slows the transport of the ovum through the fallopian tube and inhibits sperm motility and function. They are good for 5 years. Although new studies have shown that they are good for 6 years. This form of BC can decrease blood loss and dysmenorrhea during menses. In some women it completely stops their period. SE includes irregular bleeding or spotting for the first few months and/or absence or decrease in bleeding. There is a risk of expulsion of 2%-10% within the first year. We can place the IUD in the office. During placement procedure you may experience some cramping. There is a risk of perforating the uterus during insertion. However we measure the size of the uterus prior to inserting the IUD to avoid that risk. There is also a risk of infection. This procedure is performed in a sterile manner to avoid the risk of infection. You should use condoms for 7 days after insertion. The IUD does not protect against STI. All questions were answered. 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[employer] (Ratify) Click Browse Manuals >> [facility] MGPO Departmental Documents & Policies >> 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 She took a home test this morning and it was negative as well. Covid-19 policies reviewed - pt would be considered Covid-presumed despite neg PCR and should have virtual visits until >24 hours symptom and fever-free and >10 days from symptom onset. She has decided she is not interested in monoclonal antibody treatment regardless, so will continue with symptomatic care. She spoke to her PCP and they recommended this as well. She has been measuring SpO2 at home and is consistently over 95% with HR at 110s. We reviewed warning signs and reasons to seek urgent care. Also reassured patient that she can come into the office or CBC for urgent care as needed and appropriate care will not be delayed based on Covid-presumed status. Assessment & Plan (03/04/2022 12:22 PM EDT): Will sent PCR to confirm Discussed pros/cons of Paxlovid- She is going to follow up with her PCP and discuss today Will have nursing call to check in every few days Assessment & Plan (02/28/2022 10:57 AM EDT): Counseled pt on obtaining booster as she is due. Assessment & Plan (12/27/2021 10:59 AM EST): Date of symptom onset or positive test: 11/06/21 Asking about testing. Recommended the following which she agrees to Offer growth US at 30-32 weeks (or 2-4 weeks after infection occurring after 32 weeks) - will do at [place] Nausea and vomiting during 08/31/2021 03/29/2022 Assessment & Plan (11/02/2021 3:33 PM EST): -Conts to feel nauseous but not as bad as before. Definitely improving Assessment & Plan (10/03/2021 12:30 PM EST): Feeling much better. Not needing medication and is able to eat more foods Assessment & Plan (08/31/2021 3:05 PM EDT): Vomits multiple times per day, same as with her son. Drinking keerthi camryn and eating smaller meals. Rx sent for unisome 25mg PO at night and vitamin B6 25mg BID. Obesity affecting in third trimester 08/31/2021 02/07/2023 Overview (08/31/2021): Obesity in (BMI >30) BMI at Intake 40 Date Obesity plan of care discussed - 08/31/21 BMI > 50 (at 36 weeks or before) transfer to tertiary care (send TE to [facility]) * If BMI 40 or greater discuss policy w patient and add to high risk list * first trimester screen for diabetes - HgbA1c or 1-hr glucose tolerance test * Nutrtion counseling * 11-20lb weight gain * Growth sono q 4 wks if fundal height not reliable, after 28 weeks * Induction only if indicated * PP lovenox according to guidelines Assessment & Plan (11/26/2021 5:39 PM EST): Blanche has been stressed about weight. She reports that she eats out a lot because it is convenient and she likes the taste but she does not want to gain too much weight. Blanche reports that she is having some intermittent nausea and vomiting but does not want to take anything because she doesn't want to gain too much weight. Support given and encouraged healthy ways to support a healthy weight gain. We discussed ways to handle food prep and discussed goal of reducing take out and trying to cook more. We also discussed goal of reducing carbs and increasing protein. Blanche reports her partner is supportive and also wants to eat better, we talked about trying meal prepping together on the weekends. Assessment & Plan (10/03/2021 12:30 PM EST): Healthy diet and weight gain reviewed. Assessment & Plan (08/31/2021 4:38 PM EDT): Discussed BMI policy, wt gain recommendations. Recommended focus on physical activity and healthy diet when NPV resolves. Encounter for supervision of normal in third trimester 08/22/2021 05/10/2022 Overview (03/05/2022): CNM OB-CMI score: 2 [08/21/2021] Group PN care? 11/02/21 information given Rh pos GC/Chlam Neg/Neg PAP 05/22/21 NIL, HPV neg (in media) Tdap 01/11/22 Flu - declines COVID-19 - had two doses Hgb 12.3 GTT 81 28 wk Repeat RPR NR GBS pos PPBC Mirena IUD screening NT Normal Assessment & Plan (03/28/2022 12:32 PM EDT): Blanche seen after BPP today. She reports a large gush of clear fluid 5 days ago after having sex. States since then she has continued to feel wet even when she wasn't sweaty. Pt. States the baby has been moving less since then, though on us today baby was active with good tone. Pt reports mild contractions, no VB. BARBARA today was 2.31 Denies further HSV sx, and has been taking valtrex daily. We discussed that the next step is to go to CBC for evaluation for PROM, and labor augmentation/induction. Pt agreeable with plan. CBC and and CNM aware. Assessment & Plan (03/20/2022 10:14 AM EDT): 3rd tri comforts measures reviewed. Disc steps to take toward optimal health in . Disc post-dates testing, BPP w visit following in 1w. Membranes swept per pt request. Reviewed s/s labor, danger signs, when/how to call. Assessment & Plan (03/12/2022 10:51 AM EDT): Blanche is a 21 y.o. at 38w6d states she feels well today. Denies any concerns at this time. Denies any LOF/Vaginal bleeding/Ucs. Reports abundance of FM -Discussed FM at this [place] -Review signs and symptoms of Labor and when/how to contact midwives -VVE /-2 membranes swept -Reviewed end of discomforts and comfort measures. -We discussed natural ways of promoting labor such as nipple stimulation Assessment & Plan (03/05/2022 2:49 PM EDT): Feeling pretty terrible, speaks in full sentences without SOB on phone but voice is hoarse and coughing frequently. Visit focused on symptomatic care for resp illness. Reviewed GBS+ and need for abx in labor. Assessment & Plan (02/28/2022 10:57 AM EDT): Blanche feeling some pelvic pressure but denies vb, lof, ctxs. GBS obtained and sent. We discussed comforts for pelvic pressure and back pain--yoga, ball, hydrotherapy. Pt hoping for an unmedicated , as she had an unpleasant experience with epidural with P1--states it fell out and was not replaced and she felt everything during second and third stage. We discussed options for pain management in labor. Wetprep done per pt request, though she declines sx --all negative. KIANA 1 week. Assessment & Plan (02/15/2022 12:10 PM EDT): Blanche is a 21yo @ 35+2 wks. Baby is active. Denies s/sx of labor. C/o hemorrhoids without constipation or hard stools--we discussed witch ashley pads and increase fluids. Discussed GBS for NV, pt was positive with her first and is hoping she is not. Feeling overall well. KIANA 1 week. Assessment & Plan (01/29/2022 1:58 PM EDT): Blanche is a 21 y.o. at 32w6d states she feels well today. Denies any concerns at this time. Denies any LOF/Vaginal bleeding/Ucs. Has stopped taking her adderal. States she feels well. At times takes half a dose if she really needs it at work. -Discussed FM at this [place] and [facility] -Review signs and symptoms of pre-term Labor and when/how to contact midwives -Reviewed end of discomforts and comfort measures. Assessment & Plan (01/11/2022 4:35 PM EDT): Blanche is a 21 y.o. at 30w2d states she feels well today. Denies any concerns at this time. Denies any LOF/Vaginal bleeding/Ucs. Reports +FM Pt reports having a stomach virus a couple of days ago. Reports dark yellow urine since then. States she feels like she is drinking plenty of water. Denies any urinary s./sx or fever. -Urine culture obtained today -POCT urine dip shows +3 ketones. Pt counseled via pt portal. -Discussed FM at this [place] and [facility] -Review signs and symptoms of Pre-term Labor and when/how to contact midwives -Reviewed US prelim report. Advised that our OBs review all US and might make further recommendations -Tdap administered today -NV in 4 weeks Assessment & Plan (12/27/2021 11:00 AM EST): Blanche is a 21 y.o. at 28w1d doing well. Denies VB/LOF/Ctxs. + FM. Just got over a stomach virus yesterday, did not feel well enough to do GTT today. Will do labs on Friday next week. We discussed recovery from stomach virus and to increase po hydration and recommended simple foods. Assessment & Plan (11/26/2021 5:36 PM EST): Blanche is a 21 y.o. at 23w5d doing well. Here with sweet son. Denies VB/LOF/Ctxs. + FM. We discussed third trimester labs, orders placed. Discussed siblings and recommended [employer] Parent[employer] series. Assessment & Plan (11/02/2021 3:32 PM EST): Blanche is a 20 y.o. at 20w2d states she feels well today. Denies any concerns at this time. Denies any LOF/Vaginal bleeding/Ucs. Reports +FM -Discussed FM at this [place]. Talked about implications of anterior placenta. -Child ed classes discussed along with OPG. Information given -Review signs and symptoms of Pre-term Labor and when/how to contact midwives -Prelim US report reviewed w/ pt. Advised that our OBs review all US and might make further recommendations -NV in 4 weeks Assessment & Plan (10/03/2021 12:33 PM EST): Blanche is feeling well overall. Is having some pelvic pressure and urinary incontinence. Urine dip is normal but sent for culture. She had some incontinence in her first as well. Accepts referral to pelvic floor PT. No other questions or concerns. Happy to hear heartbeat today. Anatomy scan ordered and scheduled for next visit. Assessment & Plan (08/31/2021 4:42 PM EDT): Blanche is a 20 y.o. at 11w2d, here with her partner for First [facility]. See PE note. Will go to lab today for early OB labs. Had NT US today. KIANA in four weeks. Assessment & Plan (08/22/2021 9:13 AM EDT): Blanche is a 20 y.o. at 10w0d states she feels well today. Denies any concerns at this time. Denies any LOF/Vaginal bleeding/Ucs. -Advised on quickening and what to expect in the upcoming weeks -Review warning signs and when/how to contact midwives -Will like an NT for genetic screening. Order placed -Advised that our OBs review all of our US and may make further recommendations. -Advised on care structure Acute midline low back pain without sciatica 08/04/2023 Assessment & Plan (08/22/2021 9:12 AM EDT): Sees a chiropractor. Feels better -Good relieve Vulvovaginitis due to yeast 07/28/2021 08/31/2021 Assessment & Plan (07/28/2021 11:13 AM EDT): Yeast vaginitis is present. Patient symptomatic. Have suggested Diflucan 150 mg x 1. Should external irritation persist she may apply clotrimazole cream twice daily to affected area x 7 days or discontinue sooner should symptoms resolve. Follow-up as needed. Uterine size date discrepanc y , first trimester 07/28/2021 08/31/2021 Overview (07/28/2021): Levonorgestrel IUD removal 05/10/2021. No menses since. Assessment & Plan (07/28/2021 11:14 AM EDT): Will obtain ultrasound to clarify dating. Bipolar disease in , third trimester 07/28/20 21 02/07/2023 Overview (08/31/2021): -08/21/21 decided to stay on medications during . Psychiatrist counseled her on possible effects to the fetus. -adderall -Lamictal -Celexa Growth US in third trimester due to taking Adderall * Assessment & Plan (02/28/2022 10:53 AM EDT): Pt reports she checks in with Psychiatrist monthly and feels stable and well supported. Stopped adderall about a month ago due to possible withdrawal for baby. Assessment & Plan (12/27/2021 10:57 AM EST): Blanche is feeling well overall, happy to be on meds and supported this . Shesees Nancy Flores at Dr Lamar's office. We discussed that the medications she is on can be continued if the benefits outweigh the risks which in her case it appears clear that they do. Lamictal and Celexa are often used in and besides slight increased risk of cleft palate (none seen on US) with Lamictal, there is not risk of malformations. There can be a risk of adaptation which is often self limited and able to be cared for with non [facility] care. She plans to breastfeed which can help. She is on Adderall which can increase risk of growth restriction, so we will check third trimester growth. Assessment & Plan (08/31/2021 4:37 PM EDT): Taking Adderall, lamictal, and celexa. Sees a psychiatrist every six weeks. 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 Reviewed increased risk for growth restriction with adderall and plan for growth US in third trimester. Assessment & Plan (08/22/2021 9:09 AM EDT): Has anxiety and depression. Sees a psychiatrist regularly. She is on Celexa, adderall,and lamictal. Pt made her provider aware that she is currently . Per pt provider counseled her on effects of medications to the fetus to include but not limited to cleft lip malformation. Pt stated that her mood is finally in a stable place and that she will like to cont to stay on medications. Pt is aware of the risks. Assessment & Plan (07/28/2021 11:24 AM EDT): Safety profile lamotrigine in reviewed with patient. She is also on extra folic acid. Advised to continue these medications. Patient advised to also continue her citalopram and Adderall. Patient states she does not feel well off Adderall. Informed pt there are not enough data on use of stimulant medications in to allow definitive conclusions about their reproductive safety. Available data for Amphetamines suggest no increase in the risk of malformation when used at therapeutic doses, while infants might have slightly lower weights. Alternative pharmacologic treatment options include tricyclic antidepressants, bupropion and clonidine; these drugs have more evidence to support their safety in . I have advised pt to only discontinue medication under the advise of her psychiatrist and to review possible alternatives. Unplanned unwanted 08/04/2023 Immunizations Immunization Administration Dates Next Due COVID-19 (Pre-08/18) Pfizer Vaccine, mRNA, PF 08/23/2021,08/22/2021,07/30/2021 Tdap 01/11/2022,02/12/2018 Family History Medical History Relation Comments Clotting disorder Maternal Grandfather Heart disease Maternal Grandfather Relation Status Comments Father Alive Maternal Grandfather Mother Alive Son Alive Social History Tobacco Use Types Packs/Day Years Used Date Smoking Tobacco: Former Cigarettes Smokeless Tobacco: Never Tobacco Cessation:Counseling Given: Not Answered Comments:At age 14 Alcohol Use Standard Drinks/Week Comments Not Currently 0 (1 standard drink = 0.6 oz pur e alcohol) Education Answer Date Recorded Are you interested in more education? Not on candy e 02/20/2023 Are you concerned about learning? Not on file 02/20/2023 No 02/20/2023 No 02/20/2023 Digital Access Answer Date Recorded No 03/23/2023 No 03/23/2023 Reliable internet access at home? Not on file 03/23/2023 Device with a working camera? Not on file Intimate Partner Violence Answer Date R ecorded Are you denied basic needs s uch as food, clothing, or medical care? No 06/12/2024 In the past 12 months have y ou been in a relationship with a person who hurts, threatens, or tries to control you? No 06/12/2024 Are you denied basic needs s uch as food, clothing, or medical care? No 06/12/2024 In the past 12 months have y ou been in a relationship with a person who hurts, threatens, or tries to control you? 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 Not on file Not on file Last Filed Vital Signs Vital Sign Reading Time Taken Comments Blood Pressure 112/76 06/12/2024 7:00 PM EDT Pulse 96 06/12/2024 7:00 PM EDT Temperature 35.7 C (96.3 F) 06/12/2024 7:00 PM EDT Respiratory Rate 18 06/12/2024 7:00 PM EDT Oxygen Saturation 98% 06/12/2024 7:00 PM EDT Inhaled Oxygen Concentration - - Weight 117 kg (258 lb) 06/12/2024 5:32 PM EDT Height 162.6 cm (5' 4 ) 06/12/2024 5:32 PM EDT Body Mass Index 44.29 06/12/2024 5:32 PM EDT Plan of Treatment Health Maintenance Due Date Last Done Comments DEPRESSION SCREENING 2010 SMOKING Hx and SMOKELESS TOBACCO SCREENING 2011 HPV VACCINES (1 - 3-dose series) 2013 PAP SMEAR 08/29/2024 08/29/2021 INFLUENZA VACCINE (#1) 2025 COVID-19 VACCINE ( season) 2025 10/09/2022, 08/23/2021, 08/22/2021, Additional history exists IUD 02/25/2031 02/25/2023 Adult Td,Tdap Booster 01/12/2032 01/11/2022, 018 HEPATITIS C SCREENING Completed 08/31/2021, 021 HIV ONE-TIME SCREENING (18-65 YEARS) Completed 08/31/2021 HEPATITIS A VACCINES Aged Out No long er eligible based on patient's age to complete this topic HIB VACCINES Aged Out No longer eligi ble based on patient's age to complete this topic MENINGOCOCCAL VACCINES (ACWY) Aged Out No longer eligible based on patient's age to complete this topic MENINGOCOCCAL VACCINES (B) Aged Out N o longer eligible based on patient's age to complete this topic PNEUMOCOCCAL VACCINES (0-49 years) Aged Out No longer eligible based on patient's age to complete this topic Medical Devices Implanted Type Area Exhibit Preparator Device Identifier Shelf Expiration Date Model / Serial / Lot Device Contraceptive 52mg Iud Mirena - Must Order In Multiples Of 5 - [id number] Implanted:Qty: 1 on 02/25/2023 by Janie Rios MD at [facility] N/A: Uterus [facility] 03/25/2025 [id number] / / [id number] Procedures Procedure Name Priority Date/Time Associated Diagnosis Comments HEPATITIS C ANTIBODY, QUALITATIVE Routine 08/31/2021 3:50 PM EDT Encounter for supervision of other normal in first trimester HM PAP SMEAR FOR RESULT ENTRY ONLY Routine 08/29/2021 from Last 3 Months or Most Recently Relevant to Health Maintenance Results * Hepatitis C antibody, qualitative (08/31/2021 3:50 PM EDT) HCV NON-REACTIV E NON-REACTI VE [facility] Blood 08/31/2021 3:50 PM EDT 08/31/2021 6:55 PM EDT us Arlene [facility] BLOOD ORDERABLES Final Re sult [address] [address] * PAP SMEAR FOR RESULT ENTRY ONLY (08/29/2021) us Historical Provider MD HEALTH MAINTENANCE Final Result from Last 3 Months or Most Recently Relevant to Health Maintenance Insurance [place] Advance Directives For more information, please contact: [phone] (9AM - 5PM [facility], Friday-Friday) Documents on File Type Date Recorded Patient Public Information Specialist Expl anation Healthcare Proxy 02/26/2023 4:23 PM * Full Code (Latest Code Status on File) Date Activated Date Inactivated Comments 03/29/2022 9:34 AM Question Answer Comments Code Status Confirmed With: Patient * Full Code Date Activated Date Inactivated Comments 03/28/2022 2:17 PM 03/29/2022 9:34 AM Question Answer Comments Code Status Confirmed With: Patient * Full Code Date Activated Date Inactivated Comments 03/04/2022 12:18 PM 03/28/2022 2:17 PM Question Answer Comments Code Status Confirmed With: Patient Care Teams Rn Team Leader Relationship Specialty Start Date End Date Cedric Bingham MD [address] [place] [address] Dr Santiaog [address] [place] [address] PCP - General Internal Medicine 06/12/24 Additional Source Comments The information contained in this document represents components of the legal health record. It is not the complete legal health record.[facility]
--- OUTSIDE RECORDS SUMMARY | 2025-07-05 18:07 | XMS_ITS | Encounter Summary ---
Author Organization [facility] Address [address] [place] [address] Phone Care Team Providers Care Fire Hydrant Mechanic Name Role Phone Carmelina Lamar MD Unavailable [phone] Carmelina Lamar MD Primary Care Provider + Unknown, Unknown Primary Care Provider Cedric Serrano MD Primary Care Provider [phone] Encounter Details Date Type Department Care Team (Late st Contact Info) Description 04/04/2022 Transcribe Orders Virtual Department [address] [place] [address] Toby Fletcher PA [address] [place] [address] [email or web address] Right leg [email or web address] Social History Tobacco Use Types Packs/Day Years Used Date Smoking Tobacco: Former Smokeless Tobacco: Never Comments:At age 14 Alcohol Use Standard Drinks/Week Comments Not Currently 0 (1 standard drink = 0.6 oz pur e alcohol) none in Comments No Sex and Gender Information Value Date Recorded Sex Assigned at Female 04/02/2022 10:48 PM EDT Legal Sex Female 3:06 PM EDT Gender Identity Female 04/02/2022 10:48 PM EDT Sexual Orientation Not on file 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 Not on file Not on file documented as of this encounter Plan of Treatment Not on file documented as of this encounter Visit Diagnoses Diagnosis Right leg pain Pain in soft tissues of limb documented in this encounter Care Teams Fire Hydrant Mechanic Relationship Specialty Start Date End Date Carmelina Lamar MD [address] [place] [address] [email or web address] PCP - General Family Medicine 06/04/21 08/06/23 Unknown, Unknown, MD PCP - General 08/07/23 06/11/24 Cedric Bingham MD [address] [place] [address] [place] [address] PCP - General Internal Medicine 06/12/24 Carmelina Lamar MD [address] [place] [address] [email or web address] Insurance Assigned Provider 06/01/20 03/15/23 documented as of this encounter Additional Source Comments The information contained in this document represents components of the legal health record. It is not the complete legal health record.[facility]
--- OUTSIDE RECORDS SUMMARY | 2025-07-05 18:07 | XMS_ITS | Encounter Summary ---
Author Organization [facility] Address [address] [place] [address] Phone Care Team Providers Care Screen Stretcher Name Role Phone Toby Fletcher Primary Care Provider [phone] Carmelina Lamar MD Unavailable [phone] Carmelina Lamar MD Primary Care Provider + Unknown, Unknown Primary Care Provider Cedric Serrano MD Primary Care Provider [phone] Encounter Details Date Type Department Care Team (Latest Contact Info) Description 06/01/2021 Transcribe Orders Virtual Department [address] [place] [address] Toby Fletcher PA [address] [place] [address] [email or web address] Pelvic and perineal pain (Primary Dx); Other specified noninflammatory disorders of vagina Social History Tobacco Use Types Packs/Day Years Used Date Smoking Tobacco: Former Smokeless Tobacco: Never Comments:At age 14 Alcohol Use Standard Drinks/Week Comments Not Currently 0 (1 standard drink = 0.6 oz pur e alcohol) Comments No Sex and Gender Information Value [...] as of this encounter Visit Diagnoses Diagnosis Pelvic and perineal pain- Primary Other specified noninflammatory disorders of vagina documented in this encounter Additional Health Concerns Infection Onset Date Last Indicated Resolved Time COVID-19 11/06/2021 11/15/2021 11/17/2021 1:24 AM EST COVID-19 03/03/2022 03/07/2022 03/14/2022 1:24 AM EDT documented as of this encounter Care Teams Screen Stretcher Relationship Specialty Start Date End Date Toby Fletcher PA [address] [place] [address] [email or web address] PCP - General 04/27/20 06/03/21 Carmelina Lamar MD [address] [place] [address] [email or web address] PCP - General Family Medicine 06/04/21 08/06/23 Unknown, Unknown, MD PCP - General 08/07/23 06/11/24 Cedric Bingham MD [address] [place] [address] [place] [address] PCP - General Internal Medicine 06/12/24 Carmelina Lamar MD [address] [place] [address] [email or web address] Insurance Assigned Provider 06/01/20 03/15/23 documented as of this encounter Additional Source Comments The information contained in this document represents components of the legal health record. It is not the complete legal health record.[facility]
--- OUTSIDE RECORDS SUMMARY | 2025-07-05 18:07 | XMS_ITS | Encounter Summary ---
Author Organization [facility] Address [address] [place] [address] [place] [address] Phone Care Team Providers Care Operations Manager Station Name Role Phone Carmelina Lamar MD Unavailable [phone] Carmelina Lamar MD Primary Care Provider + Unknown, Unknown Primary Care Provider Cedric Serrano MD Primary Care Provider [phone] Encounter Details Date Type Department Care Team (Late st Contact Info) Description 02/25/2023 Procedure Pass OR Admitting Dept - Virtual Department [address] [place], [place] [id number] Social History Tobacco Use Types Packs/Day Years Used Date Smoking Tobacco: Former Cigarettes Smokeless Tobacco: Never Comments:At age 14 Alcohol Use Standard Drinks/Week Comments Never 0 (1 standard drink = 0.6 oz pur e alcohol) Education Answer Date Recorded Are you interested in more education? Not on candy e 02/20/2023 Are you concerned about learning? Not on file 02/20/2023 No 02/20/2023 No 02/20/2023 Comments Yes Sex and Gender Information Value Date Recorded [...] on filedocumented in this encounter Care Teams Operations Manager Station Relationship Specialty Start Date End Date Carmelina Lamar MD [address] [place] [phone] [email or web address] PCP - General Family Medicine 06/04/21 08/06/23 Unknown, Unknown, MD PCP - General 08/07/23 06/11/24 Cedric Bingham MD [address] [place] [address] [place] [address] PCP - General Internal Medicine 06/12/24 Carmelina Lamar MD [address] [place] [address] [email or web address] Insurance Assigned Provider 06/01/20 03/15/23 documented as of this encounter Additional Source Comments The information contained in this document represents components of the legal health record. It is not the complete legal health record.[facility]
--- OUTSIDE RECORDS SUMMARY | 2025-07-05 18:07 | XMS_ITS | Encounter Summary ---
Author Organization [facility] Address [address] [place] [address] Phone Care Team Providers Care Artificial Limb Fitter Name Role Phone Toby Fletcher Primary Care Provider [phone] Carmelina Lamar MD Unavailable [phone] Carmelina Lamar MD Primary Care Provider + Unknown, Unknown Primary Care Provider Cedric Serrano MD Primary Care Provider [phone] Encounter Details Date Type Department Care Team (Late st Contact Info) Description 04/27/2020 Ancillary Orders Virtual Department [address] [place], [place] [id number] Toby Fletcher PA [address] [place] [address] [email or web address] Adnexal pain Social History Tobacco Use Types [...] documented as of this encounter Care Teams Artificial Limb Fitter Relationship Specialty Start Date End Date Toby Fletcher PA [address] [place] [address] [email or web address] PCP - General 04/27/20 06/03/21 Carmelina Lamar MD [address] [place] [address] [email or web address] PCP - General Family Medicine 06/04/21 08/06/23 Unknown, Ricardo, PCP - General 08/07/23 06/11/24 Cedric Bingham MD [address] [place] [address] [place] [address] PCP - General Internal Medicine 06/12/24 Carmelina Lamar MD [address] [place] [address] Insurance Assigned Provider 06/01/20 03/15/23 documented as of this encounter Additional Source Comments The information contained in this document represents components of the legal health record. It is not the complete legal health record.[facility]
--- OUTSIDE RECORDS SUMMARY | 2025-07-05 18:07 | XMS_ITS | Clinical Summary ---
Author Organization [facility] Address [address] [place] [address] Care Team Providers Care Tea Bag Machine Tender Name Role Phone Cedric Bingham MD Primary Care Provider [phone] Social History Tobacco Use Types Packs/Day Years [...] 2017 Influenza Vaccine (#1) 2025 Insurance [facility] Medicaid Care Teams Tea Bag Machine Tender Relationship Specialty Start Date End Date Cedric Bingham MD [address] [place] [address] PCP - General Internal Medicine 03/27/24
--- OUTSIDE RECORDS SUMMARY | 2025-07-05 18:07 | XMS_ITS | Clinical Summary ---
Author Organization [facility] Address [address] [place] [address] Care Team Providers Care Education Faculty Member Name Role Phone Unavailable Primary Care Provider Unavailabl e Surgical History Surgery Date Site/Laterality Comments TONSILLECTOMY PROCEDURE: HISTORICAL TONSILLECTOMY ADENOIDECTOMY PROCEDURE: HISTORICAL ADENOIDECTOMY WISDOM TOOTH EXTRACTION PROCEDURE: HISTORICAL WISDOM TEETH EXTRACTION OTHER SURGICAL HISTORY PROCEDURE: HISTORICAL D&C; COMMENT: TAB Medical History Medical History Date Comments HSV-2 (herpes simplex virus 2) infection DX:HSV-2 (herpes simplex virus 2) infection Menorrhagia DX:Menorrhagia Bipolar disorder ([facility] V2 4, [facility] V28) DX:Bipolar disorder ([facility]); C OMMENT: on lamictal, prescribed by her psychiatrist. Depression with anxiety DX:Depre ssion with anxiety; COMMENT: on Celexa prescribed by her psychiatrist Morbid obesity ([facility] V24, [facility] V28) DX:Morbid obesity ([facility]) Family History Medical History Relation [...] Cervical Cancer Screening: P ap Smear 2019 Depression Screening 10/27/2024 COVID-19 Vaccine (1 - 2023-2 5 season) 2025 Influenza Vaccine (#1) 2025 DTaP,Tdap,and Td Vaccines [...]
--- OUTSIDE RECORDS SUMMARY | 2025-07-05 18:07 | XMS_ITS | Encounter Summary ---
Author Organization [facility] Address [address] [place] [address] Phone Care Team Providers Care Purchasing Buyer Name Role Phone Carmelina Lamar MD Unavailable [phone] Carmelina Lamar MD Primary Care Provider + Unknown, Unknown Primary Care Provider Cedric Serrano MD Primary Care Provider [phone] Reason for Referral * Outpatient Procedure - Closed Specialty Diagnoses / Procedures Referred By Contac t Referred To Contact Radiology Diagnoses Localized swelling, mass and lump, right lower limb Procedures US Lower Extremity Veins Duplex (Right) US Lower Extremity Veins Duplex (Right) Toby Fletcher PA [address] [place] [address] Phone: tel: fax: [email or web address] Referral ID Status Reason Start Date Expiration Date Visits Re quested Visits Authorized [id number] Closed 04/04/2022 04/04/2023 1 1 Encounter Details Date Type Department Care Team (Late st Contact Info) Description 04/04/2022 Ancillary Orders Virtual Department [address] [place] [address] Toby Fletcher PA [address] [place] [address] [email or web address] Localized swelling, mass and lump, right lower limb Social History Tobacco Use Types Packs/Day Years [...] on file documented as of this encounter Results * US Lower Extremity Veins Duplex (Right) (04/04/2022 12:48 PM EDT) Anatomical Region Laterality Modality Hip Right, Thigh Right, Knee Right, Leg Right, Ankle Right, Foot Right Ultrasound 04/04/2022 2:59 PM EDT Impressions 04/04/2022 3:03 PM EDT *No evidence of right lower extremity deep venous thrombosis. *0.7 cm subcutaneous cystic area with small adjacent varicose vein and moderate amount of internal echogenic products, which could represent inflamed sebaceous cyst or possibly a focal superficial thrombophlebitis in varicose vein. Narrative 04/04/2022 3:03 PM EDT US LOWER EXTREMITY VEINS DUPLEX (RIGHT) TECHNIQUE: VENOUS ULTRASOUND RIGHT LOWER EXTREMITY Duplex US of the right common femoral, femoral, proximal deep femoral, proximal great saphenous and popliteal veins were examined using pelletier scale compression ultrasound with the aid of color flow and pulsed wave Doppler. INDICATIONS: Swelling and Pain in Limb COMPARISON: None FINDINGS: Technically adequate exam demonstrates: The right common femoral, femoral, proximal deep femoral, proximal great saphenous and popliteal veins are normally compressible. There are normal pulsed wave Doppler responses in the common femoral vein with calf augmentation. The visualized calf veins are patent. The contralateral common femoral vein and proximal great saphenous vein are normally compressible. There are normal Doppler responses in the common femoral vein with calf augmentation. Targeted ultrasound examination of the palpable area indicated by the patient inferomedial to the right knee, there is a 0.7 x 0.6 cm subcutaneous cystic area with small associated varicose vein and moderate amount of internal echogenic products. No internal vascularity. This could represent inflamed sebaceous cyst or possibly a focal superficial thrombophlebitis in varicose vein. Procedure Note Dana Parrish MD - 04/04/2022 US LOWER EXTREMITY VEINS DUPLEX (RIGHT) TECHNIQUE: VENOUS ULTRASOUND RIGHT LOWER EXTREMITY Duplex US of the right common femoral, femoral, proximal deep femoral,proximal great saphenous and popliteal veins were examined using greyscale compression ultrasound with the aid of color flow and pulsed waveDoppler. INDICATIONS: Swelling and Pain in Limb COMPARISON: None FINDINGS: Technically adequate exam demonstrates: The right common femoral, femoral, proximal deep femoral, proximal greatsaphenous and popliteal veins are normally compressible. There are normal pulsed wave Doppler responses in the common femoral veinwith calf augmentation. The visualized calf veins are patent. The contralateral common femoral vein and proximal great saphenous veinare normally compressible. There are normal Doppler responses in thecommon femoral vein with calf augmentation. Targeted ultrasound examination of the palpable area indicated by thepatient inferomedial to the right knee, there is a 0.7 x 0.6 cmsubcutaneous cystic area with small associated varicose vein and moderateamount of internal echogenic products. No internal vascularity. This couldrepresent inflamed sebaceous cyst or possibly a focal superficialthrombophlebitis in varicose vein. IMPRESSION: *No evidence of right lower extremity deep venous thrombosis. *0.7 cm subcutaneous cystic area with small adjacent varicose vein andmoderate amount of internal echogenic products, which could representinflamed sebaceous cyst or possibly a focal superficial thrombophlebitisin varicose vein. us Toby MCINTOSH US VASCULAR Final Result documented in this encounter Visit Diagnoses Diagnosis Localized swelling, mass and lump, right lower limb Localized swelling, mass and lump, right lower limb documented in this encounter Care Teams Purchasing Buyer Relationship Specialty Start Date End Date Carmelina Lamar MD [address] [place] [address] [email or web address] PCP - General Family Medicine 06/04/21 08/06/23 Unknown, Unknown, PCP - General 08/07/23 06/11/24 Cedric Bingham MD [address] [place] [address] PCP - General Internal Medicine 06/12/24 Carmelina Lamar MD [address] [place] [address] [email or web address] Insurance Assigned Provider 06/01/20 03/15/23 documented as of this encounter Additional Source Comments The information contained in this document represents components of the legal health record. It is not the complete legal health record.[facility]
--- OUTSIDE RECORDS SUMMARY | 2025-07-05 18:07 | XMS_ITS | Encounter Summary ---
Author Organization [facility] Address [address] [place] [address] [place] [address] Phone Care Team Providers Care Cpc Coder Name Role Phone Carmelina Lamar MD Unavailable [phone] Carmelina Lamar MD Primary Care Provider + Unknown, Unknown Primary Care Provider Cedric Serrano MD Primary Care Provider [phone] Encounter Details Date Type Department Care Team (Late st Contact Info) Description 03/04/2023 Procedure Pass [facility], Ct Scan - [facility] [address] [place], [place] [id number] Social History Tobacco Use Types Packs/Day Years [...] file 02/20/2023 No 02/20/2023 No 02/20/2023 Comments No Sex and Gender Information Value Date Recorded Sex Assigned at Female 04/02/2022 10:48 PM EDT Legal Sex Female 3:06 PM EDT Gender Identity Female 04/02/2022 10:48 PM EDT Sexual Orientation Not on file 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 Wish to be (Past 1 Month) No 023 10:06 AM Volodymyr Austin RN 2. Non-Specific Active Suici steve Thoughts (Past 1 Month) No 03/04/2023 10:06 AM RODRICKT Volodymyr Car RN 6. Suicidal Behavior (Lifetime) No 10:06 AM EDT Volodymyr Car RN documented as of this encounter Plan of Treatment Not on file documented as of this encounter Visit Diagnoses Not on filedocumented in this encounter Care Teams Cpc Coder Relationship Specialty Start Date End Date Carmelina Lamar MD [address] [place] [address] PCP - General Family Medicine 06/04/21 08/06/23 Unknown, Unknown, MD PCP - General 08/07/23 06/11/24 Cedric Bingham MD [address] [place] [address] [place] [address] PCP - General Internal Medicine 06/12/24 Carmelina Lamar MD [address] [place] [address] Insurance Assigned Provider 06/01/20 03/15/23 documented as of this encounter Additional Source Comments The information contained in this document represents components of the legal health record. It is not the complete legal health record.[facility]
--- OUTSIDE RECORDS SUMMARY | 2025-07-05 18:07 | XMS_ITS | Encounter Summary ---
Author Organization [facility] Address [address] [place] [address] [address] [place] [address] Phone Care Team Providers Care Vision Impaired Teacher Name Role Phone Carmelina Lamar MD Unavailable [phone] Carmelina Lamar MD Primary Care Provider + Unknown, Unknown Primary Care Provider Cedric Serrano MD Primary Care Provider [phone] Encounter Details Date Type Department Care Team (Late st Contact Info) Description 03/29/2022 Procedure Pass OR Admitting Dept - Virtual Department [address] [place] [address] Social History Tobacco Use Types Packs/Day Years [...] on filedocumented in this encounter Care Teams Vision Impaired Teacher Relationship Specialty Start Date End Date Carmelina Lamar MD [address] [place] [address] [place] [address] PCP - General Family Medicine 06/04/21 08/06/23 Unknown, Unknown, PCP - General 08/07/23 06/11/24 Cedric Bingham MD [address] [place] [address] [facility] [place] [address] PCP - General Internal Medicine 06/12/24 Carmelina Lamar MD [address] [place] [address] [email or web address] Insurance Assigned Provider 06/01/20 03/15/23 documented as of this encounter Additional Source Comments The information contained in this document represents components of the legal health record. It is not the complete legal health record.[facility]
== END 2025-07-05 16:47 | disposition home or self-care (01) ==
LOC: HO.HMCH 16:00
PROVIDERS: PCP Internal Medicine
DX: E11.9 Type 2 diabetes mellitus without complications (principal); F31.9 Bipolar disorder, unspecified; E66.01 Morbid (severe) obesity due to excess calories; Z68.43 Body mass index [BMI] 50.0-59.9, adult; F41.9 Anxiety disorder, unspecified

== ENCOUNTER → 2025-07-05 16:00 | Outpatient (BNVA) | payer OTHER, SELFPAY | PROVIDERS: PCP Internal Medicine | DX: E66.01 Morbid (severe) obesity due to excess calories (principal); F32.9 Major depressive disorder, single episode, unspecified; F41.9 Anxiety disorder, unspecified; E11.9 Type 2 diabetes mellitus without complications; Z68.43 Body mass index [BMI] 50.0-59.9, adult; Z79.899 Other long term (current) drug therapy | CPT/HCPCS: 96127; 99212 ==

== ENCOUNTER 2025-07-28 13:33 | Outpatient (AMB) | payer OTHER, SELFPAY ==
--- NOTE | 2025-07-28 13:48 | A.OFFVIS_ITS ---
Vital Signs 07/28/25 13:55 Height 5 ft 4 in Weight 310 lb 13.628 oz BMI 53.4 BP 134/68 Blood Pressure Location Rt brachial Position Sitting Pulse 105 H Pulse Source Pulse Oximeter Pulse Oximetry (%) 96 Oxygen Delivery Method Room Air Intake Visit Reasons: IgA vasculitis Intake Note: Patient presents for follow up on Glomerulonephritis follow up. Allergies No Known Allergies (No Known Allergies*) Allergy (Verified 07/28/25 13:52) Medication List - Last Reconciled 07/28/25 by Maisha Herrera MD albuterol sulfate 90 mcg/actuation (Ventolin HFA) 2 puffs inhalation Q6H PRN bumetanide 0.5 mg PO DAILY empagliflozin (Jardiance) 10 mg PO DAILY escitalopram oxalate 10 mg PO DAILY levonorgestrel (Mirena) intrauterine lisinopril 20 mg PO BID 90 days omeprazole 20 mg PO DAILY 3 months prednisone 7.5 mg (1.5 x 5 mg) PO DAILY 90 days quetiapine 100 mg PO BEDTIME rituximab IV tirzepatide (Mounjaro) 2.5 mg (0.5 mL) subcut QWEEK tirzepatide (Mounjaro) 2.5 mg (0.5 mL) subcut QWEEK valacyclovir 500 mg PO DAILY HPI Comments Details: Patient is a 24-year-old female who presents for 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 - Not on any rheum medications - Completed cytoxan and on prednisone as per nephrology - Patient states that she wanted to hold off on immunosuppression and tried to taper her prednisone on her own. Was able to come off prednisone for a few weeks but had widespread joint pain and swelling. Restarted prednisone and is currently on 10mg with some improvement to her symptoms - Given the vasculitis hx, started on Ritux infusions Today - On Rituximab 1000mg x 2 doses 14 days apart every 6 months - Prednisone per nephrology - Received first dose 03/2025 and 04/2025 - Trying to taper the prednisone in May but that was met with pain and si she went back up - Trying to taper again, and has been on 7.5mg for the past 3 days and has been doing okay Rheumatologic History: Diagnosed with IgA vasculitis after presenting with triad of rash, vague abdominal pain and joint pain. She was also noted to have proteinuria. Status post renal biopsy 01/29/2024 which confirmed IgA deposition with crescentic glomerular nephritis minimal to no sclerosis. Started on Cytoxan by Nephrology and received 6 cycles. 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 Son No problems noted. Other Mental health disorder Substance use disorder Social History Housing: Apartment Alcohol intake: current Alcohol intake frequency: does not drink Comment: medicated prior to discharge Patient Tobacco Use Status: Never used Tobacco e-Cigarette/Vaping Use: Never Used Second Hand Smoke Exposure: No Substance Use Type: Marijuana service: No Current occupational status: student Cognitive needs: No Hearing needs: No Vision needs: No Review of Systems Const Details: Review of Systems Constitutional: Denies fever, chills, weight loss ENT: Denies vision changes, eye pain or eye redness, dental caries, dry mouth GI: Denies nausea, vomiting, diarrhea, abdominal pain, change in BM Pulm: Denies SOB, OCMER, hemoptysis, wheezing Cards: Denies chest pain, palpitations Skin: Denies Raynaud's, rash, nail changes, photosensitivity, SCIENTIFIC PROGRAMMER: Denies headaches, weakness, paresthesias, recurrent falls MSK: as per HPI All other systems reviewed and are unremarkable except noted above Physical Exam Exam Exam: Vital signs reviewed Physical Examination CONSTITUITIONAL Patient alert and cooperative. Well appearing and in no apparent painful distress Dyer facmushtaq MSK Hands * Right Hand: Able to make a fist. No swelling or tenderness to palpation of the MCPs, PIPs or DIPs. No deformities noted. * Left Hand: Able to make a fist. No swelling or tenderness to palpation of the MCPs, PIPs or DIPs. No deformities noted. Wrists * Right Wrist: Full ROM to flexion and extension. No swelling or TTP * Left Wrist: Full ROM to flexion and extension. No swelling or TTP Elbows * Right Elbow: Full ROM. No swelling or TTP. No TTP of the medial epicondyle. No TTP of the lateral epicondyle * Left Elbow: Full ROM. No swelling or TTP. No TTP of the medial epicondyle. No TTP of the lateral epicondyle Shoulders * Right shoulder: Full ROM. No swelling noted. No TTP of the AC joint. No TTP of the subacromial bursa. No TTP of the posterior shoulder * Left shoulder: Full ROM. No swelling noted. No TTP of the AC joint. No TTP of the subacromial bursa. No TTP of the posterior shoulder Knees * Right knee: Full ROM. No swelling noted. No TTP of the knee joint line. No TTP of pes anserine bursa * Left knee: Full ROM. No swelling noted. No TTP of the knee joint line. No TTP of pes anserine bursa. Ankles * Right ankle: Good ankle dorsiflexion and plantar flexion. No swelling. No TTP of the ankle joint * Left ankle: Good ankle dorsiflexion and plantar flexion. No swelling. No TTP of the ankle joint Feet * Right foot: Negative squeeze test * Left foot: Negative squeeze test Tender points? * Tenderness to palpation of the bilateral trapezius, but no TTP of supraspinatus, anterior costochondral junctions, bilateral suboccipital muscle insertions SKIN No rashes Vital Signs: Last Vital Signs Pulse 105 H 07/28/25 13:55 BP 134/68 07/28/25 13:55 Pulse Ox 96 07/28/25 13:55 Oxygen Delivery Method Room Air 07/28/25 13:55 BMI result Body Mass Index 53.4 Results Reviewed Results Reviewed: Laboratory Tests 04/08/25 05/02/25 14:45 10: WBC 9.9 RBC 4.75 Hgb 13.4 Hct 39.8 Plt Count 237 ESR 25 H Sodium 138 Potassium 3.9 Chloride 107 Carbon Dioxide 26 BUN 17 H Creatinine 0.67 AST 18 ALT 12 Alkaline Phosphatase 62 C-Reactive Protein 0.81 H IgG Total 487 L IgA Total 107 IgM 154 Assessment & Plan Assessment & Plan (1) Glomerulonephritis, IgA: Code(s): N02.B9 - Other recurrent and persistent immunoglobulin A nephropathy Category: Medical Plan: #IgA Crescentic Glomerulonephritis/Vasculitis Patient is a 24-year-old female with biopsy-proven necrotizing crescentic glomerular nephritis/IgA vasculitis. Patient unable to taper her steroids. Started on rituximab 04/2025. Decreased prednisone to 7.5mg about 3 days ago and is doing well Discussed with the patient that I think she should continue on the 7.5 mg dose for the next 4 months. She will get her repeat rituximab infusion in September and at her follow up visit we will taper the steroids further Plan - Rituximab 1000mg day 1 and day 15 every 6 months - recommending continuing prednisone 7.5 for the next 4 months and plan to decrease to 5 mg after her 2nd set of rituximab - Labs today: CBC, CMP, ESR, CRP, UA, UPC, Immunoglobulins - RTC 4 months - Labs before visit: CBC, CMP, ESR, CRP, UA, UPC, Immunoglobulins 1. Bernardo JH, Stephanie PA, Gui R, Rory P, Lisseth CA, Nagi GS, Melissa CG, [facility] EW, Herbert A, Cindy NK, Araceli L, López L, Mauro LP, Chalo K, Joe D, Mustapha D, Cleveland V, Jonah M, Cora P, Javier NB, Forrest FC, Miriam D, Mamadou KA, Gina EY, Concetta PA, Mango T, Mel C, Nguyễn SR, Amari U; RAVE-ITN Research Group. Rituximab versus cyclophosphamide for ANCA-associated vasculitis. N Engl J Med. 2009May 10;363(3):221-32. doi: 10.1056/SFYIui3114154. PMID: 92210987; PMCID: BOH2534289. 2. Coco Turner, Elyo P, Coco Abbott, Pagnoux C, N?el A, Young P, Auma?maile O, Faguer S, Gobert P, Magailer F, Windsor M, Godlai P, Mario B, Vamsi V, Bobo-Esau C, Eulalia Bazan T, Ady PL, Sammie H, Karla G, Kathy- Chicvanessa N, Moreno F, Roel-Siu N, Jamilahet G, Qu?m?neur T, Oswaldo M, Lonny Y, Dalatoyas E, Juan Carlos E, Limal N, Ducret M, Kevin A, Cori JF, Hazhen E, Perfunmilayo E, Pufrank X, David L, Fernanda R, Fercho B; [place] Vasculitis Study Group (FVSG). Rituximab as maintenance therapy for ANCA- associated vasculitides: pooled analysis and long-term outcome of 277 patients included in the MAINRITSAN trials. Anh Rheum Dis. 2023Nov 06;83(2):233-241. doi: 10.1136/pda-[id number]. PMID: 63198557. 3. Odalys?ndez-Rodr?gautam J, Tim C, Dony?n-Zana JA, Linda-Jose Francisco S, Tobin M, Iva AJ. Rituximab treatment for IgA vasculitis: A systematic review. Autoimmun Rev. 2020 Jan;19(4):751488. doi: 10.1016/j.autrev.2020.006250. Ep2019Dec 09. PMID: 10860594. (2) Encounter for monitoring rituximab therapy: Code(s): Z51.81 - Encounter for therapeutic drug level monitoring; Z79.620 - manager terminal (current) use of immunosuppressive biologic Plan: #Long-term Use of Rituxumab Discussed with this patient the risks and benefits of rituximab use to the management of the rheumatic condition Benefits include improved disease control and maintenance of remission Risks include hypogammaglobulinemia and increased risk of opportunistic infections, reactivation of hepatitis-B, infusion reactions Monitoring: ?Immunoglobulins, hepatitis-B serologies, CBC (3) alf (current) use of systemic steroids: Code(s): Z79.52 - alf (current) use of systemic steroids Plan: #Long-term Use of Steroids Discussed with patient the risks and benefits of steroid for managing the rheumatic condition Benefits include: - Reduced pain, improved mobility, increased participation in activities, and decreased progression of disease Risks include: - GI upset, potential ultrasound worsening or formation (especially in patients > 65 years old), elevated blood pressure/worsening hypertension, elevated blood sugar/worsening diabetes control, worsening of bone density, elevated lipids/worsening triglycerides, cataract formation, weight gain Recommended using proton pump inhibitors (PPIs) for the duration of steroid use to reduce the risk of gastric ulcers and vitamin-D daily to reduce the risk of osteoporosis Labs checked: ?A1c, T spot, hepatitis-B and C serologies Pneumocystis jiroveci prophylaxis: ?Patient with risk factors including steroids greater than 50 mg for more than 30 days, age greater than 60 years, and lung involvement from underlying rheumatic disease requires prophylaxis and will be given so Plan I spent 30 minutes reviewing the record and labs, taking a history, examining the patient, discussing the treatment plan, ordering diagnostic work up, and documenting in the medical record Orders: Orders Complete Blood Count Auto Diff 4 Months N02.B9 - Other recurrent and persistent immunoglobulin A nephropathy Erythrocyte Sedimentation Rate 4 Months N02.B9 - Other recurrent and persistent immunoglobulin A nephropathy Immunoglobulins,IgG IgA IgM 4 Months N02.B9 - Other recurrent and persistent immunoglobulin A nephropathy Complete Blood Count Auto Diff Today N02.B9 - Other recurrent and persistent immunoglobulin A nephropathy Comprehensive Met. Panel Today N02.B9 - Other recurrent and persistent immunoglobulin A nephropathy Erythrocyte Sedimentation Rate Today N02.B9 - Other recurrent and persistent immunoglobulin A nephropathy Comprehensive Met. Panel 4 Months N02.B9 - Other recurrent and persistent immunoglobulin A nephropathy C Reactive Protein 4 Months N02.B9 - Other recurrent and persistent immunoglobulin A nephropathy C Reactive Protein Today N02.B9 - Other recurrent and persistent immunoglobulin A nephropathy Coding Level of Care Code Est Pt Level 4 (94156) Complex EM visit Add On G2211 Diagnoses Glomerulonephritis, IgA N02.B9 Encounter for monitoring rituximab therapy Z51.81; Z79.620 manager terminal (current) use of systemic steroids Z79.52
[2025-07-28 13:55] VITALS: BP 134/68; PULSE 105; O2SAT 96; BMI 53.4
--- OUTSIDE RECORDS SUMMARY | 2025-07-28 15:03 | XMS_ITS | Clinical Summary ---
Author Organization [facility] Address [address] [place] [address] Care Team Providers Care Asset Management Coordinator Name Role Phone Unavailable Primary Care Provider Unavailabl e Surgical History Surgery Date Site/Laterality Comments TONSILLECTOMY PROCEDURE: HISTORICAL TONSILLECTOMY ADENOIDECTOMY PROCEDURE: HISTORICAL ADENOIDECTOMY WISDOM TOOTH EXTRACTION PROCEDURE: HISTORICAL WISDOM TEETH EXTRACTION OTHER SURGICAL HISTORY PROCEDURE: HISTORICAL D&C; COMMENT: TAB Medical History Medical History Date Comments HSV-2 (herpes simplex virus 2) infection DX:HSV-2 (herpes simplex virus 2) infection Menorrhagia DX:Menorrhagia Bipolar disorder ([facility] V2 4, [facility] V28) DX:Bipolar disorder ([facility]); C OMMENT: on lamictal, prescribed by her psychiatrist. Depression with anxiety DX:Depre ssion with anxiety; COMMENT: on Celexa prescribed by her psychiatrist Morbid obesity ([facility] V24, [facility] V28) DX:Morbid obesity ([facility]) Family History [...] (2 - Td or Tdap) 02/13/2028 02/12/2018 RSV Immunization Adult Patie nts (1 - 1-dose 75+ series) 2073 HIB Vaccines Aged Out No longer eligi [...]
--- OUTSIDE RECORDS SUMMARY | 2025-07-28 15:03 | XMS_ITS | Encounter Summary ---
Author Organization [facility] Address [address] [place] [address] [place] [address] Phone Care Team Providers Care Crystal Mounter Name Role Phone Carmelina Lamar MD Unavailable [phone] Carmelina Lamar MD Primary Care Provider + Unknown, Unknown Primary Care Provider Cedric Serrano MD Primary Care Provider [phone] Encounter Details Date Type Department Care Team (Late st Contact Info) Description 02/25/2023 Procedure Pass OR Admitting Dept - Virtual Department [address] [place], [place] [id number] Social History Tobacco Use Types Packs/Day Years [...] on filedocumented in this encounter Care Teams Crystal Mounter Relationship Specialty Start Date End Date Carmelina Lamar MD [address] [place] [phone] [email or web address] PCP - General Family Medicine 06/04/21 08/06/23 Unknown, Unknown, MD PCP - General 08/07/23 06/11/24 Cedric Bingham MD [address] [place] [address] [place] [address] PCP - General Internal Medicine 06/12/24 Carmelina Laamr MD [address] [place] [phone] [email or web address] Insurance Assigned Provider 06/01/20 03/15/23 documented as of this encounter Additional Source Comments The information contained in this document represents components of the legal health record. It is not the complete legal health record.[facility]
--- OUTSIDE RECORDS SUMMARY | 2025-07-28 15:03 | XMS_ITS | Encounter Summary ---
Author Organization [facility] Address [address] [place] [address] [place] [address] Phone Care Team Providers Care Cutter Hot Knife Name Role Phone Carmelina Lamar MD Unavailable [phone] Carmelina Lamar MD Primary Care Provider + Unknown, Unknown Primary Care Provider Cedric Serrano MD Primary Care Provider [phone] Encounter Details Date Type Department Care Team (Late st Contact Info) Description 03/04/2023 Procedure Pass [facility], Ct Scan - [facility] [address] [place], [place] [id number] Social History Tobacco Use Types Packs/Day Years [...] 10:06 AM EDT Volodymyr Car RN * [place]eman Suicide Severity Rating Scale (Screener/Recent Self-Report) Question [...] on filedocumented in this encounter Care Teams Cutter Hot Knife Relationship Specialty Start Date End Date Carmelina Lamar MD [address] [place] [phone] PCP - General Family Medicine 06/04/21 08/06/23 Unknown, Unknown, MD PCP - General 08/07/23 06/11/24 Cedric Bingham MD [address] [place] [address] [place] [address] PCP - General Internal Medicine 06/12/24 Carmelina Lamar MD [address] [place] [phone] Insurance Assigned Provider 06/01/20 03/15/23 documented as of this encounter Additional Source Comments The information contained in this document represents components of the legal health record. It is not the complete legal health record.[facility]
--- OUTSIDE RECORDS SUMMARY | 2025-07-28 15:03 | XMS_ITS | Encounter Summary ---
Author Organization [facility] Address [address] [facility] [address] [place] [address] Phone Care Team Providers Care Contact Worker Lithography Name Role Phone Carmelina Lamar MD Unavailable [phone] Carmelina Lamar MD Primary Care Provider + Unknown, Unknown Primary Care Provider Cedric Serrano MD Primary Care Provider [phone] Reason for Referral * Outpatient Procedure - Closed Specialty Diagnoses / Procedures Referred By Contac t Referred To Contact Radiology Diagnoses Localized swelling, mass and lump, right lower limb Procedures US Lower Extremity Veins Duplex (Right) US Lower Extremity Veins Duplex (Right) Toby Fletcher PA [address] [place] [address] Phone: tel: fax: [email or web address] Referral ID Status Reason Start Date Expiration Date Visits Re quested Visits Authorized [id number] Closed 04/04/2022 04/04/2023 1 1 Encounter Details Date Type Department Care Team (Late st Contact Info) Description 04/04/2022 Ancillary Orders Virtual Department [address] [place] [address] Toby Fletcher PA [address] [place] [address] [email or web address] Localized swelling, mass and lump, right lower [...] limb documented in this encounter Care Teams Contact Worker Lithography Relationship Specialty Start Date End Date Carmelina Lamar MD [address] [place] [phone] [email or web address] PCP - General Family Medicine 06/04/21 08/06/23 Unknown, Unknown, PCP - General 08/07/23 06/11/24 Cedric Bingham MD [address] [place] [address] PCP - General Internal Medicine 06/12/24 Carmelina Lamar MD [address] [place] [phone] [email or web address] Insurance Assigned Provider 06/01/20 03/15/23 documented as of this encounter Additional Source Comments The information contained in this document represents components of the legal health record. It is not the complete legal health record.[facility]
--- OUTSIDE RECORDS SUMMARY | 2025-07-28 15:03 | XMS_ITS | Clinical Summary ---
Author Organization [facility] Address [address] [place] [address] Phone Care Team Providers Care Zigzagger Name Role Phone Cedric Bingham MD Primary Care Provider [phone] Allergies No known active allergies Medications lamoTRIgine [...] PM EST): Spoke with DAYNA Fletcher from [facility]. 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 -Discussed FM at this [facility] -Review signs and symptoms of pre-term [...] portal. -Discussed FM at this [facility] -Review signs and symptoms of Pre-term [...] able to be cared for with non [facility] care. She plans to breastfeed which can help. She is on Adderall which can increase risk of growth restriction, so we will check third trimester growth. Assessment & Plan (08/31/2021 4:37 PM EDT): Taking Adderall, lamictal, and celexa. Sees a psychiatrist every six weeks. Her psychiatrist used to be a surgical coder, and they talked about all the risks/benefits. [...] this topic Medical Devices Implanted Type Area Taxi Dancer Device Identifier Shelf Expiration Date Model / Serial / Lot Device Contraceptive 52mg Iud Mirena - Must Order In Multiples Of 5 - [id number] Implanted:Qty: 1 on 02/25/2023 by Janie Rios MD at [facility] N/A: Uterus [facility] 03/25/2025 [id number] / / [id number] Procedures Procedure Name Priority Date/Time Associated Diagnosis Comments HEPATITIS C ANTIBODY, QUALITATIVE Routine 08/31/2021 3:50 PM EDT Encounter for supervision of other normal in first trimester HM PAP SMEAR FOR RESULT ENTRY ONLY Routine 08/29/2021 from Last 3 Months or Most Recently Relevant to Health Maintenance Results * Hepatitis C antibody, qualitative (08/31/2021 3:50 PM EDT) HCV NON-REACTIV E NON-REACTI VE [facility] Blood 08/31/2021 3:50 PM EDT 08/31/2021 6:55 PM EDT us Arlene [facility] BLOOD ORDERABLES Final Re sult [address] [address] * PAP SMEAR FOR RESULT ENTRY ONLY (08/29/2021) us Historical Provider MD HEALTH MAINTENANCE Final Result from Last 3 Months or Most Recently Relevant to Health Maintenance Insurance [place] Member Subscriber Plan / Payer (Ef fective 2024-Present) Name:Blanche Allen Relation to Subscriber:Self Name:Blanche Allen Payer ID:[id number] Group ID:Not on file Type:Medicaid Address: [address] [address] [place] Member Subscriber Plan / Payer (Ef fective 2024-Present) Name:Blanche Allen Relation to Subscriber:Self Name:Blanche Allen Payer ID:[id number] Group ID:Not on file Type:Medicaid Address: [address] [address] [place] Member Subscriber Plan / Payer (Ef fective 2024-Present) Name:Blanche Allen Relation to Subscriber:Self Name:Blanche Allen Payer ID:[id number] Group ID:Not on file Type:Medicaid Address: [address] [phone] [place] Member Subscriber Plan / Payer (Ef fective 2024-Present) Name:Blanche Allen Relation to Subscriber:Self Name:Blanche Allen Payer ID:[id number] Group ID:Not on file Type:Medicaid Address: [address] [address] [place] Member Subscriber Plan / Payer (Ef fective 2024-Present) Name:Blanche Allen Relation to Subscriber:Self Name:Blanche Allen Payer ID:[id number] Group ID:Not on file Type:Medicaid Address: [address] [address] Advance Directives For more information, please contact: [phone] (9AM - 5PM [facility], Friday-Friday) Documents on File Type Date Recorded 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 It is not the complete legal health record.[facility]
--- OUTSIDE RECORDS SUMMARY | 2025-07-28 15:03 | XMS_ITS | Encounter Summary ---
Author Organization [facility] Address [address] [place] [address] Phone Care Team Providers Care Hearing Impaired Teacher Name Role Phone Toby Fletcher Primary Care Provider [phone] Carmelina Lamar MD Unavailable [phone] Carmelina Lamar MD Primary Care Provider + Unknown, Unknown Primary Care Provider Cedric Serrano MD Primary Care Provider [phone] Encounter Details Date Type Department Care Team (Latest Contact Info) Description 06/01/2021 Transcribe Orders Virtual Department 30 [place] [address] Toby Fletcher PA 17 [place] [address] [email or web address] Pelvic and perineal pain (Primary Dx); Other [...] documented as of this encounter Care Teams Hearing Impaired Teacher Relationship Specialty Start Date End Date Toby Fletcher PA [address] [place] [address] [email or web address] PCP - General 04/27/20 06/03/21 Carmelina Lamar MD [address] [place] [address] [email or web address] PCP - General Family Medicine 06/04/21 08/06/23 Unknown, Unknown, MD PCP - General 08/07/23 06/11/24 Cedric Bingham MD [address] [place] [address] [place] [address] PCP - General Internal Medicine 06/12/24 Carmelina Lamar MD [address] [place] [address] [email or web address] Insurance Assigned Provider 06/01/20 03/15/23 documented as of this encounter Additional Source Comments The information contained in this document represents components of the legal health record. It is not the complete legal health record.[facility]
--- OUTSIDE RECORDS SUMMARY | 2025-07-28 15:03 | XMS_ITS | Encounter Summary ---
Author Organization [facility] Address [address] [place] [address] Phone Care Team Providers Care Facilities Clerk Name Role Phone Carmelina Lamar MD Unavailable [phone] Carmelina Lamar MD Primary Care Provider + Unknown, Unknown Primary Care Provider Cedric Serrano MD Primary Care Provider [phone] Encounter Details Date Type Department Care Team (Late st Contact Info) Description 04/04/2022 Transcribe Orders Virtual Department 30 [place] [address] Toby Fletcher PA 17 [place] [address] [email or web address] Right leg pain Social History Tobacco [...] limb documented in this encounter Care Teams Facilities Clerk Relationship Specialty Start Date End Date Carmelina Lamar MD [address] [place] [address] [email or web address] PCP - General Family Medicine 06/04/21 08/06/23 Unknown, Unknown, MD PCP - General 08/07/23 06/11/24 Cedric Bingham MD [address] [place] [address] [place] [address] PCP - General Internal Medicine 06/12/24 Carmelina Lamar MD [address] [place] [address] [email or web address] Insurance Assigned Provider 06/01/20 03/15/23 documented as of this encounter Additional Source Comments The information contained in this document represents components of the legal health record. It is not the complete legal health record.[facility]
--- OUTSIDE RECORDS SUMMARY | 2025-07-28 15:03 | XMS_ITS | Clinical Summary ---
Author Organization [facility] Address [address] [place] [address] Care Team Providers Care Icing Mixer Name Role Phone Cedric Bingham MD Primary Care Provider [phone] Social History Tobacco Use Types Packs/Day Years [...] PCV) 2017 Influenza Vaccine (#1) 2025 Insurance [facility] Medicaid Care Teams Icing Mixer Relationship Specialty Start Date End Date Cedric Bingham MD [address] [place] [address] PCP - General Internal Medicine 03/27/24
--- OUTSIDE RECORDS SUMMARY | 2025-07-28 15:03 | XMS_ITS | Encounter Summary ---
Author Organization [facility] Address [address] [place] [address] [address] [place] [address] Phone Care Team Providers Care Entry Level Manufacturing Engineer Name Role Phone Carmelina Lamar MD Unavailable [phone] Carmelina Lamar MD Primary Care Provider + Unknown, Unknown Primary Care Provider Cedric Serrano MD Primary Care Provider [phone] Encounter Details Date Type Department Care Team (Late st Contact Info) Description 03/29/2022 Procedure Pass OR Admitting Dept - Virtual Department 30 [place] [address] Social History Tobacco Use Types Packs/Day Years [...] on filedocumented in this encounter Care Teams Entry Level Manufacturing Engineer Relationship Specialty Start Date End Date Carmelina Lamar MD [address] [place] [address] [place] [address] [email or web address] PCP - General Family Medicine 06/04/21 08/06/23 Unknown, Unknown, PCP - General 08/07/23 06/11/24 Cedric Bingham MD [address] [place] [address] [facility] [place] [address] PCP - General Internal Medicine 06/12/24 Carmelina Lamar MD [address] [place] [address] [email or web address] Insurance Assigned Provider 06/01/20 03/15/23 documented as of this encounter Additional Source Comments The information contained in this document represents components of the legal health record. It is not the complete legal health record.[facility]
--- OUTSIDE RECORDS SUMMARY | 2025-07-28 15:03 | XMS_ITS | Encounter Summary ---
Author Organization [facility] Address [address] [place] [address] Phone Care Team Providers Care Director Of Search Engine Optimization Name Role Phone Toby Fletcher Primary Care Provider [phone] Carmelina Lamar MD Unavailable [phone] Carmelina Lamar MD Primary Care Provider + Unknown, Unknown Primary Care Provider Cedric Serrano MD Primary Care Provider [phone] Encounter Details Date Type Department Care Team (Late st Contact Info) Description 04/27/2020 Ancillary Orders Virtual Department 30 [place], [place] [id number] Toby Fletcher PA 17 [place] [address] [email or web address] Adnexal pain Social History Tobacco Use Types [...] documented as of this encounter Care Teams Director Of Search Engine Optimization Relationship Specialty Start Date End Date Toby Fletcher PA [address] [place] [address] [email or web address] PCP - General 04/27/20 06/03/21 Carmelina Lamar MD [address] [place] [address] PCP - General Family Medicine 06/04/21 08/06/23 Unknown, Ricardo, PCP - General 08/07/23 06/11/24 Cedric Bingham MD [address] [place] [address] [place] [address] PCP - General Internal Medicine 06/12/24 Carmelina Lamar MD [address] [place] [address] Insurance Assigned Provider 06/01/20 03/15/23 documented as of this encounter Additional Source Comments The information contained in this document represents components of the legal health record. It is not the complete legal health record.[facility]
== END 2025-07-28 14:34 | disposition home or self-care (01) ==
LOC: HO.RHES 13:34
PROVIDERS: PCP Internal Medicine; Visit Provider Student in an Organized Health Care Education/Training Program
DX: N02.B9 Other recurrent and persistent immunoglobulin A nephropathy (principal); Z51.81 Encounter for therapeutic drug level monitoring; Z79.620 Long term (current) use of immunosuppressive biologic; Z79.52 Long term (current) use of systemic steroids
CPT/HCPCS: 99214

== ENCOUNTER 2025-07-28 13:33 | Outpatient (REF) | payer OTHER, SELFPAY ==
[2025-07-28 15:17] LABS: MANUAL DIFF FLAG NO
[2025-07-28 15:43] LABS: Hematocrit 42.0 % (37.0-47.0); Hemoglobin 14.7 g/dl (12.0-16.0); Imm Gran Abs Auto 0.07 X10*3/uL (0.00-0.03); Imm Gran Pct Auto 0.5 % (0.0-0.4); Lymphocytes Absolute Auto 2.0 X10*3/uL (1.2-4.9); Mean Corpuscular HGB Conc 35.0 g/dl (31.0-35.0); Mean Corpuscular Hemoglobin 30.2 pg (27.0-33.0); Mean Corpuscular Volume 86.4 fL (80.0-98.0); NRBC Abs Auto 0.000 X10*3/uL (0.0-0.012); NRBC Pct Auto 0.0 /100WBC (0.0-0.2); Platelet Count 278 X10*3/uL (160-400); Red Blood Count 4.86 X10*6/uL (4.20-5.50); White Blood Count 15.1 X10*3/uL (4.8-10.8)
[2025-07-28 16:48] LABS: Albumin Level 3.4 g/dL (3.5-5.0); Anion Gap 9 (12-20); Blood Urea Nitrogen 15 mg/dL (9-16); Carbon Dioxide 26 mmol/L (22-29); Chloride 107 mmol/L (96-108); Estimated Glomerular Filt Rate > 60; Potassium 4.0 mmol/L (3.3-5.1); Sodium 138 mmol/L (135-145)
== END 2025-07-28 13:34 | disposition home or self-care (01) ==
LOC: HO.LAB 13:33
PROVIDERS: Absent Provider Internal Medicine Nephrology; Visit Provider Student in an Organized Health Care Education/Training Program
DX: N02.B9 Other recurrent and persistent immunoglobulin A nephropathy (principal); I77.6 Arteritis, unspecified; R80.8 Other proteinuria; Z79.899 Other long term (current) drug therapy; Z51.81 Encounter for therapeutic drug level monitoring; Z79.52 Long term (current) use of systemic steroids
CPT/HCPCS: 36415; 80051; 82040; 82565; 84520; 85025; 99212

== ENCOUNTER 2025-07-29 15:07 | Outpatient (AMB) | payer OTHER, SELFPAY ==
--- OUTSIDE RECORDS SUMMARY | 2025-07-29 15:12 | XMS_ITS | Clinical Summary ---
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 Depression with anxiety DX:Depre ssion with anxiety; COMMENT: on Celexa prescribed by her psychiatrist Morbid obesity ([facility] V24, [facility] V28) DX:Morbid obesity ([facility]) Family History Medical History Relation [...]
--- OUTSIDE RECORDS SUMMARY | 2025-07-29 15:12 | XMS_ITS | Encounter Summary ---
Author Organization [facility] Address [address] [place] [address] [place] [address] Phone Care Team Providers Care Tape Deck Installer Name Role Phone Carmelina Lamar MD Unavailable [phone] Carmelina Lamar MD Primary Care Provider + Unknown, Unknown Primary Care Provider Cedric Serrano MD Primary Care Provider [phone] Encounter Details Date Type Department Care Team (Late st Contact Info) Description 03/04/2023 Procedure Pass [facility], Ct Scan - [facility] 30 [place], [place] [id number] Social History Tobacco Use Types Packs/Day Years [...] 10:06 AM EDT Volodymyr Car RN * [place] Suicide Severity Rating Scale (Screener/Recent Self-Report) Question [...] on filedocumented in this encounter Care Teams Tape Deck Installer Relationship Specialty Start Date End Date Carmelina Lamar MD [address] [place] [address] PCP - General Family Medicine 06/04/21 08/06/23 Unknown, Unknown, MD PCP - General 08/07/23 06/11/24 Cedric Bingham MD [address] [place] [address] [place] [address] PCP - General Internal Medicine 06/12/24 Carmelina Lamar MD [address] [place] [address] Insurance Assigned Provider 06/01/20 03/15/23 documented as of this encounter Additional Source Comments The information contained in this document represents components of the legal health record. It is not the complete legal health record.[facility]
--- OUTSIDE RECORDS SUMMARY | 2025-07-29 15:12 | XMS_ITS | Encounter Summary ---
Author Organization [facility] Address [address] [place] [address] Phone Care Team Providers Care Faculty Criminal Justice Name Role Phone Carmelina Lamar MD Unavailable [phone] Carmelina Lamar MD Primary Care Provider + Unknown, Unknown Primary Care Provider Cedric Serrano MD Primary Care Provider [phone] Reason for Referral * Outpatient Procedure - Closed Specialty Diagnoses / Procedures Referred By Contac t Referred To Contact Radiology Diagnoses Localized swelling, mass and lump, right lower limb Procedures US Lower Extremity Veins Duplex (Right) US Lower Extremity Veins Duplex (Right) Toby Fletcher PA [address] [place] [address] Phone: tel: fax: [email or web address] Referral ID Status Reason Start Date Expiration Date Visits Re quested Visits Authorized [id number] Closed 04/04/2022 04/04/2023 1 1 Encounter Details Date Type Department Care Team (Late st Contact Info) Description 04/04/2022 Ancillary Orders Virtual Department 30 [place] [address] Toby Fletcher PA [address] [place] [address] [email or web address] Localized swelling, mass and lump, right [...] limb documented in this encounter Care Teams Faculty Criminal Justice Relationship Specialty Start Date End Date Carmelina Lamar MD [address] [place] [address] [email or web address] PCP - General Family Medicine 06/04/21 08/06/23 Unknown, Unknown, PCP - General 08/07/23 06/11/24 Cedric Bingham MD [address] [place] [address] PCP - General Internal Medicine 06/12/24 Carmelina Lamar MD [address] [place] [address] [email or web address] Insurance Assigned Provider 06/01/20 03/15/23 documented as of this encounter Additional Source Comments The information contained in this document represents components of the legal health record. It is not the complete legal health record.[facility]
--- OUTSIDE RECORDS SUMMARY | 2025-07-29 15:12 | XMS_ITS | Clinical Summary ---
Author Organization [facility] Address [address] [place] [address] Care Team Providers Care Instrumentation Instructor Name Role Phone Cedric Bingham MD Primary Care Provider [phone] Social History Tobacco Use Types Packs/Day Years [...] PCV) 2017 Influenza Vaccine (#1) 2025 Insurance [facility] Medicaid Care Teams Instrumentation Instructor Relationship Specialty Start Date End Date Cedric Bingham MD [address] [place] [address] PCP - General Internal Medicine 03/27/24
--- OUTSIDE RECORDS SUMMARY | 2025-07-29 15:12 | XMS_ITS | Encounter Summary ---
Author Organization [facility] Address [address] [place] [address] [address] [place] [address] Phone Care Team Providers Care Carpenter Maintenance Name Role Phone Carmelina Lamar MD Unavailable Carmelina Lamar MD Primary Care Provider + Unknown, Unknown Primary Care Provider Cedric Serrano MD Primary Care Provider [phone] Encounter Details Date Type Department Care Team (Late st Contact Info) Description 03/29/2022 Procedure Pass OR Admitting Dept - Virtual Department 30 [place] [address] Social History Tobacco Use Types Packs/Day Years [...] on filedocumented in this encounter Care Teams Carpenter Maintenance Relationship Specialty Start Date End Date Carmelina Lamar MD [address] [place] [address] [place] [address] PCP - General Family Medicine 06/04/21 08/06/23 Unknown, Unknown, PCP - General 08/07/23 06/11/24 Cedric Bingham MD [address] [place] [address] [facility] [place] [address] PCP - General Internal Medicine 06/12/24 Carmelina Lamar MD [address] [place] [address] [email or web address] Insurance Assigned Provider 06/01/20 03/15/23 documented as of this encounter Additional Source Comments The information contained in this document represents components of the legal health record. It is not the complete legal health record.[facility]
--- OUTSIDE RECORDS SUMMARY | 2025-07-29 15:12 | XMS_ITS | Clinical Summary ---
Author Organization [facility] Address [address] [place] [address] Phone Care Team Providers Care Fbi Sharpshooter Name Role Phone Cedric Bingham MD Primary Care Provider [phone] Allergies No known active allergies Medications lamoTRIgine [...] PM EST): Spoke with DAYNA Fletcher from [facility]. He saw Blanche today for a same [...] B Streptococcus colonization 03/08/2022 03/29/2022 Overview (03/08/2022): Campaign Director patient Treat in labor Assessment & Plan [...] resolved as defined by current [facility] policy: https://pulse.[email or web address]/hub/departments/emergency_preparedness/covi d19/c lcnu79_tascjifk_fivpcvpn/infection_statuses_and_resolution_ Offer Monoclonal antibody therapy if appropriate: o Laundry Assistant - food[employer]de (Next Jump) Click Browse Manuals >> [facility] MGPO Departmental Documents & Policies >> OB-COMMUNITY ORGANIZATION AIDE Department Documents >> COVID-19 >> OB related [...] work. -[facility] -Review signs and symptoms of [...] portal. -Discussed [facility] at [facility] -Review signs and symptoms of [...] able to be cared for with non [facility] care. She plans to breastfeed which can help. She is on Adderall which can increase risk of growth restriction, so we will check third trimester growth. Assessment & Plan (08/31/2021 4:37 PM EDT): Taking Adderall, lamictal, and celexa. Sees a psychiatrist every six weeks. 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 [...] this topic Medical Devices Implanted Type Area Home Theater Specialist Device Identifier Shelf Expiration Date Model / Serial / Lot Device Contraceptive 52mg Iud Mirena - Must Order In Multiples Of 5 - [id number] Implanted:Qty: 1 on 02/25/2023 by Janie Rios MD at [facility] N/A: Uterus [facility] 03/25/2025 [id number] / / [id number] Procedures Procedure Name Priority Date/Time Associated Diagnosis Comments HEPATITIS C ANTIBODY, QUALITATIVE Routine 08/31/2021 3:50 PM EDT Encounter for supervision of other normal in first trimester HM PAP SMEAR FOR RESULT ENTRY ONLY Routine 08/29/2021 from Last 3 Months or Most Recently Relevant to Health Maintenance Results * Hepatitis C antibody, qualitative (08/31/2021 3:50 PM EDT) HCV NON-REACTIV E NON-REACTI VE [facility] Blood 08/31/2021 3:50 PM EDT 08/31/2021 6:55 PM EDT us Arlene [facility] BLOOD ORDERABLES Final Re sult [address] [address] * PAP SMEAR FOR RESULT ENTRY ONLY (08/29/2021) us Historical Provider MD HEALTH MAINTENANCE Final Result from Last 3 Months or Most Recently Relevant to Health Maintenance Insurance [place] Advance Directives For more information, please contact: [phone] (9AM - 5PM [facility], Friday-Friday) Documents on File Type Date Recorded Patient Marketing Professional Expl anation Healthcare Proxy 02/26/2023 4:23 PM [...] Code Status Confirmed With: Patient Care Teams Fbi Sharpshooter Relationship Specialty Start Date End Date Cedric Bingham MD [address] [place] [address] Dr Santiago [address] [place] [address] PCP - General Internal Medicine 06/12/24 Additional Source Comments The information contained in this document represents components of the legal health record. It is not the complete legal health record.[facility]
--- OUTSIDE RECORDS SUMMARY | 2025-07-29 15:12 | XMS_ITS | Encounter Summary ---
Author Organization [facility] Address [address] [place] [address] Phone Care Team Providers Care Clinical Support Nurse Name Role Phone Toby Fletcher Primary Care Provider [phone] Carmelina Lamar MD Unavailable [phone] Carmelina Lamar MD Primary Care Provider + Unknown, Unknown Primary Care Provider Cedric Serrano MD Primary Care Provider [phone] Encounter Details Date Type Department Care Team (Latest Contact Info) Description 06/01/2021 Transcribe Orders Virtual Department 30 [place] [address] Toby Fletcher PA 17 [place] [address] [email or web address] Pelvic and perineal pain (Primary Dx); Other [...] documented as of this encounter Care Teams Clinical Support Nurse Relationship Specialty Start Date End Date Toby Fletcher PA [address] [place] [address] [email or web address] PCP - General 04/27/20 06/03/21 Carmelina Lamar MD [address] [place] [address] [email or web address] PCP - General Family Medicine 06/04/21 08/06/23 Unknown, Unknown, MD PCP - General 08/07/23 06/11/24 Cedric Bingham MD [address] [place] [address] [place] [address] PCP - General Internal Medicine 06/12/24 Carmelina Lamar MD [address] [place] [address] [email or web address] Insurance Assigned Provider 06/01/20 03/15/23 documented as of this encounter Additional Source Comments The information contained in this document represents components of the legal health record. It is not the complete legal health record.[facility]
--- OUTSIDE RECORDS SUMMARY | 2025-07-29 15:12 | XMS_ITS | Encounter Summary ---
Author Organization [facility] Address [address] [place] [address] Phone Care Team Providers Care Brass Finisher Name Role Phone Toby Fletcher Primary Care Provider [phone] Carmelina Lamar MD Unavailable Carmelina Lamar MD Primary Care Provider + Unknown, Unknown Primary Care Provider Cedric Serrano MD Primary Care Provider [phone] Encounter Details Date Type Department Care Team (Late st Contact Info) Description 04/27/2020 Ancillary Orders Virtual Department 30 [place], [place] [id number] Toby Fletcher PA [address] [place] [address] [email or web address] Adnexal pain Social History Tobacco Use Types [...] documented as of this encounter Care Teams Brass Finisher Relationship Specialty Start Date End Date Toby Fletcher PA [address] [place] [address] [email or web address] PCP - General 04/27/20 06/03/21 Carmelina Lamar MD [address] [place] [address] [email or web address] PCP - General Family Medicine 06/04/21 08/06/23 Unknown, Ricardo, PCP - General 08/07/23 06/11/24 Cedric Bingham MD [address] [place] [address] [place] [address] PCP - General Internal Medicine 06/12/24 Carmelina Lamar MD [address] [place] [address] Insurance Assigned Provider 06/01/20 03/15/23 documented as of this encounter Additional Source Comments The information contained in this document represents components of the legal health record. It is not the complete legal health record.[facility]
--- OUTSIDE RECORDS SUMMARY | 2025-07-29 15:12 | XMS_ITS | Encounter Summary ---
Author Organization [facility] Address [address] [place] [address] Phone Care Team Providers Care Corrective Therapist Name Role Phone Carmelina Lamar MD Unavailable [phone] Carmelina Lamar MD Primary Care Provider + Unknown, Unknown Primary Care Provider Cedric Serrano MD Primary Care Provider [phone] Encounter Details Date Type Department Care Team (Late st Contact Info) Description 04/04/2022 Transcribe Orders Virtual Department 30 [place] [address] Toby Fletcher PA 17 [place] [address] [email or web address] Right leg pain Social History Tobacco [...] limb documented in this encounter Care Teams Corrective Therapist Relationship Specialty Start Date End Date Carmelina Lamar MD [address] [place] [address] [email or web address] PCP - General Family Medicine 06/04/21 08/06/23 Unknown, Unknown, MD PCP - General 08/07/23 06/11/24 Cedric Bingham MD [address] [place] [address] [place] [address] PCP - General Internal Medicine 06/12/24 Carmelina Lamar MD [address] [place] [address] [email or web address] Insurance Assigned Provider 06/01/20 03/15/23 documented as of this encounter Additional Source Comments The information contained in this document represents components of the legal health record. It is not the complete legal health record.[facility]
--- OUTSIDE RECORDS SUMMARY | 2025-07-29 15:12 | XMS_ITS | Encounter Summary ---
Author Organization [facility] Address [address] [place] [address] [place] [phone] Phone Care Team Providers Care Used Car Manager Name Role Phone Carmelina Lamar MD Unavailable [phone] Carmelina Lamar MD Primary Care Provider + Unknown, Unknown Primary Care Provider Cedric Serrano MD Primary Care Provider [phone] Encounter Details Date Type Department Care Team (Late st Contact Info) Description 02/25/2023 Procedure Pass OR Admitting Dept - Virtual Department [address], [place] [id number] Social History Tobacco Use Types Packs/Day Years [...] on filedocumented in this encounter Care Teams Used Car Manager Relationship Specialty Start Date End Date Carmelina Lamar MD [address] [place] [id number] [email or web address] PCP - General Family Medicine 06/04/21 08/06/23 Unknown, Unknown, MD PCP - General 08/07/23 06/11/24 Cedric Bingham MD [address] [place] [address] [place] [address] PCP - General Internal Medicine 06/12/24 Carmelina Lamar MD [address] [place] [id number] [email or web address] Insurance Assigned Provider 06/01/20 03/15/23 documented as of this encounter Additional Source Comments The information contained in this document represents components of the legal health record. It is not the complete legal health record.[facility]
--- NOTE | 2025-07-29 15:17 | HO.NEPHOV_ITS ---
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 She had been on PO prednisone, ACEI and supportive care. She received 500 mg IV cytoxan Q 2 weeks( altogether 6 doses given). She denies any fevers, chills, chest pain, shortness of breath, dysuria, hematuria, urinary frequency or urgency. She has history of genital herpes and usually take Valcyclovir. Her serum creatinine is at baseline now. She is on ACEI, dose of which she was not following directions( was taking only once a day and not twice a day as orderd). She is on diuretics and her edema has improved. She has been on tolerating Jardiance . She is taking 10 mg prednsione and had received Rituximab through Rheumatology. She has restarted Mounjaro. She feels well. 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 Son No problems noted. Other Mental health disorder Substance use disorder Social History Housing: Apartment Alcohol intake: current Alcohol intake frequency: does not drink Comment: medicated prior to discharge Patient Tobacco Use Status: Never used Tobacco e-Cigarette/Vaping Use: Never Used Second Hand Smoke Exposure: No Substance Use Type: Marijuana service: No Current occupational status: student Cognitive needs: No Hearing needs: No Vision needs: No Review of Systems Const All systems reviewed & are unremarkable except as noted in HPI and below Physical Exam Vital Signs: Last Vital Signs Pulse 95 07/29/25 15:20 BP 130/80 07/29/25 15:20 Pulse Ox 94 07/29/25 15:20 Oxygen Delivery Method Room Air 07/29/25 15:20 BMI result Body Mass Index 53.2 Const General: comfortable and no acute distress Orientation/consciousness: patient oriented x3 HEENT Head: Yes normocephalic Mouth: Normal oral and palatal mucosa present Eyes EOM: EOMs intact bilaterally Neck Neck: Yes supple Resp Auscultation: clear to auscultation bilaterally Cardio Jugular venous distension: no JVD Rate: regular rate GI Palpation (GI): Soft to palpation Auscultation: normal bowel sounds General: Yes no CVA tenderness Back/Spine/Pelvis Back: no CVA tenderness Skin General skin exam: no rashes or lesions noted Neuro General: patient oriented x3 and moves all extremities Extrem General: Yes no pedal edema Results Reviewed Nephrology Results: Hgb, (12.0-16.0) 14.7 g/dl 07/28/25 WBC, (4.8-10.8) 15.1 X10*3/uL H 07/28/25 Plt Count, (160-400) 278 X10*3/uL 07/28/25 Sodium, (135-145) 138 mmol/L 07/28/25 Potassium, (3.3-5.1) 4.0 mmol/L 07/28/25 Chloride, (96-108) 107 mmol/L 07/28/25 Carbon Dioxide, (22-29) 26 mmol/L 07/28/25 BUN, (9-16) 15 mg/dL 07/28/25 Creatinine, (0.5-1.4) 0.76 mg/dL 07/28/25 Calcium, (8.4-10.2) 8.3 mg/dL L Δ 05/02/25 Phosphorus, (2.7-4.5) 3.4 mg/dL 05/19/24 Urine Protein, (Neg-Trace) 300 (3+) mg/dL H 04/20/25 Assessment & Plan Assessment & Plan (1) Glomerulonephritis, IgA: Code(s): N02.B9 - Other recurrent and persistent immunoglobulin A nephropathy Category: Medical (2) IgA nephropathy determined by biopsy of kidney: Code(s): N02.B9 - Other recurrent and persistent immunoglobulin A nephropathy Category: Medical (3) Proteinuria: Code(s): R80.9 - Proteinuria, unspecified Category: Medical Qualifiers: Proteinuria type: other Qualified Code(s): R80.8 - Other proteinuria Plan Blanche has glomerular proteinuria. She has H/O vasculitic rash with microscopic hematuria and abdominal pain. 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 She is currently on prednisone 10 mg daily . In the past she received cytoxan IV 500 mg twice a month for 3 months. She was given Rituximab by Rheumatology. She should continue on Bumex 0.5 mg daily as needed. C/W lisinopril to 20 mg bid. She will need Sparsentan and FABHALTA in the future. She is on PPI. She can continue Jardiance 10 mg daily which I plan to increase to 25 mg at next visit.Follow-up labs ordered .Answered all questions Orders: Orders Protein Creatinine Ratio, Ur 3 Months N02.B9 - Other recurrent and persistent immunoglobulin A nephropathy, R80.8 - Other proteinuria Electrolytes 3 Months N02.B9 - Other recurrent and persistent immunoglobulin A nephropathy, R80.8 - Other proteinuria Blood Urea Nitrogen 3 Months N02.B9 - Other recurrent and persistent immunoglobulin A nephropathy, R80.8 - Other proteinuria Albumin Level 3 Months N02.B9 - Other recurrent and persistent immunoglobulin A nephropathy, R80.8 - Other proteinuria Creatinine 3 Months N02.B9 - Other recurrent and persistent immunoglobulin A nephropathy, R80.8 - Other proteinuria Coding Level of Care Code Est Pt Level 4 (11280) Diagnoses Glomerulonephritis, IgA N02.B9 IgA nephropathy determined by biopsy of kidney N02.B9 Other proteinuria R80.8 Proteinuria type: other
[2025-07-29 15:20] VITALS: BP 130/80; PULSE 95; O2SAT 94; BMI 53.2
== END 2025-07-29 15:39 | disposition home or self-care (01) ==
LOC: HO.HKA 15:08
PROVIDERS: PCP Internal Medicine; Visit Provider Internal Medicine Nephrology
DX: N02.B9 Other recurrent and persistent immunoglobulin A nephropathy (principal); R80.8 Other proteinuria
CPT/HCPCS: 99214

== ENCOUNTER → 2025-07-29 15:07 | Outpatient (BNVA) | payer OTHER, SELFPAY | PROVIDERS: PCP Internal Medicine; Visit Provider Internal Medicine Nephrology | DX: N02.B9 Other recurrent and persistent immunoglobulin A nephropathy (principal); R80.8 Other proteinuria | CPT/HCPCS: 99212 ==

== ENCOUNTER 2025-10-18 12:57 | Outpatient (AMB) | payer OTHER, SELFPAY ==
--- NOTE | 2025-10-18 13:10 | AM.OFFWIN_ITS ---
Intake Vital Signs 10/18/25 13:11 Height 5 ft 4 in Weight 293 lb BMI 50.3 BP 122/70 Blood Pressure Location Rt brachial Position Sitting Pulse 94 Pulse Source Pulse Oximeter Temp 98.4 F Temp Source Oral Pulse Oximetry (%) 94 Oxygen Delivery Method Room Air Intake Visit Reasons: EP Kidney pain, blood in urine Intake Note: Patient presents c/o back pain & blood in urine since Friday. Patient Tobacco Use Status: Never used Tobacco Allergies No Known Allergies (No Known Allergies*) Allergy (Verified 10/18/25 13:18) HPI HPI Comments History of Present Illness Details History of Present Illness - The patient is a 24 year old female pr esenting with flu-like symptoms and kidney pain. - Her flu-like symptoms began approximat four days ago and included a fever on Friday which has since resolved, as well as ongoing nausea, vomiting, diarrhea, cough, and congestion. - She has a history of IgA nephropathy a nd was advised by her pillowcase turner to be seen for her current symptoms. - Concurrent with her illness, she devel oped persistent bilateral kidney pain, which is worse on the right side and a new symptom for her, though she notes hematuria is common for her when sick. - The pain is postural, improving when s he is hunched over and worsening when she is upright. - Her IgA nephropathy was diagnosed foll owing recurrent streptococcal infections that led to IgA vasculitis, presenting with inflamed joints, and later progressed to kidney involvement with frothy, dark urine. - Past treatment for this condition incl uded chemotherapy. - The patient also has a history of asth ma and recently was RX'd prednisone (10- 15 mg daily) due to wheezing. - She reports needing a refill for a cir cular steroid inhaler (fluticasone propionate) she previously used but is now out of. She also has a Ventolin inhaler with about 100 puffs left on it. Review of Systems - Constitutional: Reports a resolved fev er from three days ago and nausea. - Respiratory: Reports cough, congestion , and wheezing, with dull yellow nasal discharge. - Gastrointestinal: Reports vomiting and diarrhea. - Genitourinary: Reports hematuria and b ilateral kidney pain, worse on the right. - ENT: Reports mild sinus tenderness but denies sore throat. - Musculoskeletal: Denies back pain with percussion. All systems reviewed and are unremarkable except as noted in HPI Physical Exam General: Cooperative, healthy appearing, comfortable, no acute distress and well developed Orientation: Patient oriented x3 Limitations: No limitations Head: Normal to inspection Ears: Hearing grossly normal bilaterally Nose: Normal External nose present Face and sinus: Tenderness noted in the bilateral maxillary sinuses Eyes: Appearance normal, both eyes and all related structures Mouth: moist mucus membranes, posterior oropharynx with mild erythema Neck: Normal visual inspection and Yes full ROM Respiratory: Normal respiratory effort and able to speak in complete sentences. CTAB. Cardiac: regular rate and rhythm, normal S1 and S2. 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 Son No problems noted. Other Mental health disorder Substance use disorder Social History Housing: Apartment Alcohol intake: current Alcohol intake frequency: does not drink Comment: medicated prior to discharge Patient Tobacco Use Status: Never used Tobacco e-Cigarette/Vaping Use: Never Used Second Hand Smoke Exposure: No Substance Use Type: Marijuana service: No Current occupational status: student Cognitive needs: No Hearing needs: No Vision needs: No Physical Exam Vital Signs: Last Vital Signs Temp 98.4 F 10/18/25 13:11 Pulse 94 10/18/25 13:11 BP 122/70 10/18/25 13:11 Pulse Ox 94 10/18/25 13:11 Oxygen Delivery Method Room Air 10/18/25 13:11 BMI result Body Mass Index 50.3 Assessment & Plan Assessment & Plan (1) Glomerulonephritis, IgA: Code(s): N02.B9 - Other recurrent and persistent immunoglobulin A nephropathy Plan: Iga Nephropathy with hematuria - The patient's presentation with gross hematuria and new kidney pain in the setting of a viral illness is concerning for a flare of her IgA nephropathy. - The patient's pillowcase turner was contacted via [employer] (Dr Ni) & recommended laboratory evaluation, as below. - Plan to obtain bloodwork including C3, C4, and a renal function panel (comprehensive metabolic panel). - UA with 3+ protein and 3+ blood. - A urine culture has been sent - The patient was instructed to maintain hydration. (2) Hematuria: Code(s): R31.9 - Hematuria, unspecified Qualifiers: Hematuria type: gross Qualified Code(s): R31.0 - Gross hematuria Plan: - As above - UA with 3+ protein and 3+ blood. (3) Acute viral syndrome: Code(s): B34.9 - Viral infection, unspecified Plan: Patient was informed and verbally consented to the use of an ambient scribe for clinic note documentation during this visit. - VSS, pt well appearing and PE unremarkable. - The patient's symptoms of fever, cough, congestion, nausea, vomiting, and diarrhea are consistent with a viral illness. - A nasopharyngeal swab has been collected for influenza, COVID, and RSV testing. - The patient was informed that she is outside the therapeutic window for antiviral medication like oseltamivir. - The patient has a history of asthma with 94% oxygen saturation. - Contineu oral prednisone. - A prescription for fluticasone propionate inhalation powder (lowest available dose) will be sent to her pharmacy. - She was counseled to rinse her mouth after use to prevent oral candidiasis and to verify the medication at the pharmacy. - The patient was advised that a prior authorization may be needed and, if so, she should contact her primary care provider for a prescription as we do not pro cess PA's at the [facility]. Orders: Orders Complement C4 Today N02.B9 - Other recurrent and persistent immunoglobulin A nephropathy, R31.9 - Hematuria, unspecified Urine Culture Today N39.0 - Urinary tract infection, site not specified Complement C3 Today N02.B9 - Other recurrent and persistent immunoglobulin A nephropathy, R31.9 - Hematuria, unspecified Comprehensive Met. Panel Today N02.B9 - Other recurrent and persistent immunoglobulin A nephropathy, R31.9 - Hematuria, unspecified SARS-CoV2/FLU/RSV Today R09.89 - Other specified symptoms and signs involving the circulatory and respiratory systems Medications: New fluticasone propion-salmeterol 45-21 mcg/actuation administer with spacer 2 puffs inhalation Q12H 12 grams 0RF Coding Level of Care Code Est Pt Level 4 (39176) Diagnoses Glomerulonephritis, IgA N02.B9 Gross hematuria R31.0 Hematuria type: gross Acute viral syndrome B34.9
[2025-10-18 13:11] VITALS: BP 122/70; PULSE 94; TEMP 36.9; O2SAT 94; BMI 50.3
--- OUTSIDE RECORDS SUMMARY | 2025-10-18 14:01 | XMS_ITS | Encounter Summary ---
Author Organization [facility] Address [address] [place] [address] Phone Care Team Providers Care Practice Clinician Name Role Phone Toby Fletcher Primary Care Provider [phone] Carmelina Lamar MD Unavailable Carmelina Lamar MD Primary Care Provider + Unknown, Unknown Primary Care Provider Cedric Serrano MD Primary Care Provider [phone] Encounter Details Date Type Department Care Team (Late st Contact Info) Description 04/27/2020 Ancillary Orders Virtual Department [address] [place], [place] [phone] Toby Fletcher PA [address] [place] [address] [email or web address] Adnexal pain Social History Tobacco Use Types [...] documented as of this encounter Care Teams Practice Clinician Relationship Specialty Start Date End Date Toby Fletcher PA [address] [place] [phone] [email or web address] PCP - General 04/27/20 06/03/21 Carmelina Lamar MD [address] [place] [id number] PCP - General Family Medicine 06/04/21 08/06/23 Unknown, Ricardo, PCP - General 08/07/23 06/11/24 Cedric Bingham MD [address] [place] [address] [place] [address] PCP - General Internal Medicine 06/12/24 Carmelina Lamar MD [address] [place] [phone] Insurance Assigned Provider 06/01/20 03/15/23 documented as of this encounter Additional Source Comments The information contained in this document represents components of the legal health record. It is not the complete legal health record.[facility]
--- OUTSIDE RECORDS SUMMARY | 2025-10-18 14:01 | XMS_ITS | Data Portability ---
Author Organization DAYNA [facility]more [facility], [address] Address [address] [place] [address] Assessment No assessment recorded. Plan of Treatment Reminders Order Date Submit Date Provider Last Modified By Organization Details Last Modified Time Details Appointments None recorded. Lab chlamydia trachomatis + neisseria gonorrhoeae + trichomonas vaginalis DNA panel, HAFSA+probe, unspecified specimen 2023 024 [facility] ([place] [address] [place] [address], [address], 4 20:06:24 SARS CoV 2 (COVID-19) Ag, QL, IA, upper respiratory specimen 2023 024 [email or web address] 20999_[facility], [address] [place] [address], [id number], 4 11:15:54 rapid strep group A, throat 2023 024 [email or web address] _[facility], [address] [place] [address], [address], 4 11:15:51 culture, respiratory 2023 024 [facility]), [address] [place] [address], [address], 4 06:06:29 Referral emergency medicine referral 2022 023 [email or web address] Not available 3 20:08:47 Procedures None recorded. Surgeries None recorded. Imaging XR, hand, 3 or more view 2022 023 [facility], [address] [facility] [place], [address], 21:38:21 Medication Orders Valtrex 1 gram tablet 2023 024 [email or web address] [facility]Pharmacy #[id number], [address] [facility] [place], [address], 4 11:28:08 prednisone 20 mg tablet 2023 024 [email or web address] [facility]/Pharmacy #[id number], [address] [facility] [place], [address], 4 10:52:53 albuterol sulfate 2.5 mg/3 mL (0.083 %) solution for nebulizatio n 2023 024 [id number] [address] [facility] [place], [address], 4 11:32:09 Patient TargetsNo targets recorded. Patient Instructions Encounter Date Encounter Id Patient Instructions Last Modified By Organization Details Last Modified Time 10/28/2022 [id number] learning about rice (rest, ice, compression, and elevation) [email or web address] Not available 10/28/2022 19:49:42 You have a fracture of your right 5th metacarpal with angulation that requires reduction. You have been advised to go now to the Emergency Department for further evaluation. [facility] has been advised of your impending arrival. [email or web address] Not available 10/28/2022 20:05:50 12/05/2023 [id number] sore throat: car e instructions [email or web address] Not [...] NEGATI VE negati ve Not Available [facility] ([facility]) [address], [place], [address], 12/07/2023 20:06:24 12/05/19 24 12/07/2023 CT, NG, TRICH VAG BY HAFSA gonococcus by HAFSA NEGATI VE negati ve Not Available [facility] ([facility]) [address], [place], [address], 12/07/2023 20:06:24 12/05/19 24 12/07/2023 CT, NG, TRICH VAG BY HAFSA trich vag by HAFSA NEGATI VE negati ve Not Available [facility] ([facility]) [address], [place], [address], 12/07/2023 20:06:24 12/05/19 24 12/08/2023 UPPER RESPI RATOR Y CULTU RE upper respiratory culture FINAL REPORT Not Available [facility] ([facility]) [address], [place], [address], 12/08/2023 14:06:02 12/05/19 24 12/08/2023 UPPER RESPI RATOR Y CULTU RE result 1 COMMEN T Routi ne respi rator y katherin Not Available [facility] ([facility]) [address] [place], [address], 12/08/2023 14:06:02 12/05/19 24 12/05/2023 rapid strep group A, throa t Unknown Analyte negati ve Not Available [facility] [place] [address], [address], 12/05/2023 10:53:59 12/05/19 24 12/05/2023 SARS CoV 2 (COVI D-19) Ag, QL, IA, upper respi rator y speci men Unknown Analyte negati ve Not Available [address] [facility], [place], [address], 12/05/2023 10:53:37 10/28/19 23 10/28/2022 XR, hand, 3 or more view No observ ation record ed. [email or web address] [facility] [address] [facility] [place], [address], 10/29/2022 08:27:08 Result Notes None recorded. Problems Name Problem SNOMED Code Status Onset Date Resolution Date Notes Provider Name and Address Organization Details Recorded Time Anxiety 67555026 Active 2022 Keyanaethan Young null, [place] - [facility] 3 18:47:36 Depressive disorder 32427705 Active 2022 Keyana Young null, PA - [facility] 3 18:47:42 Bipolar disorder 65825757 Active 2022 Keyana Young null, PA - [facility] 3 18:48:10 Attention deficit hyperactivity disorder 634443481 Active 2022 Keyanaethan Young null, PA - [facility] 3 18:48:17 Herpes simplex 68617380 Active 2022 Keyana Young null, PA - [facility] 3 18:48:25 Asthma 492105842 Active 2023 JAQUI YOUNGBLOOD null, PA - [facility] 4 11:16:58 Sore throat 699443469 Active 2023 JAQUI YOUNGBLOOD null, PA - [...] mass index (BMI) Body weight Oxygen saturation Heart rate Respiratory rate Body temperature Systolic And Diastolic Provider Name and Address Organization Details Last Updated DateTime 3 165.1 cm 41.6 kg/m2 697754. 09 g 98 % 84 /min 20 /min 98 [degF] 112/80 mm[Hg] Keyana Young [place] [facility] [employer] 3 18:49:18 Date Recorded Body height Body mass index (BMI) Body weight Pain severity - 0-10 verbal numeric rating [Score] - Reported Respiratory rate Body temperature Oxygen saturation Heart rate Systolic And Diastolic Provider Name and Address Organization Details Last Updated DateTime 4 165.1 cm 43.3 kg/m2 093662. 02 g 0 18 /min 97.7 [degF] 99 % 100 /min 124/79 mm[Hg] JAQUI YOUNGBLOOD [place] - [facility] 4 11:19:06 Date Recorded Body height Body mass index (BMI) Body weight Pain severity - 0-10 verbal numeric rating [Score] - Reported Respiratory rate Body temperature Oxygen saturation Heart rate Systolic And Diastolic Provider Name and Address Organization Details Last Updated DateTime 4 165.1 cm 43.3 kg/m2 519439. 02 g 3 18 /min 97.3 [degF] 97 % 66 /min 127/84 mm[Hg] JAQUI YOUNGBLOOD PA - [facility] 4 10:56:13 Social History Question Answer Notes LastModified by [email or web address] ion Details LastModified Time Tobacco Smoking Status Never Smoker Keyana brady, PA - [facility] 10/28/2022 18:48:41 Which Illicit Or Recreational Drugs Have You Used? Natalee Information not available 10/28/2022 Have You Recently Traveled Abroad? No Information not available 10/28/2022 Sex: Unknown Functional Status Question Answer Note LastModified by Organizat ion Details LastModified Time Do you use any illicit or recreational drugs? Yes [email or web address] Information not available 10/28/2022 Do you or have you ever used any other forms of tobacco or nicotine? No [email or web address] Information not available 10/28/2022 What is your level of alcohol consumption? Occasional [email or web address] Information not available 10/28/2022 Mental Status None [...] Diagnosis SNOMED-CT Code Diagnosis ICD10 Code Diagnosis IMO Codes Diagnosis Note [id number] [address] [place] [address] 04/26/2020 11:31:06 04/26/2020 12:18:07 [id number] [address] [place] [address] 04/26/2020 11:30:37 04/26/2020 12:14:15 [id number] [address] [place] [address] 03/16/2019 09:58:08 03/16/2019 10:27:00 [id number] [address] [address] [facility] [place] [address] 09/30/2018 10:30:44 09/30/2018 12:01:17 [id number] [address] [place] [address] 09/27/2019 09:28:43 09/27/2019 10:12:33 [id number] [address] [place] [address] 10/03/2019 18:39:53 10/03/2019 19:16:21 [id number] [address] [place] [address] 08/07/2017 09:52:15 08/07/2017 10:29:17 [id number] [address] [facility] [address] 09/30/2019 19:29:47 09/30/2019 20:36:56 [id number] Dilia Cardenas MD [facility] [address] [facility] [address] 10/28/2022 11:07:12 10/28/2022 20:08:47 Pain of right hand 2318578171 25767 M79.641 Closed fra cture of fifth metacarpal bone of right hand 2054335750 8937323 S62.306A [id number] DAYNA Zuñiga 21009_[facility] edwinOctaviomargieedmund [facility] [address] [facility] [place] [address] 11/17/2023 10:56:01 11/17/2023 11:39:27 Exacerbation of intermittent asthma 238686338 J45.21 You are having an asthma exacerbati [...] light headedness . Thank you for using [employer] today - please don't hesitate to contact up or return to see if you have any questions or concerns. [id number] Harjit BlayneDO taina [address] [place] [address] 12/05/2023 10:39:30 12/05/2023 11:37:40 Sore throat 912526134 J02.9 Rapid strep NEGATIVE Likely viral etiology [...] Emergency Department urgently. Genital he rpes simplex 70972290 A60.9 Rx valtrex bid x 7 dcheck [...] Dang Member ID Guarantor Name 11/17/2023 1 [place] [facility] Blanche Allen [id number] Blanche Allen 12/05/2023 1 [facility] NET PLAN (MEDICAID HMO) [id number] Blanche Allen [id number] Blanche Allen Notes Date Note Type Note Provider Name and Address Organization Details Recorded Time 10/28/2022 text/html Wrist/Hand Injur y UCReported by PatientHPIFor associated symptoms, patient reportspain,swelling, andecchymosisbut reportsno redness. For source of patient information, patient reportspatient arrived at urgent care ambulatory. For location, patient reportsrightandhand. For severity, patient reportsmoderate. For duration, patient reports___ days(this morning). For aggravating factors, patient reportsgripping(palpat ion). For previous injury, patient reportsno prior injury to affected body part. For previous treatment, patient reportsnone. For prior imaging, patient reportsnone. For context, (punched wall).21 year old female presenting for evaluation of right hand pain, swelling and bruising after punching a wall this morning. The pain is worse with movement and palpation. No dayron numbness or weakness of the hand. No other injuries or complaints. No skin redness, abrasons or lacerations.ROS as noted in the HPI Dilia Cardenas MD [address] [place], [address], PA - [facility] 10/28/2022 20:07:46 11/17/2023 text/html 22 y/o female here after having a cold last week, with some SOB related to her asthma. 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
--- OUTSIDE RECORDS SUMMARY | 2025-10-18 14:02 | XMS_ITS | Encounter Summary ---
Author Organization [facility] Address [address] [place] [address] [place] [address] Phone Care Team Providers Care Jet Inspector Name Role Phone Carmelina Lamar MD Unavailable [phone] Carmelina Lamar MD Primary Care Provider + Unknown, Unknown Primary Care Provider Cedric Serrano MD Primary Care Provider [phone] Encounter Details Date Type Department Care Team (Late st Contact Info) Description 02/25/2023 Procedure Pass OR Admitting Dept - Virtual Department [address] [place], [place] [id number] Social History Tobacco Use Types Packs/Day Years [...] on filedocumented in this encounter Care Teams Jet Inspector Relationship Specialty Start Date End Date Carmelina Lamar MD [address] [place] [address] [email or web address] PCP - General Family Medicine 06/04/21 08/06/23 Unknown, Unknown, MD PCP - General 08/07/23 06/11/24 Cedric Bingham MD [address] [place] [address] [place] [address] PCP - General Internal Medicine 06/12/24 Carmelina Lamar MD [address] [place] [address] [email or web address] Insurance Assigned Provider 06/01/20 03/15/23 documented as of this encounter Additional Source Comments The information contained in this document represents components of the legal health record. It is not the complete legal health record.[facility]
--- OUTSIDE RECORDS SUMMARY | 2025-10-18 14:02 | XMS_ITS | Encounter Summary ---
Author Organization [facility] Address [address] [facility] [address] [place] [address] Phone Care Team Providers Care Manhole Builder Name Role Phone Carmelina Lamar MD Unavailable [phone] Carmelina Lamar MD Primary Care Provider + Unknown, Unknown Primary Care Provider Cedric Serrano MD Primary Care Provider [phone] Reason for Referral * Outpatient Procedure - Closed Specialty Diagnoses / Procedures Referred By Contac t Referred To Contact Radiology Diagnoses Localized swelling, mass and lump, right lower limb Procedures US Lower Extremity Veins Duplex (Right) US Lower Extremity Veins Duplex (Right) Toby Fletcher PA [address] [place] [address] Phone: tel: fax: [email or web address] t Referral ID Status Reason Start Date Expiration Date Visits Re quested Visits Authorized [id number] Closed 04/04/2022 04/04/2023 1 1 Encounter Details Date Type Department Care Team (Late st Contact Info) Description 04/04/2022 Ancillary Orders Virtual Department [address] [place] [address] Toby Fletcher PA [address] [place] [address] [email or web address] Localized swelling, mass and lump, [...] limb documented in this encounter Care Teams Manhole Builder Relationship Specialty Start Date End Date Carmelina Lamar MD [address] [place] [address] [email or web address] PCP - General Family Medicine 06/04/21 08/06/23 Unknown, Unknown, MD PCP - General 08/07/23 06/11/24 Cedric Bingham MD [address] [place] [address] PCP - General Internal Medicine 06/12/24 Carmelina Lamar MD [address] [place] [address] [email or web address] Insurance Assigned Provider 06/01/20 03/15/23 documented as of this encounter Additional Source Comments The information contained in this document represents components of the legal health record. It is not the complete legal health record.[facility]
--- OUTSIDE RECORDS SUMMARY | 2025-10-18 14:02 | XMS_ITS | Clinical Summary ---
Author Organization [facility] Address [address] [place] [address] Phone Care Team Providers Care Metal Sponge Making Machine Operator Name Role Phone Cedric Bingham MD Primary Care Provider [phone] Allergies No known active allergies Medications lamoTRIgine [...] Spoke with DAYNA Fletcher from [facility]. 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 -Discussed FM at this [place] [facility] -Review signs and symptoms of pre-term Labor [...] portal. -Discussed FM at this [place] [facility] -Review signs and symptoms of Pre-term Labor [...] dating. Bipolar disease in , third trimester 07/28/2002/07/2023 Overview (08/31/2021): -08/21/21 decided to stay on [...] able to be cared for with non [facility] care. She plans to breastfeed which can help. She is on Adderall which can increase risk of growth restriction, so we will check third trimester growth. Assessment & Plan (08/31/2021 4:37 PM EDT): Taking Adderall, lamictal, and celexa. Sees a psychiatrist every six weeks. 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 [...] 01/12/2032 01/11/2022, 018 HEPATITIS C SCREENING Completed 08/31/2021 , 08/31/2021, 08/31/2021 HIV ONE-TIME SCREENING (18-65 YEARS) Completed 08/31/2021 [...] this topic Medical Devices Implanted Type Area Rail Specialist Device Identifier Shelf Expiration Date Model / Serial / Lot Device Contraceptive 52mg Iud Mirena - Must Order In Multiples Of 5 - [id number] Implanted:Qty: 1 on 02/25/2023 by Janie Rios MD at [facility] N/A: Uterus [facility] 03/25/2025 [id number] / / [id number] Procedures Procedure Name Priority Date/Time Associated Diagnosis Comments HEPATITIS C ANTIBODY, QUALITATIVE Routine 08/31/2021 3:50 PM EDT Encounter for supervision of other normal in first trimester HM PAP SMEAR FOR RESULT ENTRY ONLY Routine 08/29/2021 from Last 3 Months or Most Recently Relevant to Health Maintenance Results * Hepatitis C antibody, qualitative (08/31/2021 3:50 PM EDT) HCV NON-REACTIV E NON-REACTI VE [facility] Blood 08/31/2021 3:50 PM EDT 08/31/2021 6:55 PM EDT us Arlene [facility] BLOOD BKR ORDERABLES Lenore frias Result [facility] [address] [place] [address] * PAP SMEAR FOR RESULT ENTRY ONLY (08/29/2021) us Historical Provider HEALTH MAINTENANCE Final Result from Last 3 Months or Most Recently Relevant to Health Maintenance Insurance [place] Advance Directives For more information, please contact: [phone] (9AM - 5PM [place], Friday-Friday) Documents on File Type Date Recorded Patient Guardian Family Member Expl anation Healthcare Proxy 02/26/2023 4:23 PM [...] Code Status Confirmed With: Patient Care Teams Metal Sponge Making Machine Operator Relationship Specialty Start Date End Date Cedric Bingham MD [address] [place] [address] [address] [place] [address] PCP - General Internal Medicine 06/12/24 Additional Source Comments The information contained in this document represents components of the legal health record. It is not the complete legal health record.[facility]
--- OUTSIDE RECORDS SUMMARY | 2025-10-18 14:02 | XMS_ITS | Clinical Summary ---
Author Organization [facility] Address [address] [place] [address] Care Team Providers Care Cut Out Marker Name Role Phone Unavailable Primary Care Provider Unavailabl e Surgical History Surgery Date Site/Laterality Comments TONSILLECTOMY PROCEDURE: HISTORICAL TONSILLECTOMY ADENOIDECTOMY PROCEDURE: HISTORICAL ADENOIDECTOMY WISDOM TOOTH EXTRACTION PROCEDURE: HISTORICAL WISDOM TEETH EXTRACTION OTHER SURGICAL HISTORY PROCEDURE: HISTORICAL D&C; COMMENT: TAB Medical History Medical History Date Comments HSV-2 (herpes simplex virus 2) infection DX:HSV-2 (herpes simplex virus 2) infection Menorrhagia DX:Menorrhagia Bipolar disorder ([facility] V2 4, [facility] V28) DX:Bipolar disorder ([facility]); C OMMENT: on lamictal, prescribed by her psychiatrist. Depression with anxiety DX:Depre ssion with anxiety; COMMENT: on Celexa prescribed by her psychiatrist Morbid obesity ([facility] V24, [facility] V28) DX:Morbid obesity ([facility]) Family History Medical History Relation Name Comments [...] Years Used Date Smoking Tobacco: Former Cigarettes 0 Q uit: 04/26/2017 Smokeless Tobacco: Never Alcohol [...] Depression Screening 10/27/2024 COVID-19 Vaccine (1 - 2024-2 6 season) 2025 Influenza Vaccine (#1) 2025 DTaP,Tdap,and [...]
--- OUTSIDE RECORDS SUMMARY | 2025-10-18 14:02 | XMS_ITS | Encounter Summary ---
Author Organization [facility] Address [address] [place] [address] [place] [address] Phone Care Team Providers Care Head Start Director Name Role Phone Carmelina Lamar MD Unavailable [phone] Carmelina Lamar MD Primary Care Provider + Unknown, Unknown Primary Care Provider Cedric Serrano MD Primary Care Provider [phone] Encounter Details Date Type Department Care Team (Late st Contact Info) Description 03/04/2023 Procedure Pass [facility] Scan - [facility] [address] [place] [address] Social History Tobacco Use Types Packs/Day Years [...] on filedocumented in this encounter Care Teams Head Start Director Relationship Specialty Start Date End Date Carmelina Lamar MD [address] [place] [address] [email or web address] PCP - General Family Medicine 06/04/21 08/06/23 Unknown, Unknown, MD PCP - General 08/07/23 06/11/24 Cedric Bingham MD [address] [place] [address] [place] [address] PCP - General Internal Medicine 06/12/24 Carmelina Lamar MD [address] [place] [address] [email or web address] Insurance Assigned Provider 06/01/20 03/15/23 documented as of this encounter Additional Source Comments The information contained in this document represents components of the legal health record. It is not the complete legal health record.[facility]
--- OUTSIDE RECORDS SUMMARY | 2025-10-18 14:02 | XMS_ITS | Encounter Summary ---
Author Organization [facility] Address [address] [place] [address] Phone Care Team Providers Care Repack Room Worker Name Role Phone Toby Fletcher Primary Care Provider [phone] Carmelina Lamar MD Unavailable [phone] Carmelina Lamar MD Primary Care Provider + Unknown, Unknown Primary Care Provider Cedric Serrano MD Primary Care Provider [phone] Encounter Details Date Type Department Care Team (Latest Contact Info) Description 06/01/2021 Transcribe Orders Virtual Department 30 [place] [address] Toby Fletcher PA 17 [place] [address] [email or web address] Pelvic and perineal pain (Primary Dx); Other [...] documented as of this encounter Care Teams Repack Room Worker Relationship Specialty Start Date End Date Toby Fletcher PA [address] [place] [address] [email or web address] PCP - General 04/27/20 06/03/21 Carmelina Lamar MD [address] [place] [address] [email or web address] PCP - General Family Medicine 06/04/21 08/06/23 Unknown, Unknown, MD PCP - General 08/07/23 06/11/24 Cedric Bingham MD [address] [place] [address] [place] [address] PCP - General Internal Medicine 06/12/24 Carmelina Lamar MD [address] [place] [address] [email or web address] Insurance Assigned Provider 06/01/20 03/15/23 documented as of this encounter Additional Source Comments The information contained in this document represents components of the legal health record. It is not the complete legal health record.[facility]
--- OUTSIDE RECORDS SUMMARY | 2025-10-18 14:02 | XMS_ITS | Encounter Summary ---
Author Organization [facility] Address [address] [place] [address] Phone Care Team Providers Care Spanish Literature Professor Name Role Phone Carmelina Lamar MD Unavailable Carmelina Lamar MD Primary Care Provider + Unknown, Unknown Primary Care Provider Cedric Serrano MD Primary Care Provider [phone] Encounter Details Date Type Department Care Team (Late st Contact Info) Description 04/04/2022 Transcribe Orders Virtual Department 30 [place] [address] Toby Fletcher PA 17 [place] [address] [email or web address] Right leg pain Social History Tobacco [...] limb documented in this encounter Care Teams Spanish Literature Professor Relationship Specialty Start Date End Date Lamar, Carmelina J, MD [address] [place] [address] [email or web address] PCP - General Family Medicine 06/04/21 08/06/23 Unknown, Unknown, MD PCP - General 08/07/23 06/11/24 Cedric Bingham MD [address] [place] [address] [place] [address] PCP - General Internal Medicine 06/12/24 Carmelina Lamar MD [address] [place] [address] [email or web address] Insurance Assigned Provider 06/01/20 03/15/23 documented as of this encounter Additional Source Comments The information contained in this document represents components of the legal health record. It is not the complete legal health record.[facility]
--- OUTSIDE RECORDS SUMMARY | 2025-10-18 14:02 | XMS_ITS | Encounter Summary ---
Author Organization [facility] Address [address] [place] [address] [address] [place] [address] Phone Care Team Providers Care Bonded Strand Operator Name Role Phone Carmelina Lamar MD Unavailable [phone] Carmelina Lamar MD Primary Care Provider + Unknown, Unknown Primary Care Provider Cedric Serrano MD Primary Care Provider [phone] Encounter Details Date Type Department Care Team (Late st Contact Info) Description 03/29/2022 Procedure Pass OR Admitting Dept - Virtual Department 30 [place] [address] Social History Tobacco Use Types Packs/Day Years [...] on filedocumented in this encounter Care Teams Bonded Strand Operator Relationship Specialty Start Date End Date Carmelina Lamar MD [address] [place] [address] [email or web address] PCP - General Family Medicine 06/04/21 08/06/23 Unknown, Ricardo, PCP - General 08/07/23 06/11/24 Cedric Bingham MD [address] [place] [address] [facility] [place] [address] PCP - General Internal Medicine 06/12/24 Carmelina Lamar MD [address] [place] [address] [email or web address] Insurance Assigned Provider 06/01/20 03/15/23 documented as of this encounter Additional Source Comments The information contained in this document represents components of the legal health record. It is not the complete legal health record.[facility]
== END 2025-10-18 14:53 | disposition home or self-care (01) ==
PROVIDERS: Visit Provider Physician Assistant
DX: N02.B9 Other recurrent and persistent immunoglobulin A nephropathy (principal); R31.0 Gross hematuria; B34.9 Viral infection, unspecified; Z13.9 Encounter for screening, unspecified

== ENCOUNTER 2025-10-18 12:57 | Outpatient (REF) | payer OTHER, SELFPAY ==
[2025-10-19 10:43] LABS: Alanine Aminotransferase 17 U/L (0-31); Albumin Level 3.5 g/dL (3.5-5.0); Alkaline Phosphatase 58 U/L (39-117); Anion Gap 14 (12-20); Aspartate Amino Transferase 27 U/L (5-31); Blood Urea Nitrogen 17 mg/dL (9-16); Calcium 8.5 mg/dL (8.4-10.2); Carbon Dioxide 20 mmol/L (22-29); Chloride 107 mmol/L (96-108); Estimated Glomerular Filt Rate > 60; Potassium 4.1 mmol/L (3.3-5.1); Sodium 137 mmol/L (135-145); Total Protein 6.2 g/dL (6.5-8.0)
== END 2025-10-18 12:58 | disposition home or self-care (01) ==
LOC: HO.HMGCLDS 12:57
PROVIDERS: Visit Provider Physician Assistant
DX: N02.B9 Other recurrent and persistent immunoglobulin A nephropathy (principal); B34.9 Viral infection, unspecified; R09.89 Other specified symptoms and signs involving the circulatory and respiratory systems
CPT/HCPCS: 36415; 80053; 86160

== ENCOUNTER 2025-10-19 10:07 | Outpatient (REF) | payer OTHER, SELFPAY ==
--- OUTSIDE RECORDS SUMMARY | 2025-10-19 10:15 | XMS_ITS | Encounter Summary ---
Author Organization [facility] Address [address] [place] [address] Phone Care Team Providers Care Exercise Teacher Name Role Phone Carmelina Lamar MD Unavailable [phone] Carmelina Lamar MD Primary Care Provider + Unknown, Unknown Primary Care Provider Cedric Serrano MD Primary Care Provider [phone] Encounter Details Date Type Department Care Team (Late st Contact Info) Description 04/04/2022 Transcribe Orders Virtual Department 30 [place] [address] Toby Fletcher PA 17 [place] [address] [email or web address] Right leg pain Social History Tobacco [...] limb documented in this encounter Care Teams Exercise Teacher Relationship Specialty Start Date End Date Lamar, Carmelina J, MD [address] [place] [address] [email or web address] PCP - General Family Medicine 06/04/21 08/06/23 Unknown, Unknown, MD PCP - General 08/07/23 06/11/24 Cedric Bingham MD [address] [place] [address] [place] [address] PCP - General Internal Medicine 06/12/24 Carmelina Lamar MD [address] [place] [address] [email or web address] Insurance Assigned Provider 06/01/20 03/15/23 documented as of this encounter Additional Source Comments The information contained in this document represents components of the legal health record. It is not the complete legal health record.[facility]
--- OUTSIDE RECORDS SUMMARY | 2025-10-19 10:15 | XMS_ITS | Encounter Summary ---
Author Organization [facility] Address [address] [place] [address] Phone Care Team Providers Care Retail General Manager Name Role Phone Carmelina Lamar MD Unavailable [phone] Carmelina Lamar MD Primary Care Provider + Unknown, Unknown Primary Care Provider Cedric Serrano MD Primary Care Provider [phone] Reason for Referral * Outpatient Procedure - Closed Specialty Diagnoses / Procedures Referred By Contac t Referred To Contact Radiology Diagnoses Localized swelling, mass and lump, right lower limb Procedures US Lower Extremity Veins Duplex (Right) US Lower Extremity Veins Duplex (Right) Toby Fletcher PA [address] [place] [address] Phone: tel: fax: [email or web address] Referral ID Status Reason Start Date Expiration Date Visits Re quested Visits Authorized [id number] Closed 04/04/2022 04/04/2023 1 1 Encounter Details Date Type Department Care Team (Late st Contact Info) Description 04/04/2022 Ancillary Orders Virtual Department [address] [place] [address] Toby Fletcher PA [address] [place] [address] [email or web address] Localized swelling, mass and lump, right [...] limb documented in this encounter Care Teams Retail General Manager Relationship Specialty Start Date End Date Carmelina Lamar MD [address] [place] [address] [email or web address] PCP - General Family Medicine 06/04/21 08/06/23 Unknown, Unknown, MD PCP - General 08/07/23 06/11/24 Cedric Bingham MD [address] [place] [address] PCP - General Internal Medicine 06/12/24 Carmelina Lamar MD [address] [place] [address] [email or web address] Insurance Assigned Provider 06/01/20 03/15/23 documented as of this encounter Additional Source Comments The information contained in this document represents components of the legal health record. It is not the complete legal health record.[facility]
--- OUTSIDE RECORDS SUMMARY | 2025-10-19 10:15 | XMS_ITS | Encounter Summary ---
Author Organization [facility] Address [address] [place] [address] [place] [address] Phone Care Team Providers Care Geological Manager Name Role Phone Carmelina Lamar MD Unavailable [phone] Carmelina Lamar MD Primary Care Provider + Unknown, Unknown Primary Care Provider Cedric Serrano MD Primary Care Provider [phone] Encounter Details Date Type Department Care Team (Late st Contact Info) Description 03/04/2023 Procedure Pass [facility], [facility] 30 [place] [address] Social History Tobacco Use Types Packs/Day Years [...] on filedocumented in this encounter Care Teams Geological Manager Relationship Specialty Start Date End Date Carmelina Lamar MD [address] [place] [address] [email or web address] PCP - General Family Medicine 06/04/21 08/06/23 Unknown, Unknown, MD PCP - General 08/07/23 06/11/24 Cedric Bingham MD [address] [place] [address] [place] [address] PCP - General Internal Medicine 06/12/24 Carmelina Lamar MD [address] [place] [address] [email or web address] Insurance Assigned Provider 06/01/20 03/15/23 documented as of this encounter Additional Source Comments The information contained in this document represents components of the legal health record. It is not the complete legal health record.[facility]
--- OUTSIDE RECORDS SUMMARY | 2025-10-19 10:15 | XMS_ITS | Clinical Summary ---
Author Organization [facility] Address [address] [place] [address] Care Team Providers Care Facility Attendant Name Role Phone Cedric Bingham MD Primary Care Provider [phone] Social History Tobacco Use Types Packs/Day Years [...] PCV) 2017 Influenza Vaccine (#1) 2025 Insurance [facility] Medicaid Care Teams Facility Attendant Relationship Specialty Start Date End Date Cedric Bingham MD [address] [place] [address] PCP - General Internal Medicine 03/27/24
--- OUTSIDE RECORDS SUMMARY | 2025-10-19 10:15 | XMS_ITS | Encounter Summary ---
Author Organization [facility] Address [address] [place] [address] Phone Care Team Providers Care Rn Lpn Cna Name Role Phone Toby Fletcher Primary Care Provider [phone] Carmelina Lamar MD Unavailable [phone] Carmelina Lamar MD Primary Care Provider + Unknown, Unknown Primary Care Provider Cedric Serrano MD Primary Care Provider [phone] Encounter Details Date Type Department Care Team (Late st Contact Info) Description 04/27/2020 Ancillary Orders Virtual Department 30 [place], [place] [id number] Toby Fletcher PA 17 [place] [address] [email or web address] Adnexal pain Social History Tobacco Use Types [...] documented as of this encounter Care Teams Rn Lpn Cna Relationship Specialty Start Date End Date Toby Fletcher PA [address] [place] [address] [email or web address] PCP - General 04/27/20 06/03/21 Carmelina Lamar MD [address] [place] [address] PCP - General Family Medicine 06/04/21 08/06/23 Unknown, Ricardo, PCP - General 08/07/23 06/11/24 Cedric Bingham MD [address] [place] [address] [place] [address] PCP - General Internal Medicine 06/12/24 Carmelina Lamar MD [address] [place] [address] Insurance Assigned Provider 06/01/20 03/15/23 documented as of this encounter Additional Source Comments The information contained in this document represents components of the legal health record. It is not the complete legal health record.[facility]
--- OUTSIDE RECORDS SUMMARY | 2025-10-19 10:15 | XMS_ITS | Clinical Summary ---
Author Organization [facility] Address [address] [place] [address] Care Team Providers Care Carnival Worker Name Role Phone Unavailable Primary Care Provider Unavailabl e Surgical History Surgery Date Site/Laterality Comments TONSILLECTOMY PROCEDURE: HISTORICAL TONSILLECTOMY ADENOIDECTOMY PROCEDURE: HISTORICAL ADENOIDECTOMY WISDOM TOOTH EXTRACTION PROCEDURE: HISTORICAL WISDOM TEETH EXTRACTION OTHER SURGICAL HISTORY PROCEDURE: HISTORICAL D&C; COMMENT: TAB Medical History Medical History Date Comments HSV-2 (herpes simplex virus 2) infection DX:HSV-2 (herpes simplex virus 2) infection Menorrhagia DX:Menorrhagia Bipolar disorder ([facility] V2 4, [facility] V28) DX:Bipolar disorder ([facility]); C OMMENT: on lamictal, prescribed by her psychiatrist. Depression with anxiety DX:Depre ssion with anxiety; COMMENT: on Celexa prescribed by her psychiatrist Morbid obesity ([facility] V24, [facility] V28) DX:Morbid obesity ([facility]) Family History Medical History Relation [...]
--- OUTSIDE RECORDS SUMMARY | 2025-10-19 10:15 | XMS_ITS | Encounter Summary ---
Author Organization [facility] Address [address] [place] [address] [place] [address] Phone Care Team Providers Care Family Nurse Practitioner Name Role Phone Carmelina Lamar MD Unavailable [phone] Carmelina Lamar MD Primary Care Provider + Unknown, Unknown Primary Care Provider Cedric Serrano MD Primary Care Provider [phone] Encounter Details Date Type Department Care Team (Late st Contact Info) Description 02/25/2023 Procedure Pass OR Admitting Dept - Virtual Department 30 [place], [place] [id number] Social History Tobacco Use Types Packs/Day Years [...] on filedocumented in this encounter Care Teams Family Nurse Practitioner Relationship Specialty Start Date End Date Carmelina Lamar MD [address] [place] [address] [email or web address] PCP - General Family Medicine 06/04/21 08/06/23 Unknown, Unknown, MD PCP - General 08/07/23 06/11/24 Cedric Bingham MD [address] [place] [address] [place] [address] PCP - General Internal Medicine 06/12/24 Carmelina Lamar MD [address] [place] [address] [email or web address] Insurance Assigned Provider 06/01/20 03/15/23 documented as of this encounter Additional Source Comments The information contained in this document represents components of the legal health record. It is not the complete legal health record.[facility]
--- OUTSIDE RECORDS SUMMARY | 2025-10-19 10:15 | XMS_ITS | Encounter Summary ---
Author Organization [facility] Address [address] [place] [address] [address] [place] [address] Phone Care Team Providers Care Valve Setter Name Role Phone Carmelina Lamar MD Unavailable [phone] Carmelina Lamar MD Primary Care Provider + Unknown, Unknown Primary Care Provider Cedric Serrano MD Primary Care Provider [phone] Encounter Details Date Type Department Care Team (Late st Contact Info) Description 03/29/2022 Procedure Pass [place] Admitting Dept - Virtual Department 30 [place] [address] Social History Tobacco Use Types Packs/Day Years [...] on filedocumented in this encounter Care Teams Valve Setter Relationship Specialty Start Date End Date Carmelina Lamar MD [address] [place] [address] [email or web address] PCP - General Family Medicine 06/04/21 08/06/23 Unknown, Ricardo, PCP - General 08/07/23 06/11/24 Cedric Bingham MD [address] [place] [address] [facility] [place] [address] PCP - General Internal Medicine 06/12/24 Carmelina Lamar MD [address] [place] [address] [email or web address] Insurance Assigned Provider 06/01/20 03/15/23 documented as of this encounter Additional Source Comments The information contained in this document represents components of the legal health record. It is not the complete legal health record.[facility]
--- OUTSIDE RECORDS SUMMARY | 2025-10-19 10:15 | XMS_ITS | Clinical Summary ---
Author Organization [facility] Address [address] [place] [address] Phone Care Team Providers Care Senior Enterprise Architect Name Role Phone Cedric Bingham MD Primary Care Provider [phone] Allergies No known active allergies Medications lamoTRIgine [...] PM EST): Spoke with DAYNA Fletcher from [facility]. 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 -Discussed FM at this [facility] and [facility] -Review signs and symptoms of pre-term Labor [...] portal. -Discussed FM at this [place] and [facility] -Review signs and symptoms of Pre-term Labor [...] able to be cared for with non community health systems care. She plans to breastfeed which can help. She is on Adderall which can increase risk of growth restriction, so we will check third trimester growth. Assessment & Plan (08/31/2021 4:37 PM EDT): Taking Adderall, lamictal, and celexa. Sees a psychiatrist every six weeks. 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 [...] this topic Medical Devices Implanted Type Area Railroad Inspector Device Identifier Shelf Expiration Date Model / Serial / Lot Device Contraceptive 52mg Iud Mirena - Must Order In Multiples Of 5 - [id number] Implanted:Qty: 1 on 02/25/2023 by Janie Rios MD at [facility] N/A: Uterus [facility] 03/25/2025 [id number] / / [id number] Procedures Procedure Name Priority Date/Time Associated Diagnosis Comments HEPATITIS C ANTIBODY, QUALITATIVE Routine 08/31/2021 3:50 PM EDT Encounter for supervision of other normal in first trimester HM PAP SMEAR FOR RESULT ENTRY ONLY Routine 08/29/2021 from Last 3 Months or Most Recently Relevant to Health Maintenance Results * Hepatitis C antibody, qualitative (08/31/2021 3:50 PM EDT) HCV NON-REACTIV E NON-REACTI VE [facility] Blood 08/31/2021 3:50 PM EDT 08/31/2021 6:55 PM EDT us Arlene MADRIGAL LAB BLOOD BKR ORDERABLES Lenore frias Result [facility] [address] [place] [address] * PAP SMEAR FOR RESULT ENTRY ONLY (08/29/2021) us Historical Provider HEALTH MAINTENANCE Final Result from Last 3 Months or Most Recently Relevant to Health Maintenance Insurance [place] Advance Directives For more information, please contact: [phone] (9AM - 5PM [place], Friday-Friday) Documents on File Type Date Recorded Patient Candy Maker Expl anation Healthcare Proxy 02/26/2023 4:23 PM [...] Code Status Confirmed With: Patient Care Teams Senior Enterprise Architect Relationship Specialty Start Date End Date Cedric Bingham MD [address] [place] [address] [address] [place] [address] PCP - General Internal Medicine 06/12/24 Additional Source Comments The information contained in this document represents components of the legal health record. It is not the complete legal health record.[facility]
--- OUTSIDE RECORDS SUMMARY | 2025-10-19 10:15 | XMS_ITS | Encounter Summary ---
Author Organization [facility] Address [address] [place] [address] Phone Care Team Providers Care Photographer Helper Name Role Phone Toby Fletcher Primary Care Provider [phone] Carmelina Lamar MD Unavailable Carmelina Lamar MD Primary Care Provider + Unknown, Unknown Primary Care Provider Cedric Serrano MD Primary Care Provider [phone] Encounter Details Date Type Department Care Team (Latest Contact Info) Description 06/01/2021 Transcribe Orders Virtual Department 30 [place] [address] Toby Fletcher PA [address] [place] [address] [email or web address] Pelvic and perineal pain (Primary Dx); Other [...] documented as of this encounter Care Teams Photographer Helper Relationship Specialty Start Date End Date Toby Fletcher PA [address] [place] [address] [email or web address] PCP - General 04/27/20 06/03/21 Carmelian Lamar MD [address] [place] [address] [email or web address] PCP - General Family Medicine 06/04/21 08/06/23 Unknown, Unknown, MD PCP - General 08/07/23 06/11/24 Cedric Bingham MD [address] [place] [address] [place] [address] PCP - General Internal Medicine 06/12/24 Carmelina Lamar MD [address] [place] [address] [email or web address] Insurance Assigned Provider 06/01/20 03/15/23 documented as of this encounter Additional Source Comments The information contained in this document represents components of the legal health record. It is not the complete legal health record.[facility]
[2025-10-19 11:32] LABS: Resp Syncy Virus RNA Qual PCR NEGATIVE (Negative); SARS COV2 PCR INHOUSE NEGATIVE (Negative)
== END 2025-10-19 10:08 | disposition home or self-care (01) ==
LOC: HO.LNP 10:07
PROVIDERS: Visit Provider Physician Assistant
DX: R09.89 Other specified symptoms and signs involving the circulatory and respiratory systems (principal); N39.0 Urinary tract infection, site not specified
CPT/HCPCS: 87086; 87637